=== PATIENT | male | born 1955 | race Caucasian/White ===

== ENCOUNTER 2016-08-30 20:20 | Inpatient (IN) | payer MEDICARE, MEDICAID ==
[~2016-08-30] VITALS: Ht 180.3 cm; Wt 72.6 kg
[~2016-08-30 20:20] MED LIST: CEPH-38 PO; CYCL10TA9; ENAL20TA PO; FLUT1DIS27 IH; LISI1TAB10 PO; MELO15TA39 PO; MORP60TA12 PO; OMEP20CA12 PO; OXYC-197 PO; RT-ALBUINH IH; [UNRECOGNIZED DRUG - OTHER]
[2016-08-30] MEDS ORDERED: RT-ALBUTEROL/IPRATROPIUM 3 ML (DUONEB) VIAL ONE (20:28)
[2016-08-30] MEDS ORDERED: OXYMETAZOLINE (AFRIN) 0.05% NA 15 ML BTL ONE (20:32)
[2016-08-30] MEDS: OXYMETAZOLINE (AFRIN) 0.05% NA 15 ML BTL SCH (20:36)
[2016-08-30] MEDS ORDERED: RT-ALBUTEROL SULF 2.5 MG/3 ML PRE-MIX VIAL ONE (20:38)
--- NOTE | 2016-08-30 20:44 | ED Cough/URI ---
General Chief Complaint: Respiratory Problems Stated Complaint: COUGH/THROWING UP BLOOD Source: patient Exam Limitations: no limitations History of Present Illness Time seen by provider: 20:43 Initial Comments To ER with shortness of breath and difficulty breathing for the past several weeks, worse today. He also has a nosebleed currently. This is originating from the left nostril. He wears oxygen at 3 L [id number]. He quit smoking one month ago. He is not on anticoagulation. Timing/Duration: just prior to arrival Severity/Quality: dry cough Associated Symptoms: cough Allergies and Home Medications Allergies Coded Allergies: No Known Drug Allergies (Unverified , 10/30/15) Home Medications Albuterol Sulfate 18 Gm Hfa.aer.ad, 1-2 PUFF IH Q4H PRN for SHORTNESS OF BREATH , #1 Ref 0 Prescribed by: YANETH MONTILLA on 10/29/15 233 Cyclobenzaprine Hcl 10 Mg Tablet, BID, (Reported) Enalapril Maleate 20 Mg Tablet, 20 MG PO DAILY, (Reported) Lisinopril/Hydrochlorothiazide 1 Each Tablet, 1 EACH PO DAILY, #30 Ref 0 Prescribed by: YANETH MONTILLA on 10/29/15 2322 Meloxicam 15 Mg Tablet, 15 MG PO DAILY, #30 Ref 0 Prescribed by: YANETH MONTILLA on 10/29/15 232 Morphine Sulfate 60 Mg Tablet.sa, 60 MG PO BID, (Reported) Oxycodone HCl/Acetaminophen 1 Each Tablet, 1 EACH PO Q4H PRN for PAIN, #14 Ref 0 Prescribed by: YANETH MONTILLA on 10/29/15 232 [Progene] , (Reported) Constitutional: see HPI EENTM: epistaxis, see HPI Respiratory: no symptoms reported, short of breath Cardiovascular: no symptoms reported Genitourinary: no symptoms reported Musculoskeletal: no symptoms reported Skin: no symptoms reported Psychiatric/Neurological: No Symptoms Reported Hematologic/Lymphatic: No Symptoms Reported Immunological/Allergic: no symptoms reported Past Osvylxu-Eymjqc-Fyizku Hx Patient Social History Alcohol Use: Occasionally Uses Recreational Drug Use: No Smoking Status: Former Smoker Recent Foreign Travel: No Contact w/Someone Who Travel: No Recent Hopitalizations: No Immunizations Up To Date Tetanus Booster (TDap): Less than 5yrs Seasonal Allergies Seasonal Allergies: No Surgeries HX Surgeries: Yes (Back fusion, Colon resection) Respiratory Hx Respiratory Disorders: No Cardiovascular Hx Cardiac Disorders: Yes Cardiac Disorders: Hypertension Neurological Hx Neurological Disorders: No Reproductive System Hx Reproductive Disorders: No Genitourinary Hx Genitourinary Disorders: No Gastrointestinal Hx Gastrointestinal Disorders: No Musculoskeletal Hx Musculoskeletal Disorders: Yes Musculoskeletal Disorders: Chronic Back Pain Endocrine Hx Endocrine Disorders: No HEENT HX ENT Disorders: No Cancer Hx Cancer: No Psychosocial Hx Psychiatric Problems: No Integumentary HX Skin/Integumentary Disorder: No Blood Transfusions Hx Blood Disorders: No Physical Exam Vital Signs Vital Sign - Last 12Hours 08/30/16 08/30/16 20:21 20:30 Temp 97.7 Pulse 104 Resp 24 B/P (MAP) 180/117 Pulse Ox 93 O2 Delivery Room Air O2 Flow Rate 5.00 Capillary Refill : General Appearance: WD/WN, moderate distress Eyes: Bilateral Eye EOMI, Bilateral Eye Normal Inspection, Bilateral Eye PERRL HEENT: PERRL/EOMI, normal ENT inspection, other (active bleeding from the left side of the septum anteriorly) Neck: non-tender, full range of motion Respiratory: no respiratory distress, no accessory muscle use, decreased breath sounds Gastrointestinal: normal bowel sounds, non tender, soft Neurologic/Psychiatric: alert, normal mood/affect, oriented x 3 Skin: normal color, warm/dry Progress/Results/Core Measures Results/Orders Lab Results Laboratory Tests Test 08/30/16 20:28 Range/Units White Blood Count 20.9 H 4.3-11.0 10^3/uL Red Blood Count 4.83 4.35-5.85 10^6/uL Hemoglobin 14.9 13.3-17.7 G/DL Hematocrit 45 40-54 % Mean Corpuscular Volume 94 80-99 FL Mean Corpuscular Hemoglobin 31 25-34 PG Mean Corpuscular Hemoglobin Concent 33 32-36 G/DL Red Cell Distribution Width 13.6 10.0-14.5 % Platelet Count 384 130-400 10^3/uL Mean Platelet Volume 9.5 7.4-10.4 FL Neutrophils (%) (Auto) 90 H 42-75 % Lymphocytes (%) (Auto) 6 L 12-44 % Monocytes (%) (Auto) 4 0-12 % Eosinophils (%) (Auto) 0 0-10 % Basophils (%) (Auto) 0 0-10 % Neutrophils # (Auto) 18.8 H 1.8-7.8 X 10^3 Lymphocytes # (Auto) 1.2 1.0-4.0 X 10^3 Monocytes # (Auto) 0.8 0.0-1.0 X 10^3 Eosinophils # (Auto) 0.0 0.0-0.3 10^3/uL Basophils # (Auto) 0.0 0.0-0.1 10^3/uL Neutrophils % (Manual) 70 % Lymphocytes % (Manual) 7 % Monocytes % (Manual) 2 % Eosinophils % (Manual) 0 % Basophils % (Manual) 0 % Band Neutrophils 21 % Nucleated Red Blood Cells 1 Toxic Granulation 1+ Blood Morphology Comment NORMAL Sodium Level 141 135-145 MMOL/L Potassium Level 3.1 L 3.6-5.0 MMOL/L Chloride Level 96 L 98-107 MMOL/L Carbon Dioxide Level 25 21-32 MMOL/L Anion Gap 20 H 5-14 MMOL/L Blood Urea Nitrogen 33 H 7-18 MG/DL Creatinine 1.09 0.60-1.30 MG/DL Estimat Glomerular Filtration Rate > 60 BUN/Creatinine Ratio 30 Glucose Level 152 H 70-105 MG/DL Calcium Level 10.6 H 8.5-10.1 MG/DL Total Bilirubin 0.6 0.1-1.0 MG/DL Aspartate Amino Transf (AST/SGOT) 86 H 5-34 U/L Alanine Aminotransferase (ALT/SGPT) 101 H 0-55 U/L Alkaline Phosphatase 148 H 40-136 U/L Total Protein 8.8 H 6.4-8.2 G/DL Albumin 4.2 3.2-4.5 G/DL My Orders Orders - EDGARDO HAMM APRN Oxymetazoline 0.05% Nasal Freer (Afrin 0. (08/30/16 21:00) Saline Lock/Iv-Start (08/30/16 20:41) Cbc With Automated Diff (08/30/16 20:41) Comprehensive Metabolic Panel (08/30/16 20:41) Chest 1 View, Ap/Pa Only (08/30/16 20:41) Methylprednisolone Sod Succ (Solu-Medrol (08/30/16 20:45) Albuterol Pre-Mix Nebs (Rt) (Proventil P (08/30/16 20:45) Albuterol/Ipra Inhalation Soln (Duoneb I (08/30/16 20:45) Svn Sm Volume Nebulizer Rt-Rfs (08/30/16 20:41) Albuterol Pre-Mix Nebs (Rt) (Proventil P (08/30/16 20:38) Manual Differential (08/30/16 20:28) Clonidine Tablet (Catapres Tablet) (08/30/16 21:00) Medications Given in ED Current Medications Medications Dose Ordered Sig/Vanda Route Start Time Stop Time Status Last Admin Dose Admin Albuterol/ Ipratropium 3 ml ONCE ONCE INH 08/30/16 20:45 08/30/16 20:46 DC 08/30/16 20:30 3 ML Methylprednisolone Sodium Succinate 125 mg ONCE ONCE IVP 08/30/16 20:45 08/30/16 20:46 DC 08/30/16 20:54 125 MG Vital Signs/I&O Vital Sign - Last 12Hours 08/30/16 08/30/16 08/30/16 20:21 20:30 20:40 Temp 97.7 Pulse 104 Resp 24 B/P (MAP) 180/117 Pulse Ox 93 94 O2 Delivery Room Air O2 Flow Rate 5.00 5.00 Diagnostic Imaging Diagonstic Imaging: Xray Plain Films/CT/US/NM/MRI: chest Comments NAME: COREY CLAROS [facility] REC#: [id number] PT STATUS: REG ER : 1955 PHYSICIAN: EDGARDO HAMM APRN ADMIT DATE: 08/30/16/ER Draft Date of Exam:08/30/16 CHEST 1 VIEW, AP/PA ONLY INDICATION: Shortness of breath. Comparison is made with prior examination 05/11/14 FINDINGS: The heart size is normal. There is a right basilar pneumonia. There is no pleural effusion or pneumothorax. Mediastinum is unremarkable. IMPRESSION: Right base infiltrate suspect for pneumonia. Dictated on workstation # [id number] Dict: 08/30/162110 Trans: 08/30/162114 [id number] Interpreted by: ADDIE ESPINOZA Electronically signed by: Departure Communication Time/Spoke to Admitting Phy: 21:26 Communication I discussed the case with Dr. Ramirez. We will admit the patient, IV fluids, steroids, breathing treatments and antibiotics. Impression Impression: Primary Impression: COPD exacerbation Additional Impressions: Hypertension Epistaxis RLL pneumonia Disposition: ADMITTED INPATIENT Condition: Stable Decision to Admit Reason: Admit from ER (General) Decision to Admit/Date: August 30, 2016 Time/Decision to Admit Time: 21:26 Departure-Patient Inst. Referrals: [facility] (PCP/Family) Primary Care Physician EDGARDO HAMM APRN August 30, 2016 20:44
[2016-08-30] MEDS ORDERED: methylPREDNISolone 125 MG (Solu-MEDROL) VIAL IVP ONE (20:45)
[2016-08-30] MEDS ORDERED: RT-ALBUTEROL/IPRATROPIUM 3 ML (DUONEB) VIAL INH ONE (20:45)
[2016-08-30] MEDS ORDERED: RT-ALBUTEROL SULF 2.5 MG/3 ML PRE-MIX VIAL IH SCH (20:45)
[2016-08-30 20:52] LABS: BASOPHILS % (AUTO) 0 % (0-10); EOSINOPHILS % (AUTO) 0 % (0-10); LYMPHOCYTES # (AUTO) 1.2 X 10^3 (1.0-4.0); LYMPHOCYTES % (AUTO) 6 % (12-44); MEAN CORPUSCULAR HEMOGLOBIN 31 PG (25-34); MEAN CORPUSCULAR HGB CONC 33 G/DL (32-36); MEAN CORPUSCULAR VOLUME 94 FL (80-99); MEAN PLATELET VOLUME 9.5 FL (7.4-10.4); MONOCYTES # (AUTO) 0.8 X 10^3 (0.0-1.0); MONOCYTES % (AUTO) 4 % (0-12); NEUTROPHILS # (AUTO) 18.8 X 10^3 (1.8-7.8); NEUTROPHILS % (AUTO) 90 % (42-75); PLATELET COUNT 384 10^3/uL (130-400); RED BLOOD COUNT 4.83 10^6/uL (4.35-5.85); RED CELL DISTRIBUTION WIDTH 13.6 % (10.0-14.5); WHITE BLOOD COUNT 20.9 10^3/uL (4.3-11.0)
[2016-08-30] MEDS ORDERED: cloNIDine 0.1 MG (CATAPRES) TAB PO ONE (21:00)
[2016-08-30 21:01] LABS: ALANINE AMINOTRANSFERASE 101 U/L (0-55); ALBUMIN 4.2 G/DL (3.2-4.5); ANION GAP 20 MMOL/L (5-14); ASPARTATE AMINO TRANSFERASE 86 U/L (5-34); BILIRUBIN,TOTAL 0.6 MG/DL (0.1-1.0); BLOOD UREA NITROGEN 33 MG/DL (7-18); BUN/CREATININE RATIO 30; CALCIUM 10.6 MG/DL (8.5-10.1); CARBON DIOXIDE 25 MMOL/L (21-32); CHLORIDE 96 MMOL/L (98-107); CREATININE SERUM 1.09 MG/DL (0.60-1.30); GFR ESTIMATED > 60; GLUCOSE 152 MG/DL (70-105); POTASSIUM 3.1 MMOL/L (3.6-5.0); SODIUM 141 MMOL/L (135-145); TOTAL PROTEIN 8.8 G/DL (6.4-8.2)
[2016-08-30 21:10] LABS: BAND NEUTROPHILS 21 %; BASOPHILS % (MANUAL) 0 %; EOSINOPHILS % (MANUAL) 0 %; LYMPHOCYTES % (MANUAL) 7 %; NEUTROPHILS % (MANUAL) 70 %
--- NOTE | 2016-08-30 21:15 | Diagnostic Imaging Report ---
INDICATION: Shortness of breath. Comparison is made with prior examination 05/11/14 FINDINGS: The heart size is normal. There is a right basilar pneumonia. There is no pleural effusion or pneumothorax. Mediastinum is unremarkable. IMPRESSION: Right base infiltrate suspect for pneumonia. Dictated by: Dictated on workstation # [id number]
[2016-08-30] MEDS ORDERED: PIPERACILLIN SODIUM/TAZOBACTAM 4.5 GM in NS (IVPB) 100 ML IV ONE (21:45)
[2016-08-30] MEDS ORDERED: NS IV 1000 ML 1,000 ML IV SCH (21:45)
[2016-08-30 22:25] VITALS: BP 181/86
[2016-08-30] MEDS: NS IV 1000 ML 1,000 ML IV SCH (23:43)
[2016-08-30] MEDS: LEVOFLOXACIN 750 MG/150 ML D5W (PRE-MIX) IV SCH (23:43)
[2016-08-31 00:31] VITALS: BP 147/74
[2016-08-31] MEDS ORDERED: RT-ALBUTEROL/IPRATROPIUM 3 ML (DUONEB) VIAL INH PRN (01:30)
[2016-08-31] MEDS: RT-ALBUTEROL/IPRATROPIUM 3 ML (DUONEB) VIAL INH SCH ×6 (02:00→22:04)
[2016-08-31 02:47] LABS: ABG BASE EXCESS -2.7 MMOL/L (-2.5-2.5); ABG HCO3 21 MMOL/L (23-27); ABG OXYGEN SATURATION 94 % (94-100); ABG PCO2 36 MMHG (35-45); ABG PO2 69 MMHG (79-93); ABG TCO2 22.5 MMOL/L (21.0-31.0)
[2016-08-31 02:48] LABS: ALLENS TEST YES-POS; PATIENT TEMP 98.7
[2016-08-31 04:00] VITALS: BP 162/86
[2016-08-31] MEDS: PIPERACILLIN/TAZOBACTAM 4.5 GM/NS100 ML IVPB IV SCH ×6 (04:30→20:44)
[2016-08-31] MEDS: methylPREDNISolone 40 MG/ML (Solu-MEDROL) VIAL IV SCH ×3 (04:30→20:44)
[2016-08-31 04:36] LABS: BASOPHILS % (AUTO) 0 % (0-10); EOSINOPHILS % (AUTO) 0 % (0-10); LYMPHOCYTES # (AUTO) 0.4 X 10^3 (1.0-4.0); LYMPHOCYTES % (AUTO) 2 % (12-44); MEAN CORPUSCULAR HEMOGLOBIN 31 PG (25-34); MEAN CORPUSCULAR HGB CONC 33 G/DL (32-36); MEAN CORPUSCULAR VOLUME 94 FL (80-99); MEAN PLATELET VOLUME 9.7 FL (7.4-10.4); MONOCYTES # (AUTO) 0.1 X 10^3 (0.0-1.0); MONOCYTES % (AUTO) 1 % (0-12); NEUTROPHILS # (AUTO) 18.9 X 10^3 (1.8-7.8); NEUTROPHILS % (AUTO) 97 % (42-75); PLATELET COUNT 316 10^3/uL (130-400); RED BLOOD COUNT 4.12 10^6/uL (4.35-5.85); RED CELL DISTRIBUTION WIDTH 13.4 % (10.0-14.5); WHITE BLOOD COUNT 19.4 10^3/uL (4.3-11.0)
[2016-08-31 04:57] LABS: ALANINE AMINOTRANSFERASE 137 U/L (0-55); ALBUMIN 3.5 G/DL (3.2-4.5); ANION GAP 15 MMOL/L (5-14); ASPARTATE AMINO TRANSFERASE 188 U/L (5-34); BILIRUBIN,TOTAL 0.4 MG/DL (0.1-1.0); BLOOD UREA NITROGEN 26 MG/DL (7-18); BUN/CREATININE RATIO 30; CALCIUM 9.7 MG/DL (8.5-10.1); CARBON DIOXIDE 24 MMOL/L (21-32); CHLORIDE 99 MMOL/L (98-107); CREATININE SERUM 0.88 MG/DL (0.60-1.30); GFR ESTIMATED > 60; GLUCOSE 197 MG/DL (70-105); POTASSIUM 3.1 MMOL/L (3.6-5.0); SODIUM 138 MMOL/L (135-145); TOTAL PROTEIN 7.2 G/DL (6.4-8.2)
[2016-08-31] MEDS ORDERED: FUROSEMIDE 40 MG/4 ML INJ (LASIX) IVP ONE (05:00)
[2016-08-31 07:27] VITALS: BP 174/91
[2016-08-31] MEDS: NS IV 1000 ML 1,000 ML IV SCH (07:30)
[2016-08-31] MEDS ORDERED: KCL 20 MEQ TAB (K-DUR) PO NR (09:49)
[2016-08-31] MEDS ORDERED: OXYC-471 PO (10:03)
[2016-08-31] MEDS ORDERED: ALBU18HF2 INH (10:03)
[2016-08-31] MEDS ORDERED: MORP100T37 PO (10:03)
[2016-08-31] MEDS: OXYMETAZOLINE (AFRIN) 0.05% NA 15 ML BTL SCH (11:30)
[2016-08-31 12:00] VITALS: BP 187/95
[2016-08-31] MEDS ORDERED: FUROSEMIDE 40 MG/4 ML INJ (LASIX) IVP NR (16:00)
--- NOTE | 2016-08-31 16:03 | History & Physicial (CHS) ---
HPI History of Present Illness: 61 yo M that presented with increasing shortness of breath and cough for the last 4-5 days. States that he started having chills last night and started feeling weak and fatigued. Stopped smoking last month but has been smoking at least 1ppd for the last 25 years. Uses home oxygen of 2-3 L all day. No sick contacts. Denies any chest pain, abdominal pain or blood in sputum. Source: patient, RN/MD, old records Exam Limitations: no limitations Date seen by provider: August 31, 2016 Time seen by provider: 11:15 Attending Physician Trudy Ramirez MD PCP [facility] Date of Admission August 30, 2016 at 21:31 Home Medications Home Medications Reviewed patient Home Medication Reconciliation Form Allergies Coded Allergies: No Known Drug Allergies (Unverified , 10/30/15) GGW-Rrrepf-Argvnr Hx Patient Social History Living Status: Lives in house Alcohol Use: Rarely Uses Recreational Drug Use: No Smoking Status: Former Smoker Recent Foreign Travel: No Contact w/other who traveled: No Recent Hopitalizations: No Recent Infectious Disease Expo: No Physical Abuse Screen: No Sexual Abuse: No Immunizations Up To Date Tetanus Booster (TDap): Less than 5yrs Past Medical History COPD baseline oxygen 2-3L at home Tobacco use HTN CAD Review of Systems (CHC) Constitutional: chills, malaise, weakness EENTM: epistaxis (cauterized in ER), No throat swelling Respiratory: cough, dyspnea on exertion, short of breath Cardiovascular: no symptoms reported, No chest pain, No edema, No palpitations Gastrointestinal: no symptoms reported, No abdominal pain, No nausea, No vomiting Genitourinary: no symptoms reported, No dysuria, No frequency, No hematuria Musculoskeletal: back pain (chronic), muscle pain Skin: no symptoms reported, No lesions, No rash Psychiatric/Neurological: No Symptoms Reported Reviewed Test Results Reviewed Test Results Lab Laboratory Tests Test 08/30/16 20:28 08/30/16 21:14 08/30/16 23:08 08/31/16 02:41 Range/Units White Blood Count 20.9 H 4.3-11.0 10^3/uL Red Blood Count 4.83 4.35-5.85 10^6/uL Hemoglobin 14.9 13.3-17.7 G/DL Hematocrit 45 40-54 % Mean Corpuscular Volume 94 80-99 FL Mean Corpuscular Hemoglobin 31 25-34 PG Mean Corpuscular Hemoglobin Concent 33 32-36 G/DL Red Cell Distribution Width 13.6 10.0-14.5 % Platelet Count 384 130-400 10^3/uL Mean Platelet Volume 9.5 7.4-10.4 FL Neutrophils (%) (Auto) 90 H 42-75 % Lymphocytes (%) (Auto) 6 L 12-44 % Monocytes (%) (Auto) 4 0-12 % Eosinophils (%) (Auto) 0 0-10 % Basophils (%) (Auto) 0 0-10 % Neutrophils # (Auto) 18.8 H 1.8-7.8 X 10^3 Lymphocytes # (Auto) 1.2 1.0-4.0 X 10^3 Monocytes # (Auto) 0.8 0.0-1.0 X 10^3 Eosinophils # (Auto) 0.0 0.0-0.3 10^3/uL Basophils # (Auto) 0.0 0.0-0.1 10^3/uL Neutrophils % (Manual) 70 % Lymphocytes % (Manual) 7 % Monocytes % (Manual) 2 % Eosinophils % (Manual) 0 % Basophils % (Manual) 0 % Band Neutrophils 21 % Nucleated Red Blood Cells 1 Toxic Granulation 1+ Blood Morphology Comment NORMAL Sodium Level 141 135-145 MMOL/L Potassium Level 3.1 L 3.6-5.0 MMOL/L Chloride Level 96 L 98-107 MMOL/L Carbon Dioxide Level 25 21-32 MMOL/L Anion Gap 20 H 5-14 MMOL/L Blood Urea Nitrogen 33 H 7-18 MG/DL Creatinine 1.09 0.60-1.30 MG/DL Estimat Glomerular Filtration Rate > 60 BUN/Creatinine Ratio 30 Glucose Level 152 H 70-105 MG/DL Calcium Level 10.6 H 8.5-10.1 MG/DL Total Bilirubin 0.6 0.1-1.0 MG/DL Aspartate Amino Transf (AST/SGOT) 86 H 5-34 U/L Alanine Aminotransferase (ALT/SGPT) 101 H 0-55 U/L Alkaline Phosphatase 148 H 40-136 U/L Total Protein 8.8 H 6.4-8.2 G/DL Albumin 4.2 3.2-4.5 G/DL Lactic Acid Level 2.02 *H 1.33 0.50-2.00 MMOL/L Blood Gas Puncture Site LT RAD Blood Gas Patient Temperature 98.7 Arterial Blood pH 7.40 7.37-7.43 Arterial Blood Partial Pressure CO2 36 35-45 MMHG Arterial Blood Partial Pressure O2 69 L 79-93 MMHG Arterial Blood HCO3 21 L 23-27 MMOL/L Arterial Blood Total CO2 22.5 21.0-31.0 MMOL/L Arterial Blood Oxygen Saturation 94 94-100 % Arterial Blood Base Excess -2.7 L -2.5-2.5 MMOL/L [place] Test YES-POS Blood Gas Ventilator Setting NO Blood Gas Inspired Oxygen 3L Test 08/31/16 04:05 Range/Units White Blood Count 19.4 H 4.3-11.0 10^3/uL Red Blood Count 4.12 L 4.35-5.85 10^6/uL Hemoglobin 12.9 L 13.3-17.7 G/DL Hematocrit 39 L 40-54 % Mean Corpuscular Volume 94 80-99 FL Mean Corpuscular Hemoglobin 31 25-34 PG Mean Corpuscular Hemoglobin Concent 33 32-36 G/DL Red Cell Distribution Width 13.4 10.0-14.5 % Platelet Count 316 130-400 10^3/uL Mean Platelet Volume 9.7 7.4-10.4 FL Neutrophils (%) (Auto) 97 H 42-75 % Lymphocytes (%) (Auto) 2 L 12-44 % Monocytes (%) (Auto) 1 0-12 % Eosinophils (%) (Auto) 0 0-10 % Basophils (%) (Auto) 0 0-10 % Neutrophils # (Auto) 18.9 H 1.8-7.8 X 10^3 Lymphocytes # (Auto) 0.4 L 1.0-4.0 X 10^3 Monocytes # (Auto) 0.1 0.0-1.0 X 10^3 Eosinophils # (Auto) 0.0 0.0-0.3 10^3/uL Basophils # (Auto) 0.0 0.0-0.1 10^3/uL Sodium Level 138 135-145 MMOL/L Potassium Level 3.1 L 3.6-5.0 MMOL/L Chloride Level 99 98-107 MMOL/L Carbon Dioxide Level 24 21-32 MMOL/L Anion Gap 15 H 5-14 MMOL/L Blood Urea Nitrogen 26 H 7-18 MG/DL Creatinine 0.88 0.60-1.30 MG/DL Estimat Glomerular Filtration Rate > 60 BUN/Creatinine Ratio 30 Glucose Level 197 H 70-105 MG/DL Calcium Level 9.7 8.5-10.1 MG/DL Total Bilirubin 0.4 0.1-1.0 MG/DL Aspartate Amino Transf (AST/SGOT) 188 H 5-34 U/L Alanine Aminotransferase (ALT/SGPT) 137 H 0-55 U/L Alkaline Phosphatase 191 H 40-136 U/L Total Protein 7.2 6.4-8.2 G/DL Albumin 3.5 3.2-4.5 G/DL Radiology Date of Exam: 08/30/16 CHEST 1 VIEW, AP/PA ONLY INDICATION: Shortness of breath. Comparison is made with prior examination 05/11/14 FINDINGS: The heart size is normal. There is a right basilar pneumonia. There is no pleural effusion or pneumothorax. Mediastinum is unremarkable. IMPRESSION: Right base infiltrate suspect for pneumonia. Physical Exam-(CHC) Physical Exam Vital Signs VS - Last 72 Hours, by Label 08/30/16 08/30/16 08/30/16 08/30/16 20:21 20:30 20:40 21:50 Temp 97.7 97.7 Pulse 104 104 Resp 24 24 B/P (MAP) 180/117 153/88 Pulse Ox 93 94 94 O2 Delivery Room Air Simple Mask O2 Flow Rate 5.00 5.00 5.00 08/30/16 08/30/16 08/30/16 08/30/16 22:15 22:25 22:45 23:03 Temp 97.7 99.0 Pulse 84 86 Resp 21 18 B/P (MAP) 181/86 Pulse Ox 93 93 93 93 O2 Delivery OxyMask O2 Flow Rate 5.00 3.00 3.00 08/31/16 08/31/16 08/31/16 08/31/16 00:31 02:00 04:00 07:15 Temp 97.5 96.0 Pulse 80 80 Resp 18 22 B/P (MAP) 147/74 162/86 Pulse Ox 93 92 94 O2 Delivery OxyMask OxyMask O2 Flow Rate 3.00 3.00 3.00 3.00 08/31/16 08/31/16 08/31/1608/31/17 07:27 08:00 11:19 12:00 Temp 98.0 97.6 Pulse 80 78 Resp 18 20 B/P (MAP) 174/91 187/95 Pulse Ox 4 95 91 96 O2 Delivery OxyMask O2 Flow Rate 3.00 3.00 3.00 3.00 08/31/16 08/31/16 08/31/16 14:48 16:20 18:59 Temp 98.9 Pulse 74 Resp 19 B/P (MAP) 199/100 Pulse Ox 94 95 95 O2 Flow Rate 3.00 3.00 3.00 Capillary Refill : Less Than 3 Seconds General Appearance: WD/WN, mild distress HEENT: PERRL/EOMI, pharynx normal Neck: non-tender, full range of motion, supple, normal inspection Respiratory: chest non-tender, normal breath sounds, no accessory muscle use, decreased breath sounds, wheezing Cardiovascular: normal peripheral pulses, regular rate, rhythm, no edema, no gallop, no JVD, no murmur Gastrointestinal: normal bowel sounds, non tender, soft, no organomegaly, no pulsatile mass Back: normal inspection, no CVA tenderness Extremities: normal range of motion, non-tender, normal inspection, no pedal edema, no calf tenderness, normal capillary refill 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, no motor/sensory deficits, alert, normal mood/affect, oriented x 3 Skin: normal color, warm/dry Lymphatic: no adenopathy Assessment/Plan Assessment/Plan Plan 61 yo M that is admitted for acute respiratory distress with hypoxia found to have Pneumonia Plan Right lower lobe CAP - Started on Levaquin and Zosyn D#2 - A/A nebs - Encouraged ambulation and IS COPD Exacerbation likely brought on by PNA - IV steroids - Titrate oxygen as tolerated - Discussed the importance of continue tobacco cessation HTN - Not on medications at home, patient states that he is in alot of pain, restarted pain medications will continue to monitor BPs, will likely need to start HTN medication - Previously on Lisinopril/HCTZ Elevated LFTs - Normal LFTs in clinic earlier in year - Acute Hepatitis panel pending - Liver US tomorrow Hypokalemia - Replaced, repeat CMP in AM FEN: Heart healthy diet DVT PPX: Lovenox Dispo: Admit to Med surg Diagnosis/Problems: Clinical Quality Measures DVT/VTE Risk/Contraindication: Risk Factor Score Per Nursin RFS Level Per Nursing on Admit: 4+=Very High Copy Copies To 1: Carline LIANG HOLLY R MD August 31, 2016 16:03
[2016-08-31 16:20] VITALS: BP 199/100
[2016-08-31] MEDS: oxyCODONE/APAP 5/325MG (PERCOCET 5) TABLET PO PRN (17:02)
[2016-08-31] MEDS: morphine ER 100 MG (MS CONTIN) TAB PO SCH (17:02)
[2016-08-31 19:39] VITALS: BP 159/81
[2016-08-31] MEDS: ENOXAPARIN 40 MG/0.4 ML (LOVENOX) SYR SC SCH (20:44)
[2016-09-01] VITALS: BP 156/84
[2016-09-01] MEDS: LEVOFLOXACIN 750 MG/150 ML D5W (PRE-MIX) IV SCH (00:38)
[2016-09-01] MEDS: RT-ALBUTEROL/IPRATROPIUM 3 ML (DUONEB) VIAL INH SCH ×6 (02:29→22:03)
[2016-09-01 04:00] VITALS: BP 166/86
[2016-09-01] MEDS: methylPREDNISolone 40 MG/ML (Solu-MEDROL) VIAL IV SCH ×2 (04:13→12:06)
[2016-09-01] MEDS: PIPERACILLIN/TAZOBACTAM 4.5 GM/NS100 ML IVPB IV SCH ×6 (04:14→20:45)
[2016-09-01 05:30] LABS: BASOPHILS % (AUTO) 0 % (0-10); EOSINOPHILS % (AUTO) 0 % (0-10); LYMPHOCYTES # (AUTO) 0.8 X 10^3 (1.0-4.0); LYMPHOCYTES % (AUTO) 4 % (12-44); MEAN CORPUSCULAR HEMOGLOBIN 31 PG (25-34); MEAN CORPUSCULAR HGB CONC 33 G/DL (32-36); MEAN CORPUSCULAR VOLUME 95 FL (80-99); MEAN PLATELET VOLUME 9.7 FL (7.4-10.4); MONOCYTES # (AUTO) 0.8 X 10^3 (0.0-1.0); MONOCYTES % (AUTO) 4 % (0-12); NEUTROPHILS # (AUTO) 16.6 X 10^3 (1.8-7.8); NEUTROPHILS % (AUTO) 91 % (42-75); PLATELET COUNT 358 10^3/uL (130-400); RED CELL DISTRIBUTION WIDTH 13.6 % (10.0-14.5); WHITE BLOOD COUNT 18.2 10^3/uL (4.3-11.0)
[2016-09-01 05:40] LABS: ANION GAP 14 MMOL/L (5-14); BLOOD UREA NITROGEN 26 MG/DL (7-18); BUN/CREATININE RATIO 30; CALCIUM 9.6 MG/DL (8.5-10.1); CARBON DIOXIDE 26 MMOL/L (21-32); CHLORIDE 99 MMOL/L (98-107); CREATININE SERUM 0.87 MG/DL (0.60-1.30); GFR ESTIMATED > 60; GLUCOSE 161 MG/DL (70-105); POTASSIUM 3.3 MMOL/L (3.6-5.0); SODIUM 139 MMOL/L (135-145)
[2016-09-01 08:00] VITALS: BP 179/97
[2016-09-01] MEDS: morphine ER 100 MG (MS CONTIN) TAB PO SCH ×2 (08:19→20:45)
[2016-09-01] MEDS: oxyCODONE/APAP 5/325MG (PERCOCET 5) TABLET PO PRN ×2 (08:21→18:29)
--- NOTE | 2016-09-01 08:44 | Diagnostic Imaging Report ---
EXAMINATION: Hepatic ultrasound. INDICATION: Elevated LFTs. FINDINGS: The pancreas is obscured by bowel gas. The liver is fairly homogeneous with no focal lesion. Hepatopetal flow in the portal vein is seen. The right kidney is 11.4 cm in length with no hydronephrosis or focal lesion. The CBD is obscured by bowel gas. The gallbladder is contracted with no definite stone. The gallbladder contraction appears to be related to a recent meal just before the exam. The 3 mm wall thickness of the gallbladder is likely secondary to its contraction with no evidence of cholecystitis. IMPRESSION: No definite abnormality. Dictated by: Dictated on workstation # [id number]
[2016-09-01] MEDS ORDERED: KCL 20 MEQ TAB (K-DUR) PO NR (09:32)
[2016-09-01 12:00] VITALS: BP 166/84
[2016-09-01 17:30] VITALS: BP 174/96
--- NOTE | 2016-09-01 18:01 | Progress Note (SOAP) ---
Subjective Subjective/Events-last exam Patient states that he feels much better this AM and asking to go home. Still having shortness of breath. Denies chest pain. Tolerating PO diet and ambulation. PT states patient still unsteady on feet. Date seen by provider: September 01, 2016 Objective Exam Last Set of Vital Signs Vital Signs Date Time Temp Pulse Resp B/P (MAP) Pulse Ox O2 Delivery O2 Flow Rate FiO2 09/01/16 15:21 94 3.00 09/01/16 12:00 97.2 79 20 166/84 08/31/16 07:27 OxyMask Capillary Refill : Less Than 3 Seconds I&O Intake and Output 09/01/16 00:00 Intake Total 1490 ml Output Total 1175 ml Balance 315 ml Intake Oral 1290 ml IV Total 200 ml Output Urine Total 1175 ml # Bowel Movements 3 General: Alert, Oriented X3, Cooperative, No Acute Distress Lungs: Clear to Auscultation, Normal Air Movement Heart: Regular Rate, No Murmurs Abdomen: Normal Bowel Sounds, Soft, No Tenderness Extremities: No Edema, No Tenderness/Swelling Skin: No Rashes Neuro: Normal Speech, Strength at 5/5 X4 Ext, Sensation Intact, Cranial Nerves 3-12 NL Psych/Mental Status: Mental Status NL, Mood NL Results/Procedures Lab Laboratory Tests 09/01/16 04:45: White Blood Count 18.2H, Red Blood Count 4.00L, Hemoglobin 12.3L, Hematocrit 38L , Mean Corpuscular Volume 95, Mean Corpuscular Hemoglobin 31, Mean Corpuscular Hemoglobin Concent 33, Red Cell Distribution Width 13.6, Platelet Count 358, Mean Platelet Volume 9.7, Neutrophils (%) (Auto) 91H, Lymphocytes (%) (Auto) 4L , Monocytes (%) (Auto) 4, Eosinophils (%) (Auto) 0, Basophils (%) (Auto) 0, Neutrophils # (Auto) 16.6H, Lymphocytes # (Auto) 0.8L, Monocytes # (Auto) 0.8, Eosinophils # (Auto) 0.0, Basophils # (Auto) 0.0, Sodium Level 139, Potassium Level 3.3L, Chloride Level 99, Carbon Dioxide Level 26, Anion Gap 14, Blood Urea Nitrogen 26H, Creatinine 0.87, Estimat Glomerular Filtration Rate > 60, BUN /Creatinine Ratio 30, Glucose Level 161H, Calcium Level 9.6 Microbiology 08/30/16 Blood Culture - Preliminary, Resulted No growth 08/31/16 Gram Stain - Final, Resulted 08/31/16 Sputum Culture - Preliminary, Resulted Radiology Date of Exam: 08/30/16 CHEST 1 VIEW, AP/PA ONLY INDICATION: Shortness of breath. Comparison is made with prior examination 05/11/14 FINDINGS: The heart size is normal. There is a right basilar pneumonia. There is no pleural effusion or pneumothorax. Mediastinum is unremarkable. IMPRESSION: Right base infiltrate suspect for pneumonia. Assessment/Plan Assessment/Plan Plan 61 yo M that is admitted for acute respiratory distress with hypoxia found to have Pneumonia Plan Right lower lobe CAP - Started on Levaquin and Zosyn D#3, will transition to PO in AM - A/A nebs - Encouraged ambulation and IS COPD Exacerbation likely brought on by PNA - IV steroids - Titrate oxygen as tolerated - Discussed the importance of continue tobacco cessation HTN - Not on medications at home, patient states that he is in alot of pain, restarted pain medications will continue to monitor BPs, will likely need to start HTN medication - Previously on Lisinopril/HCTZ - Start norvasc 5mg daily due to LISSY Elevated LFTs - Normal LFTs in clinic earlier in year - Acute Hepatitis panel pending - Liver US normal Hypokalemia - Replaced, repeat CMP in AM FEN: Heart healthy diet DVT PPX: Lovenox Dispo: continue admit to Med surg Diagnosis/Problems: Clinical Quality Measures DVT/VTE Risk/Contraindication: Risk Factor Score Per Nursin RFS Level Per Nursing on Admit: 4+=Very High NOEL DE GUZMAN MD September 01, 2016 18:01
[2016-09-01] MEDS: ENOXAPARIN 40 MG/0.4 ML (LOVENOX) SYR SC SCH (18:27)
[2016-09-01] MEDS: predniSONE 20 MG TAB PO SCH (18:27)
[2016-09-01 21:50] VITALS: BP 195/94
[2016-09-02] VITALS: BP 158/74
[2016-09-02] MEDS: LEVOFLOXACIN 750 MG/D5W 150 ML PRE-MIX IV SCH (00:52)
[2016-09-02] MEDS: RT-ALBUTEROL/IPRATROPIUM 3 ML (DUONEB) VIAL INH SCH ×5 (02:23→18:49)
[2016-09-02 04:00] VITALS: BP 166/96
[2016-09-02] MEDS: PIPERACILLIN/TAZOBACTAM 4.5 GM/NS100 ML IVPB IV SCH ×6 (04:02→20:05)
[2016-09-02 05:36] LABS: BASOPHILS % (AUTO) 0 % (0-10); EOSINOPHILS % (AUTO) 0 % (0-10); LYMPHOCYTES # (AUTO) 0.9 X 10^3 (1.0-4.0); LYMPHOCYTES % (AUTO) 5 % (12-44); MEAN CORPUSCULAR HEMOGLOBIN 31 PG (25-34); MEAN CORPUSCULAR HGB CONC 33 G/DL (32-36); MEAN CORPUSCULAR VOLUME 96 FL (80-99); MEAN PLATELET VOLUME 9.3 FL (7.4-10.4); MONOCYTES # (AUTO) 0.7 X 10^3 (0.0-1.0); MONOCYTES % (AUTO) 4 % (0-12); NEUTROPHILS % (AUTO) 90 % (42-75); PLATELET COUNT 381 10^3/uL (130-400); RED BLOOD COUNT 3.77 10^6/uL (4.35-5.85); RED CELL DISTRIBUTION WIDTH 13.7 % (10.0-14.5); WHITE BLOOD COUNT 16.7 10^3/uL (4.3-11.0)
[2016-09-02 05:53] LABS: ANION GAP 13 MMOL/L (5-14); BLOOD UREA NITROGEN 22 MG/DL (7-18); BUN/CREATININE RATIO 29; CALCIUM 8.9 MG/DL (8.5-10.1); CARBON DIOXIDE 24 MMOL/L (21-32); CHLORIDE 101 MMOL/L (98-107); CREATININE SERUM 0.77 MG/DL (0.60-1.30); GFR ESTIMATED > 60; GLUCOSE 126 MG/DL (70-105); POTASSIUM 3.4 MMOL/L (3.6-5.0); SODIUM 138 MMOL/L (135-145)
[2016-09-02 06:05] LABS: ANISOCYTOSIS SLIGHT; BAND NEUTROPHILS 2 %; BASOPHILS % (MANUAL) 0 %; EOSINOPHILS % (MANUAL) 0 %; LYMPHOCYTES % (MANUAL) 6 %; NEUTROPHILS % (MANUAL) 87 %; POLYCHROMASIA SLIGHT; REACTIVE LYMPHOCYTES 2 %
[2016-09-02] MEDS: predniSONE 20 MG TAB PO SCH ×2 (06:29→17:02)
[2016-09-02 08:00] VITALS: BP 173/84
[2016-09-02] MEDS: amLODIPine 5 MG (NORVASC) TAB PO SCH (08:27)
[2016-09-02] MEDS: morphine ER 100 MG (MS CONTIN) TAB PO SCH ×2 (08:27→20:05)
[2016-09-02] MEDS ORDERED: KCL 20 MEQ TAB (K-DUR) PO ONE (09:30)
--- NOTE | 2016-09-02 10:58 | Progress Note (SOAP) ---
Subjective Subjective/Events-last exam Still having shortness of breath. Feels a little uneasy on his feet but did well with PT. Tolerating PO diet. BM overnight. States that he wants to go home but not sure he is ready. Still having episodes of hypoxia when oxygen is titrated Date seen by provider: September 02, 2016 Time seen by provider: 10:00 Objective Exam Last Set of Vital Signs Vital Signs Date Time Temp Pulse Resp B/P (MAP) Pulse Ox O2 Delivery O2 Flow Rate FiO2 09/02/16 10:35 95 3.00 09/02/16 08:00 97.2 75 16 173/84 08/31/16 07:27 OxyMask Capillary Refill : Less Than 3 Seconds I&O Intake and Output 09/02/16 00:00 Intake Total 1800 ml Output Total 1490 ml Balance 310 ml Intake Oral 1450 ml IV Total 350 ml Output Urine Total 1490 ml # Voids 1 # Bowel Movements 2 General: Alert, Oriented X3, Cooperative Lungs: Clear to Auscultation, Other (mild distress with minimal activity) Heart: Regular Rate, No Murmurs Abdomen: Normal Bowel Sounds, Soft, No Tenderness, No Hepatosplenomegaly, No Masses Extremities: No Edema, No Tenderness/Swelling Neuro: Strength at 5/5 X4 Ext, Sensation Intact, Cranial Nerves 3-12 NL Results/Procedures Lab Laboratory Tests 09/02/16 05:17: White Blood Count 16.7H, Red Blood Count 3.77L, Hemoglobin 11.8L, Hematocrit 36L , Mean Corpuscular Volume 96, Mean Corpuscular Hemoglobin 31, Mean Corpuscular Hemoglobin Concent 33, Red Cell Distribution Width 13.7, Platelet Count 381, Mean Platelet Volume 9.3, Neutrophils (%) (Auto) 90H, Lymphocytes (%) (Auto) 5L , Monocytes (%) (Auto) 4, Eosinophils (%) (Auto) 0, Basophils (%) (Auto) 0, Neutrophils # (Auto) 15.0H, Lymphocytes # (Auto) 0.9L, Monocytes # (Auto) 0.7, Eosinophils # (Auto) 0.0, Basophils # (Auto) 0.0, Neutrophils % (Manual) 87, Lymphocytes % (Manual) 6, Monocytes % (Manual) 3, Eosinophils % (Manual) 0, Basophils % (Manual) 0, Band Neutrophils 2, Reactive Lymphocytes 2, Polychromasia SLIGHT, Anisocytosis SLIGHT, Sodium Level 138, Potassium Level 3.4L, Chloride Level 101, Carbon Dioxide Level 24, Anion Gap 13, Blood Urea Nitrogen 22H, Creatinine 0.77, Estimat Glomerular Filtration Rate > 60, BUN/ Creatinine Ratio 29, Glucose Level 126H, Calcium Level 8.9 Microbiology 08/30/16 Blood Culture - Preliminary, Resulted No growth 08/31/16 Gram Stain - Final, Resulted 08/31/16 Sputum Culture - Preliminary, Resulted Radiology Date of Exam: 08/30/16 CHEST 1 VIEW, AP/PA ONLY INDICATION: Shortness of breath. Comparison is made with prior examination 05/11/14 FINDINGS: The heart size is normal. There is a right basilar pneumonia. There is no pleural effusion or pneumothorax. Mediastinum is unremarkable. IMPRESSION: Right base infiltrate suspect for pneumonia. Assessment/Plan Assessment/Plan Plan 61 yo M that is admitted for acute respiratory distress with hypoxia found to have Pneumonia Plan Right lower lobe CAP - Started on Levaquin and Zosyn D#4, will transition to PO in AM - A/A nebs - Encouraged ambulation and IS COPD Exacerbation likely brought on by PNA - PO steroids - Continue scheduled and PRN breathing treatments - Titrate oxygen as tolerated, ambulatory ox patient required 3.5 liters which is above baseline - Discussed the importance of continue tobacco cessation HTN - Continue norvasc 5mg daily Elevated LFTs - Normal LFTs in clinic earlier in year - Acute Hepatitis panel normal - Liver US normal Hypokalemia - Replaced, repeat CMP in AM FEN: Heart healthy diet DVT PPX: Lovenox Dispo: continue admit to Med surg, possible home tomorrow, discussed HH and patient does not want HH PT Diagnosis/Problems: Clinical Quality Measures DVT/VTE Risk/Contraindication: Risk Factor Score Per Nursin RFS Level Per Nursing on Admit: 4+=Very High NOEL DE GUZMAN MD September 02, 2016 10:58
--- NOTE | 2016-09-02 14:22 | Physical Therapy Evaluation ---
PT Evaluation-General Medical Diagnosis Admission Date August 30, 2016 at 21:31 Medical Diagnosis: SOa Onset Date: August 30, 2016 Therapy Diagnosis Therapy Diagnosis: WEAKNESS; ABN GAIT Height/Weight Height (Feet): 5 Height (Inches): 11.00 Weight (Pounds): 160 Weight (Ounces): 0.0 Precautions Precautions/Isolations: Standard Precautions Referral Physician: Ashley Reason for Referral: Evaluation/Treatment Medical History Pertinent Medical History: CAD, COPD, HTN Current History Admitted with SOA past 4-5 days. Found to have pneumonia Reviewed History: Yes Social History Home: Single Level Current Living Status: Alone Entry Into Home: Stairs With Railing Prior/Core FIM Prior Level of Function Functional [place] Measure 0=Not Assessed/NA 4=Minimal Assistance 1=Total Assistance 5=Supervision or Setup 2=Maximal Assistance 6=Modified [place] 3=Moderate Assistance 7=Complete [place] Bed Mobility: 7 Transfers (B,C,W/C) (FIM): 7 Gait: 7 uses oxygen at home. PT Evaluation-Current Subjective Agreeable . Hopes to go home tomorrow. Objective Patient Orientation: Person, Place, Time, Situation Problem Solving: Good Attachments: Oxygen (in situ during and post treatment), IV ROM/Strength ROM Lower Extremities WFL Strenght Lower Extremities WFL Integumentary/Posture Integumentary intact Bowel Incontinence: No Bladder Incontinence: No Neuromuscular (Tone, Coordination, Reflexes) functional Sensory Vision: Functional Hearing: Functional Hand Dominance: Right Sensation Right Lower Extremit: Intact Sensation Left Lower Extremity: Intact Transfers Functional [place] Measure 0=Not Assessed/NA 4=Minimal Assistance 1=Total Assistance 5=Supervision or Setup 2=Maximal Assistance 6=Modified [place] 3=Moderate Assistance 7=Complete [place] Transfers (B, C, W/C) (FIM): 5 SBA for all functional transfers. Gait Mode of Locomotion: Walk Anticipated Mode of Locomotion: Walk Gait (FIM): 5 Distance: 200 ft Gait Assistive Device: None Comments/Gait Description safe gait with no assist necessary. Assist only for oxygen tank and IV pole. Balance Sitting Static: Normal Sitting Dynamic: Normal Standing Static: Normal Standing Dynamic: Normal Assessment/Needs Pt is SBA with mobility. Will beneift from short term PT to work on functional act tolerance and safety. 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 Entertainment Musician Goals PT Entertainment Musician Goals Time Frame: September 06, 2016 Transfers (B,C,W/C) (FIM): 7 Gait (FIM): 7 PT Plan Problem List Problem List: Activity Tolerance, Functional Strength, Safety Treatment/Plan Treatment Plan: Continue Plan of Care Treatment Plan: Functional Activity D[place], Functional Strength Treatment Duration: September 06, 2016 # of days/week 5 Visits Per Week: 5 Pt/Family Agrees w/Plan: Yes Safety Risks/Education Patient Education: Transfer Techniques, Safety Issues Teaching Recipient: Patient Teaching Methods: Demonstration, Discussion Response to Teaching: Reinforcement Needed Time/GCodes Time In: 1400 Time Out: 1420 Total Billed Treatment Time: 20 Total Billed Treatment visit EVM 20 MELONY DELEON PT September 02, 2016 14:22
[2016-09-02 16:14] VITALS: BP 173/104
[2016-09-02] MEDS: ENOXAPARIN 40 MG/0.4 ML (LOVENOX) SYR SC SCH (18:37)
[2016-09-02] MEDS: oxyCODONE/APAP 5/325MG (PERCOCET 5) TABLET PO PRN (20:05)
[2016-09-03] MEDS: LEVOFLOXACIN 750 MG/D5W 150 ML PRE-MIX IV SCH (00:14)
[2016-09-03 01:00] VITALS: BP 168/92
[2016-09-03] MEDS: PIPERACILLIN/TAZOBACTAM 4.5 GM/NS100 ML IVPB IV SCH ×2 (04:30)
[2016-09-03 04:40] LABS: BASOPHILS % (AUTO) 0 % (0-10); EOSINOPHILS % (AUTO) 0 % (0-10); LYMPHOCYTES # (AUTO) 0.9 X 10^3 (1.0-4.0); LYMPHOCYTES % (AUTO) 6 % (12-44); MEAN CORPUSCULAR HEMOGLOBIN 31 PG (25-34); MEAN CORPUSCULAR HGB CONC 33 G/DL (32-36); MEAN CORPUSCULAR VOLUME 96 FL (80-99); MEAN PLATELET VOLUME 9.3 FL (7.4-10.4); MONOCYTES # (AUTO) 0.7 X 10^3 (0.0-1.0); MONOCYTES % (AUTO) 5 % (0-12); NEUTROPHILS % (AUTO) 89 % (42-75); PLATELET COUNT 395 10^3/uL (130-400); RED BLOOD COUNT 3.82 10^6/uL (4.35-5.85); RED CELL DISTRIBUTION WIDTH 13.6 % (10.0-14.5); WHITE BLOOD COUNT 14.5 10^3/uL (4.3-11.0)
[2016-09-03 05:24] LABS: ANION GAP 11 MMOL/L (5-14); BLOOD UREA NITROGEN 23 MG/DL (7-18); BUN/CREATININE RATIO 32; CALCIUM 8.7 MG/DL (8.5-10.1); CARBON DIOXIDE 25 MMOL/L (21-32); CHLORIDE 100 MMOL/L (98-107); CREATININE SERUM 0.71 MG/DL (0.60-1.30); GFR ESTIMATED > 60; GLUCOSE 95 MG/DL (70-105); POTASSIUM 4.5 MMOL/L (3.6-5.0); SODIUM 136 MMOL/L (135-145)
[2016-09-03] MEDS: predniSONE 20 MG TAB PO SCH (06:13)
[2016-09-03] MEDS: RT-ALBUTEROL/IPRATROPIUM 3 ML (DUONEB) VIAL INH SCH ×2 (06:51→10:47)
[2016-09-03] MEDS: morphine ER 100 MG (MS CONTIN) TAB PO SCH (08:07)
[2016-09-03] MEDS: amLODIPine 5 MG (NORVASC) TAB PO SCH (08:07)
[2016-09-03 08:28] VITALS: BP 166/83
[2016-09-03] MEDS ORDERED: LEVO750T39 PO (11:39)
[2016-09-03] MEDS ORDERED: AMLO5TAB2 PO (11:39)
[2016-09-03] MEDS ORDERED: PRD20T PO (11:39)
--- NOTE | 2016-09-03 11:41 | Discharge Instructions ---
Discharge [facility] Discharge Medications New, Converted or Re-Newed RX: Call to Patients Pharmacy New Medications: Levofloxacin (Levofloxacin) 750 Mg Tablet 750 MG PO DAILY for 7 Days, TAB Amlodipine Besylate (Amlodipine Besylate) 5 Mg Tablet 5 MG PO DAILY for 30 Days, TAB Prednisone (Prednisone) 20 Mg Tab 20 MG PO DAILY, #20 TAB Take 3 tabs x 3 days Take 2 tabs x 3 days take 1 tab x 3 days take 1/2 tab x 4 day Then stop Continued Medications: Albuterol Sulfate (Ventolin Hfa) 18 Gm Hfa.aer.ad 2 PUFF INH Q4H PRN for SHORTNESS OF BREATH, INHALER Morphine Sulfate (Morphine Sulfate ER) 100 Mg Tablet.er 100 MG PO Q12H, TAB Oxycodone HCl/Acetaminophen (Oxycodone-Acetaminophen 5-325) 1 Each Tablet 2 TAB PO BID PRN for PAIN-MODERATE, TAB Patient Instructions Goal/Follow Up Appt: You have an appointment with Dr Centeno on September 05 @ 340pm, Then you will follow up with your PCP Carline Pastrana Patient Instructions: - Make sure you complete your antibioitics - Make sure you complet all your steroids - Inspiratory Spirometry at least 10 times per day Return to The [facility]: - Increasing shortness of breath - Unable to tolerate antibioitics Activity & Diet Discharge Diet: ADA Diet Activity as Tolerated: Yes Orders-Post D/C & Referrals Pneu Vac Indicated: Yes [facility] MD September 03, 2016 11:41
--- NOTE | 2016-09-03 19:36 | Discharge Summary ---
Diagnosis/Chief Complaint Date of Admission August 30, 2016 at 21:31 Date of Discharge September 03, 2016 at 12:02 Admission Diagnosis Admission Diagnosis Acute Respiratory Failure with Hypoxia RLL CAP COPD Exacerbation HTN Elevated LFTs Hypokalemia Debility Discharge Diagnosis See Above Chief Complaint/HPI Chief Complaint/HPI 61 yo M that presented with increasing shortness of breath and cough for the last 4-5 days. States that he started having chills last night and started feeling weak and fatigued. Stopped smoking last month but has been smoking at least 1ppd for the last 25 years. Uses home oxygen of 2-3 L all day. No sick contacts. Denies any chest pain, abdominal pain or blood in sputum. Discharge Summary-Simple/Stand Procedures None Consultations None Discharge Physical Examination Allergies: Coded Allergies: No Known Drug Allergies (Unverified , 10/30/15) Vitals & I&Os Vital Sign - Last 12Hours Date Time Temp Pulse Resp B/P (MAP) Pulse Ox O2 Delivery O2 Flow Rate FiO2 09/03/16 12:02 09/03/16 10:47 96 3.00 09/03/16 08:28 97.1 73 20 08/31/16 07:27 OxyMask Intake and Output 09/03/16 00:00 Intake Total 4190 ml Output Total 650 ml Balance 3540 ml General Appearance: Alert, Oriented X3, Cooperative, No Acute Distress HEENT: Atraumatic, PERRLA, EOMI, Mucous Memb Moist/[place] Respiratory: Clear to Auscultation, Normal Air Movement, Other (Normal work of breathing) Cardiovascular: Regular Rate, No Murmurs Abdominal: Normal Bowel Sounds, Soft, No Tenderness, No Hepatosplenomegaly, No Masses Extremities: No Edema, No Tenderness/Swelling Skin: No Rashes, No Breakdown Neuro: Normal Gait, Normal Speech, Strength at 5/5 X4 Ext, Sensation Intact, Cranial Nerves 3-12 NL Psych/Mental Status: Mental Status NL, Mood NL Hospital Course See final discharge diagnosis. Pending Labs Patient needs outpatient PFTs Radiology Reviewed Date of Exam: 08/30/16 CHEST 1 VIEW, AP/PA ONLY INDICATION: Shortness of breath. Comparison is made with prior examination 05/11/14 FINDINGS: The heart size is normal. There is a right basilar pneumonia. There is no pleural effusion or pneumothorax. Mediastinum is unremarkable. IMPRESSION: Right base infiltrate suspect for pneumonia. Discussion & Recommendations 61 yo M that presented with acute respiratory failure found to have PNA Acute Respiratory Failure with hypoxia: during admission patient was on increased oxygen requirement. Oxygen was able to be titrated down to home requirement and patient was ready to go home. He was on IV antibiotics and steroids and transitioned to PO prior to discharge. Patient tolerated PO medications well. COPD Exacerbation: Patient recently quit smoking 1 month ago. No recent PFTs in clinic. Recommended Outpatient PFT after completed PNA treatment. Patient sent home with antibiotics and steroids. HTN: Uncontrolled HTN, started on norvasc during admission. Elevated LFTs: Normal US and acute hepatitis panel. Trending down at discharge. Will need outpatient labs to follow trend. Hypokalemia: replaced Debility: Seen by PT during admission. Patient would likely benefit from outpatient PT. He declined for PT. Discharge Condition at discharge Stable Instructions to patient/family Please see electonic discharge instructions given to patient. Discharge Medications Reviewed and agree with Discharge Medication list on patient's Discharge Instruction sheet Clinical Quality Measures DVT/VTE Risk/Contraindication: Risk Factor Score Per Nursin RFS Level Per Nursing on Admit: 4+=Very High Copy Copies To 1: Carline LIANG HOLLY R MD September 03, 2016 19:36
--- NOTE | 2016-09-05 09:11 | Physician Query ---
PQ-Uncertain Diagnosis Admission/Discharge Admission Date: August 30, 2016 at 21:31 Discharge Date: September 03, 2016 at 12:02 The medical record reflects the following clinical scenario: History/Risk Factors: COPD Clinical Findings: PH 7.40, PCO2 36, PO2 69, R 24, Dyspnea on exertion, SOB, no accessory muscle use Treatment: Oxygen 5.00 L/min, Nebs, IS, Levaquin, Zosyn, IV steroids Question: Is Acute Respiratory Failure a clinically valid diagnosis? Acute Respiratory Failure was documented in the Discharge Summary with no further documentation in the medical record. Please document a response below. PHYSICIAN RESPONSE Diagnosis clinically valid: Other, explanation/clinical finding Explanation of clincal finding Yes he had increased oxygen demand, hypoxia and respiratory distress Please remember a lack of response to the above will prompt a phone page by CDI/ coding staff. In responding to this query, please exercise your independent professional judgment. The purpose of this communication is to more accurately reflect the complexity of your patients condition. The fact that a question is asked does not imply that any particular answer is desired or expected. Thank you for your timely response to this clarification. Requestors name: Tala THIS PHYSICIAN QUERY FORM IS A PERMANENT PART OF THE MEDICAL RECORD TALA PALMA September 05, 2016 09:11 NOEL DE GUZMAN MD September 05, 2016 22:11
== END 2016-09-03 12:02 | disposition home or self-care (01) | DRG 189 ==
LOC: EDUNIT# 20:20 → ER 20:22 → 4TH 21:31
PROVIDERS: ADMIT Family Medicine; ATTEND Family Medicine
DX: J96.01 Acute respiratory failure with hypoxia (principal); J44.1 Chronic obstructive pulmonary disease with (acute) exacerbation; J44.0 Chronic obstructive pulmonary disease with (acute) lower respiratory infection; J18.9 Pneumonia, unspecified organism; R04.0 Epistaxis; I10 Essential (primary) hypertension; E87.6 Hypokalemia; M54.9 Dorsalgia, unspecified; Z99.81 Dependence on supplemental oxygen; Z87.891 Personal history of nicotine dependence; Z98.1 Arthrodesis status; Z90.49 Acquired absence of other specified parts of digestive tract
CPT/HCPCS: 36415; 71010; 76705; 80048; 80053; 80074; 82805; 83605; 85007; 85025; 85027; 87040; 87070; 87205; 94640; 94664; 94760; 94761; 96374; 96375

== ENCOUNTER 2016-09-03 21:17 | Inpatient (IN) | payer MEDICARE, MEDICAID ==
[~2016-09-03] VITALS: Ht 180.3 cm; Wt 72.6 kg
[~2016-09-03 21:17] MED LIST changes: +ALBU18HF2 INH; +AMLO5TAB2 PO; +LEVO750T39 PO; +MORP100T37 PO; +OXYC-471 PO; +PRD20T PO
[2016-09-03] MEDS ORDERED: methylPREDNISolone 125 MG (Solu-MEDROL) VIAL IV STA (21:26)
[2016-09-03] MEDS ORDERED: DEXAMETHASONE 4 MG/ML SDV (DECADRON) IH ONE ×2 (21:30→22:15)
[2016-09-03] MEDS ORDERED: RT-ALBUTEROL/IPRATROPIUM 3 ML (DUONEB) VIAL INH ONE ×2 (21:30→22:15)
[2016-09-03 21:35] LABS: ABG BASE EXCESS 7.5 MMOL/L (-2.5-2.5); ABG HCO3 32 MMOL/L (23-27); ABG OXYGEN SATURATION 94 % (94-100); ABG PCO2 46 MMHG (35-45); ABG PH 7.45 (7.37-7.43); ABG PO2 67 MMHG (79-93); ABG TCO2 33.1 MMOL/L (21.0-31.0)
[2016-09-03 21:36] LABS: BASOPHILS # (AUTO) 0.2 10^3/uL (0.0-0.1); BASOPHILS % (AUTO) 1 % (0-10); EOSINOPHILS % (AUTO) 0 % (0-10); LYMPHOCYTES # (AUTO) 1.5 X 10^3 (1.0-4.0); LYMPHOCYTES % (AUTO) 8 % (12-44); MEAN CORPUSCULAR HEMOGLOBIN 31 PG (25-34); MEAN CORPUSCULAR HGB CONC 33 G/DL (32-36); MEAN CORPUSCULAR VOLUME 94 FL (80-99); MEAN PLATELET VOLUME 9.1 FL (7.4-10.4); MONOCYTES # (AUTO) 0.9 X 10^3 (0.0-1.0); MONOCYTES % (AUTO) 4 % (0-12); NEUTROPHILS # (AUTO) 16.7 X 10^3 (1.8-7.8); NEUTROPHILS % (AUTO) 87 % (42-75); PLATELET COUNT 451 10^3/uL (130-400); RED BLOOD COUNT 4.43 10^6/uL (4.35-5.85); RED CELL DISTRIBUTION WIDTH 13.5 % (10.0-14.5); WHITE BLOOD COUNT 19.2 10^3/uL (4.3-11.0)
[2016-09-03 21:36] LABS: ALLENS TEST YES-POS; PATIENT TEMP 98.7
[2016-09-03 21:45] LABS: PROTHROMBIN TIME PATIENT 12.4 SEC (12.2-14.7)
[2016-09-03] MEDS ORDERED: NITROGLYCERIN 2% OINT 1 GM UNIT DOSE PACKET TOP ONE (21:45)
[2016-09-03 21:52] LABS: BAND NEUTROPHILS 1 %; BASOPHILS % (MANUAL) 0 %; EOSINOPHILS % (MANUAL) 0 %; LYMPHOCYTES % (MANUAL) 11 %; NEUTROPHILS % (MANUAL) 87 %
[2016-09-03 21:56] LABS: ALANINE AMINOTRANSFERASE 108 U/L (0-55); ALBUMIN 3.6 G/DL (3.2-4.5); ANION GAP 14 MMOL/L (5-14); ASPARTATE AMINO TRANSFERASE 40 U/L (5-34); BILIRUBIN,TOTAL 0.4 MG/DL (0.1-1.0); BLOOD UREA NITROGEN 22 MG/DL (7-18); BUN/CREATININE RATIO 30; CALCIUM 9.4 MG/DL (8.5-10.1); CARBON DIOXIDE 28 MMOL/L (21-32); CHLORIDE 98 MMOL/L (98-107); CREATINE KINASE 112 U/L (30-200); CREATININE SERUM 0.74 MG/DL (0.60-1.30); GFR ESTIMATED > 60; GLUCOSE 91 MG/DL (70-105); MAGNESIUM 1.9 MG/DL (1.8-2.4); POTASSIUM 4.2 MMOL/L (3.6-5.0); SODIUM 140 MMOL/L (135-145); TOTAL PROTEIN 6.7 G/DL (6.4-8.2)
[2016-09-03 22:03] LABS: TROPONIN I < 0.30 NG/ML (<0.30)
[2016-09-03] MEDS ORDERED: VANCOMYCIN INJECTION 1,000 MG in NS (IVPB) 250 ML IV ONE (22:15)
[2016-09-03] MEDS ORDERED: cloNIDine 0.2 MG (CATAPRES) TAB PO ONE (22:15)
[2016-09-03 22:23] LABS: ABG BASE EXCESS 5.4 MMOL/L (-2.5-2.5); ABG HCO3 29 MMOL/L (23-27); ABG OXYGEN SATURATION 91 % (94-100); ABG PCO2 43 MMHG (35-45); ABG PH 7.45 (7.37-7.43); ABG PO2 59 MMHG (79-93); ABG TCO2 30.7 MMOL/L (21.0-31.0)
[2016-09-03 22:24] LABS: ALLENS TEST YES-POS; PATIENT TEMP 98.4
--- NOTE | 2016-09-03 22:25 | ED Respiratory ---
General Chief Complaint: Respiratory Problems Stated Complaint: PNEUMONIA WITH HYPOXIA,UNCONTROLLED HTN Nursing Triage Note: patient shree was discharge today from hospital with pneumonia, patient reports SOA became worse again at 1700 Source: patient, old records (2119) History of Present Illness Time seen by provider: 21:20 Initial Comments PT ARRIVES VIA POV FROM HOME C/O SHORTNESS OF BREATH PT WAS ADMITTED HERE WEDNESDAY 08/30 FOR PNEUMONIA/COPD EXACERBATION AND JUST DISMISSED TODAY AT 1300 SHORTNESS OF BREATH HAS INCREASED SINCE 1700 TODAY PT HAS NOT TAKEN ANY MEDICATION TODAY PT STATES HE USED ALBUTEROL INHALER X 1 TODAY AT 1500--DOES NOT HAVE SPACER OR HOME NEBULIZER PT WEARS CONTINUOUS HOME O2 AT 2-3 LITERS/NC NO FEVER STATES CHEST HURTS TO BREATHE HAS HAD PERSISTENT COUGH WITH COLORED SPUTUM NO SWELLING IN LEGS/ FEET OR PAIN IN CALVES PCP: [facility] Allergies and Home Medications Allergies Coded Allergies: No Known Drug Allergies (Unverified , 10/30/15) Home Medications Albuterol Sulfate 18 Gm Hfa.aer.ad, 2 PUFF INH Q4H PRN for SHORTNESS OF BREATH, (Reported) Amlodipine Besylate 5 Mg Tablet, 5 MG PO DAILY for 30 Days Prescribed by: NOEL DE GUZMAN on 09/03/16 113 Levofloxacin 750 Mg Tablet, 750 MG PO DAILY for 7 Days Prescribed by: NOEL DE GUZMAN on 09/03/16 1139 Morphine Sulfate 100 Mg Tablet.er, 100 MG PO Q12H, (Reported) Oxycodone HCl/Acetaminophen 1 Each Tablet, 2 TAB PO BID PRN for PAIN-MODERATE, ( Reported) Prednisone 20 Mg Tab, 20 MG PO DAILY, #20 Take 3 tabs x 3 days Take 2 tabs x 3 days take 1 tab x 3 days take 1/2 tab x 4 day Then stop Prescribed by: NOEL DE GUZMAN on 09/03/16 1139 Constitutional: no symptoms reported, No chills, No diaphoresis, No fever EENTM: no symptoms reported Respiratory: see HPI, cough, dyspnea on exertion, phlegm, short of breath, wheezing Cardiovascular: see HPI, chest pain, No edema, No palpitations, No syncope, No vascular heart diseas Gastrointestinal: no symptoms reported Genitourinary: no symptoms reported Musculoskeletal: no symptoms reported Skin: no symptoms reported Psychiatric/Neurological: No Symptoms Reported Hematologic/Lymphatic: No Symptoms Reported Immunological/Allergic: no symptoms reported Past Bwswrrz-Rzthod-Znsedt Hx Patient Social History Alcohol Use: Rarely Uses Recreational Drug Use: Yes (+ FOR METH/ AMPHETAMINES IN 2009) Smoking Status: Former Smoker (2 PPD--CLAIMS NONE SINCE 07/2016) Type Used: Cigarettes Recent Foreign Travel: No Contact w/Someone Who Travel: No Recent Infectious Disease Expo: No Recent Hopitalizations: No Immunizations Up To Date Tetanus Booster (TDap): Less than 5yrs Seasonal Allergies Seasonal Allergies: No Surgeries HX Surgeries: Yes (BACK SURGERY/FUSION; COLON RESECTION; EGD/COLONOSCOPIES) Surgeries: Abdominal, Bowel Surgery, Orthopedic Respiratory Hx Respiratory Disorders: Yes (INTUBATED 2009--UNRESPONSIVE ON ARRIVAL TO ER) Respiratory Disorders: Asthma, Pneumonia, Chronic Bronchitis, COPD Cardiovascular Hx Cardiac Disorders: Yes Cardiac Disorders: Hypertension Neurological Hx Neurological Disorders: Yes (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) Reproductive System Hx Reproductive Disorders: No Genitourinary Hx Genitourinary Disorders: Yes (2009 --RENAL FAILURE) Genitourinary Disorders: Renal Failure Gastrointestinal Hx Gastrointestinal Disorders: Yes (COLON RESECTION FOR POLYPS; ELEVATED LIVER ENZYMES) Gastrointestinal Disorders: Liver Disease/Jaundice, Polyps Musculoskeletal Hx Musculoskeletal Disorders: Yes (CHRONIC MORPHINE USE FOR CHRONIC BACK PAIN ) Musculoskeletal Disorders: Arthritis, Chronic Back Pain Endocrine Hx Endocrine Disorders: No HEENT HX ENT Disorders: No Cancer Hx Cancer: No Psychosocial Hx Psychiatric Problems: No Integumentary HX Skin/Integumentary Disorder: No Blood Transfusions Hx Blood Disorders: No Adverse Reaction to a Blood Tr: No Family Medical History Other 2009--PT CAME TO ER AFTER BEING FOUND UNRESPONSIVE--PT INTUBATED, WAS IN RENAL FAILURE, ELEVATED TROPONIN, ELEVATED LIVER ENZYMES-POSSIBLE HEPATIC ENCEPHALOPATHY, WITH OPIATES AND AMPHETAMINES/ METHAMPHETAMINES ON BOARD. Physical Exam Vital Signs Vital Sign - Last 12Hours 09/03/16 21:25 Temp 98.7 Pulse 87 Resp 18 B/P (MAP) 196/128 Pulse Ox 94 O2 Delivery Nasal Cannula O2 Flow Rate 3.00 Capillary Refill : Less Than 3 Seconds General Appearance: WD/WN, mild distress (MILD TO MODERATE DYSPNEA) HEENT: PERRL/EOMI Neck: normal inspection Respiratory: decreased breath sounds (DIFFUSE DECREASED AERATION), accessory muscle use (MILD TO MODERATE RETRACTIONS), wheezing (DIFFUSE EXPIRATORY WHEEZING ) Cardiovascular: normal peripheral pulses, regular rate, rhythm, no edema, no JVD, no murmur Gastrointestinal: normal bowel sounds, non tender, soft Extremities: normal range of motion, non-tender, normal inspection, no pedal edema, no calf tenderness 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, no motor/sensory deficits, alert, normal mood/affect, oriented x 3 Skin: normal color, warm/dry Focused Exam Lactic Acid Level Laboratory Tests Test 09/03/16 21:25 Lactic Acid Level 2.03 MMOL/L (0.50-2.00) *H Progress/Results/Core Measures Results/Orders Lab Results Laboratory Tests Test 09/03/16 21:25 09/03/16 21:28 Range/Units White Blood Count 19.2 H 4.3-11.0 10^3/uL Red Blood Count 4.43 4.35-5.85 10^6/uL Hemoglobin 13.8 13.3-17.7 G/DL Hematocrit 42 40-54 % Mean Corpuscular Volume 94 80-99 FL Mean Corpuscular Hemoglobin 31 25-34 PG Mean Corpuscular Hemoglobin Concent 33 32-36 G/DL Red Cell Distribution Width 13.5 10.0-14.5 % Platelet Count 451 H 130-400 10^3/uL Mean Platelet Volume 9.1 7.4-10.4 FL Neutrophils (%) (Auto) 87 H 42-75 % Lymphocytes (%) (Auto) 8 L 12-44 % Monocytes (%) (Auto) 4 0-12 % Eosinophils (%) (Auto) 0 0-10 % Basophils (%) (Auto) 1 0-10 % Neutrophils # (Auto) 16.7 H 1.8-7.8 X 10^3 Lymphocytes # (Auto) 1.5 1.0-4.0 X 10^3 Monocytes # (Auto) 0.9 0.0-1.0 X 10^3 Eosinophils # (Auto) 0.0 0.0-0.3 10^3/uL Basophils # (Auto) 0.2 H 0.0-0.1 10^3/uL Neutrophils % (Manual) 87 % Lymphocytes % (Manual) 11 % Monocytes % (Manual) 1 % Eosinophils % (Manual) 0 % Basophils % (Manual) 0 % Band Neutrophils 1 % Blood Morphology Comment NORMAL Prothrombin Time 12.4 12.2-14.7 SEC INR Comment 1.0 0.8-1.4 Activated Partial Thromboplast Time 28 24-35 SEC Sodium Level 140 135-145 MMOL/L Potassium Level 4.2 3.6-5.0 MMOL/L Chloride Level 98 98-107 MMOL/L Carbon Dioxide Level 28 21-32 MMOL/L Anion Gap 14 5-14 MMOL/L Blood Urea Nitrogen 22 H 7-18 MG/DL Creatinine 0.74 0.60-1.30 MG/DL Estimat Glomerular Filtration Rate > 60 BUN/Creatinine Ratio 30 Glucose Level 91 70-105 MG/DL Lactic Acid Level 2.03 *H 0.50-2.00 MMOL/L Calcium Level 9.4 8.5-10.1 MG/DL Magnesium Level 1.9 1.8-2.4 MG/DL Total Bilirubin 0.4 0.1-1.0 MG/DL Aspartate Amino Transf (AST/SGOT) 40 H 5-34 U/L Alanine Aminotransferase (ALT/SGPT) 108 H 0-55 U/L Alkaline Phosphatase 144 H 40-136 U/L Total Creatine Kinase 112 30-200 U/L Creatine Kinase MB 3.4 <6.6 NG/ML Troponin I < 0.30 <0.30 NG/ML B-Type Natriuretic Peptide 132.4 H <100.0 PG/ML Total Protein 6.7 6.4-8.2 G/DL Albumin 3.6 3.2-4.5 G/DL Blood Gas Puncture Site LT RADIAL Blood Gas Patient Temperature 98.7 Arterial Blood pH 7.45 H 7.37-7.43 Arterial Blood Partial Pressure CO2 46 H 35-45 MMHG Arterial Blood Partial Pressure O2 67 L 79-93 MMHG Arterial Blood HCO3 32 H 23-27 MMOL/L Arterial Blood Total CO2 33.1 H 21.0-31.0 MMOL/L Arterial Blood Oxygen Saturation 94 94-100 % Arterial Blood Base Excess 7.5 H -2.5-2.5 MMOL/L [place] Test YES-POS Blood Gas Ventilator Setting NO Blood Gas Inspired Oxygen 3 My Orders Orders - JOCE LAL DO O2 (09/03/16 21:22) Cbc And Manual Diff (09/03/16 21:22) Comprehensive Metabolic Panel (09/03/16 21:22) Blood Culture (09/03/16 21:22) Sputum Culture (09/03/16 21:22) Chest Pa/Lat (2 View) (09/03/16 21:22) Monitor-Rhythm Ecg Trace Only (09/03/16 21:22) BNP (09/03/16 21:22) Creatine Kinase (09/03/16 21:22) Creatine Kinase Mb (09/03/16 21:22) Lactic Acid Analyzer (09/03/16 21:22) Magnesium (09/03/16 21:22) Protime With Inr (09/03/16 21:22) Partial Thromboplastin Time (09/03/16 21:22) Troponin I (09/03/16 21:22) Saline Lock/Iv-Start (09/03/16 21:22) Ekg Tracing (09/03/16 21:22) Albuterol/Ipra Inhalation Soln (Duoneb I (09/03/16 21:30) Dexamethasone Injection (Decadron Inject (09/03/16 21:30) Methylprednisolone Sod Succ (Solu-Medrol (09/03/16 21:26) Svn Sm Volume Nebulizer Rt-Rfs (09/03/16 21:26) Arterial Blood Gas (09/03/16 21:26) Nitroglycerin Ointment (Nitrobid Ointme (09/03/16 21:45) Medications Given in ED Current Medications Medications Dose Ordered Sig/Vanda Route Start Time Stop Time Status Last Admin Dose Admin Albuterol/ Ipratropium 3 ml ONCE ONCE INH 09/03/16 21:30 09/03/16 21:31 DC 09/03/16 21:38 3 ML Dexamethasone Sodium Phosphate 20 mg ONCE ONCE IH 09/03/16 21:30 09/03/16 21:31 DC 09/03/16 21:38 20 MG Nitroglycerin 1 inch ONCE ONCE TOP 09/03/16 21:45 09/03/16 21:46 DC 09/03/16 21:48 1 INCH Vital Signs/I&O Vital Sign - Last 12Hours 09/03/16 09/03/16 09/03/16 09/03/16 21:25 21:25 21:38 21:53 Temp 98.7 Pulse 87 Resp 18 B/P (MAP) 196/128 Pulse Ox 94 94 93 O2 Delivery Nasal Cannula Nasal Cannula O2 Flow Rate 3.00 3.00 3.00 3.00 Blood Pressure Mean: 150 Progress Note : Progress Note INCREASED AERATION BUT STILL WITH WHEEZING AFTER NEB TX X 2, PT REFUSES ANY OTHER NEB TREATMENTS O2 SATS REMAIN IN MID 90'S ON O2 AT 2L/NC NO DETERIORATION IN PT'S CONDITION DURING ER STAY ECG Initial ECG Impression Time: 21:22 Initial ECG Rate: 80 Initial ECG Rhythm: Normal Sinus Diagnostic Imaging Comments CXR--RLL INFILTRATE, NO SIGNIFICANT CHANGE FROM PREVIOUS--PENDING RADIOLOGIST REVIEW Reviewed: Reviewed by Me Departure Communication Progress Notes 2199--SPOKE WITH DR. DE GUZMAN, ACCEPTS PT FOR ADMIT Impression Impression: Primary Impression: RLL pneumonia Additional Impressions: Hypoxia COPD exacerbation Uncontrolled hypertension Elevated liver enzymes Disposition: ADMITTED INPATIENT Condition: Stable Decision to Admit Reason: Admit from ER (General) Decision to Admit/Date: September 03, 2016 Time/Decision to Admit Time: 22:00 Departure-Patient Inst. Referrals: NATASHA OLIVER MD (PCP) Primary Care Physician YORDAN CURIEL (Family) Primary Care Physician JOCE LAL DO September 03, 2016 22:25
--- NOTE | 2016-09-03 22:31 | Diagnostic Imaging Report ---
CLINICAL INDICATION: Patient with right lower lobe infiltrate. Patient with shortness of air and cough. Exam: Chest x-ray PA and lateral views. Comparisons: Chest x-ray dated 08/30/2016. Findings: Lungs/pleura: There is slight improved aeration of the right lung base with minimal right lung base infiltrate remaining. Remainder of the lungs are clear and stable. There is no pneumothorax. There is no pleural effusion. Mediastinum: Unremarkable. Pulmonary vasculature: Unremarkable. Heart: Unremarkable. Bones/extrathoracic soft tissue: There are mildly hypertrophic degenerative osteophytes scattered throughout the thoracic spine. Impression: Interval improved aeration of the right lung base with minimal right lung base infiltrate remaining. Follow up chest x-ray in 4 weeks is suggested to evaluate for interval resolution of this finding. Dictated by: Dictated on workstation # [id number]
[2016-09-03 22:48] LABS: BILIRUBIN,URINE NEGATIVE (NEGATIVE); KETONES,URINE NEGATIVE (NEGATIVE); LEUKOCYTE ESTERASE ,URINE NEGATIVE (NEGATIVE); NITRITE,URINE NEGATIVE (NEGATIVE); PH,URINE 7 (5-9); PROTEIN,URINE NEGATIVE (NEGATIVE); UROBILINOGEN,URINE NORMAL (NORMAL)
[2016-09-03 22:58] LABS: WBC,URINE RARE /HPF
[2016-09-03 23:05] VITALS: BP 197/110
[2016-09-03] MEDS ORDERED: hydrALAZINE (APRESOLINE) 25 MG TAB PO PRN (23:15)
[2016-09-03] MEDS ORDERED: IBUPROFEN 800 MG (MOTRIN) TAB PO PRN (23:30)
[2016-09-03] MEDS ORDERED: CEFEPIME 2 GM/NS 50 ML IVPB IV SCH ×2 (23:30)
[2016-09-03] MEDS ORDERED: BENZONATATE 100 MG (TESSALON) CAPSULE PO PRN (23:30)
[2016-09-03] MEDS ORDERED: CATHETER FLUSH 10 ML SYR IV PRN (23:30)
[2016-09-03] MEDS: morphine ER 100 MG (MS CONTIN) TAB PO SCH (23:48)
[2016-09-03] MEDS: oxyCODONE/APAP 5/325MG (PERCOCET 5) TABLET PO PRN (23:49)
[2016-09-04] VITALS: BP 166/101
[2016-09-04] MEDS ORDERED: RT-ALBUTEROL/IPRATROPIUM 3 ML (DUONEB) VIAL INH PRN
[2016-09-04] MEDS ORDERED: LEVOFLOXACIN 750 MG/D5W 150 ML PRE-MIX IV SCH
[2016-09-04] MEDS: NS IV 1000 ML 1,000 ML IV SCH ×2 (00:37→08:31)
[2016-09-04] MEDS: RT-ALBUTEROL/IPRATROPIUM 3 ML (DUONEB) VIAL INH SCH ×2 (02:28→07:12)
[2016-09-04] MEDS: methylPREDNISolone 125 MG (Solu-MEDROL) VIAL IV SCH ×2 (03:18→08:31)
[2016-09-04 04:00] VITALS: BP 146/88
[2016-09-04 05:22] LABS: BASOPHILS % (AUTO) 0 % (0-10); EOSINOPHILS % (AUTO) 0 % (0-10); LYMPHOCYTES # (AUTO) 0.4 X 10^3 (1.0-4.0); LYMPHOCYTES % (AUTO) 3 % (12-44); MEAN CORPUSCULAR HEMOGLOBIN 31 PG (25-34); MEAN CORPUSCULAR HGB CONC 33 G/DL (32-36); MEAN CORPUSCULAR VOLUME 96 FL (80-99); MONOCYTES # (AUTO) 0.1 X 10^3 (0.0-1.0); MONOCYTES % (AUTO) 1 % (0-12); NEUTROPHILS # (AUTO) 15.9 X 10^3 (1.8-7.8); NEUTROPHILS % (AUTO) 96 % (42-75); PLATELET COUNT 400 10^3/uL (130-400); RED BLOOD COUNT 4.02 10^6/uL (4.35-5.85); RED CELL DISTRIBUTION WIDTH 13.5 % (10.0-14.5); WHITE BLOOD COUNT 16.5 10^3/uL (4.3-11.0)
[2016-09-04 05:44] LABS: ALANINE AMINOTRANSFERASE 86 U/L (0-55); ALBUMIN 3.2 G/DL (3.2-4.5); ANION GAP 12 MMOL/L (5-14); ASPARTATE AMINO TRANSFERASE 24 U/L (5-34); BILIRUBIN,TOTAL 0.4 MG/DL (0.1-1.0); BLOOD UREA NITROGEN 21 MG/DL (7-18); BUN/CREATININE RATIO 31; CALCIUM 8.4 MG/DL (8.5-10.1); CARBON DIOXIDE 25 MMOL/L (21-32); CHLORIDE 100 MMOL/L (98-107); CREATININE SERUM 0.68 MG/DL (0.60-1.30); GFR ESTIMATED > 60; GLUCOSE 122 MG/DL (70-105); POTASSIUM 5.1 MMOL/L (3.6-5.0); SODIUM 137 MMOL/L (135-145); TOTAL PROTEIN 5.8 G/DL (6.4-8.2)
[2016-09-04] MEDS ORDERED: NITROGLYCERIN 2% OINT 1 GM UNIT DOSE PACKET TOP SCH (06:00)
[2016-09-04] MEDS ORDERED: CATHETER FLUSH 10 ML SYR IV SCH (06:00)
[2016-09-04 08:00] VITALS: BP 147/88
[2016-09-04] MEDS: morphine ER 100 MG (MS CONTIN) TAB PO SCH (08:35)
[2016-09-04] MEDS: oxyCODONE/APAP 5/325MG (PERCOCET 5) TABLET PO PRN (08:35)
[2016-09-04] MEDS ORDERED: VANCOMYCIN 1 GM/NS 250 ML IVPB IV SCH ×2 (09:00)
[2016-09-04] MEDS ORDERED: morphine ER 100 MG (MS CONTIN) TAB PO SCH ×2 (09:00→21:00)
[2016-09-04] MEDS ORDERED: LEVOFLOXACIN 750 MG/150 ML IV 150 ML IV SCH (09:45)
[2016-09-04] MEDS ORDERED: PIPERACILLIN SODIUM/TAZOBACTAM 4.5 GM in NS (IVPB) 100 ML IV SCH (09:45)
[2016-09-04] MEDS ORDERED: oxyCODONE/APAP 5/325MG (PERCOCET 5) TABLET PO PRN (09:45)
[2016-09-04] MEDS ORDERED: ENOXAPARIN 40 MG/0.4 ML (LOVENOX) SYR SC SCH (09:45)
[2016-09-04] MEDS ORDERED: amLODIPine 5 MG (NORVASC) TAB PO SCH (10:00)
[2016-09-04] MEDS ORDERED: RT-ALBUTEROL/IPRATROPIUM 3 ML (DUONEB) VIAL INH SCH (11:00)
[2016-09-04] MEDS ORDERED: predniSONE 20 MG TAB PO SCH (17:00)
[2016-09-05] MEDS ORDERED: TROUGH ORDER-PHARMACY XX NR (08:00)
== END 2016-09-04 10:05 | disposition swing bed (61) | DRG 190 ==
LOC: EDUNIT# 21:17 → ER 21:19 → 4TH 22:00
PROVIDERS: ADMIT Family Medicine; ATTEND Family Medicine
DX: J44.0 Chronic obstructive pulmonary disease with (acute) lower respiratory infection (principal); J18.9 Pneumonia, unspecified organism; J44.1 Chronic obstructive pulmonary disease with (acute) exacerbation; R09.02 Hypoxemia; R74.8 Abnormal levels of other serum enzymes; I10 Essential (primary) hypertension; Z87.891 Personal history of nicotine dependence
CPT/HCPCS: 36415; 71020; 80053; 80074; 80306; 81000; 82550; 82553; 82805; 83605; 83735; 83880; 84484; 85007; 85025; 85027; 85610; 85730; 87040; 87070; 87205; 93005; 93041; 94640; 94660; 94760; 96367; 96375

== ENCOUNTER 2016-09-04 10:01 | Inpatient (IN) | payer MEDICARE, MEDICAID ==
[~2016-09-04] VITALS: Ht 180.3 cm; Wt 72.6 kg
--- NOTE | 2016-09-04 10:14 | History & Physical-Hospitalist ---
HPI History of Present Illness: HPI/Chief Complaint CC: SOB and fever HPI: This is a 61yoWM clinic patient of [facility] that was DC'ed and then readmitted the same day on 09/03/16 The presented to the emergency room with shortness of breath and overall decline status found to have elevated lactic acid and expanding infiltrate cities placed on expanded antibiotics and admitted to swing bed since he had just left in this is a continuation of the original admission. At this current time he denies any history of heart issues but he does have telemetry on and he appears to have high risk for heart rhythm issues so I've consulted Dr. Bunn. I will also consult Dr. Heller for severe COPD and he will likely require swing bed status for the next several days and initiate therapy to strengthen prior to going home to make him more successful at time of discharge. Source: patient Exam Limitations: no limitations Date Seen 09/04/16 Attending Physician Bee Barr DO PCP Jonnathan Centeno MD Referring Physician Date of Admission Home Medications & Allergies Home Medications Reviewed patient Home Medication Reconciliation Form Allergies Allergies Coded Allergies No Known Drug Allergies (Unverified10/30/15) Past Qdoyrtk-Ymdlwg-Mntdfv Hx Patient Social History Marrital Status: single Employed/Student: unemployed Type Used: Cigarettes Recent Hopitalizations: No Immunizations Up To Date Tetanus Booster (TDap): Less than 5yrs Seasonal Allergies Seasonal Allergies: No Surgeries HX Surgeries: Yes (BACK SURGERY/FUSION; COLON RESECTION; EGD/COLONOSCOPIES) Surgeries: Abdominal, Bowel Surgery, Orthopedic Respiratory Hx Respiratory Disorders: Yes (INTUBATED 2009--UNRESPONSIVE ON ARRIVAL TO ER) Respiratory Disorders: COPD Cardiovascular Hx Cardiovascular Disorders: Yes Cardiac Disorders: Hypertension Neurological Hx Neurological Disorders: Yes (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) Reproductive System Hx Reproductive Disorders: No Genitourinary Hx Genitourinary Disorders: Yes (2009 --RENAL FAILURE) Genitourinary Disorders: Renal Failure Gastrointestinal Hx Gastrointestinal Disorders: Yes (COLON RESECTION FOR POLYPS; ELEVATED LIVER ENZYMES) Gastrointestinal Disorders: Liver Disease/Jaundice, Polyps Musculoskeletal Hx Musculoskeletal Disorders: Yes (CHRONIC MORPHINE USE FOR CHRONIC BACK PAIN ) Musculoskeletal Disorders: Arthritis, Chronic Back Pain Endocrine Hx Endocrine Disorders: No HEENT HX ENT Disorders: No Cancer Hx Cancer: No Cancer: Colon Psychosocial Hx Psychiatric Problems: No Integumentary HX Skin/Integumentary Disorder: No Blood Transfusions Hx Blood Disorders: No Adverse Reaction to a Blood Tr: No Family Medical History Family Hx: Alzheimer's disease 19 FATHER Arthritis 19 FATHER Dementia 19 FATHER Respiratory disorder 19 MOTHER Review of Systems Constitutional: see HPI, chills, fever, malaise, weakness EENTM: no symptoms reported Respiratory: cough, short of breath, wheezing Cardiovascular: no symptoms reported Gastrointestinal: loss of appetite, nausea Genitourinary: no symptoms reported Musculoskeletal: no symptoms reported Skin: no symptoms reported Psychiatric/Neurological: No Symptoms Reported All Other Systems Reviewed Negative Unless Noted: Yes Physical Exam Physical Exam Vital Signs Capillary Refill : General Appearance: No Apparent Distress, WD/WN, Chronically ill Eyes: Bilateral Eye Normal Inspection, Bilateral Eye PERRL HEENT: PERRL/EOMI, Normal ENT Inspection, Pharynx Normal Neck: Full Range of Motion, Normal Inspection, Non Tender, Supple, Carotid Bruit Respiratory: Chest Non Tender, No Accessory Muscle Use, No Respiratory Distress , Crackles, Decreased Breath Sounds, Wheezing Cardiovascular: Regular Rate, Rhythm, No Edema, No Gallop, No JVD, No Murmur, Normal Peripheral Pulses Gastrointestinal: Normal Bowel Sounds, No Organomegaly, No Pulsatile Mass, Non Tender, Soft Back: Normal Inspection, No CVA Tenderness, No Vertebral Tenderness Extremity: Normal Capillary Refill, Normal Inspection, Normal Range of Motion, Non Tender, No Calf Tenderness, No Pedal Edema Neurologic/Psychiatric: Alert, Oriented x3, No Motor/Sensory Deficits, Normal Mood/Affect Skin: Normal Color, Warm/Dry Lymphatic: No Adenopathy Assessment/Plan Admission Diagnosis 61 yo M that presented with acute respiratory failure found to have PNA that failed at DC readmitted to swing bed Acute Respiratory Failure with hypoxia: during admission patient was on increased oxygen requirement. Oxygen was able to be titrated down to home requirement and patient was ready to go home but will need SB. He was on IV antibiotics and steroids and transitioned to PO prior to discharge. Patient tolerated PO medications well. COPD Exacerbation: Patient recently quit smoking 1 month ago. No recent PFTs in clinic. Recommended Outpatient PFT after completed PNA treatment. Patient sent home with antibiotics and steroids. HTN: Uncontrolled HTN, started on norvasc during admission. Elevated LFTs: Normal US and acute hepatitis panel. Trending down at discharge. Will need outpatient labs to follow trend. Hypokalemia: replaced Debility: Seen by PT during admission. Patient would likely benefit from outpatient PT. He declined HH for PT. Assessment and Plan Plan: IV abx Neb treatment O2 SB BEE BARR DO September 04, 2016 10:14
[2016-09-04] MEDS ORDERED: PIPERACILLIN SODIUM/TAZOBACTAM 4.5 GM in NS (IVPB) 100 ML IV SCH (10:15)
[2016-09-04] MEDS ORDERED: LEVOFLOXACIN 750 MG/150 ML IV 150 ML IV SCH ×2 (10:15)
[2016-09-04] MEDS ORDERED: BENZONATATE 100 MG (TESSALON) CAPSULE PO PRN (10:15)
[2016-09-04] MEDS ORDERED: methylPREDNISolone 125 MG (Solu-MEDROL) VIAL IV SCH (10:15)
[2016-09-04] MEDS ORDERED: oxyCODONE/APAP 5/325MG (PERCOCET 5) TABLET PO PRN (10:15)
[2016-09-04] MEDS ORDERED: CEFEPIME INJECTION 2,000 MG in NS (IVPB) 50 ML IV SCH (10:15)
[2016-09-04] MEDS ORDERED: RT-ALBUTEROL/IPRATROPIUM 3 ML (DUONEB) VIAL INH PRN (10:15)
[2016-09-04] MEDS ORDERED: CATHETER FLUSH 10 ML SYR IV PRN (10:15)
--- NOTE | 2016-09-04 10:29 | Physical Therapy Evaluation ---
PT Evaluation-General Medical Diagnosis Admission Date September 04, 2016 at 10:13 Medical Diagnosis: pneumonia Onset Date: September 03, 2016 Therapy Diagnosis Therapy Diagnosis: weakness; abn gait Height/Weight Height (Feet): 5 Height (Inches): 11.00 Weight (Pounds): 160 Weight (Ounces): 0.0 Precautions Precautions/Isolations: Standard Precautions Referral Physician: Alan Reason for Referral: Evaluation/Treatment Medical History Pertinent Medical History: CAD, COPD, HTN Current History Recent hospital stay with COPD exac; discharged 09-03-16 and returned that same day. Pt now admitted to swing bed status for continued medical management. Admitted with COPD exacerbation and pneumonia. Reviewed History: Yes Social History Current Living Status: Alone Entry Into Home: Stairs With Railing Prior/Core FIM Prior Level of Function Functional Mobile Measure 0=Not Assessed/NA 4=Minimal Assistance 1=Total Assistance 5=Supervision or Setup 2=Maximal Assistance 6=Modified Mobile 3=Moderate Assistance 7=Complete Mobile Bed Mobility: 7 Transfers (B,C,W/C) (FIM): 7 Gait: 7 PT Evaluation-Current Subjective Pt agreeable to PT. "I guess I just wasnt ready to be home." Pain Numeric Pain Scale: 0-No Pain Location: No Pain Reported Objective Patient Orientation: Person, Place, Time, Situation Problem Solving: Good Attachments: Oxygen (3 l/min; insitu during and post treatment), IV ROM/Strength ROM Lower Extremities wFL Strenght Lower Extremities WFL Integumentary/Posture Integumentary Intact Bowel Incontinence: No Bladder Incontinence: No Posture normal and symmetrical Neuromuscular (Tone, Coordination, Reflexes) no noted functional deficits Sensory Vision: Functional Hearing: Functional Hand Dominance: Right Sensation Right Lower Extremit: Intact Sensation Left Lower Extremity: Intact Transfers Functional Mobile Measure 0=Not Assessed/NA 4=Minimal Assistance 1=Total Assistance 5=Supervision or Setup 2=Maximal Assistance 6=Modified Mobile 3=Moderate Assistance 7=Complete Mobile Transfers (B, C, W/C) (FIM): 5 Sit to Lying (QC): 5 Lying to Sitting/Side of Bed(Q: 5 Sit to Stand (QC): 5 Chair/Cqz-uu-Pnicf Xfer(QC): 5 SBA for all functional mobility for safety reasons. Gait Does the Patient Walk?: Yes Mode of Locomotion: Walk Anticipated Mode of Locomotion: Walk Gait (FIM): 5 Distance (FIM): 3=150 ft Distance: 200 ft Walk 50 ft with 2 Turns(QC): 5 Walk 150 ft (QC): 5 Gait Level of Assist: 5 (SBa for safety but did not require touch assist.) Gait Assistive Device: None Comments/Gait Description Safe and steady gait with no noted LOB episode. Wheelchair Training Does the Pt Use a Wheelchair?: No Balance Sitting Static: Good Sitting Dynamic: Good Standing Static: Good Standing Dynamic: Good Treatment Functional safety education and gait training. Assessment/Needs Pt presents with return to hospital due to difficulty breathing and decreased ability to care for himself. he will benefit from short term PT to address functional transfers and gait to progress his indep level to allow him to care for himself and return home. Rehab Potential: Good PT Nursing Home Goals Nursing Home Goals PT Nursing Home Goals Time Frame: September 13, 2016 Transfers (B,C,W/C) (FIM): 7 Sit to Lying (QC): 7 Lying-Sitting on Side/Bed(QC): 7 Sit to Stand (QC): 7 Chair/Stn-ml-Vwoce Xfer(QC): 7 Does the Patient Walk: Yes Gait (FIM): 7 Gait distance (FIM): 3=150 ft Walk 50ft with 2 Turns (QC): 7 Walk 150 ft (QC): 7 Gait Assistive Device: None PT Plan Problem List Problem List: Activity Tolerance, Functional Strength, Safety, Balance, Gait, Transfer, Bed Mobility Treatment/Plan Treatment Plan: Continue Plan of Care Treatment Plan: Bed Mobility, Education, Functional Activity Dacia, Functional Strength, Gait, Safety, Therapeutic Exercise, Transfers Treatment Duration: September 15, 2016 # of days/week 5-6 Visits Per Week: 5-6 Pt/Family Agrees w/Plan: Yes Safety Risks/Education Patient Education: Transfer Techniques, Safety Issues Teaching Recipient: Patient Teaching Methods: Demonstration, Discussion Response to Teaching: Reinforcement Needed Discharge Recommendations Therapy D/C Recommendations: Physical Therapy Home Care Time/GCodes Time In: 1015 Time Out: 1045 Total Billed Treatment Time: 30 Total Billed Treatment visit EVM 15 GT 15 MELONY DELEON PT September 04, 2016 10:29
[2016-09-04] MEDS: RT-ALBUTEROL/IPRATROPIUM 3 ML (DUONEB) VIAL INH SCH ×4 (10:47→22:41)
--- NOTE | 2016-09-04 10:56 | Consultation-Cardiology ---
HPI-Cardiology Cardiology Consultation Date of Consultation 09/04/16 Date of Admission Indication: HTN, dyspnea HPI Patient is a 61 y/o male hx of HTN, COPD. Was hospitalized last week for AE COPD and pneumonia. Discharged home yesterday, however, returned to ER last night with complaints of increased shortness of breath. Denies any CP, dizziness , lightheadedness, syncope or peripheral edema. Denies any orthopnea, PND or peripheral edema. Patient was seen and evaluated, he is 61 years old gentleman who was hospitalized recently for COPD exacerbation and pneumonia, return to the hospital after discharge for worsening shortness of breath and fatigue with loss of energy. He was feeling lightheaded. Riddle his heart racing, felt his chest tight and was unable to breathe. Denied any syncope or near syncopal episode denied any actual chest pain or pedal edema, denied any claudications. Home Medications & Allergies Allergies: Coded Allergies: No Known Drug Allergies (Unverified , 10/30/15) Home Medication List Reviewed: Yes ZKQ-Ijxqyh-Nfphjp Hx Patient Social History Marital Status: single Employed/Student: unemployed Type Used: Cigarettes Recent Foreign Travel: No Recent Hopitalizations: No Immunizations Up To Date Tetanus Booster (TDap): Less than 5yrs Past Medical History HTN, COPD, Tobaccoism Family Medical History Significant Family History: No Pertinent Family Hx Family History: Alzheimer's disease 19 FATHER Arthritis 19 FATHER Dementia 19 FATHER Respiratory disorder 19 MOTHER Constitutional: No chills, No diaphoresis, No dizziness, malaise, No weakness, No weight gain, No weight loss EENTM: No blurred vision, No double vision, No nose pain, No throat pain, No vision loss Respiratory: No cough, dyspnea on exertion, No orthopnea, short of breath, wheezing Cardiovascular: No chest pain, No edema, No Hx of Intervention, No palpitations , No vascular heart diseas Gastrointestinal: No abdominal pain, No constipation, No dysphagia Genitourinary: No decreased output, No discharge, No frequency, No hematuria Musculoskeletal: No back pain, No joint pain Skin: No lesions, No rash Psychiatric/Neurological: Denies Anxiety, Denies Depressed Physical Exam Vital Signs Vital Sign - Last 12Hours 09/04/16 10:48 Pulse Ox 91 O2 Flow Rate 3.00 Capillary Refill : General Appearance: No Apparent Distress, WD/WN HEENT: PERRL/EOMI, TMs Normal, Normal ENT Inspection Neck: Non Tender, Supple, No Carotid Bruit Respiratory: Chest Non Tender, No Accessory Muscle Use, No Respiratory Distress , Wheezing Cardiovascular: Regular Rate, Rhythm, No Edema, No Gallop, No JVD, No Murmur, Normal Peripheral Pulses Gastrointestinal: Normal Bowel Sounds, No Pulsatile Mass, Non Tender, Soft Rectal: Deferred Back: No CVA Tenderness Extremity: Non Tender, No Calf Tenderness Neurologic/Psychiatric: Alert, Oriented x3, rn occupational II-XII Norm as Tested Skin: Normal Color, Warm/Dry Lymphatic: No Adenopathy A/P-Cardiology Admission Diagnosis Dyspnea AE COPD Pneumonia HTN Assessment/Plan Dyspnea- patient was hospitalized earlier this week for pneumonia. Currently on antibiotics. Elevated BNP. I will further evaluate with 2D Echo, EKG AE COPD- continue MAT protocol, continue to monitor. Pneumonita- continue antibiotics. Management by medical services. HTN- restart home BP medications and continue to monitor BP/HR Tobaccoism- patient reports he is trying to quit smoking. Encourage smoking cessation Elevated LFT's- continue to monitor. Management by PCP Thank you for allowing us to participate in the management of Mr. Ledezma. This is Elda Welsh PA-C as a scribe for Dr. Bunn. Patient was seen and evaluated with Elda, I interviewed the patient and perform physical examination, his lungs had good air entry bilaterally, no wheezing. Heart is regular rate and rhythm, still having shortness of breath and using oxygen, I discussed the management plan and the consult with Elda and agree with the current scribe, in summary patient is receiving treatment for shortness of breath, pneumonia and exacerbation of COPD, continue to monitor blood pressure after restarting his home medication, educated in length about smoking cessation and I will continue monitoring liver enzymes, probably he has underlying pulmonary hypertension, we will evaluate 2-D echocardiogram, EKG did not show any acute abnormality. I made few modification described note and used Italic Font ELDA GRACE September 04, 2016 10:56 ELSA BUNN MD September 04, 2016 11:19
[2016-09-04] MEDS ORDERED: RT-ALBUTEROL/IPRATROPIUM 3 ML (DUONEB) VIAL INH SCH (11:00)
[2016-09-04] MEDS: ENOXAPARIN 40 MG/0.4 ML (LOVENOX) SYR SC SCH ×2 (11:04→14:05)
[2016-09-04] MEDS ORDERED: NICOTINE 21 MG (NICODERM) PATCH TD ONE (11:15)
[2016-09-04] MEDS: NS IV 1000 ML 1,000 ML IV SCH ×2 (11:17→17:35)
[2016-09-04] MEDS: CEFEPIME INJECTION 2,000 MG in NS (IVPB) 50 ML IV SCH ×2 (11:18→23:14)
[2016-09-04] MEDS: NITROGLYCERIN 2% OINT 1 GM UNIT DOSE PACKET TOP SCH ×3 (12:09→23:57)
--- NOTE | 2016-09-04 12:33 | Pulmonary Consultation ---
History of Present Illness History of Present Illness Date of Consultation 09/04/16 12:28 Date of Admission Reason for Visit: HTN, dyspnea History of Present Illness 61yo that was recently admitted to hospital, discharged then readmitted on 09/03 presenting to Ed secondary to worsening SOB. I am consulted for pulmonary management. Symptoms have been progressive since prior to 1st admission. He has had similar episodes in past. No sick contacts at home. Allergies and Home Medications Allergies Coded Allergies: No Known Drug Allergies (Unverified , 10/30/15) Home Medications Albuterol Sulfate 18 Gm Hfa.aer.ad, 2 PUFF INH Q4H PRN for SHORTNESS OF BREATH, (Reported) Amlodipine Besylate 5 Mg Tablet, 5 MG PO DAILY for 30 Days Prescribed by: NOEL DE GUZMAN on 09/03/16 1139 Levofloxacin 750 Mg Tablet, 750 MG PO DAILY for 7 Days Prescribed by: NOEL DE GUZMAN on 09/03/16 1139 Morphine Sulfate 100 Mg Tablet.er, 100 MG PO Q12H, (Reported) Oxycodone HCl/Acetaminophen 1 Each Tablet, 2 TAB PO BID PRN for PAIN-MODERATE, ( Reported) Prednisone 20 Mg Tab, 20 MG PO DAILY, #20 Take 3 tabs x 3 days Take 2 tabs x 3 days take 1 tab x 3 days take 1/2 tab x 4 day Then stop Prescribed by: NOEL DE GUZMAN on 09/03/16 1139 Past Loqijgz-Laqvxe-Rcpbrx Hx Patient Social History Type Used: Cigarettes Recent Foreign Travel: No Contact w/Someone Who Travel: No Recent Hopitalizations: No Immunizations Up To Date Tetanus Booster (TDap): Less than 5yrs Seasonal Allergies Seasonal Allergies: No Surgeries HX Surgeries: Yes (BACK SURGERY/FUSION; COLON RESECTION; EGD/COLONOSCOPIES) Surgeries: Abdominal, Bowel Surgery, Orthopedic Respiratory Hx Respiratory Disorders: Yes (INTUBATED 2009--UNRESPONSIVE ON ARRIVAL TO ER) Respiratory Disorders: Asthma, Pneumonia, Chronic Bronchitis, COPD Cardiovascular Hx Cardiac Disorders: Yes Cardiac Disorders: Hypertension Neurological Hx Neurological Disorders: Yes (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) Reproductive System Hx Reproductive Disorders: No Genitourinary Hx Genitourinary Disorders: Yes (2009 --RENAL FAILURE) Genitourinary Disorders: Renal Failure Gastrointestinal Hx Gastrointestinal Disorders: Yes (COLON RESECTION FOR POLYPS; ELEVATED LIVER ENZYMES) Gastrointestinal Disorders: Liver Disease/Jaundice, Polyps Musculoskeletal Hx Musculoskeletal Disorders: Yes (CHRONIC MORPHINE USE FOR CHRONIC BACK PAIN ) Musculoskeletal Disorders: Arthritis, Chronic Back Pain Endocrine Hx Endocrine Disorders: No HEENT HX ENT Disorders: No Cancer Hx Cancer: No Cancer: Colon Psychosocial Hx Psychiatric Problems: No Integumentary HX Skin/Integumentary Disorder: No Blood Transfusions Hx Blood Disorders: No Adverse Reaction to a Blood Tr: No Family Medical History Significant Family History: No Pertinent Family Hx Family Medial History: Alzheimer's disease 19 FATHER Arthritis 19 FATHER Dementia 19 FATHER Respiratory disorder 19 MOTHER Review of Systems Constitutional: Chills, Fever, Malaise, Sweats, Weakness, No: Other Eyes: No: Conjunctivae inflammation, Eyelid inflammation, Other, Pain, Redness , Vision change ENT: Nose congestion, No: Ear discharge, Ear pain, Mouth pain, Mouth swelling, Nose discharge, Nose pain, Other, Throat pain, Throat swelling Respiratory: Cough, SOB with excertion, Shortness of breath, Sputum, Wheezing, No: Hemoptysis, Pleuritic Pain Cardiovascular: Edema, Lt Headedness, Orthopnea, Palpitations, Paroxysmal Noc. Dyspnea Gastrointestinal: No: Abdominal Pain, Constipation, Diarrhea, Hematochezia, Melena, Nausea, Other, Vomiting Genitourinary: No Dysuria, No Frequency, No Incontinence, No Hematuria, No Retention, No Other Musculoskeletal: back pain, No: arm pain, foot pain, hand pain, leg pain, neck pain, other, shoulder pain Skin: No: Bruising, Jaundice, Lesions, Other, Rash Neurological: Weakness, No: Change in speech, Confusion, Incoordination, Numbness, Other, Seizures Exam Exam Vital Signs Date Time Temp Pulse Resp B/P (MAP) Pulse Ox O2 Delivery O2 Flow Rate FiO2 09/04/16 10:48 91 3.00 General Appearance: No Apparent Distress, WD/WN HEENT: PERRL/EOMI, TMs Normal, Normal ENT Inspection Neck: Non Tender, Supple, No Carotid Bruit Respiratory: Chest Non Tender, No Accessory Muscle Use, No Respiratory Distress , Wheezing Cardiovascular: Regular Rate, Rhythm, No Edema, No Gallop, No JVD, No Murmur, Normal Peripheral Pulses Gastrointestinal: non tender, soft, no organomegaly Extremity: Non Tender, No Calf Tenderness Neurologic/Psychiatric: Alert, Oriented x3, reproduction technician II-XII Norm as Tested Skin: Normal Color, Warm/Dry Lymphatic: No Adenopathy Assessment/Plan Assessment/Plan PNa -Patel culture -Continue broad spectrum ABX -labs/radiology reviewed COPDAE acute on chronic respiratory failure/ acute hypoxia -steroids , SVNs metabolic acidosis -monitor LA -IVF tobacco use - quit 1 month ago chronic debility -pt/ot ALYSIA KHALIL DO September 04, 2016 12:33
[2016-09-04] MEDS: methylPREDNISolone 125 MG (Solu-MEDROL) VIAL IV SCH ×2 (14:05→20:43)
[2016-09-04] MEDS ORDERED: predniSONE 20 MG TAB PO SCH (17:00)
[2016-09-04 17:30] VITALS: BP 152/82
[2016-09-04] MEDS: morphine ER 100 MG (MS CONTIN) TAB PO SCH (20:44)
[2016-09-04] MEDS ORDERED: VANCOMYCIN INJECTION 1,000 MG in NS (IVPB) 250 ML IV SCH (21:00)
[2016-09-04] MEDS ORDERED: morphine ER 100 MG (MS CONTIN) TAB PO SCH ×2 (21:00)
[2016-09-04] MEDS: oxyCODONE/APAP 5/325MG (PERCOCET 5) TABLET PO PRN (21:58)
[2016-09-04] MEDS: LEVOFLOXACIN 750 MG/150 ML IV 150 ML IV SCH (23:57)
[2016-09-05 00:03] VITALS: BP 189/99
[2016-09-05] MEDS: hydrALAZINE (APRESOLINE) 25 MG TAB PO PRN ×2 (00:04→09:04)
[2016-09-05] MEDS: RT-ALBUTEROL/IPRATROPIUM 3 ML (DUONEB) VIAL INH SCH ×6 (02:42→22:28)
[2016-09-05] MEDS: methylPREDNISolone 125 MG (Solu-MEDROL) VIAL IV SCH (03:03)
[2016-09-05] MEDS: NS IV 1000 ML 1,000 ML IV SCH ×3 (03:05→14:21)
[2016-09-05 05:38] VITALS: BP 157/85
[2016-09-05] MEDS: NITROGLYCERIN 2% OINT 1 GM UNIT DOSE PACKET TOP SCH ×4 (05:47→23:20)
--- NOTE | 2016-09-05 07:37 | Pulmonary Progress Note ---
Subjective Subjective/Events-last exam still c/o SOB and wheezing. Exam Exam Vital Signs Date Time Temp Pulse Resp B/P (MAP) Pulse Ox O2 Delivery O2 Flow Rate FiO2 09/05/16 06:50 94 4.00 09/05/16 05:38 98.7 78 18 157/85 95 3.00 09/05/16 02:42 87 18 95 45.00 09/05/16 00:42 82 24 98 45.00 09/05/16 00:03 120 189/99 09/04/16 22:49 76 22 97 45.00 09/04/16 20:05 4.00 09/04/16 19:16 94 4.00 09/04/16 17:30 98.6 78 20 152/82 96 09/04/16 15:30 91 3.00 09/04/16 10:48 91 3.00 I & O 09/05/16 07:00 Intake Total 4264 ml Output Total 1750 ml Balance 2514 ml General Appearance: No Apparent Distress, WD/WN HEENT: PERRL/EOMI, TMs Normal, Normal ENT Inspection Neck: Non Tender, Supple, No Carotid Bruit Respiratory: Chest Non Tender, No Accessory Muscle Use, No Respiratory Distress , Wheezing Cardiovascular: Regular Rate, Rhythm, No Edema, No Gallop, No JVD, No Murmur, Normal Peripheral Pulses Extremity: Non Tender, No Calf Tenderness Neurologic/Psychiatric: Alert, Oriented x3, land checker II-XII Norm as Tested Skin: Normal Color, Warm/Dry Lymphatic: No Adenopathy Assessment/Plan Assessment/Plan PNa -Patel culture -Continue broad spectrum ABX -labs/radiology reviewed COPDAE acute on chronic respiratory failure/ acute hypoxia -steroids , SVNs tobacco use - quit 1 month ago chronic debility -pt/ot ALYSIA KHALIL DO September 05, 2016 07:36
[2016-09-05 07:58] VITALS: BP 176/89
[2016-09-05] MEDS ORDERED: TROUGH ORDER-PHARMACY XX NR (08:00)
[2016-09-05 08:04] LABS: MEAN PLATELET VOLUME 8.9 FL (7.4-10.4); RED CELL DISTRIBUTION WIDTH 13.8 % (10.0-14.5); WHITE BLOOD COUNT 23.6 10^3/uL (4.3-11.0)
--- NOTE | 2016-09-05 08:23 | Diagnostic Imaging Report ---
INDICATION: Productive cough PA and lateral chest obtained at 8:16 hours a.m. and compared with 09/03/16. Heart and mediastinal silhouette are unremarkable. There is some infiltrate in the right medial base which appears similar to the previous study. Left lung is grossly clear. There is no pneumothorax or pleural fluid. IMPRESSION: Unchanged infiltrate right medial base which may represent pneumonia. No other abnormal findings. Dictated by: Dictated on workstation # [id number]
[2016-09-05 08:25] LABS: ANION GAP 12 MMOL/L (5-14); BLOOD UREA NITROGEN 25 MG/DL (7-18); BUN/CREATININE RATIO 33; CALCIUM 8.6 MG/DL (8.5-10.1); CARBON DIOXIDE 22 MMOL/L (21-32); CHLORIDE 104 MMOL/L (98-107); CREATININE SERUM 0.76 MG/DL (0.60-1.30); GFR ESTIMATED > 60; GLUCOSE 114 MG/DL (70-105); MAGNESIUM 1.8 MG/DL (1.8-2.4); PHOSPHORUS 2.8 MG/DL (2.3-4.7); POTASSIUM 4.2 MMOL/L (3.6-5.0); SODIUM 138 MMOL/L (135-145)
--- NOTE | 2016-09-05 08:42 | Cardiology Progress Note ---
Subjective Subjective/Events-last exam Patient sitting up in chair, continues to complain of dyspnea and cough. Denies any CP. Review of Systems General: No Night Sweats, No Fatigue, No Malaise HEENT: No Visual Changes, No Dysphasia, No Sore Throat Pulmonary: Dyspnea, Cough, No Pleuritic Chest Pain Cardiovascular: No: Chest Pain, Edema, Palpitations, Paroxysmal Noc. Dyspnea Gastrointestinal: No: Abdominal Pain, Nausea, Vomiting Genitourinary: No Dysuria, No Frequency Musculoskeletal: No: back pain, neck pain Neurological: No: Change in speech, Confusion, Numbness, Weakness Objective-Cardiology Exam Last Set of Vital Signs Vital Signs 09/05/16 07:58 Temp 98.5 Pulse 89 Resp 18 B/P (MAP) 176/89 Pulse Ox 94 O2 Flow Rate 4.00 Capillary Refill : I&O Bad tableGeneral: Alert, Oriented X3, Cooperative HEENT: Atraumatic, PERRLA Neck: Supple, No JVD, No Thyromegaly Lungs: Other (diminished breath sounds bilaterally) Heart: Regular Rate, Normal S1, Normal S2, No Murmurs, Gallops Abdomen: Normal Bowel Sounds, Soft, No Hepatosplenomegaly Extremities: No Edema, Normal Pulses Skin: No Rashes, No Significant Lesion Neuro: Normal Speech, Cranial Nerves 3-12 NL Psych/Mental Status: Mental Status NL, Mood NL Results Lab Laboratory Tests 09/05/16 07:55 A/P-Cardiology Admission Diagnosis Dyspnea AE COPD Pneumonia HTN Assessment/Plan Dyspnea- patient was hospitalized earlier this week for pneumonia. Currently on antibiotics. Elevated BNP. Results of 2D Echo pending. AE COPD- continue MAT protocol, continue to monitor. Pneumonia- continue antibiotics. Management by medical services. HTN- continue to monitor BP/HR. Tobaccoism- patient reports he is trying to quit smoking. Encourage smoking cessation Elevated LFT's- continue to monitor. Management by PCP GUDELIA GRACE September 05, 2016 08:42
[2016-09-05] MEDS ORDERED: amLODIPine 5 MG (NORVASC) TAB PO SCH ×2 (09:00)
[2016-09-05] MEDS: NICOTINE PATCH REMOVAL TP SCH (09:00)
[2016-09-05] MEDS ORDERED: methylPREDNISolone 125 MG (Solu-MEDROL) VIAL IV SCH (09:00)
[2016-09-05] MEDS: methylPREDNISolone 40 MG/ML (Solu-MEDROL) VIAL IV SCH ×3 (09:03→20:30)
[2016-09-05] MEDS: VANCOMYCIN INJECTION 1,000 MG in NS (IVPB) 250 ML IV SCH ×2 (09:03→16:35)
[2016-09-05] MEDS: NICOTINE 21 MG (NICODERM) PATCH TD SCH (09:03)
[2016-09-05] MEDS: morphine ER 100 MG (MS CONTIN) TAB PO SCH ×2 (09:04→20:29)
[2016-09-05] MEDS: oxyCODONE/APAP 5/325MG (PERCOCET 5) TABLET PO PRN ×2 (09:04→20:29)
--- NOTE | 2016-09-05 09:10 | Physical Therapy Daily Note ---
PT Daily Note-Current Subjective Agrees to PT with encouragement. Apprehensively agrees to go to therapy gym to ride Nu Step. Post treatment, pt reports the nu step was easier than walking! Mental Status Patient Orientation: Person, Place, Time, Situation Transfers Functional [place] Measure 0=Not Assessed/NA 4=Minimal Assistance 1=Total Assistance 5=Supervision or Setup 2=Maximal Assistance 6=Modified [place] 3=Moderate Assistance 7=Complete IndependenceIRFPAI Quality Coding Scale 6 Independent with activity with or without an assistive device 5 Patient requires set up or clean up by helper. Patient completes activity by themselves 4 Supervision or touching assist (CGA). [place] provide cues , steadying assist 3 The helper provides less than half the effort to complete the activity 2 The helper provides more than half the effort to complete the activity 1 Dependent. The helper does all the effort to complete an activity 7 Patient refused to complete or attempt activity 9 The patient did not perform the activity before the current illness or injury 88 Not attempted due to Medical conditions or safety concerns Transfers (B, C, W/C) (FIM): 5 SBA with functional transfers and bed mobility Gait Training Does the Patient Walk?: Yes Gait (FIM): 5 (250 ft x 2 and 50 ft x 1) Distance (FIM): 3=150 ft Gait Assistive Device: None Safe and steady gait, able to push the IV pole on his own. Able to slightly lift the IV pole to cross the threshhold to enter/exit the elevator. Multiple turns and backing during ambulation without AD or LOB. Exercises NuStep Minutes: 10 (to increase functional act tolerance ) Assessment Current Status: Good Progress Progressing. Safe gait. Decreased functional act tolerance. PT Shelter Goals Embedded Developer Goals PT Shelter Goals Time Frame: September 13, 2016 Transfers (B,C,W/C) (FIM): 7 Sit to Lying (QC): 7 Lying-Sitting on Side/Bed(QC): 7 Sit to Stand (QC): 7 Chair/Not-qg-Nbxca Xfer(QC): 7 Does the Patient Walk: Yes Gait (FIM): 7 Gait distance (FIM): 3=150 ft Walk 50ft with 2 Turns (QC): 7 Walk 150 ft (QC): 7 Gait Assistive Device: None PT Plan Problem List Problem List: Activity Tolerance, Functional Strength Treatment/Plan Treatment Plan: Continue Plan of Care Treatment Plan: Bed Mobility, Education, Functional Activity [place], Functional Strength, Gait, Safety, Therapeutic Exercise, Transfers Treatment Duration: September 15, 2016 Visits Per Week: 5-6 Safety Risks/Education Patient Education: Gait Training Teaching Recipient: Patient Teaching Methods: Discussion Response to Teaching: Verbalize Understanding Discharge Recommendations Plan Cont PT at this time. Time/GCodes Time In: 820 Time Out: 845 Total Billed Treatment Time: 25 Total Billed Treatment visit GT 15 EX 10 MELONY DELEON PT September 05, 2016 09:10
--- NOTE | 2016-09-05 09:58 | Progress Note-Hospitalist ---
Progress Note HPI/CC on Admission CC: SOB and fever HPI: This is a 61yoWM clinic patient of [facility] that was DC'ed and then readmitted the same day on 09/03/16 The presented to the emergency room with shortness of breath and overall decline status found to have elevated lactic acid and expanding infiltrate cities placed on expanded antibiotics and admitted to swing bed since he had just left in this is a continuation of the original admission. At this current time he denies any history of heart issues but he does have telemetry on and he appears to have high risk for heart rhythm issues so I've consulted Dr. Bunn. I will also consult Dr. Heller for severe COPD and he will likely require swing bed status for the next several days and initiate therapy to strengthen prior to going home to make him more successful at time of discharge. Progress Notes/Assess & Plan Date Seen 09/05/16 Admission Dx/Process 61 yo M that presented with acute respiratory failure found to have PNA that failed at DC readmitted to swing bed Acute Respiratory Failure with hypoxia: during admission patient was on increased oxygen requirement. Oxygen was able to be titrated down to home requirement and patient was ready to go home but will need SB. He was on IV antibiotics and steroids and transitioned to PO prior to discharge. Patient tolerated PO medications well. COPD Exacerbation: Patient recently quit smoking 1 month ago. No recent PFTs in clinic. Recommended Outpatient PFT after completed PNA treatment. Patient sent home with antibiotics and steroids. HTN: Uncontrolled HTN, started on norvasc during admission. Elevated LFTs: Normal US and acute hepatitis panel. Trending down at discharge. Will need outpatient labs to follow trend. Hypokalemia: replaced Debility: Seen by PT during admission. Patient would likely benefit from outpatient PT. He declined HH for PT. Diagonsis/Assessment & Plan Patient doing much better and less short of breath Gaining strength every day with physical therapy In process of changing mask for sleep apnea treatment Appreciate Dr. Heller's input and cardiology input No fever, vital signs stable, improved, still frail Regular rate and rhythm, clear to auscultation bilaterally much improved air expansion No edema Laboratory Tests 09/05/16 07:55 61 yo M that presented with acute respiratory failure found to have PNA that failed at DC readmitted to swing bed Acute Respiratory Failure with hypoxia: during admission patient was on increased oxygen requirement. Oxygen was able to be titrated down to home requirement and patient was ready to go home but will need SB. He was on IV antibiotics and steroids and transitioned to PO prior to discharge. Patient tolerated PO medications well. COPD Exacerbation: Patient recently quit smoking 1 month ago. No recent PFTs in clinic. Recommended Outpatient PFT after completed PNA treatment. Patient sent home with antibiotics and steroids. HTN: Uncontrolled HTN, started on norvasc during admission. Elevated LFTs: Normal US and acute hepatitis panel. Trending down at discharge. Will need outpatient labs to follow trend. Hypokalemia: replaced Debility: Seen by PT during admission. Patient would likely benefit from outpatient PT. He declined for PT. Plan: IV abx Neb treatment O2 SB Poor prognosis fdc ADRIANA BARR DO September 05, 2016 09:58
[2016-09-05] MEDS: CEFEPIME INJECTION 2,000 MG in NS (IVPB) 50 ML IV SCH ×2 (11:11→22:40)
--- NOTE | 2016-09-05 12:45 | Cardiology Progress Note ---
Subjective Subjective/Events-last exam patient is laying down in bed, still having shortness of breath, has been having occasional chest pain, has a Nitropatch Review of Systems General: No Chills, No Night Sweats, No Fatigue, No Malaise, No Appetite, No Other HEENT: No Head Aches, No Visual Changes, No Eye Pain, No Ear Pain, No Dysphasia , No Sinus Congestion, No Post Nasal Drip, No Sore Throat, No Other Pulmonary: Dyspnea, No Cough, No Pleuritic Chest Pain, No Other Cardiovascular: Chest Pain, No: Edema, Lt Headedness, Orthopnea, Other, Palpitations, Paroxysmal Noc. Dyspnea Objective-Cardiology Exam Last Set of Vital Signs Vital Signs 09/05/16 09/05/16 07:58 10:15 Temp 98.5 Pulse 89 Resp 18 B/P (MAP) 176/89 Pulse Ox 96 O2 Flow Rate 4.00 Capillary Refill : I&O Bad tableGeneral: Alert, Oriented X3, Cooperative HEENT: Atraumatic, PERRLA Neck: Supple, No JVD, No Thyromegaly Lungs: Other (diminished breath sounds bilaterally) Heart: Regular Rate, Normal S1, Normal S2, No Murmurs, Gallops Abdomen: Normal Bowel Sounds, Soft, No Hepatosplenomegaly Extremities: No Edema, Normal Pulses Skin: No Rashes, No Significant Lesion Neuro: Normal Speech, Cranial Nerves 3-12 NL Psych/Mental Status: Mental Status NL, Mood NL Results Lab Laboratory Tests 09/05/16 07:55 A/P-Cardiology Admission Diagnosis Dyspnea AE COPD Pneumonia HTN Assessment/Plan Acute respiratory insufficiency, receiving antibiotic, pneumonia, continue on current treatment. AE COPD- continue MAT protocol, continue to monitor. HTN- continue to monitor BP/HR. Tobaccoism- patient reports he is trying to quit smoking. Encourage smoking cessation Elevated LFT's, reevaluate liver enzymes, followed and managed by primary care physician ELSA IGNACIO MD September 05, 2016 12:45 pm
[2016-09-05] MEDS: ENOXAPARIN 40 MG/0.4 ML (LOVENOX) SYR SC SCH (14:21)
[2016-09-05 18:52] VITALS: BP 170/84
[2016-09-05] MEDS: LEVOFLOXACIN 750 MG/150 ML IV 150 ML IV SCH (23:20)
[2016-09-06] MEDS: NS IV 1000 ML 1,000 ML IV SCH ×3 (01:27→20:16)
[2016-09-06] MEDS: VANCOMYCIN INJECTION 1,000 MG in NS (IVPB) 250 ML IV SCH ×3 (01:27→18:02)
[2016-09-06] MEDS: RT-ALBUTEROL/IPRATROPIUM 3 ML (DUONEB) VIAL INH SCH ×6 (02:32→22:16)
[2016-09-06] MEDS: methylPREDNISolone 40 MG/ML (Solu-MEDROL) VIAL IV SCH ×4 (04:41→20:16)
[2016-09-06 05:03] LABS: MEAN PLATELET VOLUME 8.6 FL (7.4-10.4); RED BLOOD COUNT 3.47 10^6/uL (4.35-5.85); RED CELL DISTRIBUTION WIDTH 13.8 % (10.0-14.5); WHITE BLOOD COUNT 16.4 10^3/uL (4.3-11.0)
[2016-09-06 05:23] LABS: ALANINE AMINOTRANSFERASE 45 U/L (0-55); ALBUMIN 2.9 G/DL (3.2-4.5); ANION GAP 10 MMOL/L (5-14); ASPARTATE AMINO TRANSFERASE 14 U/L (5-34); BILIRUBIN,TOTAL 0.3 MG/DL (0.1-1.0); BLOOD UREA NITROGEN 22 MG/DL (7-18); BUN/CREATININE RATIO 34; CALCIUM 7.9 MG/DL (8.5-10.1); CARBON DIOXIDE 22 MMOL/L (21-32); CHLORIDE 105 MMOL/L (98-107); CREATININE SERUM 0.65 MG/DL (0.60-1.30); GFR ESTIMATED > 60; GLUCOSE 106 MG/DL (70-105); MAGNESIUM 1.8 MG/DL (1.8-2.4); SODIUM 137 MMOL/L (135-145)
[2016-09-06 05:29] LABS: TROPONIN I < 0.30 NG/ML (<0.30)
[2016-09-06 06:00] VITALS: BP 181/89
[2016-09-06] MEDS: NITROGLYCERIN 2% OINT 1 GM UNIT DOSE PACKET TOP SCH (06:36)
--- NOTE | 2016-09-06 06:55 | ECHOCARDIOGRAPHY REPORT ---
DATE OF SERVICE: 09/04/2016 2D ECHOCARDIOGRAM. REFERRING PHYSICIAN: Dr. Bee Phillips DO MEASUREMENT: LVID end diastolic 4.6 IVS thickness 1.2 LVPW thickness 1.1 left atrial diameter 3.0 ejection fraction 60%. FINDINGS: 1. Technical quality is good. 2. The left ventricle is normal in size with normal contractility, systolic function appeared to be normal, estimated ejection fraction 60%. 3. The left atrium is normal in size. No clot or thrombus were seen within the left atrium. 4. The right atrium and right ventricle are normal in size. No clot or thrombus were seen within the right side. 5. Mitral valve is normal in morphology with mild mitral regurgitation noted by color Doppler flow. No mitral valve prolapse. No mitral valve stenosis. 6. Aortic valve is trileaflet with normal opening and closing pattern. No significant aortic stenosis or regurgitation was seen. 7. Tricuspid valve is normal in morphology with mild tricuspid regurgitation noted by color Doppler flow. Doppler across the tricuspid valve estimated pulmonary artery pressure of 24+ right atrial pressure. 8. Pulmonic valve is functioning normally. 9. No pericardial effusion. CONCLUSION: 1. Normal left ventricular size and systolic function. Estimated ejection fraction 60%. 2. Mild mitral and tricuspid regurgitation. 3. Estimated pulmonary artery pressure of 30 mmHg. Job ID: [id number] DocumentID: [id number] Dictated Date: 09/05/2016 08:33:30 Special Education Assistant Date: 09/05/2016 11:31:08 Dictated By: ELSA IGNACIO MD
[2016-09-06 08:00] VITALS: BP 216/129
[2016-09-06] MEDS ORDERED: TROUGH ORDER-PHARMACY XX NR (08:07)
--- NOTE | 2016-09-06 08:16 | Cardiology Progress Note ---
Subjective Subjective/Events-last exam Patient is sitting in bed, eating breakfast, still having cough and shortness of breath, no chest pain Review of Systems General: No Chills, No Night Sweats, No Fatigue, No Malaise, No Appetite, No Other HEENT: No Head Aches, No Visual Changes, No Eye Pain, No Ear Pain, No Dysphasia , No Sinus Congestion, No Post Nasal Drip, No Sore Throat, No Other Pulmonary: Dyspnea, Cough, No Pleuritic Chest Pain, No Other Cardiovascular: No: Chest Pain, Edema, Lt Headedness, Orthopnea, Other, Palpitations, Paroxysmal Noc. Dyspnea Objective-Cardiology Exam Last Set of Vital Signs Vital Signs 09/06/16 09/06/16 09/06/16 06:00 06:39 06:46 Temp 98.5 Pulse 70 Resp 20 B/P (MAP) 181/89 Pulse Ox 96 O2 Flow Rate 4.00 Capillary Refill : I&O Intake and Output 09/06/16 00:00 Intake Total 2964 ml Output Total 1600 ml Balance 1364 ml Intake Oral 1864 ml IV Total 1100 ml Output Urine Total 1600 ml # Bowel Movements 3 General: Alert, Oriented X3, Cooperative HEENT: Atraumatic, PERRLA Neck: Supple, No JVD, No Thyromegaly Lungs: Other (diminished breath sounds bilaterally) Heart: Regular Rate, Normal S1, Normal S2, No Murmurs, Gallops Abdomen: Normal Bowel Sounds, Soft, No Hepatosplenomegaly Extremities: No Edema, Normal Pulses Skin: No Rashes, No Significant Lesion Neuro: Normal Speech, Cranial Nerves 3-12 NL Psych/Mental Status: Mental Status NL, Mood NL Results Lab Laboratory Tests 09/06/16 04:50 A/P-Cardiology Admission Diagnosis Dyspnea AE COPD Pneumonia HTN Assessment/Plan Acute respiratory insufficiency, receiving antibiotic, pneumonia, still having cough and sputum, still having shortness of breath AE COPD- continue MAT protocol, continue to monitor. Hypertension, poor control, I will increase norvasc, add lisinopril and use clonidine for now, monitor BP closely Tobaccoism- patient reports he is trying to quit smoking. Encourage smoking cessation Elevated LFT's, better now, followed and managed by primary care physician ELSA IGNACIO MD September 06, 2016 08:16
[2016-09-06] MEDS: NICOTINE 21 MG (NICODERM) PATCH TD SCH (08:25)
[2016-09-06] MEDS: NICOTINE PATCH REMOVAL TP SCH (08:25)
[2016-09-06] MEDS: cloNIDine 0.1 MG (CATAPRES) TAB PO SCH ×2 (08:25→20:17)
[2016-09-06] MEDS: morphine ER 100 MG (MS CONTIN) TAB PO SCH ×2 (08:26→20:17)
[2016-09-06] MEDS: oxyCODONE/APAP 5/325MG (PERCOCET 5) TABLET PO PRN ×2 (08:26→20:17)
--- NOTE | 2016-09-06 08:27 | Cardiology Progress Note ---
Subjective Subjective/Events-last exam Patient in bed, no new complaints. Denies any CP, palpitations or dizziness. Review of Systems General: No Night Sweats, No Fatigue, No Malaise HEENT: No Visual Changes, No Dysphasia, No Sore Throat Pulmonary: No Dyspnea, No Cough Cardiovascular: No: Chest Pain Gastrointestinal: No: Abdominal Pain, Nausea, Vomiting Genitourinary: No Dysuria, No Frequency Musculoskeletal: No: back pain, neck pain Neurological: No: Numbness, Weakness Objective-Cardiology Exam Last Set of Vital Signs Vital Signs 09/06/16 09/06/16 09/06/16 06:00 06:39 06:46 Temp 98.5 Pulse 70 Resp 20 B/P (MAP) 181/89 Pulse Ox 96 O2 Flow Rate 4.00 Capillary Refill : I&O Intake and Output 09/06/16 00:00 Intake Total 2964 ml Output Total 1600 ml Balance 1364 ml Intake Oral 1864 ml IV Total 1100 ml Output Urine Total 1600 ml # Bowel Movements 3 General: Alert, Oriented X3, Cooperative HEENT: Atraumatic, PERRLA Neck: Supple, No JVD, No Thyromegaly Lungs: Other (diminished breath sounds bilaterally) Heart: Regular Rate, Normal S1, Normal S2, No Murmurs, Gallops Abdomen: Normal Bowel Sounds, Soft, No Hepatosplenomegaly Extremities: No Edema, Normal Pulses Skin: No Rashes, No Significant Lesion Neuro: Normal Speech, Cranial Nerves 3-12 NL Psych/Mental Status: Mental Status NL, Mood NL Results Lab Laboratory Tests 09/06/16 04:50 A/P-Cardiology Admission Diagnosis Dyspnea AE COPD Pneumonia HTN Assessment/Plan Acute respiratory insufficiency, receiving antibiotic, pneumonia, still having cough and sputum, continue to monitor. AE COPD- continue MAT protocol, continue to monitor. Hypertension, poor control,norvasc increased to 10mg, lisinopril 10mg added, continue to monitor BP closely Tobaccoism- patient reports he is trying to quit smoking. Encourage smoking cessation Elevated LFT's, better now, followed and managed by primary care physician GUDELIA GRACE September 06, 2016 08:27
--- NOTE | 2016-09-06 08:32 | Pulmonary Progress Note ---
Subjective Subjective/Events-last exam Pt does not feel he is getting any better. SOB no different. Exam Exam Vital Signs Date Time Temp Pulse Resp B/P (MAP) Pulse Ox O2 Delivery O2 Flow Rate FiO2 09/06/16 06:46 96 09/06/16 06:39 96 4.00 09/06/16 06:00 98.5 70 20 181/89 97 4.00 09/06/16 02:32 96 4.00 09/05/16 22:28 81 20 98 45.00 09/05/16 20:05 97 4.00 09/05/16 18:52 97.8 82 18 170/84 97 4.00 09/05/16 18:05 96 4.00 09/05/16 14:56 94 4.00 09/05/16 10:15 96 4.00 I & O 09/06/16 07:00 Intake Total 2050 ml Output Total 2625 ml Balance -575 ml General Appearance: No Apparent Distress, WD/WN HEENT: PERRL/EOMI, TMs Normal, Normal ENT Inspection Neck: Non Tender, Supple, No Carotid Bruit Respiratory: Chest Non Tender, No Accessory Muscle Use, No Respiratory Distress , Decreased Breath Sounds, Wheezing Cardiovascular: Regular Rate, Rhythm, No Edema, No Gallop, No JVD, No Murmur, Normal Peripheral Pulses Gastrointestinal: normal bowel sounds, non tender, soft, no organomegaly Extremity: Non Tender, No Calf Tenderness Neurologic/Psychiatric: Alert, Oriented x3, historic interpreter II-XII Norm as Tested Skin: Normal Color, Warm/Dry Lymphatic: No Adenopathy Results Lab Laboratory Tests 09/05/16 07:55 09/06/16 04:50 Assessment/Plan Assessment/Plan PNa -Patel culture -Continue broad spectrum ABX -labs/radiology reviewed -check CT of chest with contrast -repeat LA COPDAE acute on chronic respiratory failure/ acute hypoxia -steroids , SVNs tobacco use - quit 1 month ago chronic debility -pt/ot ALYSIA KHALIL DO September 06, 2016 08:32
[2016-09-06] MEDS: lisINopril 10 MG (PRINIVIL) TAB PO SCH (08:38)
[2016-09-06] MEDS: amLODIPine 10 MG (NORVASC) TAB PO SCH (08:38)
--- NOTE | 2016-09-06 10:01 | Progress Note-Hospitalist ---
Progress Note HPI/CC on Admission CC: SOB and fever HPI: This is a 61yoWM clinic patient of [facility] that was DC'ed and then readmitted the same day on 09/03/16 The presented to the emergency room with shortness of breath and overall decline status found to have elevated lactic acid and expanding infiltrate cities placed on expanded antibiotics and admitted to swing bed since he had just left in this is a continuation of the original admission. At this current time he denies any history of heart issues but he does have telemetry on and he appears to have high risk for heart rhythm issues so I've consulted Dr. Bunn. I will also consult Dr. Heller for severe COPD and he will likely require swing bed status for the next several days and initiate therapy to strengthen prior to going home to make him more successful at time of discharge. Progress Notes/Assess & Plan Date Seen 09/06/16 Admission Dx/Process 61 yo M that presented with acute respiratory failure found to have PNA that failed at DC readmitted to swing bed Acute Respiratory Failure with hypoxia: during admission patient was on increased oxygen requirement. Oxygen was able to be titrated down to home requirement and patient was ready to go home but will need SB. He was on IV antibiotics and steroids and transitioned to PO prior to discharge. Patient tolerated PO medications well. COPD Exacerbation: Patient recently quit smoking 1 month ago. No recent PFTs in clinic. Recommended Outpatient PFT after completed PNA treatment. Patient sent home with antibiotics and steroids. HTN: Uncontrolled HTN, started on norvasc during admission. Elevated LFTs: Normal US and acute hepatitis panel. Trending down at discharge. Will need outpatient labs to follow trend. Hypokalemia: replaced Debility: Seen by PT during admission. Patient would likely benefit from outpatient PT. He declined for PT. Diagonsis/Assessment & Plan Dr. Heller Review: Dr. 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 Pt sounds much better Lactic acid is 3.6 of unknown source No fever, vital signs stable, improved, still frail Regular rate and rhythm, clear to auscultation bilaterally much improved air expansion No edema Laboratory Tests 09/06/16 04:50 61 yo M that presented with acute respiratory failure found to have PNA that failed at DC readmitted to swing bed directly Acute Respiratory Failure with hypoxia w/elevated lactic acid that continues so placing on IVF COPD Exacerbation: Patient recently quit smoking 1 month ago. HTN: Uncontrolled HTN, started on Norvasc during admission. Elevated LFTs: Normal US and acute hepatitis panel. Trending down at discharge. Will need outpatient labs to follow trend. Hypokalemia: replaced Debility: Seen by PT during admission. Patient would likely benefit from outpatient PT. He declined for PT. 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 Barr. ADRIANA BARR DO September 06, 2016 10:01
[2016-09-06] MEDS ORDERED: IOHEXOL 350 MG/ML 100 ML (OMNIPAQUE 350) VIAL IV ONE (12:00)
[2016-09-06] MEDS ORDERED: CATHETER FLUSH 10 ML SYR IV PRN (12:00)
[2016-09-06] MEDS ORDERED: NS 100 ML (IVPB) BAG IV ONE (12:00)
[2016-09-06] MEDS: CEFEPIME INJECTION 2,000 MG in NS (IVPB) 50 ML IV SCH ×2 (13:03→23:21)
[2016-09-06] MEDS: ENOXAPARIN 40 MG/0.4 ML (LOVENOX) SYR SC SCH (13:03)
--- NOTE | 2016-09-06 13:04 | Diagnostic Imaging Report ---
PROCEDURE: CT chest with contrast only. TECHNIQUE: Multiple contiguous axial images were obtained through the chest after administration of intravenous contrast. INDICATION: Recurrent pneumonia. FINDINGS: There are emphysematous changes in the lungs. There is some dense consolidation at the right medial lung base. There is some faint alveolar nodular infiltrate in the posterior segment of the right upper lobe. The right basilar consolidation measures 3.5 cm in diameter with the thickness of 13 mm. There is a small associated pleural effusion. IMPRESSION: Patchy alveolar nodular infiltrate in posterior segment of the right upper lobe. Dense area of consolidation in the right medial lung base that likely represents resolving pneumonia. Followup CT in 3 months recommended to exclude underlying mass. Dictated by: Dictated on workstation # [id number]
[2016-09-06 15:08] VITALS: BP 166/86
--- NOTE | 2016-09-06 15:12 | Physical Therapy Progress Note ---
Therapy Progress Note Pt sitting at EOB upon arrival. Pt reports feeling very fatigued and declined PT this afternoon. Pt states if tx could be done in morning, he works better. PT informed importance of Therapy although respected pt's decline. 1 visit, no tx (Time:1510) ANYA ALEXANDER [employer] September 06, 2016 15:12
[2016-09-06 16:00] VITALS: BP 163/83
[2016-09-06] MEDS ORDERED: NS IV 1000 ML 1,000 ML IV ONE (17:15)
[2016-09-06 20:00] VITALS: BP 157/70
[2016-09-07] VITALS: BP 162/86
[2016-09-07] MEDS: LEVOFLOXACIN 750 MG/150 ML IV 150 ML IV SCH (00:19)
[2016-09-07] MEDS: VANCOMYCIN INJECTION 1,000 MG in NS (IVPB) 250 ML IV SCH ×3 (01:35→16:55)
[2016-09-07] MEDS: RT-ALBUTEROL/IPRATROPIUM 3 ML (DUONEB) VIAL INH SCH ×6 (02:29→21:48)
[2016-09-07] MEDS: NS IV 1000 ML 1,000 ML IV SCH (03:26)
[2016-09-07] MEDS: methylPREDNISolone 40 MG/ML (Solu-MEDROL) VIAL IV SCH ×4 (03:30→21:50)
[2016-09-07 04:00] VITALS: BP 149/70
[2016-09-07 05:13] LABS: MEAN PLATELET VOLUME 8.9 FL (7.4-10.4); RED BLOOD COUNT 3.59 10^6/uL (4.35-5.85); RED CELL DISTRIBUTION WIDTH 14.1 % (10.0-14.5); WHITE BLOOD COUNT 15.1 10^3/uL (4.3-11.0)
[2016-09-07 05:31] LABS: ANION GAP 9 MMOL/L (5-14); BLOOD UREA NITROGEN 26 MG/DL (7-18); BUN/CREATININE RATIO 41; CALCIUM 8.2 MG/DL (8.5-10.1); CARBON DIOXIDE 24 MMOL/L (21-32); CHLORIDE 102 MMOL/L (98-107); CREATININE SERUM 0.64 MG/DL (0.60-1.30); GFR ESTIMATED > 60; GLUCOSE 104 MG/DL (70-105); MAGNESIUM 1.6 MG/DL (1.8-2.4); SODIUM 135 MMOL/L (135-145)
--- NOTE | 2016-09-07 07:15 | Pulmonary Progress Note ---
Subjective Subjective/Events-last exam pt c/o SOB and not feeling well Exam Exam Vital Signs Date Time Temp Pulse Resp B/P (MAP) Pulse Ox O2 Delivery O2 Flow Rate FiO2 09/07/16 04:00 98.4 71 20 149/70 97 4.00 09/07/16 02:29 96 4.00 09/07/16 00:00 97.2 74 20 162/86 97 4.00 09/06/16 22:18 97 4.00 09/06/16 20:10 97 4.00 09/06/16 20:00 97.5 76 20 157/70 96 4.00 09/06/16 18:46 95 4.00 09/06/16 16:00 97.0 75 20 163/83 96 4.00 09/06/16 15:08 99.2 82 20 166/86 95 4.00 09/06/16 14:24 96 4.00 09/06/16 10:29 94 4.00 09/06/16 08:56 98.5 09/06/16 08:56 98.5 09/06/16 08:00 97 4.00 09/06/16 08:00 88 20 216/129 95 4.00 I & O 09/07/16 07:00 Intake Total 4692 ml Output Total 4300 ml Balance 392 ml General Appearance: No Apparent Distress, WD/WN HEENT: PERRL/EOMI, TMs Normal, Normal ENT Inspection Neck: Non Tender, Supple, No Carotid Bruit Respiratory: Chest Non Tender, No Accessory Muscle Use, No Respiratory Distress , Wheezing Cardiovascular: Regular Rate, Rhythm, No Edema, No Gallop, No JVD, No Murmur, Normal Peripheral Pulses Gastrointestinal: non tender, soft, no organomegaly Extremity: Non Tender, No Calf Tenderness Neurologic/Psychiatric: Alert, Oriented x3, wood heel flap trimmer II-XII Norm as Tested Skin: Normal Color, Warm/Dry Lymphatic: No Adenopathy Results Lab Laboratory Tests 09/05/16 07:55 09/06/16 04:50 09/07/16 04:23 Assessment/Plan Assessment/Plan PNa -Patel culture -Continue broad spectrum ABX -labs/radiology reviewed CT of chest with contrast - reviewed -Will need to repeat as out patient in 2-3 mo. -PT may need bronchoscopy -repeat LA -Change IVF to LR COPDAE acute on chronic respiratory failure/ acute hypoxia -steroids , SVNs tobacco use - quit 1 month ago chronic debility -pt/ot ALYSIA KHALIL DO September 07, 2016 07:15
[2016-09-07 08:00] VITALS: BP 179/76
[2016-09-07] MEDS: amLODIPine 10 MG (NORVASC) TAB PO SCH (08:06)
[2016-09-07] MEDS: morphine ER 100 MG (MS CONTIN) TAB PO SCH ×2 (08:06→19:48)
[2016-09-07] MEDS: cloNIDine 0.1 MG (CATAPRES) TAB PO SCH ×2 (08:06→18:14)
[2016-09-07] MEDS: lisINopril 10 MG (PRINIVIL) TAB PO SCH (08:06)
[2016-09-07] MEDS: oxyCODONE/APAP 5/325MG (PERCOCET 5) TABLET PO PRN ×2 (08:07→19:48)
[2016-09-07] MEDS: NICOTINE 21 MG (NICODERM) PATCH TD SCH (08:07)
[2016-09-07] MEDS: NICOTINE PATCH REMOVAL TP SCH (08:07)
--- NOTE | 2016-09-07 08:17 | Cardiology Progress Note ---
Subjective Subjective/Events-last exam Patient is in bed, feeling better, still having shortness of breath Review of Systems General: No Chills, No Night Sweats, No Fatigue, No Malaise, No Appetite, No Other HEENT: No Head Aches, No Visual Changes, No Eye Pain, No Ear Pain, No Dysphasia , No Sinus Congestion, No Post Nasal Drip, No Sore Throat, No Other Pulmonary: Dyspnea, No Cough, No Pleuritic Chest Pain, No Other Cardiovascular: No: Chest Pain, Edema, Lt Headedness, Orthopnea, Other, Palpitations, Paroxysmal Noc. Dyspnea Objective-Cardiology Exam Last Set of Vital Signs Vital Signs 09/07/16 08:00 Temp 96.5 Pulse 71 Resp 18 B/P (MAP) 179/76 Pulse Ox 95 O2 Flow Rate 4.00 Capillary Refill : I&O Intake and Output 09/07/16 00:00 Intake Total 4502 ml Output Total 4175 ml Balance 327 ml Intake Oral 2752 ml IV Total 1750 ml Output Urine Total 4175 ml # Voids 2 # Bowel Movements 7 General: Alert, Oriented X3, Cooperative HEENT: Atraumatic, PERRLA Neck: Supple, No JVD, No Thyromegaly Lungs: Other (diminished breath sounds bilaterally) Heart: Regular Rate, Normal S1, Normal S2, No Murmurs, Gallops Abdomen: Normal Bowel Sounds, Soft, No Hepatosplenomegaly Extremities: No Edema, Normal Pulses Skin: No Rashes, No Significant Lesion Neuro: Normal Speech, Cranial Nerves 3-12 NL Psych/Mental Status: Mental Status NL, Mood NL Results Lab Laboratory Tests 09/07/16 04:23 A/P-Cardiology Admission Diagnosis Dyspnea AE COPD Pneumonia HTN Assessment/Plan Acute respiratory insufficiency, receiving antibiotic, pneumonia, CT scan results reviewed, still having some dyspnea, continue to monitor AE COPD- continue MAT protocol, continue to monitor. Hypertension, better control, he is on solumedrol which make blood pressure more difficult to control, continue on current meds and monitor BP Tobaccoism- patient reports he is trying to quit smoking. Encourage smoking cessation Elevated LFT's, better now, followed and managed by primary care physician ELSA IGNACIO MD September 07, 2016 08:17
[2016-09-07] MEDS: MAGNESIUM 1 GM/100 ML IVPB 100 ML IV SCH ×2 (09:40→10:48)
[2016-09-07] MEDS: LACTATED RINGERS 1,000 ML IV SCH ×3 (09:40→21:50)
[2016-09-07] MEDS ORDERED: MAGNESIUM 1 GM/100 ML IVPB 100 ML IV ONE (10:44)
--- NOTE | 2016-09-07 10:52 | Progress Note-Hospitalist ---
Progress Note HPI/CC on Admission CC: SOB and fever HPI: This is a 61yoWM clinic patient of [facility] that was DC'ed and then readmitted the same day on 09/03/16 The presented to the emergency room with shortness of breath and overall decline status found to have elevated lactic acid and expanding infiltrate cities placed on expanded antibiotics and admitted to swing bed since he had just left in this is a continuation of the original admission. At this current time he denies any history of heart issues but he does have telemetry on and he appears to have high risk for heart rhythm issues so I've consulted Dr. Bunn. I will also consult Dr. Heller for severe COPD and he will likely require swing bed status for the next several days and initiate therapy to strengthen prior to going home to make him more successful at time of discharge. Progress Notes/Assess & Plan Date Seen 09/07/16 Admission Dx/Process 61 yo M that presented with acute respiratory failure found to have PNA that failed at DC readmitted to swing bed Acute Respiratory Failure with hypoxia: during admission patient was on increased oxygen requirement. Oxygen was able to be titrated down to home requirement and patient was ready to go home but will need SB. He was on IV antibiotics and steroids and transitioned to PO prior to discharge. Patient tolerated PO medications well. COPD Exacerbation: Patient recently quit smoking 1 month ago. No recent PFTs in clinic. Recommended Outpatient PFT after completed PNA treatment. Patient sent home with antibiotics and steroids. HTN: Uncontrolled HTN, started on norvasc during admission. Elevated LFTs: Normal US and acute hepatitis panel. Trending down at discharge. Will need outpatient labs to follow trend. Hypokalemia: replaced Debility: Seen by PT during admission. Patient would likely benefit from outpatient PT. He declined for PT. Diagonsis/Assessment & Plan Pt feels still really weak and likely will not be able to DC tomorrow as planned. Pt has very severe COPD and the CT scan shows extensive infiltrates No pain is reported No additional chest pain or palpitations Checked meds and labs No fever, vital signs stable, improved, still frail Regular rate and rhythm, much improved air expansion but wheezing noted No edema Laboratory Tests 09/07/16 04:23 61 yo M that presented with acute respiratory failure found to have PNA that failed at DC readmitted to swing bed directly Acute Respiratory Failure with hypoxia w/elevated lactic acid that continues so placing on IVF now improved 2.6 COPD Exacerbation: Patient recently quit smoking 1 month ago. HTN: Uncontrolled HTN, started on Norvasc during admission. Elevated LFTs: Normal US and acute hepatitis panel. Trending down at discharge. Will need outpatient labs to follow trend. Hypokalemia: replaced Debility: Seen by PT during admission. Patient would likely benefit from outpatient PT. He declined for PT. 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
[2016-09-07] MEDS ORDERED: LACTATED RINGERS 1,000 ML IV ONE (11:45)
[2016-09-07] MEDS: CEFEPIME INJECTION 2,000 MG in NS (IVPB) 50 ML IV SCH (11:53)
--- NOTE | 2016-09-07 11:55 | Physical Therapy Daily Note ---
PT Daily Note-Current Subjective Pt sitting at EOB upon arrival. Pt agrees to PT for ambulation. Pt reports pain of 7/10 in back. Pain Numeric Pain Scale: 7 Location: Lower Location Body Site: Back Pain Description: Sharp Mental Status Patient Orientation: Person, Place, Time, Situation Attachments: Oxygen (2L), IV Transfers Functional [place] Measure 0=Not Assessed/NA 4=Minimal Assistance 1=Total Assistance 5=Supervision or Setup 2=Maximal Assistance 6=Modified [place] 3=Moderate Assistance 7=Complete IndependenceIRFPAI Quality Coding Scale 6 Independent with activity with or without an assistive device 5 Patient requires set up or clean up by helper. Patient completes activity by themselves 4 Supervision or touching assist (CGA). [place] provide cues , steadying assist 3 The helper provides less than half the effort to complete the activity 2 The helper provides more than half the effort to complete the activity 1 Dependent. The helper does all the effort to complete an activity 7 Patient refused to complete or attempt activity 9 The patient did not perform the activity before the current illness or injury 88 Not attempted due to Medical conditions or safety concerns Weight Bearing Weight Bearing Restriction: Full Weight Bearing Location Restriction: LE Bilateral Gait Training Does the Patient Walk?: Yes Distance (FIM): 3=150 ft Distance: 350' Walk 50 ft with 2 Turns(QC): 5 Walk 150 ft (QC): 5 Gait Level of Assist: 5 Gait Persons Needed: 1 Gait Assistive Device: None Pt fatigues and needs rest after ambulation. Pt walks with slow henry and uses IV pole for some support. Wheelchair Training Does the Pt Use a Wheelchair?: No Treatments Pt transfers from EOB at SBA. Pt ambulates in hallway using IV pole for some support and PT assisted with managing O2. Pt returns to room at end of walk to rest at EOB. Pt is at EOB at end of tx as Nursing arrives to take vitals with all needs met. Assessment Current Status: Fair Progress Pt fatigues easy but is making improvement with independence with activities as well as activity tolerance. PT Jail Goals Jail Goals PT Jail Goals Time Frame: September 13, 2016 Transfers (B,C,W/C) (FIM): 7 Sit to Lying (QC): 7 Lying-Sitting on Side/Bed(QC): 7 Sit to Stand (QC): 7 Chair/Cga-xl-Jynjm Xfer(QC): 7 Does the Patient Walk: Yes Gait (FIM): 7 Gait distance (FIM): 3=150 ft Walk 50ft with 2 Turns (QC): 7 Walk 150 ft (QC): 7 Gait Assistive Device: None PT Plan Problem List Problem List: Activity Tolerance, Safety, Balance, Gait Treatment/Plan Treatment Plan: Continue Plan of Care Treatment Plan: Bed Mobility, Education, Functional Activity Dacia, Functional Strength, Gait, Safety, Therapeutic Exercise, Transfers Treatment Duration: September 15, 2016 Visits Per Week: 5-6 Safety Risks/Education Patient Education: Gait Training, Correct Positioning, Safety Issues Teaching Recipient: Patient Teaching Methods: Discussion Response to Teaching: Verbalize Understanding Time/GCodes Time In: 1125 Time Out: 1140 Total Billed Treatment Time: 15 Total Billed Treatment visit, GT (15m) ANYA ALEXANDER PTA September 07, 2016 11:55
[2016-09-07 12:00] VITALS: BP 172/87
--- NOTE | 2016-09-07 13:21 | Pulmonary Progress Note ---
Standard Progress Note Progress Notes Called to room secondary to persistent increasing lactic acid and SOB. Abdomen: TTP RUQ with + Santillan's sign/ No peritoneal signs. BS diminished all quadrants Lungs; diminished bases bilaterally. mild increased WOB. no productive cough. Assessment & Plan PNa -Patel culture -Continue broad spectrum ABX -labs/radiology reviewed CT of chest with contrast - reviewed -Will need to repeat as out patient in 2-3 mo. -PT may need bronchoscopy -repeat LA -Change IVF to LR RUQ pain TTP -check US RUQ and CT scan of abdomen and pelvis with PO/IV contrast -check amylase and lipase. Metabolic lactic acidosis -bolus 1 liter LR and continue LR at 125 COPDAE acute on chronic respiratory failure/ acute hypoxia -steroids , SVNs tobacco use - quit 1 month ago chronic debility -pt/ot ALYSIA KHALIL DO September 07, 2016 13:21
[2016-09-07] MEDS ORDERED: NS 100 ML (IVPB) BAG IV ONE ×2 (14:45→16:15)
[2016-09-07] MEDS ORDERED: CATHETER FLUSH 10 ML SYR IV PRN ×2 (14:45→16:15)
[2016-09-07] MEDS ORDERED: IOHEXOL 350 MG/ML 100 ML (OMNIPAQUE 350) VIAL IV ONE ×2 (14:45→16:15)
[2016-09-07] MEDS: ENOXAPARIN 40 MG/0.4 ML (LOVENOX) SYR SC SCH (14:56)
[2016-09-07 15:38] LABS: ALANINE AMINOTRANSFERASE 49 U/L (0-55); ALBUMIN 3.7 G/DL (3.2-4.5); ANION GAP 8 MMOL/L (5-14); ASPARTATE AMINO TRANSFERASE 20 U/L (5-34); BILIRUBIN,TOTAL 0.4 MG/DL (0.1-1.0); BLOOD UREA NITROGEN 23 MG/DL (7-18); BUN/CREATININE RATIO 35; CALCIUM 8.7 MG/DL (8.5-10.1); CARBON DIOXIDE 27 MMOL/L (21-32); CHLORIDE 97 MMOL/L (98-107); CREATININE SERUM 0.65 MG/DL (0.60-1.30); GFR ESTIMATED > 60; GLUCOSE 95 MG/DL (70-105); POTASSIUM 4.2 MMOL/L (3.6-5.0); SODIUM 132 MMOL/L (135-145); TOTAL PROTEIN 6.2 G/DL (6.4-8.2)
[2016-09-07 16:00] VITALS: BP 186/102
--- NOTE | 2016-09-07 16:11 | Diagnostic Imaging Report ---
PROCEDURE: US abdomen, limited. TECHNIQUE: Multiple realtime grayscale images were obtained over the abdomen in various projections. INDICATION: Right upper quadrant pain. FINDINGS: The visualized portions of the pancreas appear unremarkable. The liver is fairly homogeneous with no focal lesion. There is hepatopedal flow in the portal vein. The CBD is obscured. The gallbladder demonstrates no stones. It is slightly contracted; however, without significant wall thickening. No pericholecystic fluid. The right kidney is 12 cm in length with no hydronephrosis or focal lesion. No free fluid or fluid collection in the upright abdomen is seen. Sonographic Santillan sign is negative. IMPRESSION: No gallstones or evidence of cholecystitis. The gallbladder; however, is partially contracted. HIDA scan evaluation with ejection fraction assessment could be performed to evaluate for biliary dyskinesia. Dictated by: Dictated on workstation # [id number]
--- NOTE | 2016-09-07 17:07 | Diagnostic Imaging Report ---
INDICATION: Right lower quadrant tenderness, history of partial colon resection and umbilical hernia. EXAMINATION: CT of the abdomen and pelvis was obtained with IV contrast bolus. COMPARISON: There is no prior study for comparison. FINDINGS: Visualized portions of the lung bases demonstrate some patchy parenchymal densities in the right lower lobe which are more likely infiltrate than mass. These appear unchanged compared to prior chest CT of 09/06/16. There is a small amount of free fluid. There is some linear scarring in the lingular region. There is no free intraperitoneal air. There are postop changes in the lumbar spine. The liver shows mild diffuse low-density change compatible with fatty infiltration. There is no focal liver lesion. Gallbladder is contracted. Spleen is not enlarged and shows no focal lesion. The adrenals and pancreas appear normal. Kidneys, bilaterally, are unremarkable. There is no retrocardial mass or adenopathy. There is no ascites or abnormal fluid collection. There are some areas of gas in the subcutaneous fat in the right lower quadrant which may be due to subcutaneous injections, correlate clinically. Visualized bowel loops show no overt obstruction or focal bowel wall thickening. There is no pelvic mass or free fluid. In the epigastric region to the right of the midlung, there is a small ventral hernia with a small fluid density in the area, measuring about 1.4 cm. There is atherosclerotic change of the aorta without evidence of aneurysm. 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 IMPRESSION: 1. Parenchymal changes in right lung base are unchanged from the chest CT of 09/06/16. See recommendations from chest CT. 2. There is mild fatty change in the liver. There is a small ventral hernia in the right upper quadrant with a small fluid density in the area of the subcutaneous fat, measuring about 1.4 cm. Correlate clinically for site of pain. There is some gas in the subcutaneous fat in the right lower quadrant which may be due to subcutaneous injections, correlate clinically. 3. 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 Correlate with clinical findings. Dictated by: Dictated on workstation # [id number]
[2016-09-07 20:26] VITALS: BP 164/93
[2016-09-08] MEDS: CEFEPIME INJECTION 2,000 MG in NS (IVPB) 50 ML IV SCH ×3 (00:12→23:54)
[2016-09-08 00:30] VITALS: BP 175/87
[2016-09-08] MEDS: LEVOFLOXACIN 750 MG/150 ML IV 150 ML IV SCH (00:48)
[2016-09-08] MEDS: RT-ALBUTEROL/IPRATROPIUM 3 ML (DUONEB) VIAL INH SCH ×6 (02:00→21:23)
[2016-09-08] MEDS: VANCOMYCIN INJECTION 1,000 MG in NS (IVPB) 250 ML IV SCH ×3 (02:03→18:12)
[2016-09-08] MEDS: methylPREDNISolone 40 MG/ML (Solu-MEDROL) VIAL IV SCH ×4 (03:49→22:50)
[2016-09-08 04:25] VITALS: BP 162/81
[2016-09-08 05:41] LABS: MEAN PLATELET VOLUME 9.1 FL (7.4-10.4); RED BLOOD COUNT 3.75 10^6/uL (4.35-5.85); RED CELL DISTRIBUTION WIDTH 14.4 % (10.0-14.5); WHITE BLOOD COUNT 15.8 10^3/uL (4.3-11.0)
[2016-09-08 06:25] LABS: ANION GAP 11 MMOL/L (5-14); BLOOD UREA NITROGEN 25 MG/DL (7-18); BUN/CREATININE RATIO 38; CALCIUM 8.3 MG/DL (8.5-10.1); CARBON DIOXIDE 24 MMOL/L (21-32); CHLORIDE 100 MMOL/L (98-107); CREATININE SERUM 0.66 MG/DL (0.60-1.30); GFR ESTIMATED > 60; GLUCOSE 101 MG/DL (70-105); MAGNESIUM 1.9 MG/DL (1.8-2.4); POTASSIUM 4.2 MMOL/L (3.6-5.0); SODIUM 135 MMOL/L (135-145)
--- NOTE | 2016-09-08 06:46 | Pulmonary Progress Note ---
Subjective Subjective/Events-last exam pt still feels SOB and not feeling well. Exam Exam Vital Signs Date Time Temp Pulse Resp B/P (MAP) Pulse Ox O2 Delivery O2 Flow Rate FiO2 09/08/16 00:30 98.8 88 18 175/87 94 4.00 09/07/16 21:48 93 2.00 09/07/16 20:26 97.7 82 24 164/93 95 4.00 09/07/16 20:00 2.00 09/07/16 18:58 93 2.00 09/07/16 16:00 96.2 75 20 186/102 97 4.00 09/07/16 12:00 97.0 78 20 172/87 94 4.00 09/07/16 10:45 92 4.00 09/07/16 08:30 95 2.00 09/07/16 08:00 4.00 09/07/16 08:00 96.5 71 18 179/76 95 4.00 I & O 09/08/16 07:00 Intake Total 4780 ml Output Total 3775 ml Balance 1005 ml General Appearance: No Apparent Distress, WD/WN HEENT: PERRL/EOMI, TMs Normal, Normal ENT Inspection Neck: Non Tender, Supple, No Carotid Bruit Respiratory: Chest Non Tender, No Accessory Muscle Use, No Respiratory Distress , Wheezing Cardiovascular: Regular Rate, Rhythm, No Edema, No Gallop, No JVD, No Murmur, Normal Peripheral Pulses Gastrointestinal: non tender, soft, no organomegaly, No distended, No guarding , No rebound, tenderness (RUQ TTP ) Extremity: Non Tender, No Calf Tenderness Neurologic/Psychiatric: Alert, Oriented x3, 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 -PT may need bronchoscopy -repeat LA -continue LR COPDAE acute on chronic respiratory failure/ acute hypoxia -steroids , SVNs Metabolic acidosis -CHange IVF to LR and increase to 150 give 1 liter bolus tobacco use - quit 1 month ago chronic debility -pt/ot 233 ALYSIA KHALIL DO September 08, 2016 06:46
--- NOTE | 2016-09-08 07:38 | Diagnostic Imaging Report ---
PA and lateral views of the chest. INDICATION: Productive cough. COMPARISON: 09/05/16 FINDINGS: The lungs are hyperinflated. There is bibasilar patchy infiltrate seen similar to 09/05/16. No effusion or pneumothorax. Mediastinum and nestor appear unremarkable. Heart size is normal. IMPRESSION: Bibasilar infiltrates mostly on the right side unchanged from the prior exam. Dictated by: Dictated on workstation # [id number]
[2016-09-08] MEDS ORDERED: LACTATED RINGERS 1,000 ML IV SCH ×2 (07:53→16:15)
[2016-09-08 08:00] VITALS: BP 194/94
[2016-09-08] MEDS ORDERED: LACTATED RINGERS 1,000 ML IV NR (08:00)
[2016-09-08] MEDS: lisINopril 10 MG (PRINIVIL) TAB PO SCH (08:36)
[2016-09-08] MEDS: NICOTINE 21 MG (NICODERM) PATCH TD SCH (08:37)
[2016-09-08] MEDS: NICOTINE PATCH REMOVAL TP SCH (08:37)
[2016-09-08] MEDS: morphine ER 100 MG (MS CONTIN) TAB PO SCH ×2 (08:37→21:21)
[2016-09-08] MEDS: oxyCODONE/APAP 5/325MG (PERCOCET 5) TABLET PO PRN (08:37)
[2016-09-08] MEDS: amLODIPine 10 MG (NORVASC) TAB PO SCH (08:37)
[2016-09-08] MEDS: cloNIDine 0.1 MG (CATAPRES) TAB PO SCH ×4 (08:37→21:23)
--- NOTE | 2016-09-08 08:45 | Cardiology Progress Note ---
Subjective Subjective/Events-last exam Patient is in bed, still having shortness of breath and productive cough, no chest pain Review of Systems General: No Chills, No Night Sweats, No Fatigue, No Malaise, No Appetite, No Other HEENT: No Head Aches, No Visual Changes, No Eye Pain, No Ear Pain, No Dysphasia , No Sinus Congestion, No Post Nasal Drip, No Sore Throat, No Other Pulmonary: Dyspnea, Cough, No Pleuritic Chest Pain, No Other Cardiovascular: No: Chest Pain, Edema, Lt Headedness, Orthopnea, Other, Palpitations, Paroxysmal Noc. Dyspnea Objective-Cardiology Exam Last Set of Vital Signs Vital Signs 09/08/16 04:25 Temp 98.3 Pulse 77 Resp 18 B/P (MAP) 162/81 Pulse Ox 93 O2 Flow Rate 4.00 Capillary Refill : I&O Intake and Output 09/08/16 00:00 Intake Total 4750 ml Output Total 4775 ml Balance -25 ml Intake Oral 1600 ml IV Total 3150 ml Output Urine Total 4775 ml # Voids 2 General: Alert, Oriented X3, Cooperative HEENT: Atraumatic, PERRLA Neck: Supple, No JVD, No Thyromegaly Lungs: Other (diminished breath sounds bilaterally) Heart: Regular Rate, Normal S1, Normal S2, No Murmurs, Gallops Abdomen: Normal Bowel Sounds, Soft, No Hepatosplenomegaly Extremities: No Edema, Normal Pulses Skin: No Rashes, No Significant Lesion Neuro: Normal Speech, Cranial Nerves 3-12 NL Psych/Mental Status: Mental Status NL, Mood NL Results Lab Laboratory Tests 09/07/16 15:14 09/08/16 05:35 09/08/16 05:50 A/P-Cardiology Admission Diagnosis Dyspnea AE COPD Pneumonia HTN Assessment/Plan Acute on chronic respiratory insufficiency, receiving antibiotic, CXR showed no improvement, shaw cultures, lactic acid is elevated, receiving antibiotics, managed by Dr Heller AE COPD- continue MAT protocol, deferred management to Dr Heller Hypertension, difficult to control due to current comorbid condition and steroids, I will increase clonidine to TID and increase lisinopril to 20 mg, continue to monitor BP Tobaccoism- patient reports he is trying to quit smoking. Encourage smoking cessation Elevated LFT's, better now, followed and managed by primary care physician ELSA IGNACIO MD September 08, 2016 08:45
[2016-09-08] MEDS: LACTATED RINGERS 1,000 ML IV SCH ×2 (08:48→20:23)
[2016-09-08] MEDS: lisINopril 20 MG (ZESTRIL) TAB PO SCH (08:59)
--- NOTE | 2016-09-08 10:05 | Progress Note-Hospitalist ---
Progress Note HPI/CC on Admission CC: SOB and fever HPI: This is a 61yoWM clinic patient of [facility] that was DC'ed and then readmitted the same day on 09/03/16 The presented to the emergency room with shortness of breath and overall decline status found to have elevated lactic acid and expanding infiltrate cities placed on expanded antibiotics and admitted to swing bed since he had just left in this is a continuation of the original admission. At this current time he denies any history of heart issues but he does have telemetry on and he appears to have high risk for heart rhythm issues so I've consulted Dr. Bunn. I will also consult Dr. Heller for severe COPD and he will likely require swing bed status for the next several days and initiate therapy to strengthen prior to going home to make him more successful at time of discharge. Progress Notes/Assess & Plan Date Seen 09/08/16 Admission Dx/Process 61 yo M that presented with acute respiratory failure found to have PNA that failed at DC readmitted to swing bed Acute Respiratory Failure with hypoxia: during admission patient was on increased oxygen requirement. Oxygen was able to be titrated down to home requirement and patient was ready to go home but will need SB. He was on IV antibiotics and steroids and transitioned to PO prior to discharge. Patient tolerated PO medications well. COPD Exacerbation: Patient recently quit smoking 1 month ago. No recent PFTs in clinic. Recommended Outpatient PFT after completed PNA treatment. Patient sent home with antibiotics and steroids. HTN: Uncontrolled HTN, started on norvasc during admission. Elevated LFTs: Normal US and acute hepatitis panel. Trending down at discharge. Will need outpatient labs to follow trend. Hypokalemia: replaced Debility: Seen by PT during admission. Patient would likely benefit from outpatient PT. He declined for PT. Diagonsis/Assessment & Plan Pt feels about the same not worse CT scan and USG revealed no source for lactic acid that continues to be elevated even after IVF No pain is reported Is walking in halls with PT Checked meds and labs No fever, vital signs stable, improved, still frail Regular rate and rhythm, much improved air expansion but wheezing noted No edema Laboratory Tests 09/07/16 15:14 09/08/16 05:35 09/08/16 05:50 61 yo M that presented with acute respiratory failure found to have PNA that failed at DC readmitted to swing bed directly Acute Respiratory Failure with hypoxia w/elevated lactic acid that continues so placing on IVF but still lactic acid is 2.6 today COPD Exacerbation: Patient recently quit smoking 1 month ago. HTN: Uncontrolled HTN, started on Norvasc during admission. Elevated LFTs: Normal US and acute hepatitis panel. Trending down at discharge. Will need outpatient labs to follow trend. Hypokalemia: replaced Debility: Seen by PT during admission. Patient would likely benefit from outpatient PT. He declined for PT. 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
--- NOTE | 2016-09-08 11:08 | Physical Therapy Daily Note ---
PT Daily Note-Current Subjective Patient is up in room independently. Agrees to PT. Pain Numeric Pain Scale: 0-No Pain Location: No Pain Reported Mental Status Patient Orientation: Normal For Age Attachments: Oxygen, IV Transfers Functional [place] Measure 0=Not Assessed/NA 4=Minimal Assistance 1=Total Assistance 5=Supervision or Setup 2=Maximal Assistance 6=Modified [place] 3=Moderate Assistance 7=Complete IndependenceIRFPAI Quality Coding Scale 6 Independent with activity with or without an assistive device 5 Patient requires set up or clean up by helper. Patient completes activity by themselves 4 Supervision or touching assist (CGA). [place] provide cues , steadying assist 3 The helper provides less than half the effort to complete the activity 2 The helper provides more than half the effort to complete the activity 1 Dependent. The helper does all the effort to complete an activity 7 Patient refused to complete or attempt activity 9 The patient did not perform the activity before the current illness or injury 88 Not attempted due to Medical conditions or safety concerns Transfers (B, C, W/C) (FIM): 7 Scootin Roll Left to Right (QC): 6 Supine to/from Sit: 7 Sit to/from Stand: 7 Sit to Lying (QC): 6 Sit to Stand (QC): 6 Chair/Wvc-ae-Qmijf Xfer(QC): 6 Bed to/from Chair: 7 Gait Training Does the Patient Walk?: Yes Gait (FIM): 7 Distance (FIM): 3=150 ft Distance: >800' Walk 50 ft with 2 Turns(QC): 6 Walk 150 ft (QC): 6 Gait Level of Assist: 7 Gait Assistive Device: None assist for O2 tank Assessment Patient tolerated treatment with increase in SOA with demonstration of steady, functional gait sequence. PT Group Home Goals Group Home Goals PT [place] Goals Time Frame: September 13, 2016 Transfers (B,C,W/C) (FIM): 7 Sit to Lying (QC): 7 Lying-Sitting on Side/Bed(QC): 7 Sit to Stand (QC): 7 Chair/Jfx-rk-Jmlfh Xfer(QC): 7 Does the Patient Walk: Yes Gait (FIM): 7 Gait distance (FIM): 3=150 ft Walk 50ft with 2 Turns (QC): 7 Walk 150 ft (QC): 7 Gait Assistive Device: None PT Plan Treatment/Plan Treatment Plan: Continue Plan of Care Treatment Plan: Bed Mobility, Education, Functional Activity [place]acia, Functional Strength, Gait, Safety, Therapeutic Exercise, Transfers Treatment Duration: September 15, 2016 Visits Per Week: 5-6 Time/GCodes Time In: 1050 Time Out: 1105 Total Billed Treatment Time: 15 Total Billed Treatment 1 visit FA 15 min KETURAH MARROQUIN PT September 08, 2016 11:08
[2016-09-08 12:00] VITALS: BP 179/95
[2016-09-08] MEDS: ENOXAPARIN 40 MG/0.4 ML (LOVENOX) SYR SC SCH (16:11)
[2016-09-08] MEDS ORDERED: LACTATED RINGERS 1,000 ML IV ONE ×2 (16:30)
[2016-09-08 16:46] VITALS: BP 158/89
[2016-09-08 19:30] VITALS: BP 180/90
[2016-09-08] MEDS: morphine INJ 4 MG/ML 1 ML (VIAL/SYRINGE) IVP PRN (21:45)
[2016-09-08 22:48] LABS: BASOPHILS # (AUTO) 0.1 10^3/uL (0.0-0.1); BASOPHILS % (AUTO) 0 % (0-10); EOSINOPHILS % (AUTO) 0 % (0-10); LYMPHOCYTES # (AUTO) 0.7 X 10^3 (1.0-4.0); LYMPHOCYTES % (AUTO) 4 % (12-44); MEAN CORPUSCULAR HEMOGLOBIN 31 PG (25-34); MEAN CORPUSCULAR HGB CONC 32 G/DL (32-36); MEAN CORPUSCULAR VOLUME 95 FL (80-99); MEAN PLATELET VOLUME 8.6 FL (7.4-10.4); MONOCYTES # (AUTO) 0.7 X 10^3 (0.0-1.0); MONOCYTES % (AUTO) 4 % (0-12); NEUTROPHILS # (AUTO) 16.9 X 10^3 (1.8-7.8); NEUTROPHILS % (AUTO) 92 % (42-75); PLATELET COUNT 371 10^3/uL (130-400); RED BLOOD COUNT 3.78 10^6/uL (4.35-5.85); RED CELL DISTRIBUTION WIDTH 14.3 % (10.0-14.5); WHITE BLOOD COUNT 18.3 10^3/uL (4.3-11.0)
[2016-09-08 22:59] LABS: BAND NEUTROPHILS 2 %; BASOPHILS % (MANUAL) 0 %; EOSINOPHILS % (MANUAL) 0 %; LYMPHOCYTES % (MANUAL) 5 %; METAMYELOCYTES % 1 %; NEUTROPHILS % (MANUAL) 92 %
[2016-09-08 23:12] LABS: ALANINE AMINOTRANSFERASE 52 U/L (0-55); ALBUMIN 3.1 G/DL (3.2-4.5); ANION GAP 14 MMOL/L (5-14); ASPARTATE AMINO TRANSFERASE 29 U/L (5-34); BILIRUBIN,TOTAL 0.3 MG/DL (0.1-1.0); BLOOD UREA NITROGEN 22 MG/DL (7-18); BUN/CREATININE RATIO 34; CALCIUM 8.2 MG/DL (8.5-10.1); CARBON DIOXIDE 22 MMOL/L (21-32); CHLORIDE 100 MMOL/L (98-107); CREATININE SERUM 0.65 MG/DL (0.60-1.30); GFR ESTIMATED > 60; GLUCOSE 112 MG/DL (70-105); MAGNESIUM 2.3 MG/DL (1.8-2.4); SODIUM 136 MMOL/L (135-145); TOTAL PROTEIN 5.5 G/DL (6.4-8.2)
[2016-09-08 23:14] LABS: POTASSIUM 4.9 MMOL/L (3.6-5.0)
[2016-09-09] VITALS: BP 169/70
[2016-09-09] MEDS: LEVOFLOXACIN 750 MG/150 ML IV 150 ML IV SCH (01:16)
[2016-09-09] MEDS: RT-ALBUTEROL/IPRATROPIUM 3 ML (DUONEB) VIAL INH SCH ×5 (02:34→19:13)
[2016-09-09] MEDS: VANCOMYCIN INJECTION 1,000 MG in NS (IVPB) 250 ML IV SCH ×3 (02:58→17:04)
[2016-09-09 04:00] VITALS: BP 183/80
[2016-09-09] MEDS: methylPREDNISolone 40 MG/ML (Solu-MEDROL) VIAL IV SCH ×2 (04:29→08:45)
[2016-09-09] MEDS: LACTATED RINGERS 1,000 ML IV SCH ×4 (05:15→22:59)
--- NOTE | 2016-09-09 06:07 | Pulmonary Progress Note ---
Subjective Subjective/Events-last exam Pt has no specific complaints just generalized "not feeling well" Exam Exam Vital Signs Date Time Temp Pulse Resp B/P (MAP) Pulse Ox O2 Delivery O2 Flow Rate FiO2 09/09/16 02:34 95 1.50 09/09/16 00:00 98.0 69 18 169/70 95 4.00 09/08/16 21:24 93 1.50 09/08/16 20:00 2.00 09/08/16 19:30 98.5 70 16 180/90 94 09/08/16 16:46 98.6 90 20 158/89 92 4.00 09/08/16 14:23 93 2.00 09/08/16 12:00 96.8 90 16 179/95 95 4.00 09/08/16 11:04 94 2.00 09/08/16 08:00 98.1 80 20 194/94 96 4.00 09/08/16 07:50 2.00 I & O 09/09/16 07:00 Intake Total 1450 ml Output Total 1800 ml Balance -350 ml General Appearance: No Apparent Distress, WD/WN HEENT: PERRL/EOMI, TMs Normal, Normal ENT Inspection Neck: Non Tender, Supple, No Carotid Bruit Respiratory: Chest Non Tender, No Accessory Muscle Use, No Respiratory Distress , Wheezing Cardiovascular: Regular Rate, Rhythm, No Edema, No Gallop, No JVD, No Murmur, Normal Peripheral Pulses Gastrointestinal: non tender, soft, no organomegaly Extremity: Non Tender, No Calf Tenderness Neurologic/Psychiatric: Alert, Oriented x3, photograph tinter II-XII Norm as Tested Skin: Normal Color, Warm/Dry Lymphatic: No Adenopathy Results Lab Laboratory Tests 09/07/16 15:14 09/08/16 05:35 09/08/16 05:50 09/08/16 22:40 Assessment/Plan Assessment/Plan PNa -Patel culture -Continue broad spectrum ABX -labs/radiology reviewed CT of chest with contrast - reviewed -Will need to repeat as out patient in 2-3 mo. -PT may need bronchoscopy -repeat LA -continue LR -decrease solumedrol to daily Metabolic acidosis -continue aggressive IVF with LR repeat lilter bolus this AM -continue to monitor COPDAE acute on chronic respiratory failure/ acute hypoxia -steroids , SVNs tobacco use - quit 1 month ago chronic debility -pt/ot 233 ALYSIA KHALIL DO September 09, 2016 06:07
[2016-09-09 06:42] LABS: ANION GAP 12 MMOL/L (5-14); BLOOD UREA NITROGEN 20 MG/DL (7-18); BUN/CREATININE RATIO 33; CALCIUM 8.3 MG/DL (8.5-10.1); CARBON DIOXIDE 23 MMOL/L (21-32); CHLORIDE 100 MMOL/L (98-107); GFR ESTIMATED > 60; GLUCOSE 102 MG/DL (70-105); SODIUM 135 MMOL/L (135-145)
[2016-09-09 07:06] LABS: MEAN PLATELET VOLUME 8.4 FL (7.4-10.4); RED BLOOD COUNT 3.71 10^6/uL (4.35-5.85); WHITE BLOOD COUNT 19.4 10^3/uL (4.3-11.0)
[2016-09-09 08:08] VITALS: BP 189/92
[2016-09-09] MEDS: NICOTINE PATCH REMOVAL TP SCH (08:44)
[2016-09-09] MEDS: NICOTINE 21 MG (NICODERM) PATCH TD SCH (08:44)
[2016-09-09] MEDS: morphine ER 100 MG (MS CONTIN) TAB PO SCH ×2 (08:45→20:53)
[2016-09-09] MEDS: lisINopril 20 MG (ZESTRIL) TAB PO SCH (08:45)
[2016-09-09] MEDS: cloNIDine 0.1 MG (CATAPRES) TAB PO SCH ×3 (08:45→20:53)
[2016-09-09] MEDS: morphine INJ 4 MG/ML 1 ML (VIAL/SYRINGE) IVP PRN ×3 (08:45→17:10)
[2016-09-09] MEDS: amLODIPine 10 MG (NORVASC) TAB PO SCH (08:46)
--- NOTE | 2016-09-09 09:03 | Progress Note (SOAP) ---
Subjective Subjective/Events-last exam Afebrile, no tachycardia. Has been hypertensive and having a lot of low back pain which is chronic for him. He states he is feeling somewhat better this morning finally. He had high lactic acid levels overnight. Date seen by provider: September 09, 2016 Time seen by provider: 07:40 Objective Exam Last Set of Vital Signs Vital Signs Date Time Temp Pulse Resp B/P (MAP) Pulse Ox O2 Delivery O2 Flow Rate FiO2 09/09/16 08:08 98.4 72 18 189/92 96 4.00 Capillary Refill : I&O Intake and Output 09/09/16 00:00 Intake Total 2300 ml Output Total 2150 ml Balance 150 ml Intake Oral 1850 ml IV Total 450 ml Output Urine Total 2150 ml # Voids 3 # Urine Diapers 5 # Bowel Movements 4 General: Alert, No Acute Distress Lungs: Other (ronchi) Heart: Regular Rate, No Murmurs Abdomen: Normal Bowel Sounds, Soft Neuro: Normal Speech Psych/Mental Status: Mental Status NL Results/Procedures Lab Laboratory Tests 09/08/16 13:49: Lactic Acid Level 4.22*H 09/08/16 20:47: Lactic Acid Level 6.23*H 09/08/16 22:40: Lactic Acid Level 6.60*H, White Blood Count 18.3H, Red Blood Count 3.78L, Hemoglobin 11.6L, Hematocrit 36L, Mean Corpuscular Volume 95, Mean Corpuscular Hemoglobin 31, Mean Corpuscular Hemoglobin Concent 32, Red Cell Distribution Width 14.3, Platelet Count 371, Mean Platelet Volume 8.6, Neutrophils (%) (Auto ) 92H, Lymphocytes (%) (Auto) 4L, Monocytes (%) (Auto) 4, Eosinophils (%) (Auto ) 0, Basophils (%) (Auto) 0, Neutrophils # (Auto) 16.9H, Lymphocytes # (Auto) 0.7L, Monocytes # (Auto) 0.7, Eosinophils # (Auto) 0.0, Basophils # (Auto) 0.1, Neutrophils % (Manual) 92, Lymphocytes % (Manual) 5, Monocytes % (Manual) 0, Eosinophils % (Manual) 0, Basophils % (Manual) 0, Metamyelocytes % 1, Band Neutrophils 2, Blood Morphology Comment NORMAL, Sodium Level 136, Potassium Level 4.9, Chloride Level 100, Carbon Dioxide Level 22, Anion Gap 14, Blood Urea Nitrogen 22H, Creatinine 0.65, Estimat Glomerular Filtration Rate > 60, BUN /Creatinine Ratio 34, Glucose Level 112H, Calcium Level 8.2L, Magnesium Level 2.3, Total Bilirubin 0.3, Aspartate Amino Transf (AST/SGOT) 29, Alanine Aminotransferase (ALT/SGPT) 52, Alkaline Phosphatase 91, Total Protein 5.5L, Albumin 3.1L 09/09/16 01:10: Lactic Acid Level 4.53*H 09/09/16 03:25: Lactic Acid Level 5.71*H 09/09/16 06:00: Lactic Acid Level 3.57*H, Sodium Level 135, Potassium Level 5.0, Chloride Level 100, Carbon Dioxide Level 23, Anion Gap 12, Blood Urea Nitrogen 20H, Creatinine 0.60, Estimat Glomerular Filtration Rate > 60, BUN/Creatinine Ratio 33, Glucose Level 102, Calcium Level 8.3L, Phosphorus Level 3.4, Magnesium Level 2.0 09/09/16 06:55: White Blood Count 19.4H, Red Blood Count 3.71L, Hemoglobin 11.6L, Hematocrit 35L , Mean Corpuscular Volume 94, Mean Corpuscular Hemoglobin 31, Mean Corpuscular Hemoglobin Concent 33, Red Cell Distribution Width 14.0, Platelet Count 379, Mean Platelet Volume 8.4 09/09/16 08:35: Assessment/Plan Assessment/Plan Admission Dx 61 yo M that presented with acute respiratory failure found to have PNA that failed at DC readmitted to swing bed Acute on chronic respiratory failure with hypoxia COPD Exacerbation HTN Lactic acidosis Plan Acute on chronic respiratory failure with hypoxia- likely secondary to pneumonia , on 2 lpm supplemental oxygen at baseline -supplemental oxygen as needed, RT -On vanc/cefepime/levofloxacin for pneumonia- previous admission sputum culture with scan beta strep; CT chest this admit with dense infiltrate, needs 3 month f /u after d/c COPD Exacerbation- Dr. Heller consulted -Solumedrol- decreased to [address] Heller on 09/09 -RT HTN- on multiple medications, appreciate Dr. Bunn's recommendation Lactic acidosis- unclear etiology, no clear evidence of sepsis at this point- he does have leukocytosis but is on steroids and has no fever, tachycardia or tachypnea and no hypotension -Attempted to obtain ABG to determine severity of acidosis, but unable to obtain on 2 attempts and he declined further attempts -Has received multiple fluid boluses with some improvement in lactic acid, but has been up and down without clear downward trend yet. 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
[2016-09-09] MEDS: CEFEPIME INJECTION 2,000 MG in NS (IVPB) 50 ML IV SCH ×2 (10:55→23:16)
[2016-09-09] MEDS: IBUPROFEN 800 MG (MOTRIN) TAB PO PRN ×2 (10:56→17:11)
[2016-09-09 12:16] VITALS: BP 189/91
[2016-09-09] MEDS ORDERED: LACTATED RINGERS 1,000 ML IV ONE (12:30)
--- NOTE | 2016-09-09 12:30 | Progress Note-Cardiology ---
Cardiology SOAP Progress Note Subjective: Notes modest improvement of shortness of breath since adm Still easily short of breath with mild exertion Denies cp or palp or syncope Worried about his elevated bp Objective: I&O/Vital Signs Vital Sign - Last 12Hours 09/09/16 09/09/16 09/09/16 09/09/16 02:34 04:00 07:04 08:00 Temp 97.6 Pulse 85 Resp 18 B/P (MAP) 183/80 Pulse Ox 95 96 96 O2 Flow Rate 1.50 4.00 1.50 2.00 09/09/16 09/09/16 09/09/16 08:08 10:41 12:16 Temp 98.4 98.6 Pulse 72 83 Resp 18 18 B/P (MAP) 189/92 189/91 Pulse Ox 96 94 96 O2 Flow Rate 4.00 1.50 4.00 Intake and Output 09/09/16 00:00 Intake Total 1450 ml Output Total 1800 ml Balance -350 ml Weight (Pounds): 160 Weight (Ounces): 0.0 Weight (Calculated Kilograms): 72.386905 Constitutional: AAO x 3, well-developed, well-nourished Respiratory: No accessory muscle use, other (hyperresonance to percussion, generally diminished air enty, prolonged exp phase) Cardiovascular: regular rate-rhythm, S1 and S2, systolic murmur (faint BRIAN at card base) Gastrointestional: No tender, soft, No guarding, No rebound, audible bowel sounds Extremities: No clubbing, No cyanosis, No significant edema Neurologic/Psychiatric: grossly intact, power is 5/5 both on sides Skin: No rash on exposed areas, No ulcerations on exposed areas Results/Procedures: Labs Laboratory Tests 09/08/16 13:49: Lactic Acid Level 4.22*H 09/08/16 20:47: Lactic Acid Level 6.23*H 09/08/16 22:40: Lactic Acid Level 6.60*H, White Blood Count 18.3H, Red Blood Count 3.78L, Hemoglobin 11.6L, Hematocrit 36L, Mean Corpuscular Volume 95, Mean Corpuscular Hemoglobin 31, Mean Corpuscular Hemoglobin Concent 32, Red Cell Distribution Width 14.3, Platelet Count 371, Mean Platelet Volume 8.6, Neutrophils (%) (Auto ) 92H, Lymphocytes (%) (Auto) 4L, Monocytes (%) (Auto) 4, Eosinophils (%) (Auto ) 0, Basophils (%) (Auto) 0, Neutrophils # (Auto) 16.9H, Lymphocytes # (Auto) 0.7L, Monocytes # (Auto) 0.7, Eosinophils # (Auto) 0.0, Basophils # (Auto) 0.1, Neutrophils % (Manual) 92, Lymphocytes % (Manual) 5, Monocytes % (Manual) 0, Eosinophils % (Manual) 0, Basophils % (Manual) 0, Metamyelocytes % 1, Band Neutrophils 2, Blood Morphology Comment NORMAL, Sodium Level 136, Potassium Level 4.9, Chloride Level 100, Carbon Dioxide Level 22, Anion Gap 14, Blood Urea Nitrogen 22H, Creatinine 0.65, Estimat Glomerular Filtration Rate > 60, BUN /Creatinine Ratio 34, Glucose Level 112H, Calcium Level 8.2L, Magnesium Level 2.3, Total Bilirubin 0.3, Aspartate Amino Transf (AST/SGOT) 29, Alanine Aminotransferase (ALT/SGPT) 52, Alkaline Phosphatase 91, Total Protein 5.5L, Albumin 3.1L 09/09/16 01:10: Lactic Acid Level 4.53*H 09/09/16 03:25: Lactic Acid Level 5.71*H 09/09/16 06:00: Lactic Acid Level 3.57*H, Sodium Level 135, Potassium Level 5.0, Chloride Level 100, Carbon Dioxide Level 23, Anion Gap 12, Blood Urea Nitrogen 20H, Creatinine 0.60, Estimat Glomerular Filtration Rate > 60, BUN/Creatinine Ratio 33, Glucose Level 102, Calcium Level 8.3L, Phosphorus Level 3.4, Magnesium Level 2.0 09/09/16 06:55: White Blood Count 19.4H, Red Blood Count 3.71L, Hemoglobin 11.6L, Hematocrit 35L , Mean Corpuscular Volume 94, Mean Corpuscular Hemoglobin 31, Mean Corpuscular Hemoglobin Concent 33, Red Cell Distribution Width 14.0, Platelet Count 379, Mean Platelet Volume 8.4 09/09/16 08:35: Lactic Acid Level 4.61*H 09/09/16 11:25: Lactic Acid Level 5.35*H Laboratory Tests 09/07/16 15:14 09/08/16 05:35 09/08/16 05:50 09/08/16 22:40 09/09/16 06:00 09/09/16 06:55 A/P: Assessment: Acute on chronic respiratory insufficiency due to acute exacerbation of COPD due to pneumonia Echo of 09/04/16: LVEF 60%, mild MR, mild TR, PASP 30 mmHg Lactic acidosis, suggestive of septicemia (albeit w/o hypotension) Hypertension, very difficult to control: remains hypertensive despite multiple meds Tobaccoism- advised to quit smoking Elevated LFT's, better now, followed and managed by primary care physician Plan: * I interviewed and examined the patient and examined his records * Complex management due to multiple comorbidities * Increase clonidine for better bp contro * I advised complete cessation of tobacco use * Monitor labs SOURAV HUTCHINS MD FACP FAC CCDS September 09, 2016 12:30
[2016-09-09] MEDS: ENOXAPARIN 40 MG/0.4 ML (LOVENOX) SYR SC SCH (14:45)
[2016-09-09 16:00] VITALS: BP 163/88
[2016-09-09 19:40] VITALS: BP 177/87
[2016-09-10] VITALS (8 sets, daily range): BP systolic 155–182; BP diastolic 80–96
[2016-09-10] MEDS: LEVOFLOXACIN 750 MG/150 ML IV 150 ML IV SCH (00:17)
[2016-09-10] MEDS: VANCOMYCIN INJECTION 1,000 MG in NS (IVPB) 250 ML IV SCH (02:19)
[2016-09-10 06:16] LABS: MEAN PLATELET VOLUME 8.4 FL (7.4-10.4); RED BLOOD COUNT 3.77 10^6/uL (4.35-5.85); RED CELL DISTRIBUTION WIDTH 14.4 % (10.0-14.5); WHITE BLOOD COUNT 18.2 10^3/uL (4.3-11.0)
[2016-09-10 06:32] LABS: ANION GAP 11 MMOL/L (5-14); BLOOD UREA NITROGEN 22 MG/DL (7-18); BUN/CREATININE RATIO 35; CALCIUM 8.4 MG/DL (8.5-10.1); CARBON DIOXIDE 25 MMOL/L (21-32); CHLORIDE 100 MMOL/L (98-107); CREATININE SERUM 0.62 MG/DL (0.60-1.30); GFR ESTIMATED > 60; GLUCOSE 83 MG/DL (70-105); MAGNESIUM 1.8 MG/DL (1.8-2.4); POTASSIUM 4.6 MMOL/L (3.6-5.0); SODIUM 136 MMOL/L (135-145)
[2016-09-10] MEDS: RT-ALBUTEROL/IPRATROPIUM 3 ML (DUONEB) VIAL INH SCH ×4 (07:15→18:51)
[2016-09-10] MEDS: NICOTINE 21 MG (NICODERM) PATCH TD SCH (08:56)
[2016-09-10] MEDS: NICOTINE PATCH REMOVAL TP SCH (08:56)
[2016-09-10] MEDS: amLODIPine 10 MG (NORVASC) TAB PO SCH (08:56)
[2016-09-10] MEDS: methylPREDNISolone 40 MG/ML (Solu-MEDROL) VIAL IV SCH (08:56)
[2016-09-10] MEDS: morphine ER 100 MG (MS CONTIN) TAB PO SCH ×2 (08:56→20:44)
[2016-09-10] MEDS: lisINopril 20 MG (ZESTRIL) TAB PO SCH (08:56)
[2016-09-10] MEDS: cloNIDine 0.1 MG (CATAPRES) TAB PO SCH ×3 (08:56→20:45)
[2016-09-10] MEDS: LACTATED RINGERS 1,000 ML IV SCH ×2 (09:17→20:43)
--- NOTE | 2016-09-10 09:40 | Progress Note (SOAP) ---
Subjective Subjective/Events-last exam Afebrile, no tachycardia or tachypnea. Remains hypertensive. Stable on home supplemental oxygen requirement. Lactic acid trending down. He is anxious to go home, wants to get outside. Date seen by provider: September 10, 2016 Time seen by provider: 09:15 Objective Exam Last Set of Vital Signs Vital Signs Date Time Temp Pulse Resp B/P (MAP) Pulse Ox O2 Delivery O2 Flow Rate FiO2 09/10/16 08:29 97.6 72 18 180/89 96 2.00 Capillary Refill : I&O Intake and Output 09/10/16 00:00 Intake Total 5350 ml Output Total 8000 ml Balance -2650 ml Intake Oral 1750 ml IV Total 3600 ml Output Urine Total 8000 ml # Bowel Movements 7 General: Alert, No Acute Distress Lungs: Other (ronchi throughout) Heart: Regular Rate, No Murmurs Neuro: Normal Speech Results/Procedures Lab Laboratory Tests 09/09/16 11:25: Lactic Acid Level 5.35*H 09/09/16 14:50: Lactic Acid Level 6.95*H 09/09/16 19:20: Lactic Acid Level 3.66*H 09/10/16 00:15: Lactic Acid Level 3.04*H 09/10/16 06:10: White Blood Count 18.2H, Red Blood Count 3.77L, Hemoglobin 11.7L, Hematocrit 36L , Mean Corpuscular Volume 95, Mean Corpuscular Hemoglobin 31, Mean Corpuscular Hemoglobin Concent 33, Red Cell Distribution Width 14.4, Platelet Count 332, Mean Platelet Volume 8.4, Sodium Level 136, Potassium Level 4.6, Chloride Level 100, Carbon Dioxide Level 25, Anion Gap 11, Blood Urea Nitrogen 22H, Creatinine 0.62, Estimat Glomerular Filtration Rate > 60, BUN/Creatinine Ratio 35, Glucose Level 83, Lactic Acid Level 2.28*H, Calcium Level 8.4L, Phosphorus Level 3.2, Magnesium Level 1.8 Assessment/Plan Assessment/Plan Admission Dx 61 yo M that presented with acute respiratory failure found to have PNA that failed at DC readmitted to swing bed Acute on chronic respiratory failure with hypoxia COPD Exacerbation HTN Lactic acidosis Plan Acute on chronic respiratory failure with hypoxia- likely secondary to pneumonia , on 2 lpm supplemental oxygen at baseline -supplemental oxygen as needed, RT -On vanc/cefepime/levofloxacin for pneumonia- previous admission sputum culture with scan beta strep; CT chest this admit with dense infiltrate, needs 3 month f /u after d/c 09/10- narrowed antibiotics to cefepime COPD Exacerbation- Dr. Heller consulted -Solumedrol- decreased to [address] Heller on 09/09 -RT HTN- on multiple medications, appreciate Dr. Bunn's recommendation 09/10 will increase lisinopril to 40 mg with continued hypertension Lactic acidosis- unclear etiology, no clear evidence of sepsis at this point- he does have leukocytosis but is on steroids and has no fever, tachycardia or tachypnea and no hypotension -Attempted to obtain ABG to determine severity of acidosis, but unable to obtain on 2 attempts and he declined further attempts -Has received multiple fluid boluses with some improvement in lactic acid, but has been up and down without clear downward trend yet. 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
[2016-09-10] MEDS: CEFEPIME INJECTION 2,000 MG in NS (IVPB) 50 ML IV SCH (11:01)
--- NOTE | 2016-09-10 13:08 | Progress Note-Cardiology ---
Cardiology SOAP Progress Note Subjective: Feels that shortness of breath is somewhat better Denies cp or palp or syncope or ankle swelling Objective: I&O/Vital Signs Vital Sign - Last 12Hours 09/10/16 09/10/16 09/10/16 09/10/16 03:59 07:15 08:00 08:29 Temp 97.2 97.6 Pulse 68 72 Resp 20 18 B/P (MAP) 177/96 180/89 Pulse Ox 98 95 96 O2 Flow Rate 2.00 1.50 2.00 2.00 09/10/16 09/10/16 11:37 12:22 Temp 98.0 Pulse 72 Resp 20 B/P (MAP) 176/86 Pulse Ox 95 O2 Flow Rate 1.50 2.00 Intake and Output 09/10/16 00:00 Intake Total 3710 ml Output Total 6450 ml Balance -2740 ml Weight (Pounds): 160 Weight (Ounces): 0.0 Weight (Calculated Kilograms): 72.554087 Constitutional: AAO x 3, well-developed, well-nourished Respiratory: No accessory muscle use, other (hyperresonance to percussion, generally diminished air enty, prolonged exp phase) Cardiovascular: regular rate-rhythm, S1 and S2, systolic murmur (faint BRIAN at card base) Gastrointestional: No tender, soft, No guarding, No rebound, audible bowel sounds Extremities: No clubbing, No cyanosis, No significant edema Neurologic/Psychiatric: grossly intact, power is 5/5 both on sides Skin: No rash on exposed areas, No ulcerations on exposed areas Results/Procedures: Labs Laboratory Tests 09/09/16 14:50: Lactic Acid Level 6.95*H 09/09/16 19:20: Lactic Acid Level 3.66*H 09/10/16 00:15: Lactic Acid Level 3.04*H 09/10/16 06:10: Lactic Acid Level 2.28*H, White Blood Count 18.2H, Red Blood Count 3.77L, Hemoglobin 11.7L, Hematocrit 36L, Mean Corpuscular Volume 95, Mean Corpuscular Hemoglobin 31, Mean Corpuscular Hemoglobin Concent 33, Red Cell Distribution Width 14.4, Platelet Count 332, Mean Platelet Volume 8.4, Sodium Level 136, Potassium Level 4.6, Chloride Level 100, Carbon Dioxide Level 25, Anion Gap 11, Blood Urea Nitrogen 22H, Creatinine 0.62, Estimat Glomerular Filtration Rate > 60, BUN/Creatinine Ratio 35, Glucose Level 83, Calcium Level 8.4L, Phosphorus Level 3.2, Magnesium Level 1.8 09/10/16 12:00: Lactic Acid Level 4.29*H Laboratory Tests 09/08/16 22:40 09/09/16 06:00 09/09/16 06:55 09/10/16 06:10 A/P: Assessment: Acute on chronic respiratory insufficiency due to acute exacerbation of COPD due to pneumonia Echo of 09/04/16: LVEF 60%, mild MR, mild TR, PASP 30 mmHg Lactic acidemia, managed by the Med Svce Hypertension, very difficult to control: remains hypertensive despite multiple meds Tobaccoism- advised to quit smoking Elevated LFT's, better now, followed and managed by primary care physician Plan: * Complex management due to multiple comorbidities * Increase clonidine for better bp control * I again advised complete cessation of tobacco use * Monitor labs * I spoke with him and answered CV-related questions SOURAV HUTCHINS MD FACP FACC CCDS September 10, 2016 13:08
[2016-09-10] MEDS: ENOXAPARIN 40 MG/0.4 ML (LOVENOX) SYR SC SCH (13:19)
[2016-09-10] MEDS: morphine INJ 4 MG/ML 1 ML (VIAL/SYRINGE) IVP PRN (20:48)
[2016-09-10] MEDS: IBUPROFEN 800 MG (MOTRIN) TAB PO PRN (23:38)
[2016-09-11] MEDS: LACTATED RINGERS 1,000 ML IV SCH (03:49)
[2016-09-11 04:15] VITALS: BP 150/86
[2016-09-11 06:12] LABS: MEAN PLATELET VOLUME 8.3 FL (7.4-10.4); RED BLOOD COUNT 3.77 10^6/uL (4.35-5.85); RED CELL DISTRIBUTION WIDTH 14.7 % (10.0-14.5); WHITE BLOOD COUNT 19.2 10^3/uL (4.3-11.0)
[2016-09-11 06:30] LABS: ANION GAP 8 MMOL/L (5-14); BLOOD UREA NITROGEN 28 MG/DL (7-18); BUN/CREATININE RATIO 42; CALCIUM 8.7 MG/DL (8.5-10.1); CARBON DIOXIDE 30 MMOL/L (21-32); CHLORIDE 99 MMOL/L (98-107); CREATININE SERUM 0.67 MG/DL (0.60-1.30); GFR ESTIMATED > 60; GLUCOSE 88 MG/DL (70-105); MAGNESIUM 2.1 MG/DL (1.8-2.4); PHOSPHORUS 3.9 MG/DL (2.3-4.7); POTASSIUM 4.6 MMOL/L (3.6-5.0); SODIUM 137 MMOL/L (135-145)
[2016-09-11] MEDS: RT-ALBUTEROL/IPRATROPIUM 3 ML (DUONEB) VIAL INH SCH ×2 (07:11→11:00)
--- NOTE | 2016-09-11 07:44 | Pulmonary Progress Note ---
Subjective Subjective/Events-last exam Pt feels much improved and wants to go home. Exam Exam Vital Signs Date Time Temp Pulse Resp B/P (MAP) Pulse Ox O2 Delivery O2 Flow Rate FiO2 09/11/16 07:11 95 2.50 09/11/16 04:15 97.2 75 22 150/86 97 2.00 09/10/16 23:20 97.5 75 20 157/91 98 2.00 09/10/16 20:45 2.00 09/10/16 20:45 98.6 83 20 166/89 97 2.00 09/10/16 18:51 94 2.50 09/10/16 16:02 97.4 86 20 155/90 95 2.00 09/10/16 14:33 161/80 09/10/16 12:22 98.0 72 20 176/86 95 2.00 09/10/16 11:37 1.50 09/10/16 08:29 97.6 72 18 180/89 96 2.00 09/10/16 08:00 95 2.00 I & O 09/11/16 07:00 Intake Total 4070 ml Output Total 5400 ml Balance -1330 ml General Appearance: No Apparent Distress, WD/WN HEENT: PERRL/EOMI, TMs Normal, Normal ENT Inspection Neck: Non Tender, Supple, No Carotid Bruit Respiratory: Chest Non Tender, No Accessory Muscle Use, No Respiratory Distress , Decreased Breath Sounds Cardiovascular: Regular Rate, Rhythm, No Edema, No Gallop, No JVD, No Murmur, Normal Peripheral Pulses Gastrointestinal: non tender, soft, no organomegaly, No distended, No guarding , No rebound, tenderness (RUQ TTP ) Extremity: Non Tender, No Calf Tenderness Neurologic/Psychiatric: Alert, Oriented x3, director hematology II-XII Norm as Tested Skin: Normal Color, Warm/Dry Lymphatic: No Adenopathy Results Lab Laboratory Tests 09/10/16 06:10 09/11/16 06:07 Assessment/Plan Assessment/Plan PNa -Patel culture -Continue broad spectrum ABX -labs/radiology reviewed CT of chest with contrast - reviewed -Will need to repeat CT as out patient in 2-3 mo. -PT may need bronchoscopy -repeat LA -continue LR -D/C solumedrol Metabolic acidosis -resolved decrease IVF to 30cc/hr COPDAE acute on chronic respiratory failure/ acute hypoxia -steroids , SVNs tobacco use - quit 1 month ago chronic debility -pt/ot Pt wants to go home. He still has leukocytosis i am going to d/c steroids. Abx stopped yesterday. I am going to repeat CXR this AM. Will add omnicef secondary to persistent leukocytosis 232 ALYSIA KHALIL DO September 11, 2016 07:44
[2016-09-11] MEDS: amLODIPine 10 MG (NORVASC) TAB PO SCH (07:48)
[2016-09-11] MEDS: cloNIDine 0.1 MG (CATAPRES) TAB PO SCH (07:48)
[2016-09-11] MEDS: lisINopril 20 MG (ZESTRIL) TAB PO SCH (07:48)
[2016-09-11] MEDS: morphine ER 100 MG (MS CONTIN) TAB PO SCH (07:48)
[2016-09-11] MEDS: NICOTINE PATCH REMOVAL TP SCH (07:49)
[2016-09-11] MEDS: NICOTINE 21 MG (NICODERM) PATCH TD SCH (07:49)
[2016-09-11] MEDS: morphine INJ 4 MG/ML 1 ML (VIAL/SYRINGE) IVP PRN (07:58)
[2016-09-11 08:00] VITALS: BP 178/92
--- NOTE | 2016-09-11 08:29 | Cardiology Progress Note ---
Subjective Subjective/Events-last exam Patient sitting up in bed, eating breakfast. No new complaints. Denies any CP or dyspnea at this time. Review of Systems General: No Night Sweats, No Fatigue, No Malaise HEENT: No Visual Changes, No Dysphasia, No Sore Throat Pulmonary: No Dyspnea, No Cough Cardiovascular: No: Chest Pain, Edema, Palpitations, Paroxysmal Noc. Dyspnea Gastrointestinal: No: Abdominal Pain, Nausea, Vomiting Genitourinary: No Dysuria, No Frequency Musculoskeletal: No: back pain, neck pain Neurological: No: Change in speech, Confusion, Numbness, Weakness Objective-Cardiology Exam Last Set of Vital Signs Vital Signs 09/11/16 08:00 Temp 96.6 Pulse 83 Resp 20 B/P (MAP) 178/92 Pulse Ox 95 O2 Flow Rate 2.50 Capillary Refill : I&O Intake and Output 09/11/16 00:00 Intake Total 3970 ml Output Total 6150 ml Balance -2180 ml Intake Oral 1470 ml IV Total 2500 ml Output Urine Total 3150 ml Urine/Stool Mix 3000 ml General: Alert, No Acute Distress HEENT: Atraumatic, PERRLA Neck: Supple, No JVD, No Thyromegaly Lungs: Clear to Auscultation, Normal Air Movement Heart: Regular Rate, No Murmurs Abdomen: Normal Bowel Sounds, Soft Extremities: No Edema, Normal Pulses Skin: No Rashes, No Significant Lesion Neuro: Normal Speech Psych/Mental Status: Mental Status NL Results Lab Laboratory Tests 09/11/16 06:07 A/P-Cardiology Admission Diagnosis Dyspnea AE COPD Pneumonia HTN Assessment/Plan Acute on chronic respiratory insufficiency, continues to improve slowly, receiving antibiotic. Managed by Dr Pina DIMAS COPD- continue MAT protocol, deferred management to Dr Heller Hypertension, difficult to control due to current comorbid condition and steroids,continue to monitor BP Tobaccoism- patient reports he is trying to quit smoking. Encourage smoking cessation Elevated LFT's, better now, followed and managed by primary care physician GUDELIA GRACE September 11, 2016 08:29
--- NOTE | 2016-09-11 08:56 | Physical Therapy Daily Note ---
PT Daily Note-Current Subjective Patient agrees to therapy. Patient states he is up independently in hallway and outside with O2 tank at 2L. Pain Numeric Pain Scale: 0-No Pain Location: No Pain Reported Mental Status Patient Orientation: Normal For Age Attachments: Oxygen Transfers Functional [place] Measure 0=Not Assessed/NA 4=Minimal Assistance 1=Total Assistance 5=Supervision or Setup 2=Maximal Assistance 6=Modified [place] 3=Moderate Assistance 7=Complete IndependenceIRFPAI Quality Coding Scale 6 Independent with activity with or without an assistive device 5 Patient requires set up or clean up by helper. Patient completes activity by themselves 4 Supervision or touching assist (CGA). [place] provide cues , steadying assist 3 The helper provides less than half the effort to complete the activity 2 The helper provides more than half the effort to complete the activity 1 Dependent. The helper does all the effort to complete an activity 7 Patient refused to complete or attempt activity 9 The patient did not perform the activity before the current illness or injury 88 Not attempted due to Medical conditions or safety concerns Transfers (B, C, W/C) (FIM): 7 Scootin Roll Left to Right (QC): 6 Supine to/from Sit: 7 Sit to/from Stand: 7 Sit to Lying (QC): 6 Sit to Stand (QC): 6 Chair/[id number] Xfer(QC): 6 Gait Training Does the Patient Walk?: Yes Gait (FIM): 7 Distance (FIM): 3=150 ft Distance: 400' x 2 Walk 50 ft with 2 Turns(QC): 6 Walk 150 ft (QC): 6 Gait Level of Assist: 7 Gait Assistive Device: None safe and functional Assessment Patient is currently at independent LOF safely and does not requires skilled PT. PT to dismiss at this time. PT Assembler Equipment Goals Assembler Equipment Goals PT Assembler Equipment Goals Time Frame: September 13, 2016 Transfers (B,C,W/C) (FIM): 7 (met 09/11/16) Sit to Lying (QC): 7 (met 09/11/16 at 6) Lying-Sitting on Side/Bed(QC): 7 (met 09/11/16 (6)) Sit to Stand (QC): 7 (met 09/11/16 (6)) Chair/Inc-oo-Kwgyi Xfer(QC): 7 (met 09/11/16 (6)) Does the Patient Walk: Yes Gait (FIM): 7 (met 09/11/16) Gait distance (FIM): 3=150 ft Walk 50ft with 2 Turns (QC): 7 (met 09/11/16(6)) Walk 150 ft (QC): 7 (met 09/11/16 (6)) Gait Assistive Device: None PT Plan Treatment/Plan Treatment Plan: Discontinue PT, goals met Treatment Plan: Bed Mobility, Education, Functional Activity [place], Functional Strength, Gait, Safety, Therapeutic Exercise, Transfers Treatment Duration: September 15, 2016 Visits Per Week: 5-6 Time/GCodes Time In: 835 Time Out: 850 Total Billed Treatment Time: 15 Total Billed Treatment 1 visit FA 15 min KETURAH MARROQUIN PT September 11, 2016 08:56
--- NOTE | 2016-09-11 08:57 | Therapy Team Discharge Summary ---
Therapy Discharge Summary Discharge Recommendations Date of Discharge Therapy D/C Recommendations: Physical Therapy Home Care Physical Therapy Patient is currently at independent LOF with all gross motor skills and is ambulating outside with O2 tank. Patient desires to return to home soon. Goals met. PT to dismiss from services at this time with SWB coordinator notified. PT Wine Consultant Goals Senior Living Goals PT Wine Consultant Goals Time Frame: September 13, 2016 Transfers (B,C,W/C) (FIM): 7 (met 09/11/16) Sit to Lying (QC): 7 (met 09/11/16 at 6) Lying-Sitting on Side/Bed(QC): 7 (met 09/11/16 (6)) Sit to Stand (QC): 7 (met 09/11/16 (6)) Chair/Lhk-hd-Xccok Xfer(QC): 7 (met 09/11/16 (6)) Does the Patient Walk: Yes Gait (FIM): 7 (met 09/11/16) Gait distance (FIM): 3=150 ft Walk 50ft with 2 Turns (QC): 7 (met 09/11/16(6)) Walk 150 ft (QC): 7 (met 09/11/16 (6)) Gait Assistive Device: None OT Wine Consultant Goals Wine Consultant Goals 1=Demonstrate adherence to instructed precautions during ADL tasks. 2=Patient will verbalize/demonstrate understanding of assistive devices/ modifications for ADL. 3=Patient will improve strength/tolerance for activity to enable patient to perform ADL's. KETURAH MARROQUIN PT September 11, 2016 08:57
--- NOTE | 2016-09-11 08:59 | Diagnostic Imaging Report ---
INDICATION: Abnormal chest x-ray. TECHNIQUE: PA and lateral views of the chest were performed. COMPARISON: 09/08/2016. FINDINGS: The heart size and pulmonary vascularity remain within normal limits. An area of consolidation in the right lung base is similar to the previous exam or slightly worsened. No new infiltrate is identified. IMPRESSION: A persistent and slightly more conspicuous infiltrate in the right lung base remains compatible with localized pneumonitis or pneumonia. Dictated by: Dictated on workstation # [id number]
[2016-09-11] MEDS ORDERED: CEFDINIR 300 MG (OMNICEF) CAP PO SCH (09:00)
[2016-09-11] MEDS ORDERED: AMLO10TA2 PO (09:06)
[2016-09-11] MEDS ORDERED: CEFD300C3 PO (09:06)
[2016-09-11] MEDS ORDERED: CLON0.2T PO (09:06)
[2016-09-11] MEDS ORDERED: LISI-552 PO (09:06)
--- NOTE | 2016-09-11 09:08 | Discharge Instructions ---
Discharge [facility] Discharge Medications New, Converted or Re-Newed RX: Transmitted to Pharmacy New Medications: Amlodipine Besylate (Amlodipine Besylate) 10 Mg Tablet 10 MG PO DAILY, #30 TAB 0 Refills Cefdinir (Cefdinir) 300 Mg Capsule 300 MG PO BID for 7 Days, #14 CAP 0 Refills Clonidine HCl (Clonidine HCl) 0.2 Mg Tablet 0.2 MG PO TID, #90 TAB 0 Refills Lisinopril (Lisinopril) 20 Mg Tablet 20 MG PO DAILY, #30 TAB 0 Refills Continued Medications: Albuterol Sulfate (Ventolin Hfa) 18 Gm Hfa.aer.ad 2 PUFF INH Q4H PRN for SHORTNESS OF BREATH, INHALER Morphine Sulfate (Morphine Sulfate ER) 100 Mg Tablet.er 100 MG PO Q12H, TAB Oxycodone HCl/Acetaminophen (Oxycodone-Acetaminophen 5-325) 1 Each Tablet 2 TAB PO BID PRN for PAIN-MODERATE, TAB Discontinued Medications: Amlodipine Besylate (Amlodipine Besylate) 5 Mg Tablet 5 MG PO DAILY for 30 Days, TAB Levofloxacin (Levofloxacin) 750 Mg Tablet 750 MG PO DAILY for 7 Days, TAB Prednisone (Prednisone) 20 Mg Tab 20 MG PO DAILY, #20 TAB Take 3 tabs x 3 days Take 2 tabs x 3 days take 1 tab x 3 days take 1/2 tab x 4 day Then stop Patient Instructions Goal/Follow Up Appt: Follow up with Dr. Centeno on September 19 at 11 am. Follow up with [place] at Dr. Heller's office in one week. Return to [facility] For: Fever, difficulty breathing, inability to keep down medications Activity & Diet Discharge Diet: Low Sodium Diet Activity as Tolerated: Yes Copy Copies To 1: NORBERTO Ennis BETHANY N MD September 11, 2016 9:08 am
--- NOTE | 2016-09-11 09:09 | Discharge Summary ---
Diagnosis/Chief Complaint Date of Admission September 04, 2016 at 10:13 am Date of Discharge September 11, 2016 Admission Diagnosis Admission Diagnosis 61 yo M that presented with acute respiratory failure found to have PNA that failed at [place] readmitted to [facility] bed Acute on chronic respiratory failure with hypoxia COPD Exacerbation HTN Lactic acidosis Discharge Diagnosis Acute on chronic respiratory failure with hypoxia- likely secondary to pneumonia , on 2 lpm supplemental oxygen at baseline -supplemental oxygen as needed, RT -On vanc/cefepime/levofloxacin for pneumonia- previous admission sputum culture with scan beta strep; CT chest this admit with dense infiltrate, needs 3 month f /u after d/c 09/11- stable on home oxygen and requesting d/c, continued findings of pneumonia on CXR and WBC remains high (although possibly due to steroids), so discharged with 7 days of cefepime and will follow-up with Dr. Heller in a week for recheck and to order repeat CT in 4-6 weeks for follow-up COPD Exacerbation- Dr. Heller consulted -Solumedrol- decreased to [address] Heller on 09/09 -RT 09/11 no steroids on d/c per Dr. Heller as he was on low dose when discontinued and no wheezing HTN- on multiple medications, appreciate Dr. Bunn's recommendation 09/11- discharged with meds as being given inpatient- increased amlodipine to 10 mg daily, added lisinopril 20 mg daily and clonidine 0.2 mg TID, still hypertensive on d/c, will need continued management Lactic acidosis- unclear etiology, no clear evidence of sepsis at this point- he does have leukocytosis but is on steroids and has no fever, tachycardia or tachypnea and no hypotension -Attempted to obtain ABG to determine severity of acidosis, but unable to obtain on 2 attempts and he declined further attempts -Has received multiple fluid boluses with some improvement in lactic acid, but has been up and down without clear downward trend yet. 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 Phillips's H&P "This is a 61yoWM clinic patient of [facility] that was [place] and then readmitted the same day on 09/03/16 The presented to the emergency room with shortness of breath and overall decline status found to have elevated lactic acid and expanding infiltrate cities placed on expanded antibiotics and admitted to swing bed since he had just left in this is a continuation of the original admission. At this current time he denies any history of heart issues but he does have telemetry on and he appears to have high risk for heart rhythm issues so I've consulted Dr. Bunn. I will also consult Dr. Heller for severe COPD and he will likely require swing bed status for the next several days and initiate therapy to strengthen prior to going home to make him more successful at time of discharge." Discharge Summary-Simple/Stand Consultations Dr. Pina Bunn Discharge Physical Examination Allergies: Coded Allergies: No Known Drug Allergies (Unverified , 10/30/15) Vitals & I&Os Vital Sign - Last 12Hours Date Time Temp Pulse Resp B/P (MAP) Pulse Ox O2 Delivery O2 Flow Rate FiO2 09/11/16 08:00 96.6 83 20 178/92 95 2.50 Intake and Output 09/11/16 00:00 Intake Total 1370 ml Output Total 4600 ml Balance -3230 ml General Appearance: Alert, No Acute Distress Respiratory: Other Cardiovascular: Regular Rate, No Murmurs Neuro: Normal Speech Psych/Mental Status: Mental Status NL Hospital Course See final discharge diagnosis. Labs Laboratory Tests Test 09/09/16 14:50 09/09/16 19:20 09/10/16 00:15 09/10/16 06:10 Range/Units Lactic Acid Level 6.95 *H 3.66 *H 3.04 *H 2.28 *H 0.50-2.00 MMOL/L White Blood Count 18.2 H 4.3-11.0 10^3/uL Red Blood Count 3.77 L 4.35-5.85 10^6/uL Hemoglobin 11.7 L 13.3-17.7 G/DL Hematocrit 36 L 40-54 % Mean Corpuscular Volume 95 80-99 FL Mean Corpuscular Hemoglobin 31 25-34 PG Mean Corpuscular Hemoglobin Concent 33 32-36 G/DL Red Cell Distribution Width 14.4 10.0-14.5 % Platelet Count 332 130-400 10^3/uL Mean Platelet Volume 8.4 7.4-10.4 FL Sodium Level 136 135-145 MMOL/L Potassium Level 4.6 3.6-5.0 MMOL/L Chloride Level 100 98-107 MMOL/L Carbon Dioxide Level 25 21-32 MMOL/L Anion Gap 11 5-14 MMOL/L Blood Urea Nitrogen 22 H 7-18 MG/DL Creatinine 0.62 0.60-1.30 MG/DL Estimat Glomerular Filtration Rate > 60 BUN/Creatinine Ratio 35 Glucose Level 83 70-105 MG/DL Calcium Level 8.4 L 8.5-10.1 MG/DL Phosphorus Level 3.2 2.3-4.7 MG/DL Magnesium Level 1.8 1.8-2.4 MG/DL Test 09/10/16 12:00 09/10/16 18:40 09/11/16 00:47 09/11/16 06:07 Range/Units Lactic Acid Level 4.29 *H 2.29 *H 2.04 *H 1.49 0.50-2.00 MMOL/L White Blood Count 19.2 H 4.3-11.0 10^3/uL Red Blood Count 3.77 L 4.35-5.85 10^6/uL Hemoglobin 11.9 L 13.3-17.7 G/DL Hematocrit 36 L 40-54 % Mean Corpuscular Volume 96 80-99 FL Mean Corpuscular Hemoglobin 32 25-34 PG Mean Corpuscular Hemoglobin Concent 33 32-36 G/DL Red Cell Distribution Width 14.7 H 10.0-14.5 % Platelet Count 287 130-400 10^3/uL Mean Platelet Volume 8.3 7.4-10.4 FL Sodium Level 137 135-145 MMOL/L Potassium Level 4.6 3.6-5.0 MMOL/L Chloride Level 99 98-107 MMOL/L Carbon Dioxide Level 30 21-32 MMOL/L Anion Gap 8 5-14 MMOL/L Blood Urea Nitrogen 28 H 7-18 MG/DL Creatinine 0.67 0.60-1.30 MG/DL Estimat Glomerular Filtration Rate > 60 BUN/Creatinine Ratio 42 Glucose Level 88 70-105 MG/DL Calcium Level 8.7 8.5-10.1 MG/DL Phosphorus Level 3.9 2.3-4.7 MG/DL Magnesium Level 2.1 1.8-2.4 MG/DL Discharge Instructions to patient/family Please see electonic discharge instructions given to patient. Discharge Medications Reviewed and agree with Discharge Medication list on patient's Discharge Instruction sheet Copy Copies To 1: NORBERTO Ennis BETHANY N MD September 11, 2016 9:09 am
[2016-09-11] MEDS ORDERED: ALBU18HF2 INH (09:20)
--- NOTE | 2016-09-11 11:52 | Cardiology Progress Note ---
Subjective Subjective/Events-last exam Patient is laying down in bed, feeling better, breathing better, denied any chest pain, getting ready for discharge, blood pressure still elevated, I instructed him to monitor his blood pressure at home on a daily basis and record it and bring his records with him to the office in 2 weeks Review of Systems General: No Chills, No Night Sweats, No Fatigue, No Malaise, No Appetite, No Other HEENT: No Head Aches, No Visual Changes, No Eye Pain, No Ear Pain, No Dysphasia , No Sinus Congestion, No Post Nasal Drip, No Sore Throat, No Other Pulmonary: Dyspnea, No Cough, No Pleuritic Chest Pain, No Other Cardiovascular: No: Chest Pain, Edema, Lt Headedness, Orthopnea, Other, Palpitations, Paroxysmal Noc. Dyspnea Objective-Cardiology Exam Last Set of Vital Signs Vital Signs 09/11/16 08:00 Temp 96.6 Pulse 83 Resp 20 B/P (MAP) 178/92 Pulse Ox 95 O2 Flow Rate 2.50 Capillary Refill : I&O Intake and Output 09/11/16 00:00 Intake Total 3970 ml Output Total 6150 ml Balance -2180 ml Intake Oral 1470 ml IV Total 2500 ml Output Urine Total 3150 ml Urine/Stool Mix 3000 ml General: Alert, Oriented X3, Cooperative, No Acute Distress HEENT: Atraumatic, PERRLA Neck: Supple, No JVD, No Thyromegaly Lungs: Clear to Auscultation, Normal Air Movement Heart: Regular Rate, Normal S1, Normal S2, No Murmurs Abdomen: Normal Bowel Sounds, Soft Extremities: No Clubbing, No Cyanosis, No Edema, Normal Pulses Skin: No Rashes, No Significant Lesion Neuro: Normal Speech Psych/Mental Status: Mental Status NL Results Lab Laboratory Tests 09/11/16 06:07 A/P-Cardiology Admission Diagnosis Dyspnea AE COPD Pneumonia HTN Assessment/Plan Acute on chronic respiratory insufficiency, continues to improve slowly, receiving antibiotic, for discharge today, will follow-up as an outpatient. AE COPD- continue MAT protocol, deferred management to Dr Heller Hypertension, difficult to control due to current comorbid condition and steroids, continue to monitor BP at home and record it on a daily basis and bring the record with him on the next appointment in 2 weeks Tobaccoism- patient reports he is trying to quit smoking. Encourage smoking cessation Elevated LFT's, better now, followed and managed by primary care physician ELSA IGNACIO MD September 11, 2016 11:51
[2016-09-11 12:00] VITALS: BP 168/88
== END 2016-09-11 12:00 | disposition home or self-care (01) | DRG 190 ==
LOC: 4TH 10:13
PROVIDERS: ADMIT Internal Medicine; ATTEND Internal Medicine
DX: J44.0 Chronic obstructive pulmonary disease with (acute) lower respiratory infection (principal); J18.9 Pneumonia, unspecified organism; J96.21 Acute and chronic respiratory failure with hypoxia; J44.1 Chronic obstructive pulmonary disease with (acute) exacerbation; E87.2 Acidosis; I74.5 Embolism and thrombosis of iliac artery; R09.02 Hypoxemia; R74.8 Abnormal levels of other serum enzymes; I10 Essential (primary) hypertension; E87.6 Hypokalemia; Z87.891 Personal history of nicotine dependence; R53.81 Other malaise; R10.13 Epigastric pain
CPT/HCPCS: 36415; 71020; 71260; 74177; 76705; 76937; 80048; 80053; 80202; 83605; 83735; 84100; 84484; 85007; 85027; 93306; 94640; 94660; 94760

== ENCOUNTER → 2017-07-11 | Outpatient (CLI) | payer MEDICARE, MEDICAID ==
[~2017-07-11] MED LIST changes: +AMLO10TA2 PO; +CEFD300C3 PO; +CLON0.2T PO; +LISI-552 PO; +RT-ALBUTEROL SULF 2.5 MG/3 ML PRE-MIX VIAL INH ONE
--- NOTE | 2017-07-11 17:07 | Diagnostic Imaging Report ---
INDICATION: COPD and tobacco dependence and shortness of breath. TECHNIQUE: CT chest obtained without IV contrast. Comparison made to a chest CT of 09/06/2016. FINDINGS: There are no enlarged mediastinal or hilar nodes. There are no enlarged axillary nodes or chest wall masses. There is no pleural or pericardial fluid. There are diffuse emphysematous changes with hyperinflation and flattening of the hemidiaphragms compatible with COPD. There is some parenchymal scarring in the right lower lobe. There is a calcified granuloma in the right lower lobe. The patchy infiltrates in the posterior portion of the right upper lobe and the inferior portion of the right lower lobe have resolved compared to the prior study. The minimal pleural fluid visualized previously is also resolved. IMPRESSION: Marked COPD change. Resolution of patchy alveolar infiltrate in the right upper lobe and right lower lobe compared to the previous study. There is some residual scarring in the right lower lobe but no masslike lesion is detected. There is a calcified granuloma in the right lower lobe. Minimal pleural fluid seen previously has resolved. There is no other significant finding. Dictated by: Dictated on workstation # [id number]
== END ==
LOC: RT 15:45
PROVIDERS: ATTEND Nurse Practitioner Family
DX: J44.9 Chronic obstructive pulmonary disease, unspecified (principal); R09.02 Hypoxemia; R06.02 Shortness of breath; R93.8 Abnormal findings on diagnostic imaging of other specified body structures; F17.200 Nicotine dependence, unspecified, uncomplicated
CPT/HCPCS: 71250; 94060; 94726; 94729

== ENCOUNTER 2018-01-06 08:17 | Emergency (ER) | payer MEDICARE, MEDICAID ==
[~2018-01-06] VITALS: Ht 180.3 cm; Wt 65.8 kg
[~2018-01-06 08:17] MED LIST changes: -AMLO10TA2 PO; +AMLO10TA6 PO; -AMLO5TAB2 PO; +AMLO5TAB7 PO; -OXYC-197 PO; +OXYC1TAB87 PO; -RT-ALBUTEROL SULF 2.5 MG/3 ML PRE-MIX VIAL INH ONE
--- OUTSIDE RECORDS SUMMARY | 2018-01-06 08:22 | XMS REPORT ---
Author Author YORDAN CURIEL Organization [facility] Address [address] [place] [address] Care Team Providers Care Hardware Supplies Sales Representative Name Role Phone YORDAN CURIEL Unavailable PROBLEMS Type Condition ICD9-CM Code DIT27-NZ Code Onset Dates Condition Status SNOMED Code Problem Tobacco abuse Z72.0 Active 107075102 Problem Dysthymia F34.1 Active 22476625 Problem Essential hypertension I10 Active 23656134 Problem Other chronic pain G89.29 Active 53653502 Problem Low back pain M54.5 Active 228114443 Problem Chronic obstructive pulmonary disease, unspecified COPD type J44.9 Active 61924444 Problem Encounter to establish care Z76.89 Active 471479928 ALLERGIES No Information ENCOUNTERS Encounter Location Date Diagnosis [facility] [id number] [place] [address] 29844- 8364 Nov, Other chronic pain G89.29 [facility] [id number] [place] [address] 48072- 1339 Oct, [facility] [id number] [place] [address] 58110- 4534 Oct, Other chronic pain G89.29 [facility] [id number] [place] [address] 59829- 8519 Sep, [facility] [id number] [place] [address] 56795- 3235 Sep, Other chronic pain G89.29 [facility] [id number] [place] [address] 88639- 0850 Sep, Other chronic pain G89.29 [facility] [id number] [place] [address] 77022- 3094 Sep, Medicare annual wellness visit, initial Z00.00 ; Chronic obstructive pulmonary disease, unspecified COPD type J44.9 ; Essential hypertension I10 ; Dysthymia F34.1 ; Low back pain M54.5 ; Other chronic pain G89.29 and Tobacco abuse Z72.0 [facility] [address], [place] [address] August, Other chronic pain G89.29 [place] [id number] [place] [address] 16557- 5902 Jul, Other chronic pain G89.29 [place] [id number] [place] [address] 86209- 7815 Jul, Other chronic pain G89.29 ; Chronic obstructive pulmonary disease, unspecified COPD type J44.9 and Tobacco abuse Z72.0 [place] [id number] [place] [address] 59536- 0682 Jul, [place] [id number] [place] [address] 48105- 6545 Jun, Other chronic pain G89.29 [place] [id number] [place] [address] 43482- 1126 Jun, Low back pain M54.5 ; Other chronic pain G89.29 ; Chronic obstructive pulmonary disease, unspecified COPD type J44.9 ; Tobacco abuse Z72.0 ; Essential hypertension I10 and Right wrist pain M25.531 [place] [id number] [place] [address] 99808- 5069 Jun, Other chronic pain G89.29 [place] [address], [place] [address] May, Other chronic pain G89.29 [place] [id number] [place] [address] 03872- 0644 Apr, Other chronic pain G89.29 [place] [id number] [place] [address] 77068- 5342 Mar, Other chronic pain G89.29 [facility] [address], [place] [address] Feb, Other chronic pain G89.29 [facility] [id number] [place] [address] 78757 2546 Feb, Other chronic pain G89.29 [facility] [id number] [place] [address] 01873- 0681 Jan, Chronic obstructive pulmonary disease, unspecified COPD type J44.9 ; Essential hypertension I10 ; Other chronic pain G89.29 and Low back pain M54.5 [facility] [id number] [place] [address] 28261- 4223 Jan, Other chronic pain G89.29 [facility] [id number] [place] [address] 81607- 5598 Dec, Other chronic pain G89.29 [facility] [id number] [place] [address] 15810- 3682 Nov, Other chronic pain G89.29 [facility] [id number] [place] [address] 13639- 8392 Oct, [facility] [id number] [place] [address] 68579- 3655 Oct, Other chronic pain G89.29 [facility] [id number] [place] [address] 00983- 8719 Sep, Other chronic pain G89.29 [facility] [address] [place] [address] 21165- 9406 Sep, [facility] [id number] [place] [address] 21952- 0423 August, Chronic obstructive pulmonary disease, unspecified COPD type J44.9 and Edema, unspecified type R60.9 [facility] [address] [place] [address] 86288- 5968 August, [facility] [address] [facility] [id number] [address] August, Other chronic pain G89.29 [facility] [address] [facility] [id number] [place] [address] 57013- 4100 Jul, Other chronic pain G89.29 [facility] [id number] [place] [address] 37243- 4152 Jul, [facility] [id number] [place] [address] 36692- 4880 Jul, Chronic obstructive pulmonary disease, unspecified COPD type J44.9 ; Other chronic pain G89.29 and Tobacco abuse Z72.0 [facility] [id number] [place] [address] 75053- 9572 Jun, Other chronic pain G89.29 [facility] [id number] [place] [address] 16819- 5702 May, Other chronic pain G89.29 [facility] [id number] [place] [address] 00654- 2261 Apr, Low back pain M54.5 [facility] [id number] [place] [address] 78910- 2167 Mar, Low back pain M54.5 [facility] [id number] [address] Mar, Low back pain M54.5 and Chronic obstructive pulmonary disease, unspecified COPD type J44.9 [facility] [address] [facility] [id number] [place] [address] 47577- 2239 Mar, Low back pain M54.5 [facility] [address] [facility] [id number] [place] [address] 85452- 7200 Feb, [facility] [id number] [place] [address] 41172- 4134 Jan, Low back pain M54.5 [facility] [id number] [address] 08 Dec, 2015 Low back pain M54.5 [place] [id number] [place] [address] 24589- 1153 Dec, Other chronic pain G89.29 [place] [address] [place] [address] 71466- 1824 Nov, [place] [id number] [place] [address] 64464- 2855 Nov, [place] [id number] [place] [address] 14760- 7556 Nov, Chronic obstructive pulmonary disease, unspecified COPD type J44.9 [place] [id number] [place] [address] 85796- 9486 Nov, Essential hypertension I10 [place] [id number] [place] [address] 65394- 8171 Nov, Low back pain M54.5 ; Chronic obstructive pulmonary disease , unspecified COPD type J44.9 and Essential hypertension I10 [place] [address] [place] [address] 72744- 0657 Oct, Encounter to establish care Z76.89 ; Low back pain M54.5 ; Other chronic pain G89.29 ; Chronic obstructive pulmonary disease, unspecified COPD type J44.9 ; Tobacco abuse Z72.0 and Essential hypertension I10 IMMUNIZATIONS No Known Immunizations SOCIAL HISTORY Never Assessed REASON FOR VISIT Morophine/Oxycodone taper PLAN OF CARE VITAL SIGNS MEDICATIONS Unknown Medications RESULTS No Results PROCEDURES No Known procedures INSTRUCTIONS MEDICATIONS ADMINISTERED No Known Medications MEDICAL (GENERAL) HISTORY Type Description Date Medical History HTN Medical History COPD Medical History Chronic back pain due to accident Surgical History 2 spinal fusions around age 39 Surgical History colon repair - 13 inches of large colon removed Ruptured colon from an accident Surgical History lt ankle surgery chain saw injury. Arterial bleed and had to have an artery tied off Hospitalization History surgeries Hospitalization History pneumonia-[facility] 08/30/16 Hospitalization History Acute Resp failure, COPD exacerbation-[facility] 09/03/16
--- OUTSIDE RECORDS SUMMARY | 2018-01-06 08:22 | XMS REPORT ---
Author Author YORDAN CURIEL Organization [facility] Address [address] [place] [address] Care Team Providers Care Mail Truck Driver Name Role Phone YORDAN CURIEL Unavailable PROBLEMS Type Condition ICD9-CM Code FLC92-WR Code Onset Dates Condition Status SNOMED Code Problem Tobacco abuse Z72.0 Active 277832029 Problem Dysthymia F34.1 Active 40332550 Problem Essential hypertension I10 Active 13949405 Problem Other chronic pain G89.29 Active 37877547 Problem Low back pain M54.5 Active 900926445 Problem Chronic obstructive pulmonary disease, unspecified COPD type J44.9 Active 77664013 Problem Encounter to establish care Z76.89 Active 600447869 ALLERGIES No Information ENCOUNTERS Encounter Location Date Diagnosis [facility] [id number] [place] [address] 44842- 0301 Nov, Other chronic pain G89.29 [facility] [id number] [place] [address] 99102- 7431 Oct, [facility] [id number] [place] [address] 71456- 6480 Oct, Other chronic pain G89.29 [facility] [id number] [place] [address] 26807- 6800 Sep, [facility] [id number] [place] [address] 82372- 0795 Sep, Other chronic pain G89.29 [facility] [id number] [place] [address] 21989- 8849 Sep, Other chronic pain G89.29 [facility] [id number] [place] [address] 59859- 8390 Sep, Medicare annual wellness visit, initial Z00.00 ; Chronic obstructive pulmonary disease, unspecified COPD type J44.9 ; Essential hypertension I10 ; Dysthymia F34.1 ; Low back pain M54.5 ; Other chronic pain G89.29 and Tobacco abuse Z72.0 [facility] [address] [address] 4[address] August, Other chronic pain G89.29 [facility] [id number] [place] [address] 36197- 9622 Jul, Other chronic pain G89.29 [facility] [id number] [place] [address] 80997- 2706 Jul, Other chronic pain G89.29 ; Chronic obstructive pulmonary disease, unspecified COPD type J44.9 and Tobacco abuse Z72.0 [facility] [id number] [place] [address] 80116- 2236 Jul, [facility] [facility] [id number] [place] [address] 88808- 9171 Jun, Other chronic pain G89.29 [place] [id number] [place] [address] 85539- 5228 Jun, Low back pain M54.5 ; Other chronic pain G89.29 ; Chronic obstructive pulmonary disease, unspecified COPD type J44.9 ; Tobacco abuse Z72.0 ; Essential hypertension I10 and Right wrist pain M25.531 [facility] [facility] [id number] [place] [address] 34013- 2490 Jun, Other chronic pain G89.29 [facility] [address] [place] [address] 0834 May, Other chronic pain G89.29 [facility] [id number] [place] [address] 33188- 4351 Apr, Other chronic pain G89.29 [facility] [id number] [place] [address] 21055- 9010 Mar, Other chronic pain G89.29 [facility] [address] [address] 6462 Feb, Other chronic pain G89.29 [facility] [id number] [place] [address] 95179 2546 Feb, Other chronic pain G89.29 [facility] [id number] [place] [address] 24663- 7313 Jan, Chronic obstructive pulmonary disease, unspecified COPD type J44.9 ; Essential hypertension I10 ; Other chronic pain G89.29 and Low back pain M54.5 [facility] [id number] [place] [address] 32913- 7537 Jan, Other chronic pain G89.29 [facility] [id number] [place] [address] 54334- 0772 Dec, Other chronic pain G89.29 [facility] [id number] [place] [address] 89144- 3252 Nov, Other chronic pain G89.29 [facility] [id number] [place] [address] 11940- 4552 Oct, [facility] [id number] [place] [address] 02725- 4419 Oct, Other chronic pain G89.29 [facility] [id number] [place] [address] 49595- 1051 Sep, Other chronic pain G89.29 [facility] [id number] [place] [address] 74839- 0136 Sep, [facility] [id number] [place] [address] 78325- 1044 August, Chronic obstructive pulmonary disease, unspecified COPD type J44.9 and Edema, unspecified type R60.9 [facility] [id number] [place] [address] 45586- 9195 August, [facility] [address] [facility] [id number] [address] 3117 August, Other chronic pain G89.29 [facility] [address] [facility] [id number] [place] [address] 52207- 0493 Jul, Other chronic pain G89.29 [facility] [id number] [place] [address] 16967- 3168 Jul, [facility] [id number] [place] [address] 80251- 4434 Jul, Chronic obstructive pulmonary disease, unspecified COPD type J44.9 ; Other chronic pain G89.29 and Tobacco abuse Z72.0 [facility] [id number] [place] [address] 39383- 2730 Jun, Other chronic pain G89.29 [facility] [id number] [place] [address] 55138- 5136 May, Other chronic pain G89.29 [facility] [id number] [place] [address] 95899- 7402 Apr, Low back pain M54.5 [facility] [id number] [place] [address] 48715- 8033 Mar, Low back pain M54.5 [facility] [id number] [address] 0270 Mar, Low back pain M54.5 and Chronic obstructive pulmonary disease, unspecified COPD type J44.9 [facility] [address] [facility] [id number] [place] [address] 03988- 3536 Mar, Low back pain M54.5 [facility] [address] [facility] [id number] [place] [address] 41560- 5713 Feb, [facility] [id number] [place] [address] 11405- 7556 Jan, Low back pain M54.5 [facility] [id number] [address] 1698 08 Dec, 2015 Low back pain M54.5 [place] [id number] [place] [address] 33978- 2074 07 Dec, 2015 Other chronic pain G89.29 [place] [id number] [place] [address] 19396- 0738 Nov, [place] [id number] [place] [address] 69083- 1700 Nov, [place] [id number] [place] [address] 14477- 6277 Nov, Chronic obstructive pulmonary disease, unspecified COPD type J44.9 [facility] [facility] [id number] [place] [address] 75412- 3771 Nov, Essential hypertension I10 [facility] [facility] [id number] [place] [address] 48969- 2930 Nov, Low back pain M54.5 ; Chronic obstructive pulmonary disease , unspecified COPD type J44.9 and Essential hypertension I10 [place] [id number] [place] [address] 72649- 0566 Oct, Encounter to establish care Z76.89 ; Low back pain M54.5 ; Other chronic pain G89.29 ; Chronic obstructive pulmonary disease, unspecified COPD type J44.9 ; Tobacco abuse Z72.0 and Essential hypertension I10 IMMUNIZATIONS No Known Immunizations SOCIAL HISTORY Never Assessed REASON FOR VISIT MS Contin Decrease PLAN OF CARE VITAL SIGNS MEDICATIONS Medication Instructions Dosage Frequency Start Date End Date Duration Status MS Contin 60 MG Orally every 12 hrs. Take with 30 MG tablet 1 tablet Sep, Active MS Contin 30 MG Orally every 12 hrs. Take with 60 MG tablet 1 tablet Sep, Active RESULTS No Results PROCEDURES No Known procedures [...] tied off Hospitalization History surgeries Hospitalization History pneumonia-[facility] 08/30/16 Hospitalization History Acute Resp failure, COPD exacerbation-[facility] 09/03/16
--- OUTSIDE RECORDS SUMMARY | 2018-01-06 08:22 | XMS REPORT ---
Author Author YORDAN CURIEL Organization [facility] Address [address] [place] [address] Care Team Providers Care Biomechanical Engineer Name Role Phone YORDAN CURIEL Unavailable PROBLEMS Type Condition ICD9-CM Code XNL27-PG Code Onset Dates Condition Status SNOMED Code Problem Tobacco abuse Z72.0 Active 273929927 Problem Dysthymia F34.1 Active 91330095 Problem Essential hypertension I10 Active 03317324 Problem Other chronic pain G89.29 Active 71947684 Problem Low back pain M54.5 Active 329131227 Problem Chronic obstructive pulmonary disease, unspecified COPD type J44.9 Active 50098658 Problem Encounter to establish care Z76.89 Active 139602300 ALLERGIES No Information ENCOUNTERS Encounter Location Date Diagnosis [facility] [id number] [place] [address] 90108- 2554 Jan, [facility] [address] 88974- 0621 Nov, Other chronic pain G89.29 [facility] [id number] [place] [address] 04786- 8979 Oct, [facility] [id number] [place] [address] 11527- 3567 Oct, Other chronic pain G89.29 [facility] [id number] [place] [address] 03743- 2401 Sep, [facility] [id number] [place] [address] 14638- 5090 Sep, Other chronic pain G89.29 [facility] [id number] [place] [address] 86814- 4672 Sep, Other chronic pain G89.29 [facility] [address], [place] [address]- 3894 Sep, Medicare annual wellness visit, initial Z00.00 ; Chronic obstructive pulmonary disease, unspecified COPD type J44.9 ; Essential hypertension I10 ; Dysthymia F34.1 ; Low back pain M54.5 ; Other chronic pain G89.29 and Tobacco abuse Z72.0 [facility] [id number] [place] [address] 54478- 0581 August, Other chronic pain G89.29 [facility] [id number] [place] [address] 82745- 2242 Jul, Other chronic pain G89.29 [place] [id number] [place] [address] 84441- 2233 Jul, Other chronic pain G89.29 ; Chronic obstructive pulmonary disease, unspecified COPD type J44.9 and Tobacco abuse Z72.0 [place] [id number] [place] [address] 04295- 6918 Jul, [facility] [id number] [place] [address] 28628- 9681 Jun, Other chronic pain G89.29 [facility] [address] [place] [address] 54608- 4540 Jun, Low back pain M54.5 ; Other chronic pain G89.29 ; Chronic obstructive pulmonary disease, unspecified COPD type J44.9 ; Tobacco abuse Z72.0 ; Essential hypertension I10 and Right wrist pain M25.531 [facility] [address], [place] [address]- 5360 Jun, Other chronic pain G89.29 [facility] [id number] [place] [address] 53666- 6970 May, Other chronic pain G89.29 [facility] [address] [place] [address] 94969- 7387 Apr, Other chronic pain G89.29 [facility] [address] [facility] [id number] [address]- 9769 Mar, Other chronic pain G89.29 [facility] [address], [place] [address]- 4866 Feb, Other chronic pain G89.29 [facility] [id number], [place] [address]- 6156 Feb, Other chronic pain G89.29 [facility] [address] [place] [address] 47697- 2637 Jan, Chronic obstructive pulmonary disease, unspecified COPD type J44.9 ; Essential hypertension I10 ; Other chronic pain G89.29 and Low back pain M54.5 [facility] [address], [place] [address]- 6416 Jan, Other chronic pain G89.29 [facility] [id number] [address]- 4435 Dec, Other chronic pain G89.29 [facility] [address], [place] [address]- 6196 Nov, Other chronic pain G89.29 [facility] [address], [place] [address]- 9746 Oct, [facility] [address] [place] [address]- 7261 Oct, Other chronic pain G89.29 [facility] [address], [place] [address]- 2276 Sep, Other chronic pain G89.29 [facility] [id number], [place] [address]- 9966 Sep, [facility] [address] [facility] [id number], [place] [address]- 7936 August, Chronic obstructive pulmonary disease, unspecified COPD type J44.9 and Edema, unspecified type R60.9 [facility] [address], [place] [address]- 5993 August, [facility] [id number] [place] [address] 40331- 9715 August, Other chronic pain G89.29 [facility] [address] [place] [address] 41825- 2456 Jul, Other chronic pain G89.29 [facility] [id number] [place] [address] 74338- 9508 Jul, [facility] [id number] [place] [address] 76124- 4160 Jul, Chronic obstructive pulmonary disease, unspecified COPD type J44.9 ; Other chronic pain G89.29 and Tobacco abuse Z72.0 [facility] [address] [place] [address] 64336- 5781 Jun, Other chronic pain G89.29 [facility] [id number] [place] [address] 88852- 8113 May, Other chronic pain G89.29 [facility] [id number] [place] [address] 26324- 0309 Apr, Low back pain M54.5 [facility] [address] [place] [address] 63417- 6222 Mar, Low back pain M54.5 [facility] [id number] [place] [address] 48024- 9903 Mar, Low back pain M54.5 and Chronic obstructive pulmonary disease, unspecified COPD type J44.9 [facility] [address] [place] [address] 82497- 0592 Mar, Low back pain M54.5 [facility] [address] [place] [address] 73326- 5323 Feb, [facility] [id number] [place] [address] 30728- 3923 Jan, Low back pain M54.5 [facility] [address], [place] [address]- 0122 08 Dec, 2015 Low back pain M54.5 [facility] [address], [place] [address]- 3698 Dec, Other chronic pain G89.29 [facility] [id number] [address]- 3579 Nov, [facility] [id number] [place] [address] 98698- 8308 Nov, [facility] [id number] [place] [address] 72067- 6863 Nov, Chronic obstructive pulmonary disease, unspecified COPD type J44.9 [facility] [address], [place] [address]- 7582 Nov, Essential hypertension I10 [facility] [address], [place] [address]- 6553 Nov, Low back pain M54.5 ; Chronic obstructive pulmonary disease , unspecified COPD type J44.9 and Essential hypertension I10 [facility] [address], [place] [address]- 8446 Oct, Encounter to establish care Z76.89 ; Low back pain M54.5 ; Other chronic pain G89.29 ; Chronic obstructive pulmonary disease, unspecified COPD type J44.9 ; Tobacco abuse Z72.0 and Essential hypertension I10 IMMUNIZATIONS No Known Immunizations SOCIAL HISTORY Never Assessed REASON FOR VISIT Controlled Refill 11/12/17/Taper PLAN OF CARE VITAL SIGNS MEDICATIONS Medication Instructions Dosage Frequency Start Date End Date Duration Status MS Contin 15 mg Orally every 12 hrs 1 tablet 12h Oct, Nov, 28 days Active Oxycodone-Acetaminophen 5-325 MG Orally 2 times a day 2 tablets as needed 12h Oct, 28 days Active MS Contin 60 mg Orally every 12 hrs. Take with 15 MG tablet 1 tablet Oct, Nov, 28 days Active RESULTS No Results PROCEDURES No Known [...] tied off Hospitalization History surgeries Hospitalization History pneumonia-[facility] 08/30/16 Hospitalization History Acute Resp failure, COPD exacerbation-[facility] 09/03/16
--- OUTSIDE RECORDS SUMMARY | 2018-01-06 08:22 | XMS REPORT ---
Author Author YORDAN CURIEL Organization [facility] [place] Address [address] [place] [address] Care Team Providers Care Molder Foam Rubber Name Role Phone YORDAN CURIEL Unavailable PROBLEMS Type Condition ICD9-CM Code IPI05-NA Code Onset Dates Condition Status SNOMED Code Problem Tobacco abuse Z72.0 Active 882871069 Problem Dysthymia F34.1 Active 60886476 Problem Essential hypertension I10 Active 90309569 Problem Other chronic pain G89.29 Active 03893762 Problem Low back pain M54.5 Active 029910898 Problem Chronic obstructive pulmonary disease, unspecified COPD type J44.9 Active 64914865 Problem Encounter to establish care Z76.89 Active 313247031 ALLERGIES No Known Allergies ENCOUNTERS Encounter Location Date Diagnosis [facility] [id number] [place] [address] 18657- 5022 Nov, Other chronic pain G89.29 [facility] [id number] [place] [address] 89207- 8344 Oct, [facility] [place] [id number] [place] [address] 13682- 4517 Oct, Other chronic pain G89.29 [facility] [place] [id number] [place] [address] 33599- 5406 Sep, [facility] [place] [id number] [place] [address] 83563- 2669 Sep, Other chronic pain G89.29 [facility] [place] [id number] [place] [address] 96484- 0772 Sep, Other chronic pain G89.29 [facility] [place] [id number] [place] [address] 48254- 0784 Sep, Medicare annual wellness visit, initial Z00.00 ; Chronic obstructive pulmonary disease, unspecified COPD type J44.9 ; Essential hypertension I10 ; Dysthymia F34.1 ; Low back pain M54.5 ; Other chronic pain G89.29 and Tobacco abuse Z72.0 [facility] [place] [id number] [place] [address] 77311- 5363 August, Other chronic pain G89.29 [place] [id number] [place] [address] 12908- 0314 Jul, Other chronic pain G89.29 [place] [id number] [place] [address] 03936- 8098 Jul, Other chronic pain G89.29 ; Chronic obstructive pulmonary disease, unspecified COPD type J44.9 and Tobacco abuse Z72.0 [place] [id number] [place] [address] 37721- 3985 Jul, [place] [id number] [place] [address] 64613- 1491 Jun, Other chronic pain G89.29 [place] [id number] [place] [address] 51999- 1005 Jun, Low back pain M54.5 ; Other chronic pain G89.29 ; Chronic obstructive pulmonary disease, unspecified COPD type J44.9 ; Tobacco abuse Z72.0 ; Essential hypertension I10 and Right wrist pain M25.531 [place] [id number] [place] [address] 68485- 7015 Jun, Other chronic pain G89.29 [place] [id number] [place] [address] 70273- 6613 May, Other chronic pain G89.29 [place] [id number] [place] [address] 76707- 7931 Apr, Other chronic pain G89.29 [place] [id number] [place] [address] 89409- 6233 Mar, Other chronic pain G89.29 [facility] [place] [address] [place] [address] 94442- 4777 Feb, Other chronic pain G89.29 [facility] [place] [id number] [place] [address] 31677- 1996 Feb, Other chronic pain G89.29 [facility] [place] [id number] [place] [address] 25026- 0411 Jan, Chronic obstructive pulmonary disease, unspecified COPD type J44.9 ; Essential hypertension I10 ; Other chronic pain G89.29 and Low back pain M54.5 [facility] [place] [id number] [place] [address] 72894- 1379 Jan, Other chronic pain G89.29 [facility] [place] [id number] [place] [address] 08548- 8351 Dec, Other chronic pain G89.29 [facility] [place] [id number] [place] [address] 22056- 5507 Nov, Other chronic pain G89.29 [facility] [place] [id number] [place] [address] 14430- 1448 Oct, [facility] [place] [id number] [place] [address] 25366- 5674 Oct, Other chronic pain G89.29 [facility] [place] [id number] [place] [address] 50370- 9673 Sep, Other chronic pain G89.29 [facility] [place] [address] [place] [address] 90532- 8501 Sep, [facility] [place] [id number] [place] [address] 24953- 6888 August, Chronic obstructive pulmonary disease, unspecified COPD type J44.9 and Edema, unspecified type R60.9 [facility] [place] [id number] [place] [address] 07343- 7528 August, [facility] [place] [address] [facility] [id number] [address]- 1084 August, Other chronic pain G89.29 [facility] [place] [address] [facility] [id number] [place] [address] 99126- 8211 Jul, Other chronic pain G89.29 [facility] [place] [address] [facility] [id number] [place] [address]- 3706 Jul, [facility] [place] [id number] [place] [address] 83725- 1824 Jul, Chronic obstructive pulmonary disease, unspecified COPD type J44.9 ; Other chronic pain G89.29 and Tobacco abuse Z72.0 [facility] [place] [id number] [place] [address] 59968- 0236 Jun, Other chronic pain G89.29 [facility] [place] [address] [place] [address] 53845- 0868 May, Other chronic pain G89.29 [facility] [place] [id number] [place] [address] 99882- 3743 Apr, Low back pain M54.5 [facility] [place] [id number] [place] [address] 12333- 7147 Mar, Low back pain M54.5 [facility] [place] [id number] [address]- 7441 Mar, Low back pain M54.5 and Chronic obstructive pulmonary disease, unspecified COPD type J44.9 [facility] [place] [address] [facility] [id number] [place] [address]- 8552 Mar, Low back pain M54.5 [facility] [place] [address] [facility] [id number] [place] [address] 85066- 5456 Feb, [facility] [place] [id number] [place] [address]- 9088 Jan, Low back pain M54.5 [facility] [place] [address] [place] [address]- 7502 08 Dec, 2015 Low back pain M54.5 [facility] [place] [id number] [place] [address] 42271- 0115 07 Dec, 2015 Other chronic pain G89.29 [facility] [place] [address] [place] [address] 04786- 5358 Nov, [facility] [place] [id number] [place] [address] 19901- 8272 Nov, [facility] [id number] [place] [address] 73781- 0385 Nov, Chronic obstructive pulmonary disease, unspecified COPD type J44.9 [place] [id number] [place] [address] 71450- 9400 Nov, Essential hypertension I10 [place] [id number] [place] [address] 96455- 2034 Nov, Low back pain M54.5 ; Chronic obstructive pulmonary disease , unspecified COPD type J44.9 and Essential hypertension I10 [place] [id number] [place] [address] 92720- 3258 Oct, Encounter to establish care Z76.89 ; Low back pain M54.5 ; Other chronic pain G89.29 ; Chronic obstructive pulmonary disease, unspecified COPD type J44.9 ; Tobacco abuse Z72.0 and Essential hypertension I10 IMMUNIZATIONS No Known Immunizations SOCIAL HISTORY Never Assessed REASON FOR VISIT Medicare AWV - Initial Visit -MA PLAN OF CARE Activity Details Follow Up 1 Year Reason: Pending Test CT Scan : Chest, low dose VITAL SIGNS Height 70 in 2017-10-10 Weight 143.6 lbs 2017-10-10 Temperature 98.2 degrees Fahrenheit 2017-10-10 Heart Rate 88 bpm 2017-10-10 Respiratory Rate 2017-10-10 Oximetry w/ oxygen:97 % 2017-10-10 BMI 20.60 kg/m2 2017-10-10 Blood pressure systolic 140 mmHg 2017-10-10 Blood pressure diastolic 94 mmHg 2017-10-10 MEDICATIONS Medication Instructions Dosage Frequency Start Date End Date Duration Status Oxygen ... by inhalation route at night while sleeping 2 LPM Nov, Active MS Contin 100 MG Orally every 12 hrs 1 tablet 12h August, 28 days Active Advair Diskus 500-50 MCG/DOSE Inhalation Once a day 2 puffs 24h 90 days Active Lisinopril-Hydrochlorothiazide 20-25 MG Orally Once a day 1 tablet 24h 90 days Active Escitalopram Oxalate 10 mg Orally Once a day 1 tablet 24h 20 Sep, 2017 30 day(s) Active Neurontin 100 MG Orally and 2 capsules in the evening 1 capsule in the morning 90 days Not-Taking Lisinopril 20 MG Orally Once a day 1 tablet 24h Not-Taking Amlodipine Besylate 10 MG Orally Once a day 1 tablet 24h Not- Taking Ventolin HFA 108 (90 Base) MCG/ACT Inhalation every 4 hrs 2 puffs as needed 4h 90 days Active Oxycodone-Acetaminophen 5-325 MG Orally 2 times a day 2 tablets as needed 12h August, 28 days Active Anoro Ellipta 62.5-25 MCG/INH Inhalation Once a day 1 puff 24h Nov, Not-Taking Meloxicam 15 MG Orally Once a day 1 tablet 24h 90 days Active Omeprazole 20 MG Orally Once a day 2 capsules 24h Not-Taking Clonidine HCl 0.2 MG Orally 3 times a day 1 tablet 8h Not-Taking RESULTS No Results PROCEDURES Procedure Date Ordered Result Body Site [facility] VISIT IPPE/AWV October 10, 2017 ANNUAL SHIRA VST; SHAHAB PPS INIT October 10, 2017 PT TOBACCO SCREEN RCVD TLK October 10, 2017 FALL RISK ASSESSMENT DOCD October 10, 2017 INSTRUCTIONS MEDICATIONS ADMINISTERED No Known Medications MEDICAL [...] tied off Hospitalization History surgeries Hospitalization History pneumonia-[facility] 08/30/16 Hospitalization History Acute Resp failure, COPD exacerbation-[facility] 09/03/16
--- OUTSIDE RECORDS SUMMARY | 2018-01-06 08:23 | XMS REPORT ---
Author Author NATASHA OLIVER Organization [facility] Address [address] [place] [address] Care Team Providers Care Captain Fishing Vessel Name Role Phone NATASHA OLIVER Unavailable PROBLEMS Type Condition ICD9-CM Code LKK96-OJ Code Onset Dates Condition Status SNOMED Code Problem Tobacco abuse Z72.0 Active 769219609 Problem Dysthymia F34.1 Active 09837823 Problem Essential hypertension I10 Active 28743356 Problem Other chronic pain G89.29 Active 21846800 Problem Low back pain M54.5 Active 986736005 Problem Chronic obstructive pulmonary disease, unspecified COPD type J44.9 Active 60514529 Problem Encounter to establish care Z76.89 Active 476163233 ALLERGIES No Information ENCOUNTERS Encounter Location Date Diagnosis [facility] [id number] [place] [address] 91546- 8973 Nov, Other chronic pain G89.29 [facility] [id number] [place] [address] 81041- 7896 Oct, [facility] [id number] [place] [address] 29563- 1188 Oct, Other chronic pain G89.29 [facility] [id number] [place] [address] 63680- 3023 Sep, [facility] [id number] [place] [address] 54310- 3096 Sep, Other chronic pain G89.29 [facility] [id number] [place] [address] 31579- 5123 Sep, Other chronic pain G89.29 [facility] [id number] [place] [address] 13420- 7616 Sep, Medicare annual wellness visit, initial Z00.00 ; Chronic obstructive pulmonary disease, unspecified COPD type J44.9 ; Essential hypertension I10 ; Dysthymia F34.1 ; Low back pain M54.5 ; Other chronic pain G89.29 and Tobacco abuse Z72.0 [facility] [id number] [place] [address] 79066- 2859 August, Other chronic pain G89.29 [facility] [id number] [place] [address] 86827- 8741 Jul, Other chronic pain G89.29 [facility] [id number] [place] [address] 77207- 4330 Jul, Other chronic pain G89.29 ; Chronic obstructive pulmonary disease, unspecified COPD type J44.9 and Tobacco abuse Z72.0 [place] [id number] [place] [address] 71967- 2937 Jul, [facility] [id number] [place] [address] 32372- 3549 Jun, Other chronic pain G89.29 [facility] [id number] [place] [address] 07158- 9158 Jun, Low back pain M54.5 ; Other chronic pain G89.29 ; Chronic obstructive pulmonary disease, unspecified COPD type J44.9 ; Tobacco abuse Z72.0 ; Essential hypertension I10 and Right wrist pain M25.531 [facility] [id number] [place] [address] 30987- 5017 Jun, Other chronic pain G89.29 [facility] [id number] [place] [address] 35166- 0801 May, Other chronic pain G89.29 [facility] [id number] [place] [address] 78105- 3186 Apr, Other chronic pain G89.29 [facility] [id number] [place] [address] 72725- 7109 Mar, Other chronic pain G89.29 [facility] [id number] [address]- 1658 Feb, Other chronic pain G89.29 [facility] [id number] [place] [address] 58260 2546 Feb, Other chronic pain G89.29 [facility] [id number] [place] [address] 38819- 7076 Jan, Chronic obstructive pulmonary disease, unspecified COPD type J44.9 ; Essential hypertension I10 ; Other chronic pain G89.29 and Low back pain M54.5 [facility] [id number] [place] [address] 08879- 1862 Jan, Other chronic pain G89.29 [facility] [id number] [place] [address] 66271- 8380 Dec, Other chronic pain G89.29 [facility] [id number] [place] [address] 11827- 3917 Nov, Other chronic pain G89.29 [facility] [id number] [place] [address] 69815- 0436 Oct, [facility] [id number] [place] [address] 19451- 4479 Oct, Other chronic pain G89.29 [facility] [address] [place] [address] 61801- 8277 Sep, Other chronic pain G89.29 [facility] [address] [address]- 7011 Sep, [facility] [id number] [place] [address] 56607- 0386 August, Chronic obstructive pulmonary disease, unspecified COPD type J44.9 and Edema, unspecified type R60.9 [facility] [id number] [address]- 6110 August, [facility] [id number] [address]- 9842 August, Other chronic pain G89.29 [facility] [address] [facility] [id number] [place] [address] 08805- 2448 Jul, Other chronic pain G89.29 [facility] [address] [facility] [id number] [place] [address] 64748- 0669 Jul, [facility] [address] [facility] [id number] [place] [address] 37556- 4101 Jul, Chronic obstructive pulmonary disease, unspecified COPD type J44.9 ; Other chronic pain G89.29 and Tobacco abuse Z72.0 [facility] [address] [facility] [id number] [place] [address] 44437- 6885 Jun, Other chronic pain G89.29 [facility] [address] [facility] [id number] [place] [address] 83055- 3717 May, Other chronic pain G89.29 [facility] [address] [facility] [id number] [place] [address] 83307- 7211 Apr, Low back pain M54.5 [facility] [id number] [place] [address] 72825- 0282 Mar, Low back pain M54.5 [facility] [address] [facility] [id number] [place] [address] 36543- 9108 Mar, Low back pain M54.5 and Chronic obstructive pulmonary disease, unspecified COPD type J44.9 [facility] [address] [facility] [id number] [place] [address] 56788- 8834 Mar, Low back pain M54.5 [facility] [address] [facility] [id number] [place] [address] 78586- 7203 Feb, [facility] [address] [facility] [id number] [place] [address] 62313- 2454 Jan, Low back pain M54.5 [facility] [address] [facility] [id number] [place] [address] 95776- 4633 Dec, Low back pain M54.5 [place] [address] [address]- 5708 Dec, Other chronic pain G89.29 [facility] [address] [address]- 9677 Nov, [facility] [address] [place] [address] 16341- 8854 Nov, [place] [address] [place] [address] 26252- 9982 Nov, Chronic obstructive pulmonary disease, unspecified COPD type J44.9 [place] [address] [place] [address] 13281- 4647 Nov, Essential hypertension I10 [place] [address] [place] [address] 01159- 1322 Nov, Low back pain M54.5 ; Chronic obstructive pulmonary disease , unspecified COPD type J44.9 and Essential hypertension I10 [place] [address] [address]- 6978 Oct, Encounter to establish care Z76.89 ; Low back pain M54.5 ; Other chronic pain G89.29 ; Chronic obstructive pulmonary disease, unspecified COPD type J44.9 ; Tobacco abuse Z72.0 and Essential hypertension I10 IMMUNIZATIONS No Known Immunizations SOCIAL HISTORY Never Assessed REASON FOR VISIT Controlled Med Refill 09/17/17 PLAN OF CARE VITAL SIGNS MEDICATIONS Medication Instructions Dosage Frequency Start Date End Date Duration Status Oxycodone-Acetaminophen 5-325 MG Orally 2 times a day 2 tablets as needed 12h August, 28 days Active MS Contin 100 MG Orally every 12 hrs 1 tablet 12h August, 28 days Active RESULTS No Results PROCEDURES [...] tied off Hospitalization History surgeries Hospitalization History pneumonia-[facility] 08/30/16 Hospitalization History Acute Resp failure, COPD exacerbation-[facility] 09/03/16
--- OUTSIDE RECORDS SUMMARY | 2018-01-06 08:23 | XMS REPORT ---
Author Author FREDIS ORNELAS Organization [facility] Address [address] [place] [address] Care Team Providers Care Security Intern Name Role Phone FREDIS ORNELAS Unavailable PROBLEMS Type Condition ICD9-CM Code [id number] Code Onset Dates Condition Status SNOMED Code Problem Tobacco abuse Z72.0 Active 180579965 Problem Dysthymia F34.1 Active 88343512 Problem Essential hypertension I10 Active 81195418 Problem Other chronic pain G89.29 Active 79427976 Problem Low back pain M54.5 Active 856337833 Problem Chronic obstructive pulmonary disease, unspecified COPD type J44.9 Active 80539925 Problem Encounter to establish care Z76.89 Active [id number] ALLERGIES No Information ENCOUNTERS Encounter Location Date Diagnosis [facility] [id number] [place] [address] 88058- 7820 Oct, Other chronic pain G89.29 [facility] [id number] [place] [address] 41886- 6665 Sep, [facility] [id number] [place] [address] 26135- 9456 Sep, Other chronic pain G89.29 [facility] [id number] [place] [address] 38000- 8320 Sep, Other chronic pain G89.29 [facility] [id number] [place] [address] 36454- 2668 Sep, Medicare annual wellness visit, initial Z00.00 ; Chronic obstructive pulmonary disease, unspecified COPD type J44.9 ; Essential hypertension I10 ; Dysthymia F34.1 ; Low back pain M54.5 ; Other chronic pain G89.29 and Tobacco abuse Z72.0 [facility] [id number] [place] [address] 29234- 0949 August, Other chronic pain G89.29 [facility] [id number] [place] [address] 36077- 5552 Jul, Other chronic pain G89.29 [facility] [id number] [place] [address] 15515- 4845 Jul, Other chronic pain G89.29 ; Chronic obstructive pulmonary disease, unspecified COPD type J44.9 and Tobacco abuse Z72.0 [facility] [id number] [place] [address] 42623- 1739 Jul, [facility] [id number] [place] [address] 77293- 7979 Jun, Other chronic pain G89.29 [facility] [id number] [place] [address] 43262- 4856 Jun, Low back pain M54.5 ; Other chronic pain G89.29 ; Chronic obstructive pulmonary disease, unspecified COPD type J44.9 ; Tobacco abuse Z72.0 ; Essential hypertension I10 and Right wrist pain M25.531 [facility] [id number] [place] [address] 19157- 5533 Jun, Other chronic pain G89.29 [facility] [id number] [place] [address] 26865- 7278 May, Other chronic pain G89.29 [facility] [id number] [place] [address] 91479- 9697 Apr, Other chronic pain G89.29 [facility] [id number] [place] [address] 21575- 9723 Mar, Other chronic pain G89.29 [facility] [id number] [place] [address] 55948- 7023 Feb, Other chronic pain G89.29 [facility] [id number] [place] [address] 11403- 7365 Feb, Other chronic pain G89.29 [facility] [address] [facility] [id number] [address] 5451 Jan, Chronic obstructive pulmonary disease, unspecified COPD type J44.9 ; Essential hypertension I10 ; Other chronic pain G89.29 and Low back pain M54.5 [facility] [address] [address]- 0283 Jan, Other chronic pain G89.29 [facility] [id number] [address]- 5371 Dec, Other chronic pain G89.29 [facility] [id number] [address]- 1315 Nov, Other chronic pain G89.29 [facility] [address] [address]- 7039 Oct, [facility] [id number] [place] [address] 72888- 6181 Oct, Other chronic pain G89.29 [facility] [id number] [address]- 4529 Sep, Other chronic pain G89.29 [facility] [id number] [address]- 8308 Sep, [facility] [address] [address]- 4521 August, Chronic obstructive pulmonary disease, unspecified COPD type J44.9 and Edema, unspecified type R60.9 [facility] [id number] [address]- 9809 August, [facility] [id number] [place] [address] 40457- 2436 August, Other chronic pain G89.29 [facility] [id number] [address]- 3581 Jul, Other chronic pain G89.29 [facility] [address] [facility] [id number] [place] [address]- 6003 Jul, [facility] [address] [facility] [id number] [place] [address] 67496 2546 Jul, Chronic obstructive pulmonary disease, unspecified COPD type J44.9 ; Other chronic pain G89.29 and Tobacco abuse Z72.0 [facility] [address] [facility] [id number] [place] [address]- 7036 Jun, Other chronic pain G89.29 [facility] [address] [facility] [id number] [place] [address] 59849- 6132 May, Other chronic pain G89.29 [facility] [id number] [place] [address] 28691- 9477 Apr, Low back pain M54.5 [facility] [address] [facility] [id number] [place] [address] 84494- 6318 Mar, Low back pain M54.5 [facility] [address] [facility] [id number] [place] [address] 63190 2542 Mar, Low back pain M54.5 and Chronic obstructive pulmonary disease, unspecified COPD type J44.9 [facility] [address] [facility] [id number] [place] [address] 2540 Mar, Low back pain M54.5 [facility] [address] [address] 2546 Feb, [facility] [address] [facility] [id number] [place] [address] 84977 2541 Jan, Low back pain M54.5 [facility] [address] [facility] [id number] [place] [address] 2546 08 Dec, 2015 Low back pain M54.5 [facility] [id number] [address] 2546 07 Dec, 2015 Other chronic pain G89.29 [facility] [address] [facility] [id number] [place] [address]- 2385 Nov, [facility] [address] [facility] [id number] [place] [address]- 6169 Nov, [facility] [address] [address]- 1874 Nov, Chronic obstructive pulmonary disease, unspecified COPD type J44.9 [facility] [id number] [address]- 3365 Nov, Essential hypertension I10 [facility] [id number] [address]- 0609 Nov, Low back pain M54.5 ; Chronic obstructive pulmonary disease , unspecified COPD type J44.9 and Essential hypertension I10 [facility] [id number] [address]- 4055 Oct, Encounter to establish care Z76.89 ; Low back pain M54.5 ; Other chronic pain G89.29 ; Chronic obstructive pulmonary disease, unspecified COPD type J44.9 ; Tobacco abuse Z72.0 and Essential hypertension I10 IMMUNIZATIONS No Known Immunizations SOCIAL HISTORY Never Assessed REASON FOR VISIT Pain Management Consult PLAN OF CARE VITAL SIGNS MEDICATIONS Unknown [...] tied off Hospitalization History surgeries Hospitalization History pneumonia-[facility] 08/30/16 Hospitalization History Acute Resp failure, COPD exacerbation-[facility] 09/03/16
--- OUTSIDE RECORDS SUMMARY | 2018-01-06 08:23 | XMS REPORT ---
Author Author FREDIS ORNELAS Organization [facility] Address [address] [place] [address] Care Team Providers Care Director Oracle Database Name Role Phone FREDIS ORNELAS Unavailable PROBLEMS Type Condition ICD9-CM Code XXO57-OB Code Onset Dates Condition Status SNOMED Code Problem Tobacco abuse Z72.0 Active 528345504 Problem Dysthymia F34.1 Active 39968299 Problem Essential hypertension I10 Active 78534440 Problem Other chronic pain G89.29 Active 33031164 Problem Low back pain M54.5 Active 040012532 Problem Chronic obstructive pulmonary disease, unspecified COPD type J44.9 Active 98055533 Problem Encounter to establish care Z76.89 Active 235070035 ALLERGIES No Known Allergies ENCOUNTERS Encounter Location Date Diagnosis [facility] [id number] [place] [address] 74279- 2315 Nov, Other chronic pain G89.29 [facility] [id number] [place] [address] 97132- 0664 Oct, [facility] [id number] [place] [address] 46737- 5485 Oct, Other chronic pain G89.29 [facility] [id number] [place] [address] 66086- 1432 Sep, [facility] [id number] [place] [address] 95755- 1421 Sep, Other chronic pain G89.29 [facility] [id number] [place] [address] 99578- 7922 Sep, Other chronic pain G89.29 [facility] [id number] [place] [address] 11862- 6988 Sep, Medicare annual wellness visit, initial Z00.00 ; Chronic obstructive pulmonary disease, unspecified COPD type J44.9 ; Essential hypertension I10 ; Dysthymia F34.1 ; Low back pain M54.5 ; Other chronic pain G89.29 and Tobacco abuse Z72.0 [facility] [id number] [place] [address] 87698- 9908 August, Other chronic pain G89.29 [facility] [id number] [place] [address] 44270- 7258 Jul, Other chronic pain G89.29 [facility] [id number] [place] [address] 80894- 1830 Jul, Other chronic pain G89.29 ; Chronic obstructive pulmonary disease, unspecified COPD type J44.9 and Tobacco abuse Z72.0 [place] [id number] [place] [address] 73609- 5914 Jul, [facility] [id number] [place] [address] 99322- 2284 Jun, Other chronic pain G89.29 [facility] [id number] [place] [address] 36114- 8865 Jun, Low back pain M54.5 ; Other chronic pain G89.29 ; Chronic obstructive pulmonary disease, unspecified COPD type J44.9 ; Tobacco abuse Z72.0 ; Essential hypertension I10 and Right wrist pain M25.531 [facility] [id number] [place] [address] 87950- 5474 Jun, Other chronic pain G89.29 [facility] [id number] [place] [address] 63884- 9479 May, Other chronic pain G89.29 [facility] [id number] [place] [address] 29063- 0225 Apr, Other chronic pain G89.29 [facility] [id number] [place] [address] 74502- 2196 Mar, Other chronic pain G89.29 [facility] [id number] [address]- 3985 Feb, Other chronic pain G89.29 [facility] [id number] [place] [address] 99079 2546 Feb, Other chronic pain G89.29 [facility] [id number] [place] [address] 66744- 1826 Jan, Chronic obstructive pulmonary disease, unspecified COPD type J44.9 ; Essential hypertension I10 ; Other chronic pain G89.29 and Low back pain M54.5 [facility] [id number] [place] [address] 45134- 7388 Jan, Other chronic pain G89.29 [facility] [id number] [place] [address] 78185- 0321 Dec, Other chronic pain G89.29 [facility] [id number] [place] [address] 94532- 9762 Nov, Other chronic pain G89.29 [facility] [id number] [place] [address] 18297- 6686 Oct, [facility] [id number] [place] [address] 32553- 7511 Oct, Other chronic pain G89.29 [facility] [id number] [place] [address] 76391- 8672 Sep, Other chronic pain G89.29 [facility] [address] [address]- 5321 Sep, [facility] [id number] [place] [address] 51263- 4895 August, Chronic obstructive pulmonary disease, unspecified COPD type J44.9 and Edema, unspecified type R60.9 [facility] [id number] [address]- 2750 August, [facility] [id number] [address]- 7334 August, Other chronic pain G89.29 [facility] [address] [facility] [id number] [place] [address] 05520- 1499 Jul, Other chronic pain G89.29 [facility] [address] [facility] [id number] [place] [address] 85313- 3315 Jul, [facility] [address] [facility] [id number] [place] [address] 81031- 3459 Jul, Chronic obstructive pulmonary disease, unspecified COPD type J44.9 ; Other chronic pain G89.29 and Tobacco abuse Z72.0 [facility] [address] [facility] [id number] [place] [address] 73333- 7815 Jun, Other chronic pain G89.29 [facility] [address] [facility] [id number] [place] [address] 46670- 9168 May, Other chronic pain G89.29 [facility] [address] [facility] [id number] [place] [address] 54387- 6065 Apr, Low back pain M54.5 [facility] [id number] [place] [address] 41434- 0733 Mar, Low back pain M54.5 [facility] [address] [facility] [id number] [place] [address] 79651- 9960 Mar, Low back pain M54.5 and Chronic obstructive pulmonary disease, unspecified COPD type J44.9 [facility] [address] [facility] [id number] [place] [address] 75998- 1905 Mar, Low back pain M54.5 [facility] [address] [facility] [id number] [place] [address] 83576- 0620 Feb, [facility] [address] [facility] [id number] [place] [address] 62865- 0254 Jan, Low back pain M54.5 [facility] [address] [facility] [id number] [place] [address] 16428- 1579 08 Dec, 2015 Low back pain M54.5 [place] [id number] [address]- 2734 07 Dec, 2015 Other chronic pain G89.29 [facility] [address] [address]- 9510 Nov, [facility] [id number] [place] [address] 88164- 4556 Nov, [place] [id number] [place] [address] 69463- 2345 Nov, Chronic obstructive pulmonary disease, unspecified COPD type J44.9 [place] [id number] [place] [address] 85424- 7147 Nov, Essential hypertension I10 [place] [id number] [place] [address] 44144- 6967 Nov, Low back pain M54.5 ; Chronic obstructive pulmonary disease , unspecified COPD type J44.9 and Essential hypertension I10 [place] [id number] [place] [address] 98655- 3863 Oct, Encounter to establish care Z76.89 ; Low back pain M54.5 ; Other chronic pain G89.29 ; Chronic obstructive pulmonary disease, unspecified COPD type J44.9 ; Tobacco abuse Z72.0 and Essential hypertension I10 IMMUNIZATIONS No Known Immunizations SOCIAL HISTORY Never Assessed REASON FOR VISIT Pain Management Consult - MUNA Shukla PLAN OF CARE Activity Details Follow Up with PCP Reason: VITAL SIGNS Height 70 in 2017-08-13 Weight 153.2 lbs 2017-08-13 Temperature 98.2 degrees Fahrenheit 2017-08-13 Heart Rate 86 bpm 2017-08-13 Respiratory Rate 24 2017-08-13 Oximetry w/ oxygen @3L:97 % 2017-08-13 BMI 21.98 kg/m2 2017-08-13 Blood pressure systolic 180 mmHg 2017-08-13 Blood pressure diastolic 96 mmHg 2017-08-13 MEDICATIONS Medication Instructions Dosage Frequency Start Date End Date Duration Status Clonidine HCl 0.2 MG Orally 3 times a day 1 tablet 8h Not-Taking Lisinopril-Hydrochlorothiazide 20-25 MG Orally Once a day 1 tablet 24h 90 days Active Anoro Ellipta 62.5-25 MCG/INH Inhalation Once a day 1 puff 24h Nov, Not-Taking Neurontin 100 MG Orally and 2 capsules in the evening 1 capsule in the morning 90 days Not-Taking Meloxicam 15 MG Orally Once a day 1 tablet 24h 90 days Active Ventolin HFA 108 (90 Base) MCG/ACT Inhalation every 4 hrs 2 puffs as needed 4h 90 days Active Oxygen ... by inhalation route at night while sleeping 2 LPM Nov, Active Lisinopril 20 MG Orally Once a day 1 tablet 24h Not-Taking Amlodipine Besylate 10 MG Orally Once a day 1 tablet 24h Active Oxycodone-Acetaminophen 5-325 MG Orally 2 times a day 2 tablets as needed 12h Jul, 28 days Active Advair Diskus 500-50 MCG/DOSE Inhalation Once a day 2 puffs 24h 90 days Active Omeprazole 20 MG Orally Once a day 2 capsules 24h Not-Taking MS Contin 100 MG Orally every 12 hrs 1 tablet 12h Jul, 28 days Active RESULTS No Results PROCEDURES Procedure Date Ordered Result Body Site [facility] VISIT ESTABLISHED PATIENT August 13, 2017 INSTRUCTIONS MEDICATIONS ADMINISTERED No Known Medications [...] tied off Hospitalization History surgeries Hospitalization History pneumonia-[facility] 08/30/16 Hospitalization History Acute Resp failure, COPD exacerbation-[facility] 09/03/16
--- OUTSIDE RECORDS SUMMARY | 2018-01-06 08:23 | XMS REPORT ---
Author Author YORDAN CURIEL Organization [facility] Address [address] [place] [address] Care Team Providers Care Lasting Machine Operator Bed Name Role Phone YORDAN CURIEL Unavailable PROBLEMS Type Condition ICD9-CM Code PCG99-SW Code Onset Dates Condition Status SNOMED Code Problem Tobacco abuse Z72.0 Active 025120922 Problem Dysthymia F34.1 Active 14770865 Problem Essential hypertension I10 Active 54281094 Problem Other chronic pain G89.29 Active 54928581 Problem Low back pain M54.5 Active 259908476 Problem Chronic obstructive pulmonary disease, unspecified COPD type J44.9 Active 51092168 Problem Encounter to establish care Z76.89 Active 069477441 ALLERGIES No Information ENCOUNTERS Encounter Location Date Diagnosis [facility] [id number] [place] [address] 40450- 2096 Oct, [facility] [id number] [place] [address] 13846- 9393 Oct, Other chronic pain G89.29 [facility] [id number] [place] [address] 81169- 2491 Sep, [facility] [id number] [place] [address] 93271- 8041 Sep, Other chronic pain G89.29 [facility] [facility] [id number] [place] [address] 11221- 8276 Sep, Other chronic pain G89.29 [facility] [id number] [place] [address] 84637- 0951 Sep, Medicare annual wellness visit, initial Z00.00 ; Chronic obstructive pulmonary disease, unspecified COPD type J44.9 ; Essential hypertension I10 ; Dysthymia F34.1 ; Low back pain M54.5 ; Other chronic pain G89.29 and Tobacco abuse Z72.0 [facility] [id number] [place] [address] 61009- 7662 August, Other chronic pain G89.29 [facility] [id number] [place] [address] 21761- 5815 Jul, Other chronic pain G89.29 [facility] [id number] [place] [address] 60567- 2472 Jul, Other chronic pain G89.29 ; Chronic obstructive pulmonary disease, unspecified COPD type J44.9 and Tobacco abuse Z72.0 [facility] [id number] [place] [address] 73438- 7924 Jul, [facility] [id number] [place] [address] 48779- 6758 Jun, Other chronic pain G89.29 [facility] [id number] [place] [address] 73812- 9110 Jun, Low back pain M54.5 ; Other chronic pain G89.29 ; Chronic obstructive pulmonary disease, unspecified COPD type J44.9 ; Tobacco abuse Z72.0 ; Essential hypertension I10 and Right wrist pain M25.531 [facility] [id number] [place] [address] 82623- 1291 Jun, Other chronic pain G89.29 [facility] [id number] [place] [address] 41263- 8296 May, Other chronic pain G89.29 [facility] [id number] [place] [address] 00259- 4870 Apr, Other chronic pain G89.29 [facility] [id number] [place] [address] 19393- 0553 Mar, Other chronic pain G89.29 [facility] [id number] [place] [address] 95311- 5202 Feb, Other chronic pain G89.29 [facility] [address] [address] 5844 Feb, Other chronic pain G89.29 [facility] [id number] [place] [address] 29355- 2271 Jan, Chronic obstructive pulmonary disease, unspecified COPD type J44.9 ; Essential hypertension I10 ; Other chronic pain G89.29 and Low back pain M54.5 [facility] [id number] [place] [address] 05470- 1934 Jan, Other chronic pain G89.29 [facility] [id number] [place] [address] 16029- 9558 Dec, Other chronic pain G89.29 [facility] [id number] [place] [address] 02498- 9406 Nov, Other chronic pain G89.29 [facility] [id number] [place] [address] 12940- 9074 Oct, [facility] [id number] [place] [address] 46819- 1563 Oct, Other chronic pain G89.29 [facility] [id number] [place] [address] 89857- 1401 Sep, Other chronic pain G89.29 [facility] [address] [address] 3167 Sep, [facility] [id number] [place] [address] 17277- 6890 August, Chronic obstructive pulmonary disease, unspecified COPD type J44.9 and Edema, unspecified type R60.9 [facility] [id number] [place] [address] 71541- 1494 August, [facility] [address] [place] [address]- 6925 August, Other chronic pain G89.29 [facility] [address] [facility] [id number] [address] 9938 Jul, Other chronic pain G89.29 [facility] [address] [facility] [id number] [place] [address] 38647- 7104 Jul, [facility] [id number] [place] [address] 54811- 3926 Jul, Chronic obstructive pulmonary disease, unspecified COPD type J44.9 ; Other chronic pain G89.29 and Tobacco abuse Z72.0 [facility] [address] [facility] [id number] [place] [address] 70897- 7293 Jun, Other chronic pain G89.29 [facility] [id number] [place] [address] 39747- 8261 May, Other chronic pain G89.29 [facility] [id number] [place] [address] 97268- 9923 Apr, Low back pain M54.5 [facility] [id number] [place] [address] 53907- 4830 Mar, Low back pain M54.5 [facility] [id number] [place] [address] 08742- 2403 Mar, Low back pain M54.5 and Chronic obstructive pulmonary disease, unspecified COPD type J44.9 [facility] [id number] [place] [address] 87184- 2674 Mar, Low back pain M54.5 [facility] [address] [facility] [id number] [place] [address] 93794- 1558 Feb, [facility] [id number] [place] [address] 74085- 1165 Jan, Low back pain M54.5 [facility] [id number] [place] [address] 91786- 1320 Dec, Low back pain M54.5 [facility] [id number] [address]- 4686 Dec, Other chronic pain G89.29 [facility] [address] [place] [address]- 4863 Nov, [facility] [id number] [place] [address] 16619- 2535 Nov, [facility] [id number] [place] [address] 86612- 5259 Nov, Chronic obstructive pulmonary disease, unspecified COPD type J44.9 [facility] [id number] [place] [address] 50135- 2838 Nov, Essential hypertension I10 [facility] [id number] [place] [address] 73694- 2258 Nov, Low back pain M54.5 ; Chronic obstructive pulmonary disease , unspecified COPD type J44.9 and Essential hypertension I10 [facility] [id number] [place] [address] 28071- 7861 Oct, Encounter to establish care Z76.89 ; Low back pain M54.5 ; Other chronic pain G89.29 ; Chronic obstructive pulmonary disease, unspecified COPD type J44.9 ; Tobacco abuse Z72.0 and Essential hypertension I10 IMMUNIZATIONS No Known Immunizations SOCIAL HISTORY Never Assessed REASON FOR VISIT Controlled Med Refill 08/20/17 PLAN OF CARE VITAL SIGNS MEDICATIONS Medication Instructions Dosage Frequency Start Date End Date Duration Status MS Contin 100 MG Orally every 12 hrs 1 tablet Jul, 28 days Active Oxycodone-Acetaminophen 5-325 MG Orally 2 times a day 2 tablets as needed Jul, 28 days Active RESULTS No Results [...] tied off Hospitalization History surgeries Hospitalization History pneumonia-[facility] 08/30/16 Hospitalization History Acute Resp failure, COPD exacerbation-[facility] 09/03/16
--- OUTSIDE RECORDS SUMMARY | 2018-01-06 08:23 | XMS REPORT ---
Author Author YORDAN CURIEL Organization [facility] Address [address] [place] [address] Care Team Providers Care Pizza Delivery Name Role Phone YORDAN UCRIEL Unavailable PROBLEMS Type Condition ICD9-CM Code LJZ57-TY Code Onset Dates Condition Status SNOMED Code Problem Tobacco abuse Z72.0 Active 585076948 Problem Dysthymia F34.1 Active 12578619 Problem Essential hypertension I10 Active 70036958 Problem Other chronic pain G89.29 Active 63532943 Problem Low back pain M54.5 Active 084598605 Problem Chronic obstructive pulmonary disease, unspecified COPD type J44.9 Active 32463034 Problem Encounter to establish care Z76.89 Active 038088354 ALLERGIES No Information ENCOUNTERS Encounter Location Date Diagnosis [facility] [id number] [place] [address] 13574- 5926 Nov, Other chronic pain G89.29 [facility] [id number] [place] [address] 18669- 5397 Oct, [facility] [id number] [place] [address] 33037- 1684 Oct, Other chronic pain G89.29 [facility] [id number] [place] [address] 68214- 6172 Sep, [facility] [id number] [place] [address] 26548- 6987 Sep, Other chronic pain G89.29 [facility] [id number] [place] [address] 19815- 0478 Sep, Other chronic pain G89.29 [facility] [id number] [place] [address] 41155- 9105 Sep, Medicare annual wellness visit, initial Z00.00 ; Chronic obstructive pulmonary disease, unspecified COPD type J44.9 ; Essential hypertension I10 ; Dysthymia F34.1 ; Low back pain M54.5 ; Other chronic pain G89.29 and Tobacco abuse Z72.0 [facility] [address], [place] [address]- 4793 August, Other chronic pain G89.29 [facility] [id number] [place] [address] 00006- 8627 Jul, Other chronic pain G89.29 [facility] [id number] [place] [address] 15058- 0010 Jul, Other chronic pain G89.29 ; Chronic obstructive pulmonary disease, unspecified COPD type J44.9 and Tobacco abuse Z72.0 [facility] [id number] [place] [address] 20669- 8590 Jul, [facility] [id number] [place] [address] 63690- 0617 Jun, Other chronic pain G89.29 [place] [id number] [place] [address] 99299- 0195 Jun, Low back pain M54.5 ; Other chronic pain G89.29 ; Chronic obstructive pulmonary disease, unspecified COPD type J44.9 ; Tobacco abuse Z72.0 ; Essential hypertension I10 and Right wrist pain M25.531 [facility] [facility] [id number] [place] [address] 13145- 8889 Jun, Other chronic pain G89.29 [facility] [address], [place] [address]- 1688 May, Other chronic pain G89.29 [facility] [id number] [place] [address] 57975- 3528 Apr, Other chronic pain G89.29 [facility] [facility] [id number] [place] [address] 58459- 4977 Mar, Other chronic pain G89.29 [facility] [address], [place] [address]- 3185 Feb, Other chronic pain G89.29 [facility] [id number] [place] [address] 52288 2546 Feb, Other chronic pain G89.29 [facility] [id number] [place] [address] 08781- 6902 Jan, Chronic obstructive pulmonary disease, unspecified COPD type J44.9 ; Essential hypertension I10 ; Other chronic pain G89.29 and Low back pain M54.5 [facility] [id number] [place] [address] 67955- 3607 Jan, Other chronic pain G89.29 [facility] [id number] [place] [address] 95719- 1047 Dec, Other chronic pain G89.29 [facility] [id number] [place] [address] 93076- 7413 Nov, Other chronic pain G89.29 [facility] [id number] [place] [address] 69906- 9442 Oct, [facility] [id number] [place] [address] 27070- 2285 Oct, Other chronic pain G89.29 [facility] [id number] [place] [address] 91792- 2610 Sep, Other chronic pain G89.29 [facility] [id number] [place] [address] 87696- 0661 Sep, [facility] [id number] [place] [address] 92442- 5574 August, Chronic obstructive pulmonary disease, unspecified COPD type J44.9 and Edema, unspecified type R60.9 [facility] [id number] [place] [address] 80780- 0560 August, [facility] [address] [facility] [id number] [address]- 6482 August, Other chronic pain G89.29 [facility] [address] [facility] [id number] [place] [address] 72202- 1374 Jul, Other chronic pain G89.29 [facility] [id number] [place] [address] 30955- 4661 Jul, [facility] [id number] [place] [address] 75972- 8938 Jul, Chronic obstructive pulmonary disease, unspecified COPD type J44.9 ; Other chronic pain G89.29 and Tobacco abuse Z72.0 [facility] [id number] [place] [address] 72988- 8747 Jun, Other chronic pain G89.29 [facility] [id number] [place] [address] 84610- 4296 May, Other chronic pain G89.29 [facility] [id number] [place] [address] 35739- 3797 Apr, Low back pain M54.5 [facility] [id number] [place] [address] 25472- 3711 Mar, Low back pain M54.5 [facility] [id number] [address]- 3998 Mar, Low back pain M54.5 and Chronic obstructive pulmonary disease, unspecified COPD type J44.9 [facility] [address] [facility] [id number] [place] [address] 72118- 1357 Mar, Low back pain M54.5 [facility] [address] [facility] [id number] [place] [address] 02031- 7381 Feb, [facility] [id number] [place] [address] 96029- 8182 Jan, Low back pain M54.5 [facility] [id number] [address]- 4204 08 Dec, 2015 Low back pain M54.5 [facility] [facility] [id number] [place] [address] 09984- 9711 07 Dec, 2015 Other chronic pain G89.29 [facility] [id number] [place] [address] 65389- 6310 Nov, [facility] [id number] [place] [address] 68239- 5631 Nov, [place] [id number] [place] [address] 89603- 0673 Nov, Chronic obstructive pulmonary disease, unspecified COPD type J44.9 [facility] [facility] [id number] [place] [address] 34348- 5094 Nov, Essential hypertension I10 [facility] [id number] [place] [address] 86443- 9019 Nov, Low back pain M54.5 ; Chronic obstructive pulmonary disease , unspecified COPD type J44.9 and Essential hypertension I10 [place] [id number] [place] [address] 02732- 5955 Oct, Encounter to establish care Z76.89 ; Low back pain M54.5 ; Other chronic pain G89.29 ; Chronic obstructive pulmonary disease, unspecified COPD type J44.9 ; Tobacco abuse Z72.0 and Essential hypertension I10 IMMUNIZATIONS No Known Immunizations SOCIAL HISTORY Never Assessed REASON FOR VISIT Controlled Med Refill 10/15/17 PLAN OF CARE VITAL SIGNS MEDICATIONS Medication Instructions Dosage Frequency Start Date End Date Duration Status Oxycodone-Acetaminophen 5-325 MG Orally 2 times a day 2 tablets as needed 12h Sep, 28 days Active MS Contin 100 mg Orally every 12 hrs 1 tablet 12h Sep, Oct, 28 days Active RESULTS No Results PROCEDURES [...] tied off Hospitalization History surgeries Hospitalization History pneumonia-[facility] 08/30/16 Hospitalization History Acute Resp failure, COPD exacerbation-[facility] 09/03/16
--- OUTSIDE RECORDS SUMMARY | 2018-01-06 08:24 | XMS REPORT ---
Author Author YORDAN CURIEL Organization [facility] Address [address] [place] [address] Care Team Providers Care Allergist Name Role Phone YORDAN CURIEL Unavailable PROBLEMS Type Condition ICD9-CM Code VQK88-JR Code Onset Dates Condition Status SNOMED Code Problem Tobacco abuse Z72.0 Active 578742873 Problem Dysthymia F34.1 Active 79401273 Problem Essential hypertension I10 Active 42972745 Problem Other chronic pain G89.29 Active 21984580 Problem Low back pain M54.5 Active 579378737 Problem Chronic obstructive pulmonary disease, unspecified COPD type J44.9 Active 57058983 Problem Encounter to establish care Z76.89 Active 314405099 ALLERGIES No Information ENCOUNTERS Encounter Location Date Diagnosis [place] [id number] [place] [address] 03512- 6596 Sep, [place] [id number] [place] [address] 93545- 2033 Sep, Other chronic pain G89.29 [place] [id number] [place] [address] 68042- 6604 Sep, Other chronic pain G89.29 [place] [id number] [place] [address] 22311- 8378 Sep, Medicare annual wellness visit, initial Z00.00 ; Chronic obstructive pulmonary disease, unspecified COPD type J44.9 ; Essential hypertension I10 ; Dysthymia F34.1 ; Low back pain M54.5 ; Other chronic pain G89.29 and Tobacco abuse Z72.0 [place] [id number] [place] [address] 66198- 9933 August, Other chronic pain G89.29 [place] [id number] [place] [address] 62075- 3457 Jul, Other chronic pain G89.29 [facility] [id number] [place] [address] 80698- 8704 Jul, Other chronic pain G89.29 ; Chronic obstructive pulmonary disease, unspecified COPD type J44.9 and Tobacco abuse Z72.0 [facility] [address] 23921- 7178 Jul, [facility] [id number] [place] [address] 30093- 4050 Jun, Other chronic pain G89.29 [facility] [address] 51272- 9753 Jun, Low back pain M54.5 ; Other chronic pain G89.29 ; Chronic obstructive pulmonary disease, unspecified COPD type J44.9 ; Tobacco abuse Z72.0 ; Essential hypertension I10 and Right wrist pain M25.531 [facility] [id number] [place] [address] 70315- 2199 Jun, Other chronic pain G89.29 [facility] [id number] [place] [address] 65432- 5894 May, Other chronic pain G89.29 [facility] [id number] [place] [address] 36376- 8730 Apr, Other chronic pain G89.29 [facility] [id number] [place] [address] 11734- 8162 Mar, Other chronic pain G89.29 [facility] [id number] [place] [address] 47034- 3309 Feb, Other chronic pain G89.29 [facility] [id number] [place] [address] 283975- 4445 Feb, Other chronic pain G89.29 [facility] [id number] [place] [address] 30782- 5286 Jan, Chronic obstructive pulmonary disease, unspecified COPD type J44.9 ; Essential hypertension I10 ; Other chronic pain G89.29 and Low back pain M54.5 [facility] [id number] [place] [address] 03848- 4009 Jan, Other chronic pain G89.29 [facility] [id number] [place] [address] 47010- 3039 Dec, Other chronic pain G89.29 [facility] [id number] [place] [address] 51136- 3031 Nov, Other chronic pain G89.29 [facility] [id number] [place] [address] 47334- 3850 Oct, [facility] [id number] [place] [address] 81069- 2899 Oct, Other chronic pain G89.29 [facility] [id number] [place] [address] 35900- 7397 Sep, Other chronic pain G89.29 [facility] [id number] [place] [address] 14544- 9743 Sep, [facility] [id number] [place] [address] 31638- 3816 August, Chronic obstructive pulmonary disease, unspecified COPD type J44.9 and Edema, unspecified type R60.9 [facility] [id number] [place] [address] 47780- 7708 August, [facility] [id number] [place] [address] 41372- 4503 August, Other chronic pain G89.29 [facility] [id number] [place] [address] 53889- 2777 Jul, Other chronic pain G89.29 [facility] [id number] [place] [address] 84352- 5151 Jul, [facility] [address] [facility] [id number] [address]37 Jul, Chronic obstructive pulmonary disease, unspecified COPD type J44.9 ; Other chronic pain G89.29 and Tobacco abuse Z72.0 [facility] [address] [place] [id number] [address] 8450 Jun, Other chronic pain G89.29 [facility] [id number] [place] [address] 26340- 6425 May, Other chronic pain G89.29 [facility] [id number] [place] [address] 70754- 5452 Apr, Low back pain M54.5 [facility] [id number] [place] [address] 28099- 0731 Mar, Low back pain M54.5 [facility] [id number] [place] [address] 00721- 5552 Mar, Low back pain M54.5 and Chronic obstructive pulmonary disease, unspecified COPD type J44.9 [facility] [id number] [place] [address] 00359- 1869 Mar, Low back pain M54.5 [facility] [id number] [place] [address] 16423- 5840 Feb, [facility] [id number] [place] [address] 75186- 6443 Jan, Low back pain M54.5 [facility] [address] [facility] [id number] [place] [address] 49422- 3697 Dec, Low back pain M54.5 [facility] [id number] [place] [address] 71992- 2167 Dec, Other chronic pain G89.29 [facility] [id number] [place] [address] 21394- 1894 Nov, [facility] [id number] [address]- 2067 Nov, [facility] [id number] [address]- 3156 Nov, Chronic obstructive pulmonary disease, unspecified COPD type J44.9 [facility] [address] [address]- 6848 Nov, Essential hypertension I10 [place] [id number] [place] [address] 38933- 6688 Nov, Low back pain M54.5 ; Chronic obstructive pulmonary disease , unspecified COPD type J44.9 and Essential hypertension I10 [place] [id number] [place] [address] 85795- 3844 Oct, Encounter to establish care Z76.89 ; Low back pain M54.5 ; Other chronic pain G89.29 ; Chronic obstructive pulmonary disease, unspecified COPD type J44.9 ; Tobacco abuse Z72.0 and Essential hypertension I10 IMMUNIZATIONS No Known Immunizations SOCIAL HISTORY Never Assessed REASON FOR VISIT Controlled Med Refill 06/25/17 PLAN OF CARE VITAL SIGNS MEDICATIONS Medication Instructions Dosage Frequency Start Date End Date Duration Status MS Contin 100 MG Orally every 12 hrs 1 tablet Jun, 28 days Active Oxycodone-Acetaminophen 5-325 MG Orally 2 times a day 2 tablets as needed Jun, 28 days Active RESULTS No Results PROCEDURES [...] tied off Hospitalization History surgeries Hospitalization History pneumonia-[facility] 08/30/16 Hospitalization History Acute Resp failure, COPD exacerbation-[facility] 09/03/16
--- OUTSIDE RECORDS SUMMARY | 2018-01-06 08:24 | XMS REPORT ---
Author Author YORDAN CURIEL Organization [facility] Address [address] [place] [address] Care Team Providers Care Burner Tender Name Role Phone YORDAN CURIEL Unavailable PROBLEMS Type Condition ICD9-CM Code OWH12-OO Code Onset Dates Condition Status SNOMED Code Problem Other chronic pain G89.29 Active 88418633 Problem Low back pain M54.5 Active 042354218 Problem Chronic obstructive pulmonary disease, unspecified COPD type J44.9 Active 82100470 Problem Encounter to establish care Z76.89 Active 567808457 Problem Tobacco abuse Z72.0 Active 988657074 Problem Essential hypertension I10 Active 29751613 ALLERGIES No Information SOCIAL HISTORY Never Assessed PLAN OF CARE VITAL SIGNS MEDICATIONS Unknown Medications RESULTS No Results PROCEDURES No Known procedures IMMUNIZATIONS No Known Immunizations MEDICAL (GENERAL) HISTORY Type Description Date Medical [...] tied off Hospitalization History surgeries Hospitalization History pneumonia-[facility] 08/30/16 Hospitalization History Acute Resp failure, COPD exacerbation-[facility] 09/03/16
--- OUTSIDE RECORDS SUMMARY | 2018-01-06 08:24 | XMS REPORT ---
Author Author YORDAN CURIEL Organization [facility] Address [address] [place] [address] Care Team Providers Care Barber Tool Sharpener Name Role Phone YORDAN CURIEL Unavailable PROBLEMS Type Condition ICD9-CM Code ZBX57-SW Code Onset Dates Condition Status SNOMED Code Problem Tobacco abuse Z72.0 Active 822557648 Problem Dysthymia F34.1 Active 93177645 Problem Essential hypertension I10 Active 69681269 Problem Other chronic pain G89.29 Active 87978546 Problem Low back pain M54.5 Active 192310249 Problem Chronic obstructive pulmonary disease, unspecified COPD type J44.9 Active 83325636 Problem Encounter to establish care Z76.89 Active 736641255 ALLERGIES No Information ENCOUNTERS Encounter Location Date Diagnosis [place] [id number] [place] [address] 52536- 0825 Oct, Other chronic pain G89.29 [place] [id number] [place] [address] 58790- 9697 Sep, [place] [id number] [place] [address] 35621- 8766 Sep, Other chronic pain G89.29 [place] [id number] [place] [address] 78431- 1500 Sep, Other chronic pain G89.29 [place] [id number] [place] [address] 51127- 5603 Sep, Medicare annual wellness visit, initial Z00.00 ; Chronic obstructive pulmonary disease, unspecified COPD type J44.9 ; Essential hypertension I10 ; Dysthymia F34.1 ; Low back pain M54.5 ; Other chronic pain G89.29 and Tobacco abuse Z72.0 [place] [id number] [place] [address] 86062- 3449 August, Other chronic pain G89.29 [facility] [id number] [place] [address] 49135- 2112 Jul, Other chronic pain G89.29 [facility] [id number] [place] [address] 12465- 7375 Jul, Other chronic pain G89.29 ; Chronic obstructive pulmonary disease, unspecified COPD type J44.9 and Tobacco abuse Z72.0 [facility] [id number] [place] [address] 92149- 6754 Jul, [facility] [id number] [place] [address] 95736- 7249 Jun, Other chronic pain G89.29 [facility] [id number] [place] [address] 12987- 6492 Jun, Low back pain M54.5 ; Other chronic pain G89.29 ; Chronic obstructive pulmonary disease, unspecified COPD type J44.9 ; Tobacco abuse Z72.0 ; Essential hypertension I10 and Right wrist pain M25.531 [facility] [id number] [place] [address] 36059- 2348 Jun, Other chronic pain G89.29 [facility] [id number] [place] [address] 64120- 6694 May, Other chronic pain G89.29 [facility] [id number] [place] [address] 69560- 3501 Apr, Other chronic pain G89.29 [facility] [id number] [place] [address] 24053- 3780 Mar, Other chronic pain G89.29 [facility] [id number] [place] [address] 16384- 2426 Feb, Other chronic pain G89.29 [facility] [id number] [place] [address] 52241- 9384 Feb, Other chronic pain G89.29 [facility] [id number] [address]- 8237 Jan, Chronic obstructive pulmonary disease, unspecified COPD type J44.9 ; Essential hypertension I10 ; Other chronic pain G89.29 and Low back pain M54.5 [facility] [id number] [address]- 7212 Jan, Other chronic pain G89.29 [facility] [id number] [place] [address] 70225- 4459 Dec, Other chronic pain G89.29 [facility] [id number] [place] [address] 61404- 6187 Nov, Other chronic pain G89.29 [facility] [id number] [address]- 4568 Oct, [facility] [id number] [place] [address] 68831- 6269 Oct, Other chronic pain G89.29 [facility] [id number] [place] [address] 31801- 7881 Sep, Other chronic pain G89.29 [facility] [address] [address]- 0557 Sep, [facility] [id number] [place] [address] 01517- 5304 August, Chronic obstructive pulmonary disease, unspecified COPD type J44.9 and Edema, unspecified type R60.9 [facility] [address] [address]- 7561 August, [facility] [id number] [place] [address] 14798- 1544 August, Other chronic pain G89.29 [facility] [address] [address]- 6149 Jul, Other chronic pain G89.29 [facility] [address] [facility] [id number] [address]- 0546 Jul, [facility] [id number] [place] [address] 58300- 8883 Jul, Chronic obstructive pulmonary disease, unspecified COPD type J44.9 ; Other chronic pain G89.29 and Tobacco abuse Z72.0 [facility] [id number] [place] [address] 91425- 6030 Jun, Other chronic pain G89.29 [facility] [address] [facility] [id number] [place] [address] 60183- 8430 May, Other chronic pain G89.29 [facility] [id number] [place] [address] 39332- 9003 Apr, Low back pain M54.5 [facility] [id number] [place] [address] 96029- 1693 Mar, Low back pain M54.5 [facility] [id number] [place] [address] 68883- 9306 Mar, Low back pain M54.5 and Chronic obstructive pulmonary disease, unspecified COPD type J44.9 [facility] [address] [address]- 7234 Mar, Low back pain M54.5 [facility] [id number] [place] [address] 46063 2546 Feb, [facility] [address] [facility] [id number] [place] [address] 92151- 2547 Jan, Low back pain M54.5 [facility] [id number] [place] [address] 98757- 0336 Dec, Low back pain M54.5 [facility] [address] [place] [address] 87463- 7756 Dec, Other chronic pain G89.29 [facility] [id number] [address]- 2474 Nov, [facility] [id number] [address]- 7802 Nov, [facility] [address] [address]- 9563 Nov, Chronic obstructive pulmonary disease, unspecified COPD type J44.9 [facility] [address], [place] [address]- 0762 Nov, Essential hypertension I10 [place] [address] [address]- 3513 Nov, Low back pain M54.5 ; Chronic obstructive pulmonary disease , unspecified COPD type J44.9 and Essential hypertension I10 [place] [address] [address]- 4714 Oct, Encounter to establish care Z76.89 ; Low back pain M54.5 ; Other chronic pain G89.29 ; Chronic obstructive pulmonary disease, unspecified COPD type J44.9 ; Tobacco abuse Z72.0 and Essential hypertension I10 IMMUNIZATIONS No Known Immunizations SOCIAL HISTORY Never Assessed REASON FOR VISIT Controlled Med Refill 07/23/17 PLAN OF CARE VITAL SIGNS MEDICATIONS Medication Instructions Dosage Frequency Start Date End Date Duration Status Oxycodone-Acetaminophen 5-325 MG Orally 2 times a day 2 tablets as needed 12h Jul, 28 days Active MS Contin 100 MG Orally every 12 hrs 1 tablet 12Jul, 28 days Active RESULTS No Results PROCEDURES [...] tied off Hospitalization History surgeries Hospitalization History pneumonia-[facility] 08/30/16 Hospitalization History Acute Resp failure, COPD exacerbation-[facility] 09/03/16
--- OUTSIDE RECORDS SUMMARY | 2018-01-06 08:24 | XMS REPORT ---
Author Author YORDAN CURIEL Organization [facility] Address [address] [place] [address] Care Team Providers Care Personal Shopper Name Role Phone YORDAN CURIEL Unavailable PROBLEMS Type Condition ICD9-CM Code UZS78-KQ Code Onset Dates Condition Status SNOMED Code Problem Other chronic pain G89.29 Active 73223361 Problem Low back pain M54.5 Active 524067901 Problem Chronic obstructive pulmonary disease, unspecified COPD type J44.9 Active 18652391 Problem Encounter to establish care Z76.89 Active 304549255 Problem Tobacco abuse Z72.0 Active 261865249 Problem Essential hypertension I10 Active 72634655 ALLERGIES No Information SOCIAL HISTORY Never Assessed PLAN OF CARE VITAL SIGNS MEDICATIONS Medication Instructions Dosage Frequency Start Date End Date Duration Status Oxycodone-Acetaminophen 5-325 MG Orally 2 times a day 2 tablets as needed 12h May, 28 days Active MS Contin 100 MG Orally every 12 hrs 1 tablet 12h May, 28 days Active RESULTS No Results PROCEDURES [...]
--- OUTSIDE RECORDS SUMMARY | 2018-01-06 08:24 | XMS REPORT ---
Author Author YORDAN CURIEL Organization [facility] Address [address] [place] [address] Care Team Providers Care Supervisor Of Research Name Role Phone YORDAN CURIEL Unavailable PROBLEMS Type Condition ICD9-CM Code [id number] Code Onset Dates Condition Status SNOMED Code Problem Tobacco abuse Z72.0 Active 405148675 Problem Dysthymia F34.1 Active 79394733 Problem Essential hypertension I10 Active 01794189 Problem Other chronic pain G89.29 Active 66192917 Problem Low back pain M54.5 Active 793807726 Problem Chronic obstructive pulmonary disease, unspecified COPD type J44.9 Active 34320959 Problem Encounter to establish care Z76.89 Active 982902078 ALLERGIES No Known Allergies ENCOUNTERS Encounter Location Date Diagnosis [place] [id number] [place] [address] 80817- 1564 Oct, Other chronic pain G89.29 [place] [id number] [place] [address] 34806- 6934 Sep, [place] [id number] [place] [address] 12774- 4887 Sep, Other chronic pain G89.29 [place] [id number] [place] [address] 28458- 8128 Sep, Other chronic pain G89.29 [place] [id number] [place] [address] 34656- 1628 Sep, Medicare annual wellness visit, initial Z00.00 ; Chronic obstructive pulmonary disease, unspecified COPD type J44.9 ; Essential hypertension I10 ; Dysthymia F34.1 ; Low back pain M54.5 ; Other chronic pain G89.29 and Tobacco abuse Z72.0 [place] [id number] [address] 8004 August, Other chronic pain G89.29 [facility] [id number] [place] [address] 12950- 4647 Jul, Other chronic pain G89.29 [facility] [id number] [place] [address] 56395- 5918 Jul, Other chronic pain G89.29 ; Chronic obstructive pulmonary disease, unspecified COPD type J44.9 and Tobacco abuse Z72.0 [facility] [id number] [place] [address] 37485- 5124 Jul, [facility] [id number] [place] [address] 92760- 1995 Jun, Other chronic pain G89.29 [facility] [id number] [place] [address] 60535- 8082 Jun, Low back pain M54.5 ; Other chronic pain G89.29 ; Chronic obstructive pulmonary disease, unspecified COPD type J44.9 ; Tobacco abuse Z72.0 ; Essential hypertension I10 and Right wrist pain M25.531 [facility] [id number] [place] [address] 75546- 1616 Jun, Other chronic pain G89.29 [facility] [id number] [place] [address] 52478- 0788 May, Other chronic pain G89.29 [facility] [id number] [place] [address] 79477- 2495 Apr, Other chronic pain G89.29 [facility] [id number] [place] [address] 74328- 8756 Mar, Other chronic pain G89.29 [facility] [id number] [place] [address] 43462- 9035 Feb, Other chronic pain G89.29 [facility] [id number] [place] [address] 83923- 4367 Feb, Other chronic pain G89.29 [facility] [address], [place] [address] 4768 Jan, Chronic obstructive pulmonary disease, unspecified COPD type J44.9 ; Essential hypertension I10 ; Other chronic pain G89.29 and Low back pain M54.5 [facility] [id number] [address]- 5706 Jan, Other chronic pain G89.29 [facility] [id number] [place] [address] 77057- 4939 Dec, Other chronic pain G89.29 [facility] [id number] [place] [address] 34735- 2853 Nov, Other chronic pain G89.29 [facility] [id number] [address] 0336 Oct, [facility] [id number] [place] [address] 79450- 3671 Oct, Other chronic pain G89.29 [facility] [id number] [place] [address] 71793- 3465 Sep, Other chronic pain G89.29 [facility] [address] [place] [address] 79190- 9311 Sep, [facility] [id number] [place] [address] 56138- 3100 August, Chronic obstructive pulmonary disease, unspecified COPD type J44.9 and Edema, unspecified type R60.9 [facility] [address] [address]- 4876 August, [facility] [id number] [place] [address] 15405- 4302 August, Other chronic pain G89.29 [facility] [address], [place] [address]- 6937 Jul, Other chronic pain G89.29 [facility] [address] [facility] [id number] [address] 34[address] Jul, [facility] [address] [facility] [id number] [place] [address] 30824- 6775 Jul, Chronic obstructive pulmonary disease, unspecified COPD type J44.9 ; Other chronic pain G89.29 and Tobacco abuse Z72.0 [facility] [id number] [place] [address] 44287- 9778 Jun, Other chronic pain G89.29 [facility] [id number] [place] [address] 06934- 4181 May, Other chronic pain G89.29 [facility] [id number] [place] [address] 13817- 4890 Apr, Low back pain M54.5 [facility] [id number] [place] [address] 92587- 8710 Mar, Low back pain M54.5 [facility] [id number] [place] [address] 81772- 6791 Mar, Low back pain M54.5 and Chronic obstructive pulmonary disease, unspecified COPD type J44.9 [facility] [address], [place] [address]- 4038 Mar, Low back pain M54.5 [facility] [id number] [place] [address] 08592- 9909 Feb, [facility] [address] [facility] [id number] [place] [address] 40623- 3718 Jan, Low back pain M54.5 [facility] [id number] [place] [address] 21934- 6346 Dec, Low back pain M54.5 [facility] [id number] [address]- 4886 Dec, Other chronic pain G89.29 [facility] [id number] [address]- 6528 Nov, [facility] [id number] [address]- 2948 Nov, [facility] [address], [place] [address]- 9356 Nov, Chronic obstructive pulmonary disease, unspecified COPD type J44.9 [place] [address], [place] [address]- 9258 Nov, Essential hypertension I10 [place] [address], [place] [address]- 3095 Nov, Low back pain M54.5 ; Chronic obstructive pulmonary disease , unspecified COPD type J44.9 and Essential hypertension I10 [place] [address], [place] [address]- 1059 Oct, Encounter to establish care Z76.89 ; Low back pain M54.5 ; Other chronic pain G89.29 ; Chronic obstructive pulmonary disease, unspecified COPD type J44.9 ; Tobacco abuse Z72.0 and Essential hypertension I10 IMMUNIZATIONS No Known Immunizations SOCIAL HISTORY Never Assessed REASON FOR VISIT COPD/PAIN MGMT., PT also notes 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 Needs scheduled for Medicare AWV - [place] MA PLAN OF CARE VITAL SIGNS Height 70 in 2017-06-27 Weight 158.9 lbs 2017-06-27 Heart Rate 72 bpm 2017-06-27 Respiratory Rate 20 2017-06-27 Oximetry w/ oxygen @ 3L:98 % 2017-06-27 BMI 22.80 kg/m2 2017-06-27 Blood pressure systolic 160 mmHg 2017-06-27 Blood pressure diastolic 100 mmHg 2017-06-27 MEDICATIONS Medication Instructions Dosage Frequency Start Date End Date Duration Status Oxygen ... by inhalation route at night while sleeping 2 LPM Nov, Active Omeprazole 20 MG Orally Once a day 2 capsules 24h Not-Taking Meloxicam 15 MG Orally Once a day 1 tablet 24h 90 days Active Lisinopril-Hydrochlorothiazide 20-25 MG Orally Once a day 1 tablet 24h 90 days Active Ventolin HFA 108 (90 Base) MCG/ACT Inhalation every 4 hrs 2 puffs as needed 4h 90 days Active MS Contin 100 MG Orally every 12 hrs 1 tablet 12h Jun, 28 days Active Advair Diskus 500-50 MCG/DOSE Inhalation Once a day 2 puffs 24h 90 days Active Neurontin 100 MG Orally and 2 capsules in the evening 1 capsule in the morning 90 days Active Anoro Ellipta 62.5-25 MCG/INH Inhalation Once a day 1 puff 24h Nov, Active Lisinopril 20 MG Orally Once a day 1 tablet 24h Active Oxycodone-Acetaminophen 5-325 MG Orally 2 times a day 2 tablets as needed 12h Jun, 28 days Active Amlodipine Besylate 10 MG Orally Once a day 1 tablet 24h Active Clonidine HCl 0.2 MG Orally 3 times a day 1 tablet 8h Active RESULTS No Results PROCEDURES Procedure Date Ordered Result Body Site LAB NOT BILLED BY [address] [facility] June 27, 2017 X-RAY EXAM OF WRIST June 27, 2017 No Charge June 27, 2017 INSTRUCTIONS MEDICATIONS ADMINISTERED No Known Medications [...] tied off Hospitalization History surgeries Hospitalization History pneumonia-[facility] 08/30/16 Hospitalization History Acute Resp failure, COPD exacerbation-[facility] 09/03/16
--- OUTSIDE RECORDS SUMMARY | 2018-01-06 08:24 | XMS REPORT ---
Author Author YORDAN CURIEL Organization [facility] Address [address] [place] [address] Care Team Providers Care Test Lab Technician Name Role Phone YORDAN CURIEL Unavailable PROBLEMS Type Condition ICD9-CM Code [id number] Code Onset Dates Condition Status SNOMED Code Problem Other chronic pain G89.29 Active 00193472 Problem Low back pain M54.5 Active 274211467 Problem Chronic obstructive pulmonary disease, unspecified COPD type J44.9 Active 38453903 Problem Encounter to establish care Z76.89 Active 699815474 Problem Tobacco abuse Z72.0 Active 553729794 Problem Essential hypertension I10 Active 71510441 ALLERGIES No Information SOCIAL HISTORY Never Assessed PLAN OF CARE VITAL SIGNS MEDICATIONS Medication Instructions Dosage Frequency Start Date End Date Duration Status Oxycodone-Acetaminophen 5-325 MG Orally 2 times a day 2 tablets as needed 12h Jun, 28 days Active MS Contin 100 MG Orally every 12 hrs 1 tablet 12h Jun, 28 days Active RESULTS No Results [...] tied off Hospitalization History surgeries Hospitalization History pneumonia-[facility] 08/30/16 Hospitalization History Acute Resp failure, COPD exacerbation-[facility] 09/03/16
--- OUTSIDE RECORDS SUMMARY | 2018-01-06 08:24 | XMS REPORT ---
Author Author NOEL DE GUZMAN Organization [facility] Address [address] [place] [address] Care Team Providers Care Sizing Sponger Name Role Phone NOEL DE GUZMAN Unavailable PROBLEMS Type Condition ICD9-CM Code [id number] Code Onset Dates Condition Status SNOMED Code Problem Other chronic pain G89.29 Active 32974423 Problem Low back pain M54.5 Active 785592573 Problem Chronic obstructive pulmonary disease, unspecified COPD type J44.9 Active 92461248 Problem Encounter to establish care Z76.89 Active 929631203 Problem Tobacco abuse Z72.0 Active 312168346 Problem Essential hypertension I10 Active 20828857 ALLERGIES No Information ENCOUNTERS Encounter Location Date Diagnosis [facility] [id number] [place] [address] 41254- 6381 August, Medicare annual wellness visit, initial Z00.00 [place] [id number] [place] [address] 22032- 4904 Jun, Other chronic pain G89.29 [place] [id number] [place] [address] 45518- 1282 Jun, Low back pain M54.5 ; Other chronic pain G89.29 ; Chronic obstructive pulmonary disease, unspecified COPD type J44.9 ; Tobacco abuse Z72.0 ; Essential hypertension I10 and Right wrist pain M25.531 [facility] [address] [address]- 1811 Jun, Other chronic pain G89.29 [facility] [id number] [place] [address] 86140- 1471 May, Other chronic pain G89.29 [place] [id number] [place] [address] 18045- 0707 Apr, Other chronic pain G89.29 [facility] [address] [address]- 1060 Mar, Other chronic pain G89.29 [facility] [address] [address]- 9606 Feb, Other chronic pain G89.29 [facility] [address] [place] [address] 69232- 0043 Feb, Other chronic pain G89.29 [facility] [id number] [place] [address] 82252- 8612 Jan, Chronic obstructive pulmonary disease, unspecified COPD type J44.9 ; Essential hypertension I10 ; Other chronic pain G89.29 and Low back pain M54.5 [facility] [id number] [place] [address] 42189- 0770 Jan, Other chronic pain G89.29 [facility] [address] [place] [address] 61306- 0606 Dec, Other chronic pain G89.29 [facility] [id number] [place] [address] 72139- 7449 Nov, Other chronic pain G89.29 [facility] [address] [place] [address] 77081- 7751 Oct, [facility] [address] [place] [address] 90057- 8711 Oct, Other chronic pain G89.29 [facility] [address] [address]- 6346 Sep, Other chronic pain G89.29 [facility] [address] [place] [address] 897655- 1815 Sep, [facility] [address] [place] [address] 51521- 8305 August, Chronic obstructive pulmonary disease, unspecified COPD type J44.9 and Edema, unspecified type R60.9 [facility] [id number] [address]- 1134 August, [facility] [id number] [place] [address] 95436- 1126 August, Other chronic pain G89.29 [facility] [id number] [place] [address] 81134- 0686 Jul, Other chronic pain G89.29 [facility] [id number] [place] [address] 45181- 8476 Jul, [facility] [id number] [place] [address] 09557- 7757 Jul, Chronic obstructive pulmonary disease, unspecified COPD type J44.9 ; Other chronic pain G89.29 and Tobacco abuse Z72.0 [facility] [id number] [place] [address] 77941- 0888 Jun, Other chronic pain G89.29 [facility] [id number] [place] [address] 39348- 0196 May, Other chronic pain G89.29 [facility] [id number] [place] [address] 39720- 3770 Apr, Low back pain M54.5 [facility] [id number] [place] [address] 86747- 0398 Mar, Low back pain M54.5 [facility] [id number] [place] [address] 23710- 2506 Mar, Low back pain M54.5 and Chronic obstructive pulmonary disease, unspecified COPD type J44.9 [facility] [id number] [place] [address] 12251- 3626 Mar, Low back pain M54.5 [facility] [address] [address]- 5056 Feb, [facility] [address] [address]- 8681 Jan, Low back pain M54.5 [facility] [id number] [place] [address] 08886- 8832 Dec, Low back pain M54.5 [facility] [id number] [place] [address] 86659- 0818 Dec, Other chronic pain G89.29 [facility] [id number] [place] [address] 15312- 5909 Nov, [facility] [id number] [place] [address] 97434- 6734 Nov, [place] [id number] [place] [address] 04242- 4243 Nov, Chronic obstructive pulmonary disease, unspecified COPD type J44.9 [place] [id number] [place] [address] 12364- 9140 Nov, Essential hypertension I10 [place] [id number] [place] [address] 22655- 5271 Nov, Low back pain M54.5 ; Chronic obstructive pulmonary disease , unspecified COPD type J44.9 and Essential hypertension I10 [place] [id number] [place] [address] 11866- 5095 Oct, Encounter to establish care Z76.89 ; Low back pain M54.5 ; Other chronic pain G89.29 ; Chronic obstructive pulmonary disease, unspecified COPD type J44.9 ; Tobacco abuse Z72.0 and Essential hypertension I10 IMMUNIZATIONS No Known Immunizations SOCIAL HISTORY Never Assessed REASON FOR VISIT refill PLAN OF CARE VITAL SIGNS MEDICATIONS Medication Instructions Dosage Frequency Start Date End Date Duration Status Ventolin HFA 108 (90 Base) MCG/ACT Inhalation every 4 hrs 2 puffs as needed 4h 90 days Active RESULTS No Results PROCEDURES No [...] Hospitalization History surgeries Hospitalization History pneumonia-[facility] 08/30/16 Hospitalization History Acute Resp failure, COPD exacerbation-[facility] 09/03/16
--- OUTSIDE RECORDS SUMMARY | 2018-01-06 08:25 | XMS REPORT ---
Author Author YORDAN CURIEL Organization [facility] Address [address] [place] [address] Care Team Providers Care Cooker Tender Name Role Phone YORDAN CURIEL Unavailable PROBLEMS Type Condition ICD9-CM Code [id number] Code Onset Dates Condition Status SNOMED Code Problem Other chronic pain G89.29 Active 10818235 Problem Low back pain M54.5 Active 486407982 Problem Chronic obstructive pulmonary disease, unspecified COPD type J44.9 Active 50411468 Problem Encounter to establish care Z76.89 Active 600385562 Problem Tobacco abuse Z72.0 Active 174748847 Problem Essential hypertension I10 Active 99318235 ALLERGIES Unknown Allergies SOCIAL HISTORY No smoking Hx information available PLAN OF CARE VITAL SIGNS MEDICATIONS Medication Instructions Dosage Frequency Start Date End Date Duration Status Oxycodone-Acetaminophen 5-325 MG Orally 2 times a day 2 tablets as needed 12h Apr, 28 days Active MS Contin 100 MG Orally every 12 hrs 1 tablet 12h Apr, 28 days Active RESULTS No Results PROCEDURES No Known procedures IMMUNIZATIONS No Known Immunizations
--- OUTSIDE RECORDS SUMMARY | 2018-01-06 08:25 | XMS REPORT ---
Author Author SAEED TERRY Organization [facility] Address [address] [place] [address] Care Team Providers Care Body And Frame Man Name Role Phone SAEED TERRY Unavailable PROBLEMS Type Condition ICD9-CM Code STR76-TX Code Onset Dates Condition Status SNOMED Code Problem Other chronic pain G89.29 Active 51061499 Problem Low back pain M54.5 Active 080490490 Problem Chronic obstructive pulmonary disease, unspecified COPD type J44.9 Active 58109255 Problem Encounter to establish care Z76.89 Active 912166171 Problem Tobacco abuse Z72.0 Active 693659303 Problem Essential hypertension I10 Active 12532223 ALLERGIES No Information SOCIAL HISTORY Never Assessed PLAN OF CARE VITAL SIGNS MEDICATIONS Medication Instructions Dosage Frequency Start Date End Date Duration Status MS Contin 100 MG Orally every 12 hrs 1 tablet 12h August, 28 days Active Oxygen ... by inhalation route at night while sleeping 2 LPM Nov, Active Oxycodone-Acetaminophen 5-325 MG Orally 2 times a day 2 tablets as needed 12h August, 28 days Active Ventolin HFA 108 (90 Base) MCG/ACT Inhalation every 4 hrs 2 puffs as needed 4h 90 days Active Cefdinir 300 MG Orally every 12 hrs 1 capsule 12h August, August, Active Clonidine HCl 0.2 MG Orally 3 times a day 1 tablet 8h Active Amlodipine Besylate 10 MG Orally Once a day 1 tablet 24h Active Lisinopril 20 MG Orally Once a day 1 tablet 24h Active RESULTS No Results PROCEDURES No Known [...] tied off Hospitalization History surgeries Hospitalization History pneumonia-[facility] 08/30/16 Hospitalization History Acute Resp failure, COPD exacerbation-[facility] 09/03/16
--- OUTSIDE RECORDS SUMMARY | 2018-01-06 08:25 | XMS REPORT ---
Author Author NATASHA OLIVER [facility] Address [address] [place] [address] Care Team Providers Care Computer Laboratory Technician Name Role Phone NATASHA OLIVER Unavailable PROBLEMS Type Condition ICD9-CM Code ATX40-TS Code Onset Dates Condition Status SNOMED Code Problem Other chronic pain G89.29 Active 50167218 Problem Low back pain M54.5 Active 309889888 Problem Chronic obstructive pulmonary disease, unspecified COPD type J44.9 Active 72698242 Problem Encounter to establish care Z76.89 Active 567016949 Problem Tobacco abuse Z72.0 Active 464276392 Problem Essential hypertension I10 Active 64192532 ALLERGIES No Known Allergies SOCIAL HISTORY Never Assessed PLAN OF CARE Activity Details Follow Up [place] in 3 wk Reason: VITAL SIGNS Height 70 in 2016-09-19 Weight 169.3 lbs 2016-09-19 Temperature 98.4 degrees Fahrenheit 2016-09-19 Heart Rate 84 bpm 2016-09-19 Respiratory Rate 24 2016-09-19 Oximetry w/ oxygen @ 2L:92 % 2016-09-19 BMI 24.29 kg/m2 2016-09-19 Blood pressure systolic 152 mmHg 2016-09-19 Blood pressure diastolic 90 mmHg 2016-09-19 MEDICATIONS Medication Instructions Dosage Frequency Start Date End Date Duration Status Neurontin 100 MG Orally and 2 capsules in the evening 1 capsule in the morning 90 days Active Clonidine HCl 0.2 MG Orally 3 times a day 1 tablet 8h Active Meloxicam 15 MG Orally Once a day 1 tablet 24h 90 days Active Anoro Ellipta 62.5-25 MCG/INH Inhalation Once a day 1 puff 24h Nov, Active Oxycodone-Acetaminophen 5-325 MG Orally 2 times a day 2 tablets as needed 12h August, 28 days Active Ventolin HFA 108 (90 Base) MCG/ACT Inhalation every 4 hrs 2 puffs as needed 4h 90 days Active Omeprazole 20 MG Orally Once a day 2 capsules 24h Active Lisinopril-Hydrochlorothiazide 20-25 MG Orally Once a day 1 tablet 24h 90 days Active Advair Diskus 500-50 MCG/DOSE Inhalation Once a day 2 puffs 24h 90 days Active Amlodipine Besylate 10 MG Orally Once a day 1 tablet 24h Active Lisinopril 20 MG Orally Once a day 1 tablet 24h Active MS Contin 100 MG Orally every 12 hrs 1 tablet 12h August, 28 days Active Oxygen ... by inhalation route at night while sleeping 2 LPM Nov, Active RESULTS Name Result Date Reference Range [facility] 2016-09-19 Glucose, Serum 101 65-99 BUN 14 8-27 Creatinine, Serum 0.51 0.76-1.27 eGFR If NonAfricn Am 115 >59 eGFR If Africn Am 133 >59 BUN/Creatinine Ratio 27 10-24 Sodium, Serum 142 134-144 Potassium, Serum 4.8 3.5-5.2 Chloride, Serum 98 96-106 Carbon Dioxide, Total 29 18-29 Calcium, Serum 8.9 8.6-10.2 Protein, Total, Serum 7.1 6.0-8.5 Albumin, Serum 3.8 3.6-4.8 Globulin, Total 3.3 1.5-4.5 A/G Ratio 1.2 1.2-2.2 Bilirubin, Total <0.2 0.0-1.2 Alkaline Phosphatase, S 104 39-117 AST (SGOT) 24 0-40 ALT (SGPT) 49 0-44 PROCEDURES Procedure Date Ordered Result Body Site MEASURE BLOOD OXYGEN LEVEL September 19, [address] [facility] September 19, 2016 [facility] VISIT ESTABLISHED PATIENT September 19, 2016 VENIPANTONIO, ROUTINE* September 19, 2016 IMMUNIZATIONS No Known Immunizations MEDICAL (GENERAL) HISTORY [...] tied off Hospitalization History surgeries Hospitalization History pneumonia-[facility] 08/30/16 Hospitalization History Acute Resp failure, COPD exacerbation-[facility] 09/03/16
--- OUTSIDE RECORDS SUMMARY | 2018-01-06 08:25 | XMS REPORT ---
Author Author YORDAN CURIEL Organization [facility] Address [address] [place] [address] Care Team Providers Care Comber Fixer Name Role Phone YORDAN CURIEL Unavailable PROBLEMS Type Condition ICD9-CM Code SVJ17-SU Code Onset Dates Condition Status SNOMED Code Problem Other chronic pain G89.29 Active 66851280 Problem Low back pain M54.5 Active 046105182 Problem Chronic obstructive pulmonary disease, unspecified COPD type J44.9 Active 40404450 Problem Encounter to establish care Z76.89 Active 308328302 Problem Tobacco abuse Z72.0 Active 520579108 Problem Essential hypertension I10 Active 40038464 ALLERGIES No Information ENCOUNTERS Encounter Location Date Diagnosis [facility] [id number] [place] [address] 68664- 2505 Sep, [place] [id number] [place] [address] 73116- 3867 August, Other chronic pain G89.29 [facility] [id number] [place] [address] 50611- 3129 Jul, Other chronic pain G89.29 [facility] [id number] [place] [address] 17196- 8300 Jul, Other chronic pain G89.29 ; Chronic obstructive pulmonary disease, unspecified COPD type J44.9 and Tobacco abuse Z72.0 [facility] [id number] [place] [address] 61933- 3080 Jul, [facility] [id number] [place] [address] 44585- 4635 Jun, Other chronic pain G89.29 [facility] [id number] [place] [address] 26706- 6623 Jun, Low back pain M54.5 ; Other chronic pain G89.29 ; Chronic obstructive pulmonary disease, unspecified COPD type J44.9 ; Tobacco abuse Z72.0 ; Essential hypertension I10 and Right wrist pain M25.531 [facility] [address] [place] [address] Jun, Other chronic pain G89.29 [facility] [id number] [place] [address] 97024- 4110 May, Other chronic pain G89.29 [facility] [id number] [place] [address] 75204- 9751 Apr, Other chronic pain G89.29 [facility] [id number] [place] [address] 15988- 3271 Mar, Other chronic pain G89.29 [facility] [id number] [place] [address] 00701- 4192 Feb, Other chronic pain G89.29 [facility] [id number] [place] [address] 79092- 9282 Feb, Other chronic pain G89.29 [facility] [id number] [place] [address] 37731- 2137 Jan, Chronic obstructive pulmonary disease, unspecified COPD type J44.9 ; Essential hypertension I10 ; Other chronic pain G89.29 and Low back pain M54.5 [facility] [id number] [place] [address] 38111- 5201 Jan, Other chronic pain G89.29 [facility] [id number] [place] [address] 95866- 7745 Dec, Other chronic pain G89.29 [facility] [id number] [place] [address] 65691- 9025 Nov, Other chronic pain G89.29 [facility] [id number] [place] [address] 27351- 3195 Oct, [facility] [address], [place] [address] 5957 Oct, Other chronic pain G89.29 [facility] [id number] [place] [address] 01583- 9081 Sep, Other chronic pain G89.29 [facility] [id number] [place] [address] 39786- 1221 Sep, [facility] [id number] [place] [address] 95291- 7292 August, Chronic obstructive pulmonary disease, unspecified COPD type J44.9 and Edema, unspecified type R60.9 [facility] [id number] [place] [address] 79932- 3758 August, [facility] [id number] [place] [address] 06907- 8142 August, Other chronic pain G89.29 [facility] [id number] [place] [address] 44061- 0621 Jul, Other chronic pain G89.29 [facility] [id number] [place] [address] 65988- 1549 Jul, [facility] [address] [place] [address] 6858 Jul, Chronic obstructive pulmonary disease, unspecified COPD type J44.9 ; Other chronic pain G89.29 and Tobacco abuse Z72.0 [facility] [address], [place] [address] 8686 Jun, Other chronic pain G89.29 [facility] [id number] [place] [address] 13597- 0945 May, Other chronic pain G89.29 [facility] [address], [place] [address]- 2145 Apr, Low back pain M54.5 [facility] [address] [place] [address]- 5397 Mar, Low back pain M54.5 [facility] [id number] [place] [address] 19093- 0244 Mar, Low back pain M54.5 and Chronic obstructive pulmonary disease, unspecified COPD type J44.9 [facility] [id number] [place] [address] 84729- 3267 Mar, Low back pain M54.5 [facility] [id number] [place] [address] 86242- 7222 Feb, [facility] [id number] [place] [address] 03584- 1144 Jan, Low back pain M54.5 [facility] [id number] [place] [address] 89051- 9727 Dec, Low back pain M54.5 [facility] [id number] [place] [address] 10485- 8867 Dec, Other chronic pain G89.29 [facility] [id number] [place] [address] 57939- 8100 Nov, [facility] [id number] [place] [address] 59110- 7087 Nov, [facility] [id number] [place] [address] 28246- 0086 Nov, Chronic obstructive pulmonary disease, unspecified COPD type J44.9 [facility] [address], [place] [address] 5930 Nov, Essential hypertension I10 [facility] [id number] [place] [address] 53307- 2325 Nov, Low back pain M54.5 ; Chronic obstructive pulmonary disease , unspecified COPD type J44.9 and Essential hypertension I10 [facility] [id number] [place] [address] 30084- 3174 12 Oct, 2015 Encounter to establish care Z76.89 ; Low back pain M54.5 ; Other chronic pain G89.29 ; Chronic obstructive pulmonary disease, unspecified COPD type J44.9 ; Tobacco abuse Z72.0 and Essential hypertension I10 IMMUNIZATIONS No Known Immunizations SOCIAL HISTORY Never Assessed REASON FOR VISIT Controlled Med Refill 04/19/2017 PLAN OF CARE VITAL SIGNS MEDICATIONS Medication Instructions Dosage Frequency Start Date End Date Duration Status Oxycodone-Acetaminophen 5-325 MG Orally 2 times a day 2 tablets as needed 12h Mar, 28 days Active MS Contin 100 MG Orally every 12 hrs 1 tablet 12h Mar, 28 days Active RESULTS No Results PROCEDURES [...] tied off Hospitalization History surgeries Hospitalization History pneumonia-[facility] 08/30/16 Hospitalization History Acute Resp failure, COPD exacerbation-[facility] 09/03/16
--- OUTSIDE RECORDS SUMMARY | 2018-01-06 08:25 | XMS REPORT ---
Author Author YORDAN CURIEL [facility] Address [address] [place] [address] Care Team Providers Care Nurse Extern Name Role Phone YORDAN CURIEL Unavailable PROBLEMS Type Condition ICD9-CM Code TEX18-GQ Code Onset Dates Condition Status SNOMED Code Problem Other chronic pain G89.29 Active 27699070 Problem Low back pain M54.5 Active 599759109 Problem Chronic obstructive pulmonary disease, unspecified COPD type J44.9 Active 36378581 Problem Encounter to establish care Z76.89 Active 995229296 Problem Tobacco abuse Z72.0 Active 007099087 Problem Essential hypertension I10 Active 32863997 ALLERGIES No Known Allergies SOCIAL HISTORY Never Assessed PLAN OF CARE Activity Details Follow Up 3 Months Reason:pain mgmt VITAL SIGNS Height 70 in 2016-07-31 Weight 164.9 lbs 2016-07-31 Temperature 98.2 degrees Fahrenheit 2016-07-31 Heart Rate 69 bpm 2016-07-31 Respiratory Rate 22 2016-07-31 Oximetry ambulating w/ oxygen:90 % 2016-07-31 BMI 23.66 kg/m2 2016-07-31 Blood pressure systolic 170 mmHg 2016-07-31 Blood pressure diastolic 98 mmHg 2016-07-31 MEDICATIONS Medication Instructions Dosage Frequency Start Date End Date Duration Status Lisinopril-Hydrochlorothiazide 20-25 MG Orally Once a day 1 tablet 24h 90 days Active Oxygen ... by inhalation route at night while sleeping 2 LPM Nov, Active Anoro Ellipta 62.5-25 MCG/INH Inhalation Once a day 1 puff 24h Nov, Active Ventolin HFA 108 (90 Base) MCG/ACT Inhalation every 4 hrs 2 puffs as needed 4h 90 days Active Advair Diskus 500-50 MCG/DOSE Inhalation Once a day 2 puffs 24h 90 days Active MS Contin 100 MG Orally every 12 hrs 1 tablet 12h Jun, 28 days Active Meloxicam 15 MG Orally Once a day 1 tablet 24h 90 days Active Oxycodone-Acetaminophen 5-325 MG Orally 2 times a day 2 tablets as needed 12h Jun, 28 days Active Omeprazole 20 MG Orally Once a day 2 capsules 24h Active RESULTS No Results PROCEDURES Procedure Date Ordered Result Body Site MEASURE BLOOD OXYGEN LEVEL July 31, 2016 [facility] ESTABLISHED PATIENT July 31, 2016 IMMUNIZATIONS No Known Immunizations MEDICAL (GENERAL) [...] tied off Hospitalization History surgeries Hospitalization History pneumonia-[facility] 08/30/16 Hospitalization History Acute Resp failure, COPD exacerbation-[facility] 09/03/16
--- OUTSIDE RECORDS SUMMARY | 2018-01-06 08:25 | XMS REPORT ---
Author Author YORDAN CURIEL Organization [facility] Address [address] [place] [address] Care Team Providers Care Depot Manager Name Role Phone YORDAN CURIEL Unavailable PROBLEMS Type Condition ICD9-CM Code PHH82-EN Code Onset Dates Condition Status SNOMED Code Problem Other chronic pain G89.29 Active 91751202 Problem Low back pain M54.5 Active 664224629 Problem Chronic obstructive pulmonary disease, unspecified COPD type J44.9 Active 99145298 Problem Encounter to establish care Z76.89 Active 773977692 Problem Tobacco abuse Z72.0 Active 566027894 Problem Essential hypertension I10 Active 26555411 ALLERGIES No Information ENCOUNTERS Encounter Location Date Diagnosis [place] [id number] [place] [address] 56738- 2089 Sep, [place] [id number] [place] [address] 57057- 5947 Jul, Other chronic pain G89.29 [facility] [id number] [place] [address] 07813- 7927 Jul, [facility] [id number] [place] [address] 33147- 7359 Jul, [facility] [id number] [place] [address] 27921- 3526 Jun, Other chronic pain G89.29 [facility] [id number] [place] [address] 43155- 1698 07 Jun, 2017 Low back pain M54.5 ; Other chronic pain G89.29 ; Chronic obstructive pulmonary disease, unspecified COPD type J44.9 ; Tobacco abuse Z72.0 ; Essential hypertension I10 and Right wrist pain M25.531 [place] [id number] [address]- 3613 Jun, Other chronic pain G89.29 [facility] [id number] [place] [address] 81395- 2185 May, Other chronic pain G89.29 [facility] [id number] [place] [address] 44634- 4207 Apr, Other chronic pain G89.29 [facility] [id number] [place] [address] 80066- 1795 Mar, Other chronic pain G89.29 [facility] [id number] [place] [address] 84513- 9174 Feb, Other chronic pain G89.29 [facility] [id number] [place] [address] 71771- 1534 Feb, Other chronic pain G89.29 [facility] [id number] [place] [address] 85592- 4841 Jan, Chronic obstructive pulmonary disease, unspecified COPD type J44.9 ; Essential hypertension I10 ; Other chronic pain G89.29 and Low back pain M54.5 [facility] [id number] [place] [address] 68738- 7433 Jan, Other chronic pain G89.29 [facility] [address] [place] [address] 09185- 3931 Dec, Other chronic pain G89.29 [facility] [address] [place] [address] 65397- 0479 Nov, Other chronic pain G89.29 [facility] [id number] [place] [address] 36042- 9280 Oct, [facility] [id number] [place] [address] 94268- 9387 Oct, Other chronic pain G89.29 [facility] [id number] [place] [address] 06651- 2530 Sep, Other chronic pain G89.29 [facility] [id number] [place] [address] 37215- 8892 Sep, [facility] [id number] [place] [address] 39724- 6482 August, Chronic obstructive pulmonary disease, unspecified COPD type J44.9 and Edema, unspecified type R60.9 [facility] [id number] [place] [address] 38794- 5266 August, [facility] [id number] [place] [address] 95255- 7210 August, Other chronic pain G89.29 [facility] [id number] [place] [address] 74762- 3069 Jul, Other chronic pain G89.29 [facility] [id number] [place] [address] 29771- 3211 Jul, [facility] [id number] [place] [address] 85422- 5859 Jul, Chronic obstructive pulmonary disease, unspecified COPD type J44.9 ; Other chronic pain G89.29 and Tobacco abuse Z72.0 [facility] [address] [place] [address] 64483- 6446 Jun, Other chronic pain G89.29 [facility] [id number] [place] [address] 30363- 3690 May, Other chronic pain G89.29 [facility] [address] [place] [address] 31243- 1842 Apr, Low back pain M54.5 [facility] [id number] [place] [address] 81020- 1355 Mar, Low back pain M54.5 [facility] [id number] [place] [address] 92434- 8973 Mar, Low back pain M54.5 and Chronic obstructive pulmonary disease, unspecified COPD type J44.9 [facility] [address] [place] [address]- 4653 Mar, Low back pain M54.5 [facility] [id number] [place] [address] 31700- 4258 Feb, [facility] [id number] [place] [address] 98669- 7767 Jan, Low back pain M54.5 [facility] [id number] [place] [address] 11199- 1691 Dec, Low back pain M54.5 [facility] [id number] [place] [address] 87154- 6438 Dec, Other chronic pain G89.29 [facility] [id number] [place] [address] 77596- 2729 Nov, [facility] [id number] [place] [address] 07664- 1811 Nov, [facility] [id number] [place] [address] 75860- 3836 Nov, Chronic obstructive pulmonary disease, unspecified COPD type J44.9 [facility] [address] [place] [address] 82882- 6679 Nov, Essential hypertension I10 [facility] [address] [place] [address] 78112- 9457 Nov, Low back pain M54.5 ; Chronic obstructive pulmonary disease , unspecified COPD type J44.9 and Essential hypertension I10 [facility] [id number] [place] [address] 92578- 9241 Oct, Encounter to establish care Z76.89 ; Low back pain M54.5 ; Other chronic pain G89.29 ; Chronic obstructive pulmonary disease, unspecified COPD type J44.9 ; Tobacco abuse Z72.0 and Essential hypertension I10 IMMUNIZATIONS No Known Immunizations SOCIAL HISTORY Never Assessed REASON FOR VISIT [facility] Refill 01/25/2017 PLAN OF CARE VITAL SIGNS MEDICATIONS Medication Instructions Dosage Frequency Start Date End Date Duration Status MS Contin 100 MG Orally every 12 hrs 1 tablet 12h Jan, 28 days Active Oxycodone-Acetaminophen 5-325 MG Orally 2 times a day 2 tablets as needed 12h Jan, 28 days Active RESULTS No Results PROCEDURES [...] tied off Hospitalization History surgeries Hospitalization History pneumonia-[facility] 08/30/16 Hospitalization History Acute Resp failure, COPD exacerbation-[facility] 09/03/16
--- OUTSIDE RECORDS SUMMARY | 2018-01-06 08:25 | XMS REPORT ---
Author Author YORDAN CURIEL Organization [facility] Address [address] [place] [address] Care Team Providers Care Glass Sander Belt Name Role Phone YORDAN CURIEL Unavailable PROBLEMS Type Condition ICD9-CM Code MBB05-HY Code Onset Dates Condition Status SNOMED Code Problem Other chronic pain G89.29 Active 20587929 Problem Low back pain M54.5 Active 168838995 Problem Chronic obstructive pulmonary disease, unspecified COPD type J44.9 Active 58729676 Problem Encounter to establish care Z76.89 Active 711048758 Problem Tobacco abuse Z72.0 Active 319244296 Problem Essential hypertension I10 Active 60279201 ALLERGIES No Information ENCOUNTERS Encounter Location Date Diagnosis [place] [id number] [place] [address] 02304- 1864 Sep, [place] [id number] [place] [address] 50439- 4914 Jul, Other chronic pain G89.29 [facility] [id number] [place] [address] 32025- 9243 Jul, [facility] [id number] [place] [address] 37973- 2199 Jul, [facility] [id number] [place] [address] 80129- 7976 Jun, Other chronic pain G89.29 [facility] [id number] [place] [address] 00544- 0691 07 Jun, 2017 Low back pain M54.5 ; Other chronic pain G89.29 ; Chronic obstructive pulmonary disease, unspecified COPD type J44.9 ; Tobacco abuse Z72.0 ; Essential hypertension I10 and Right wrist pain M25.531 [place] [id number] [address] 5182 Jun, Other chronic pain G89.29 [facility] [address] [place] [address] 18751- 7805 May, Other chronic pain G89.29 [facility] [address] [place] [address] 37585- 9248 Apr, Other chronic pain G89.29 [facility] [id number] [place] [address] 53347- 0947 Mar, Other chronic pain G89.29 [facility] [id number] [place] [address] 17335- 2711 Feb, Other chronic pain G89.29 [facility] [id number] [place] [address] 05522- 8823 Feb, Other chronic pain G89.29 [facility] [id number] [place] [address] 38191- 9155 Jan, Chronic obstructive pulmonary disease, unspecified COPD type J44.9 ; Essential hypertension I10 ; Other chronic pain G89.29 and Low back pain M54.5 [facility] [address] [place] [address] 23344- 8064 Jan, Other chronic pain G89.29 [facility] [address] [place] [address] 40146- 7722 Dec, Other chronic pain G89.29 [facility] [address] [place] [address] 93969- 6120 Nov, Other chronic pain G89.29 [facility] [id number] [place] [address] 11029- 1038 Oct, [facility] [id number] [place] [address] 96367- 8079 Oct, Other chronic pain G89.29 [facility] [id number] [place] [address] 40493- 4906 Sep, Other chronic pain G89.29 [facility] [address] [place] [address] 47840- 9818 Sep, [facility] [id number] [place] [address] 94402- 6023 August, Chronic obstructive pulmonary disease, unspecified COPD type J44.9 and Edema, unspecified type R60.9 [facility] [id number] [place] [address] 26441- 4493 August, [facility] [id number] [place] [address] 41457- 2461 August, Other chronic pain G89.29 [facility] [id number] [place] [address] 52470- 2442 Jul, Other chronic pain G89.29 [facility] [id number] [place] [address] 21405- 3704 Jul, [facility] [id number] [place] [address] 76275- 7900 Jul, Chronic obstructive pulmonary disease, unspecified COPD type J44.9 ; Other chronic pain G89.29 and Tobacco abuse Z72.0 [facility] [address] [place] [address] 81204- 1415 Jun, Other chronic pain G89.29 [facility] [id number] [place] [address] 74975- 3385 May, Other chronic pain G89.29 [facility] [address] [place] [address] 44619- 1800 Apr, Low back pain M54.5 [facility] [id number] [place] [address] 55841- 6616 Mar, Low back pain M54.5 [facility] [id number] [place] [address] 41995- 0910 Mar, Low back pain M54.5 and Chronic obstructive pulmonary disease, unspecified COPD type J44.9 [facility] [address] [address] 1166 Mar, Low back pain M54.5 [facility] [id number] [place] [address] 16598- 9908 Feb, [facility] [id number] [place] [address] 80529- 4313 Jan, Low back pain M54.5 [facility] [id number] [place] [address] 73854- 0878 Dec, Low back pain M54.5 [facility] [id number] [place] [address] 94058- 5699 Dec, Other chronic pain G89.29 [facility] [id number] [place] [address] 66784- 7668 Nov, [facility] [id number] [place] [address] 58305- 7153 Nov, [facility] [id number] [place] [address] 49579- 6015 Nov, Chronic obstructive pulmonary disease, unspecified COPD type J44.9 [facility] [address] [place] [address] 66082- 0213 Nov, Essential hypertension I10 [facility] [address] [place] [address] 64541- 2056 Nov, Low back pain M54.5 ; Chronic obstructive pulmonary disease , unspecified COPD type J44.9 and Essential hypertension I10 [facility] [id number] [place] [address] 15646- 0407 Oct, Encounter to establish care Z76.89 ; Low back pain M54.5 ; Other chronic pain G89.29 ; Chronic obstructive pulmonary disease, unspecified COPD type J44.9 ; Tobacco abuse Z72.0 and Essential hypertension I10 IMMUNIZATIONS No Known Immunizations SOCIAL HISTORY Never Assessed REASON FOR VISIT [facility] Refill 02/22/2017 PLAN OF CARE VITAL SIGNS MEDICATIONS Medication Instructions Dosage Frequency Start Date End Date Duration Status Oxycodone-Acetaminophen 5-325 MG Orally 2 times a day 2 tablets as needed 12h Feb, 28 days Active MS Contin 100 MG Orally every 12 hrs 1 tablet 12h Feb, 28 days Active RESULTS No Results PROCEDURES [...]
--- OUTSIDE RECORDS SUMMARY | 2018-01-06 08:26 | XMS REPORT ---
Author Author YORDAN CURIEL Organization [facility] Address [address] [place] [address] Care Team Providers Care Assistant Football Coach Name Role Phone YORDAN CURIEL Unavailable PROBLEMS Type Condition ICD9-CM Code LSX39-UV Code Onset Dates Condition Status SNOMED Code Problem Encounter to establish care Z76.89 Active 435350240 Problem Low back pain M54.5 Active 190923470 Problem Tobacco abuse Z72.0 Active 047607402 Problem Essential hypertension I10 Active 22104082 Problem Other chronic pain G89.29 Active 79640938 Problem Chronic obstructive pulmonary disease, unspecified COPD type J44.9 Active 99906661 ALLERGIES Unknown Allergies SOCIAL HISTORY No smoking Hx information available PLAN OF CARE VITAL SIGNS MEDICATIONS Medication Instructions Dosage Frequency Start Date End Date Duration Status MS Contin 100 MG Orally every 12 hrs 1 tablet 12h Mar, 28 days Active Oxycodone-Acetaminophen 5-325 MG Orally 2 times a day 2 tablets as needed 12h Mar, 28 days Active RESULTS No Results PROCEDURES No Known procedures IMMUNIZATIONS No Known Immunizations
--- OUTSIDE RECORDS SUMMARY | 2018-01-06 08:26 | XMS REPORT ---
Author Author YORDAN CURIEL Organization [facility] Address [address] [place] [address] Care Team Providers Care Children'S Tutor Nursery Name Role Phone YORDAN CURIEL Unavailable PROBLEMS Type Condition ICD9-CM Code EGI25-XU Code Onset Dates Condition Status SNOMED Code Problem Other chronic pain G89.29 Active 32235187 Problem Low back pain M54.5 Active 866596000 Problem Chronic obstructive pulmonary disease, unspecified COPD type J44.9 Active 03717049 Problem Encounter to establish care Z76.89 Active 326954031 Problem Tobacco abuse Z72.0 Active 124761472 Problem Essential hypertension I10 Active 97508996 ALLERGIES No Information ENCOUNTERS Encounter Location Date Diagnosis [place] [id number] [place] [address] 78126- 9985 August, Medicare annual wellness visit, initial Z00.00 [place] [id number] [place] [address] 42991- 1920 Jul, [place] [id number] [place] [address] 72333- 9866 Jul, [place] [id number] [place] [address] 96652- 9478 Jun, Other chronic pain G89.29 [facility] [id number] [place] [address] 68164- 4000 Jun, Low back pain M54.5 ; Other chronic pain G89.29 ; Chronic obstructive pulmonary disease, unspecified COPD type J44.9 ; Tobacco abuse Z72.0 ; Essential hypertension I10 and Right wrist pain M25.531 [facility] [id number] [place] [address] 73528- 8559 Jun, Other chronic pain G89.29 [facility] [address] [facility] [id number] [address]- 2711 May, Other chronic pain G89.29 [facility] [address] [facility] [id number] [place] [address] 98416- 3256 Apr, Other chronic pain G89.29 [facility] [id number] [address]- 9946 Mar, Other chronic pain G89.29 [facility] [address] [facility] [id number] [place] [address] 82433- 5342 Feb, Other chronic pain G89.29 [facility] [address] [facility] [id number] [place] [address] 56281- 4179 Feb, Other chronic pain G89.29 [facility] [address] [address]- 2687 Jan, Chronic obstructive pulmonary disease, unspecified COPD type J44.9 ; Essential hypertension I10 ; Other chronic pain G89.29 and Low back pain M54.5 [facility] [address] [facility] [id number] [place] [address] 48545- 7178 Jan, Other chronic pain G89.29 [facility] [id number] [place] [address] 15700- 9518 Dec, Other chronic pain G89.29 [facility] [id number] [place] [address] 44619- 0253 Nov, Other chronic pain G89.29 [facility] [address] [facility] [id number], [place] [address]- 4525 Oct, [facility] [address] [facility] [id number] [place] [address] 24520- 4694 Oct, Other chronic pain G89.29 [facility] [id number] [address]- 7202 Sep, Other chronic pain G89.29 [facility] [id number] [address]- 0193 Sep, [facility] [id number] [place] [address] 67214- 8915 August, Chronic obstructive pulmonary disease, unspecified COPD type J44.9 and Edema, unspecified type R60.9 [facility] [id number] [place] [address] 52996- 0170 August, [facility] [id number] [place] [address] 47520- 5833 August, Other chronic pain G89.29 [facility] [id number] [place] [address] 75179- 6677 Jul, Other chronic pain G89.29 [facility] [id number] [place] [address] 45175- 3084 Jul, [facility] [id number] [place] [address] 79694- 3213 Jul, Chronic obstructive pulmonary disease, unspecified COPD type J44.9 ; Other chronic pain G89.29 and Tobacco abuse Z72.0 [facility] [id number] [place] [address] 05743- 8042 Jun, Other chronic pain G89.29 [facility] [address] [place] [address] 47940- 3809 May, Other chronic pain G89.29 [facility] [address] [place] [address] 63912- 1186 Apr, Low back pain M54.5 [facility] [id number] [place] [address] 42073- 0321 Mar, Low back pain M54.5 [facility] [id number] [place] [address] 82051- 8451 Mar, Low back pain M54.5 and Chronic obstructive pulmonary disease, unspecified COPD type J44.9 [facility] [id number] [address]- 0761 Mar, Low back pain M54.5 [facility] [id number] [place] [address] 13499- 2004 Feb, [facility] [id number] [place] [address] 59848- 2375 Jan, Low back pain M54.5 [facility] [id number] [place] [address] 51103- 5832 Dec, Low back pain M54.5 [facility] [id number] [place] [address] 38852- 3662 Dec, Other chronic pain G89.29 [facility] [id number] [place] [address] 13921- 8079 Nov, [facility] [id number] [place] [address] 62128- 0702 Nov, [facility] [id number] [place] [address] 15703- 6955 Nov, Chronic obstructive pulmonary disease, unspecified COPD type J44.9 [facility] [id number] [place] [address] 68422- 2263 Nov, Essential hypertension I10 [facility] [address] [place] [address] 16059- 8891 Nov, Low back pain M54.5 ; Chronic obstructive pulmonary disease , unspecified COPD type J44.9 and Essential hypertension I10 [facility] [id number] [place] [address] 63580- 6466 Oct, Encounter to establish care Z76.89 ; Low back pain M54.5 ; Other chronic pain G89.29 ; Chronic obstructive pulmonary disease, unspecified COPD type J44.9 ; Tobacco abuse Z72.0 and Essential hypertension I10 IMMUNIZATIONS No Known Immunizations SOCIAL HISTORY Never Assessed REASON FOR VISIT Controlled Med Refill 12/28/2016 PLAN OF CARE VITAL SIGNS MEDICATIONS Medication Instructions Dosage Frequency Start Date End Date Duration Status MS Contin 100 MG Orally every 12 hrs 1 tablet h Dec, 28 days Active Oxycodone-Acetaminophen 5-325 MG Orally 2 times a day 2 tablets as needed Dec, 28 days Active RESULTS No Results PROCEDURES [...] tied off Hospitalization History surgeries Hospitalization History pneumonia-[facility] 08/30/16 Hospitalization History Acute Resp failure, COPD exacerbation-[facility] 09/03/16
--- OUTSIDE RECORDS SUMMARY | 2018-01-06 08:28 | XMS REPORT | Continuity of Care Document ---
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 corpuscular hemoglobin concentration measurement ( mass/volume) 33 g/dL 32-36 Automated erythrocyte distribution width ratio 13.8 % 10.0-14.5 Automated blood platelet count (count/volume) 463 10*3/uL 130-400 Automated blood platelet mean volume measurement 8.9 [foz_us] 7.4-10.4 Whole blood basic metabolic panel - 09/05/16 07:55 Serum or plasma sodium measurement (moles/volume) 138 mmol/L 135-145 Serum or plasma potassium measurement (moles/volume) 4.2 mmol/L 3.6-5.0 Serum or plasma chloride measurement (moles/volume) 104 mmol/L 98-107 Carbon dioxide 22 mmol/L 21-32 Serum or plasma anion gap determination (moles/volume) 12 mmol/L 5-14 Serum or plasma urea nitrogen measurement (mass/volume) 25 mg/dL 7-18 Serum or plasma creatinine measurement (mass/volume) 0.76 mg/dL 0.60-1.30 Serum or plasma urea nitrogen/creatinine mass ratio 33 NRG Serum or plasma creatinine measurement with calculation of estimated glomerular filtration rate > NRG Serum or plasma glucose measurement (mass/volume) 114 mg/dL 70-105 Serum or plasma calcium measurement (mass/volume) 8.6 mg/dL 8.5-10.1 Serum or plasma phosphate measurement (mass/volume) - 09/05/16 07:55 Serum or plasma phosphate measurement (mass/volume) 2.8 mg/dL 2.3-4.7 Magnesium - 09/05/16 07:55 Magnesium 1.8 mg/dL 1.8-2.4 Blood lactic acid measurement (moles/volume) - 09/05/16 07:55 Blood lactic acid measurement (moles/volume) 3.54 mmol/L 0.50-2.00 Vancomycin trough - 09/05/16 07:55 Vancomycin trough 7.8 ug/mL 10.0-20.0 Serum or plasma lactate measurement (moles/volume) - 09/05/16 10:00 Serum or plasma lactate measurement (moles/volume) 3.29 mmol/L 0.50-2.00 Automated blood complete blood count (hemogram) panel - 09/06/16 04:50 Blood leukocytes automated count (number/volume) 16.4 10*3/uL 4.3-11.0 Blood erythrocytes automated count (number/volume) 3.47 10*6/uL 4.35-5.85 Venous blood hemoglobin measurement (mass/volume) 10.9 g/dL 13.3-17.7 Blood hematocrit (volume fraction) 33 % 40-54 Automated erythrocyte mean corpuscular volume 96 [foz_us] 80-99 Automated erythrocyte mean corpuscular hemoglobin (mass per erythrocyte) 31 pg 25-34 Automated erythrocyte mean corpuscular hemoglobin concentration measurement ( mass/volume) 33 g/dL 32-36 Automated erythrocyte distribution width ratio 13.8 % 10.0-14.5 Automated blood platelet count (count/volume) 416 10*3/uL 130-400 Automated blood platelet mean volume measurement 8.6 [foz_us] 7.4-10.4 Serum or plasma phosphate measurement (mass/volume) - 09/06/16 04:50 Serum or plasma phosphate measurement (mass/volume) 3.1 mg/dL 2.3-4.7 Comprehensive metabolic panel - 09/06/16 04:50 Serum or plasma sodium measurement (moles/volume) 137 mmol/L 135-145 Serum or plasma potassium measurement (moles/volume) 4.0 mmol/L 3.6-5.0 Serum or plasma chloride measurement (moles/volume) 105 mmol/L 98-107 Carbon dioxide 22 mmol/L 21-32 Serum or plasma anion gap determination (moles/volume) 10 mmol/L 5-14 Serum or plasma urea nitrogen measurement (mass/volume) 22 mg/dL 7-18 Serum or plasma creatinine measurement (mass/volume) 0.65 mg/dL 0.60-1.30 Serum or plasma urea nitrogen/creatinine mass ratio 34 NRG Serum or plasma creatinine measurement with calculation of estimated glomerular filtration rate > NRG Serum or plasma glucose measurement (mass/volume) 106 mg/dL 70-105 Serum or plasma calcium measurement (mass/volume) 7.9 mg/dL 8.5-10.1 Serum or plasma total bilirubin measurement (mass/volume) 0.3 mg/dL 0.1-1.0 Serum or plasma alkaline phosphatase measurement (enzymatic activity/volume) 82 U/L 40-136 Serum or plasma aspartate aminotransferase measurement (enzymatic activity/ volume) 14 U/L 5-34 Serum or plasma alanine aminotransferase measurement (enzymatic activity/volume ) 45 U/L 0-55 Serum or plasma protein measurement (mass/volume) 5.0 g/dL 6.4-8.2 Serum or plasma albumin measurement (mass/volume) 2.9 g/dL 3.2-4.5 Magnesium - 09/06/16 04:50 Magnesium 1.8 mg/dL 1.8-2.4 Serum or plasma troponin i.cardiac measurement (mass/volume) - 09/06/16 04:50 Serum or plasma troponin i.cardiac measurement (mass/volume) < ng/ mL <0.30 Vancomycin trough - 09/06/16 08:22 Vancomycin trough 13.7 ug/mL 10.0-20.0 Blood lactic acid measurement (moles/volume) - 09/06/16 09:35 Blood lactic acid measurement (moles/volume) 3.67 mmol/L 0.50-2.00 Serum or plasma lactate measurement (moles/volume) - 09/06/16 16:44 Serum or plasma lactate measurement (moles/volume) 3.87 mmol/L 0.50-2.00 Automated blood complete blood count (hemogram) panel - 09/07/16 04:23 Blood leukocytes automated count (number/volume) 15.1 10*3/uL 4.3-11.0 Blood erythrocytes automated count (number/volume) 3.59 10*6/uL 4.35-5.85 Venous blood hemoglobin measurement (mass/volume) 11.1 g/dL 13.3-17.7 Blood hematocrit (volume fraction) 34 % 40-54 Automated erythrocyte mean corpuscular volume 96 [foz_us] 80-99 Automated erythrocyte mean corpuscular hemoglobin (mass per erythrocyte) 31 pg 25-34 Automated erythrocyte mean corpuscular hemoglobin concentration measurement ( mass/volume) 32 g/dL 32-36 Automated erythrocyte distribution width ratio 14.1 % 10.0-14.5 Automated blood platelet count (count/volume) 395 10*3/uL 130-400 Automated blood platelet mean volume measurement 8.9 [foz_us] 7.4-10.4 Serum or plasma phosphate measurement (mass/volume) - 09/07/16 04:23 Serum or plasma phosphate measurement (mass/volume) 3.5 mg/dL 2.3-4.7 Whole blood basic metabolic panel - 09/07/16 04:23 Serum or plasma sodium measurement (moles/volume) 135 mmol/L 135-145 Serum or plasma potassium measurement (moles/volume) 4.0 mmol/L 3.6-5.0 Serum or plasma chloride measurement (moles/volume) 102 mmol/L 98-107 Carbon dioxide 24 mmol/L 21-32 Serum or plasma anion gap determination (moles/volume) 9 mmol/L 5-14 Serum or plasma urea nitrogen measurement (mass/volume) 26 mg/dL 7-18 Serum or plasma creatinine measurement (mass/volume) 0.64 mg/dL 0.60-1.30 Serum or plasma urea nitrogen/creatinine mass ratio 41 NRG Serum or plasma creatinine measurement with calculation of estimated glomerular filtration rate > NRG Serum or plasma glucose measurement (mass/volume) 104 mg/dL 70-105 Serum or plasma calcium measurement (mass/volume) 8.2 mg/dL 8.5-10.1 Magnesium - 09/07/16 04:23 Magnesium 1.6 mg/dL 1.8-2.4 Blood lactic acid measurement (moles/volume) - 09/07/16 08:07 Blood lactic acid measurement (moles/volume) 2.46 mmol/L 0.50-2.00 Serum or plasma lactate measurement (moles/volume) - 09/07/16 10:25 Serum or plasma lactate measurement (moles/volume) 3.86 mmol/L 0.50-2.00 Comprehensive metabolic panel - 09/07/16 15:14 Serum or plasma sodium measurement (moles/volume) 132 mmol/L 135-145 Serum or plasma potassium measurement (moles/volume) 4.2 mmol/L 3.6-5.0 Serum or plasma chloride measurement (moles/volume) 97 mmol/L 98-107 Carbon dioxide 27 mmol/L 21-32 Serum or plasma anion gap determination (moles/volume) 8 mmol/L 5-14 Serum or plasma urea nitrogen measurement (mass/volume) 23 mg/dL 7-18 Serum or plasma creatinine measurement (mass/volume) 0.65 mg/dL 0.60-1.30 Serum or plasma urea nitrogen/creatinine mass ratio 35 NRG Serum or plasma creatinine measurement with calculation of estimated glomerular filtration rate > NRG Serum or plasma glucose measurement (mass/volume) 95 mg/dL 70-105 Serum or plasma calcium measurement (mass/volume) 8.7 mg/dL 8.5-10.1 Serum or plasma total bilirubin measurement (mass/volume) 0.4 mg/dL 0.1-1.0 Serum or plasma alkaline phosphatase measurement (enzymatic activity/volume) 93 U/L 40-136 Serum or plasma aspartate aminotransferase measurement (enzymatic activity/ volume) 20 U/L 5-34 Serum or plasma alanine aminotransferase measurement (enzymatic activity/volume ) 49 U/L 0-55 Serum or plasma protein measurement (mass/volume) 6.2 g/dL 6.4-8.2 Serum or plasma albumin measurement (mass/volume) 3.7 g/dL 3.2-4.5 Blood lactic acid measurement (moles/volume) - 09/07/16 15:14 Blood lactic acid measurement (moles/volume) 2.42 mmol/L 0.50-2.00 Serum or plasma lactate measurement (moles/volume) - 09/07/16 17:29 Serum or plasma lactate measurement (moles/volume) 2.25 mmol/L 0.50-2.00 Automated blood complete blood count (hemogram) panel - 09/08/16 05:35 Blood leukocytes automated count (number/volume) 15.8 10*3/uL 4.3-11.0 Blood erythrocytes automated count (number/volume) 3.75 10*6/uL 4.35-5.85 Venous blood hemoglobin measurement (mass/volume) 11.6 g/dL 13.3-17.7 Blood hematocrit (volume fraction) 36 % 40-54 Automated erythrocyte mean corpuscular volume 95 [foz_us] 80-99 Automated erythrocyte mean corpuscular hemoglobin (mass per erythrocyte) 31 pg 25-34 Automated erythrocyte mean corpuscular hemoglobin concentration measurement ( mass/volume) 33 g/dL 32-36 Automated erythrocyte distribution width ratio 14.4 % 10.0-14.5 Automated blood platelet count (count/volume) 419 10*3/uL 130-400 Automated blood platelet mean volume measurement 9.1 [foz_us] 7.4-10.4 Whole blood basic metabolic panel - 09/08/16 05:50 Serum or plasma sodium measurement (moles/volume) 135 mmol/L 135-145 Serum or plasma potassium measurement (moles/volume) 4.2 mmol/L 3.6-5.0 Serum or plasma chloride measurement (moles/volume) 100 mmol/L 98-107 Carbon dioxide 24 mmol/L 21-32 Serum or plasma anion gap determination (moles/volume) 11 mmol/L 5-14 Serum or plasma urea nitrogen measurement (mass/volume) 25 mg/dL 7-18 Serum or plasma creatinine measurement (mass/volume) 0.66 mg/dL 0.60-1.30 Serum or plasma urea nitrogen/creatinine mass ratio 38 NRG Serum or plasma creatinine measurement with calculation of estimated glomerular filtration rate > NRG Serum or plasma glucose measurement (mass/volume) 101 mg/dL 70-105 Serum or plasma calcium measurement (mass/volume) 8.3 mg/dL 8.5-10.1 Magnesium - 09/08/16 05:50 Magnesium 1.9 mg/dL 1.8-2.4 Serum or plasma phosphate measurement (mass/volume) - 09/08/16 05:50 Serum or plasma phosphate measurement (mass/volume) 2.8 mg/dL 2.3-4.7 Blood lactic acid measurement (moles/volume) - 09/08/16 07:02 Blood lactic acid measurement (moles/volume) 2.65 mmol/L 0.50-2.00 Blood lactic acid measurement (moles/volume) - 09/08/16 13:49 Blood lactic acid measurement (moles/volume) 4.22 mmol/L 0.50-2.00 Blood lactic acid measurement (moles/volume) - 09/08/16 20:47 Blood lactic acid measurement (moles/volume) 6.23 mmol/L 0.50-2.00 Complete blood count (CBC) with automated white blood cell (WBC) differential - 09/08/16 22:40 Blood leukocytes automated count (number/volume) 18.3 10*3/uL 4.3-11.0 Blood erythrocytes automated count (number/volume) 3.78 10*6/uL 4.35-5.85 Venous blood hemoglobin measurement (mass/volume) 11.6 g/dL 13.3-17.7 Blood hematocrit (volume fraction) 36 % 40-54 Automated erythrocyte mean corpuscular volume 95 [foz_us] 80-99 Automated erythrocyte mean corpuscular hemoglobin (mass per erythrocyte) 31 pg 25-34 Automated erythrocyte mean corpuscular hemoglobin concentration measurement ( mass/volume) 32 g/dL 32-36 Automated erythrocyte distribution width ratio 14.3 % 10.0-14.5 Automated blood platelet count (count/volume) 371 10*3/uL 130-400 Automated blood platelet mean volume measurement 8.6 [foz_us] 7.4-10.4 Automated blood neutrophils/100 leukocytes 92 % 42-75 Automated blood lymphocytes/100 leukocytes 4 % 12-44 Blood monocytes/100 leukocytes 4 % 0-12 Automated blood eosinophils/100 leukocytes 0 % 0-10 Automated blood basophils/100 leukocytes 0 % 0-10 Blood neutrophils automated count (number/volume) 16.9 10*3 1.8-7.8 Blood lymphocytes automated count (number/volume) 0.7 10*3 1.0-4.0 Blood monocytes automated count (number/volume) 0.7 10*3 0.0-1.0 Automated eosinophil count 0.0 10*3/uL 0.0-0.3 Automated blood basophil count (count/volume) 0.1 10*3/uL 0.0-0.1 Blood manual differential performed detection - 09/08/16 22:40 Blood monocytes/100 leukocytes 0 % NRG Manual blood segmented neutrophils/100 leukocytes 92 % NRG Blood band neutrophils/100 leukocytes 2 % NRG Manual blood lymphocytes/100 leukocytes 5 % NRG Manual eosinophils/100 leukocytes in nose 0 % NRG Manual blood basophils/100 leukocytes 0 % NR Blood erythrocyte morphology finding identification NORMAL NR Manual blood metamyelocytes/100 leukocytes 1 % NR Comprehensive metabolic panel - 09/08/16 22:40 Serum or plasma sodium measurement (moles/volume) 136 mmol/L 135-145 Serum or plasma potassium measurement (moles/volume) 4.9 mmol/L 3.6-5.0 Serum or plasma chloride measurement (moles/volume) 100 mmol/L 98-107 Carbon dioxide 22 mmol/L 21-32 Serum or plasma anion gap determination (moles/volume) 14 mmol/L 5-14 Serum or plasma urea nitrogen measurement (mass/volume) 22 mg/dL 7-18 Serum or plasma creatinine measurement (mass/volume) 0.65 mg/dL 0.60-1.30 Serum or plasma urea nitrogen/creatinine mass ratio 34 NRG Serum or plasma creatinine measurement with calculation of estimated glomerular filtration rate > NRG Serum or plasma glucose measurement (mass/volume) 112 mg/dL 70-105 Serum or plasma calcium measurement (mass/volume) 8.2 mg/dL 8.5-10.1 Serum or plasma total bilirubin measurement (mass/volume) 0.3 mg/dL 0.1-1.0 Serum or plasma alkaline phosphatase measurement (enzymatic activity/volume) 91 U/L 40-136 Serum or plasma aspartate aminotransferase measurement (enzymatic activity/ volume) 29 U/L 5-34 Serum or plasma alanine aminotransferase measurement (enzymatic activity/volume ) 52 U/L 0-55 Serum or plasma protein measurement (mass/volume) 5.5 g/dL 6.4-8.2 Serum or plasma albumin measurement (mass/volume) 3.1 g/dL 3.2-4.5 Magnesium - 09/08/16 22:40 Magnesium 2.3 mg/dL 1.8-2.4 Serum or plasma lactate measurement (moles/volume) - 09/08/16 22:40 Serum or plasma lactate measurement (moles/volume) 6.60 mmol/L 0.50-2.00 Blood lactic acid measurement (moles/volume) - 09/09/16 01:10 Blood lactic acid measurement (moles/volume) 4.53 mmol/L 0.50-2.00 Serum or plasma lactate measurement (moles/volume) - 09/09/16 03:25 Serum or plasma lactate measurement (moles/volume) 5.71 mmol/L 0.50-2.00 Blood lactic acid measurement (moles/volume) - 09/09/16 06:00 Blood lactic acid measurement (moles/volume) 3.57 mmol/L 0.50-2.00 Whole blood basic metabolic panel - 09/09/16 06:00 Serum or plasma sodium measurement (moles/volume) 135 mmol/L 135-145 Serum or plasma potassium measurement (moles/volume) 5.0 mmol/L 3.6-5.0 Serum or plasma chloride measurement (moles/volume) 100 mmol/L 98-107 Carbon dioxide 23 mmol/L 21-32 Serum or plasma anion gap determination (moles/volume) 12 mmol/L 5-14 Serum or plasma urea nitrogen measurement (mass/volume) 20 mg/dL 7-18 Serum or plasma creatinine measurement (mass/volume) 0.60 mg/dL 0.60-1.30 Serum or plasma urea nitrogen/creatinine mass ratio 33 NRG Serum or plasma creatinine measurement with calculation of estimated glomerular filtration rate > NRG Serum or plasma glucose measurement (mass/volume) 102 mg/dL 70-105 Serum or plasma calcium measurement (mass/volume) 8.3 mg/dL 8.5-10.1 Magnesium - 09/09/16 06:00 Magnesium 2.0 mg/dL 1.8-2.4 Serum or plasma phosphate measurement (mass/volume) - 09/09/16 06:00 Serum or plasma phosphate measurement (mass/volume) 3.4 mg/dL 2.3-4.7 Automated blood complete blood count (hemogram) panel - 09/09/16 06:55 Blood leukocytes automated count (number/volume) 19.4 10*3/uL 4.3-11.0 Blood erythrocytes automated count (number/volume) 3.71 10*6/uL 4.35-5.85 Venous blood hemoglobin measurement (mass/volume) 11.6 g/dL 13.3-17.7 Blood hematocrit (volume fraction) 35 % 40-54 Automated erythrocyte mean corpuscular volume 94 [foz_us] 80-99 Automated erythrocyte mean corpuscular hemoglobin (mass per erythrocyte) 31 pg 25-34 Automated erythrocyte mean corpuscular hemoglobin concentration measurement ( mass/volume) 33 g/dL 32-36 Automated erythrocyte distribution width ratio 14.0 % 10.0-14.5 Automated blood platelet count (count/volume) 379 10*3/uL 130-400 Automated blood platelet mean volume measurement 8.4 [foz_us] 7.4-10.4 Serum or plasma lactate measurement (moles/volume) - 09/09/16 08:35 Serum or plasma lactate measurement (moles/volume) 4.61 mmol/L 0.50-2.00 Blood lactic acid measurement (moles/volume) - 09/09/16 11:25 Blood lactic acid measurement (moles/volume) 5.35 mmol/L 0.50-2.00 Blood lactic acid measurement (moles/volume) - 09/09/16 14:50 Blood lactic acid measurement (moles/volume) 6.95 mmol/L 0.50-2.00 Blood lactic acid measurement (moles/volume) - 09/09/16 19:20 Blood lactic acid measurement (moles/volume) 3.66 mmol/L 0.50-2.00 Blood lactic acid measurement (moles/volume) - 09/10/16 00:15 Blood lactic acid measurement (moles/volume) 3.04 mmol/L 0.50-2.00 Automated blood complete blood count (hemogram) panel - 09/10/16 06:10 Blood leukocytes automated count (number/volume) 18.2 10*3/uL 4.3-11.0 Blood erythrocytes automated count (number/volume) 3.77 10*6/uL 4.35-5.85 Venous blood hemoglobin measurement (mass/volume) 11.7 g/dL 13.3-17.7 Blood hematocrit (volume fraction) 36 % 40-54 Automated erythrocyte mean corpuscular volume 95 [foz_us] 80-99 Automated erythrocyte mean corpuscular hemoglobin (mass per erythrocyte) 31 pg 25-34 Automated erythrocyte mean corpuscular hemoglobin concentration measurement ( mass/volume) 33 g/dL 32-36 Automated erythrocyte distribution width ratio 14.4 % 10.0-14.5 Automated blood platelet count (count/volume) 332 10*3/uL 130-400 Automated blood platelet mean volume measurement 8.4 [foz_us] 7.4-10.4 Blood lactic acid measurement (moles/volume) - 09/10/16 06:10 Blood lactic acid measurement (moles/volume) 2.28 mmol/L 0.50-2.00 Serum or plasma phosphate measurement (mass/volume) - 09/10/16 06:10 Serum or plasma phosphate measurement (mass/volume) 3.2 mg/dL 2.3-4.7 Whole blood basic metabolic panel - 09/10/16 06:10 Serum or plasma sodium measurement (moles/volume) 136 mmol/L 135-145 Serum or plasma potassium measurement (moles/volume) 4.6 mmol/L 3.6-5.0 Serum or plasma chloride measurement (moles/volume) 100 mmol/L 98-107 Carbon dioxide 25 mmol/L 21-32 Serum or plasma anion gap determination (moles/volume) 11 mmol/L 5-14 Serum or plasma urea nitrogen measurement (mass/volume) 22 mg/dL 7-18 Serum or plasma creatinine measurement (mass/volume) 0.62 mg/dL 0.60-1.30 Serum or plasma urea nitrogen/creatinine mass ratio 35 NRG Serum or plasma creatinine measurement with calculation of estimated glomerular filtration rate > NRG Serum or plasma glucose measurement (mass/volume) 83 mg/dL 70-105 Serum or plasma calcium measurement (mass/volume) 8.4 mg/dL 8.5-10.1 Magnesium - 09/10/16 06:10 Magnesium 1.8 mg/dL 1.8-2.4 Blood lactic acid measurement (moles/volume) - 09/10/16 12:00 Blood lactic acid measurement (moles/volume) 4.29 mmol/L 0.50-2.00 Blood lactic acid measurement (moles/volume) - 09/10/16 18:40 Blood lactic acid measurement (moles/volume) 2.29 mmol/L 0.50-2.00 Blood lactic acid measurement (moles/volume) - 09/11/16 00:47 Blood lactic acid measurement (moles/volume) 2.04 mmol/L 0.50-2.00 Automated blood complete blood count (hemogram) panel - 09/11/16 06:07 Blood leukocytes automated count (number/volume) 19.2 10*3/uL 4.3-11.0 Blood erythrocytes automated count (number/volume) 3.77 10*6/uL 4.35-5.85 Venous blood hemoglobin measurement (mass/volume) 11.9 g/dL 13.3-17.7 Blood hematocrit (volume fraction) 36 % 40-54 Automated erythrocyte mean corpuscular volume 96 [foz_us] 80-99 Automated erythrocyte mean corpuscular hemoglobin (mass per erythrocyte) 32 pg 25-34 Automated erythrocyte mean corpuscular hemoglobin concentration measurement ( mass/volume) 33 g/dL 32-36 Automated erythrocyte distribution width ratio 14.7 % 10.0-14.5 Automated blood platelet count (count/volume) 287 10*3/uL 130-400 Automated blood platelet mean volume measurement 8.3 [foz_us] 7.4-10.4 Blood lactic acid measurement (moles/volume) - 09/11/16 06:07 Blood lactic acid measurement (moles/volume) 1.49 mmol/L 0.50-2.00 Whole blood basic metabolic panel - 09/11/16 06:07 Serum or plasma sodium measurement (moles/volume) 137 mmol/L 135-145 Serum or plasma potassium measurement (moles/volume) 4.6 mmol/L 3.6-5.0 Serum or plasma chloride measurement (moles/volume) 99 mmol/L 98-107 Carbon dioxide 30 mmol/L 21-32 Serum or plasma anion gap determination (moles/volume) 8 mmol/L 5-14 Serum or plasma urea nitrogen measurement (mass/volume) 28 mg/dL 7-18 Serum or plasma creatinine measurement (mass/volume) 0.67 mg/dL 0.60-1.30 Serum or plasma urea nitrogen/creatinine mass ratio 42 NRG Serum or plasma creatinine measurement with calculation of estimated glomerular filtration rate > NRG Serum or plasma glucose measurement (mass/volume) 88 mg/dL 70-105 Serum or plasma calcium measurement (mass/volume) 8.7 mg/dL 8.5-10.1 Serum or plasma phosphate measurement (mass/volume) - 09/11/16 06:07 Serum or plasma phosphate measurement (mass/volume) 3.9 mg/dL 2.3-4.7 Magnesium - 09/11/16 06:07 Magnesium 2.1 mg/dL 1.8-2.4 Comp. Metabolic Panel (14) - 09/19/16 11:47 Glucose, Serum 101 mg/dL 65-99 BUN 14 mg/dL 8-27 Creatinine, Serum 0.51 mg/dL 0.76-1.27 eGFR If NonAfricn Am 115 mL/min/1.73 >59 eGFR If Africn Am 133 mL/min/1.73 >59 BUN/Creatinine Ratio 27 10-24 Sodium, Serum 142 mmol/L 134-144 Potassium, Serum 4.8 mmol/L 3.5-5.2 Chloride, Serum 98 mmol/L 96-106 Carbon Dioxide, Total 29 mmol/L 18-29 Calcium, Serum 8.9 mg/dL 8.6-10.2 Protein, Total, Serum 7.1 g/dL 6.0-8.5 Albumin, Serum 3.8 g/dL 3.6-4.8 Globulin, Total 3.3 g/dL 1.5-4.5 A/G Ratio 1.2 1.2-2.2 Bilirubin, Total <0.2 mg/dL 0.0-1.2 Alkaline Phosphatase, S 104 IU/L 39-117 AST (SGOT) 24 IU/L 0-40 ALT (SGPT) 49 IU/L 0-44 LIPID PANEL - 06/27/17 14:30 CHOLESTEROL, TOTAL 184 mg/dL <200 HDL CHOLESTEROL 67 mg/dL >40 TRIGLYCERIDES 110 mg/dL <150 LDL-CHOLESTEROL 96 mg/dL (calc) NRG CHOL/HDLC RATIO 2.7 (calc) <5.0 NON HDL CHOLESTEROL 117 mg/dL (calc) <130 CMP - 06/27/17 14:30 GLUCOSE 93 mg/dL 65-99 UREA NITROGEN (BUN) 13 mg/dL 7-25 CREATININE 0.56 mg/dL 0.70-1.25 eGFR NON-AFR. [place] 110 mL/min/1.73m2 > OR=60 eGFR 128 mL/min/1.73m2 > OR=60 BUN/CREATININE RATIO 23 (calc) 6-22 SODIUM 141 mmol/L 135-146 POTASSIUM 4.1 mmol/L 3.5-5.3 CHLORIDE 106 mmol/L 98-110 CARBON DIOXIDE 30 mmol/L 20-31 CALCIUM 9.2 mg/dL 8.6-10.3 PROTEIN, TOTAL 6.6 g/dL 6.1-8.1 ALBUMIN 4.3 g/dL 3.6-5.1 GLOBULIN 2.3 g/dL (calc) 1.9-3.7 ALBUMIN/GLOBULIN RATIO 1.9 (calc) 1.0-2.5 BILIRUBIN, TOTAL 0.3 mg/dL 0.2-1.2 ALKALINE PHOSPHATASE 70 U/L 40-115 AST 13 U/L 10-35 ALT 14 U/L 9-46 CBC - 06/27/17 14:30 WHITE BLOOD CELL COUNT 7.5 Thousand/uL 3.8-10.8 RED BLOOD CELL COUNT 4.05 Million/uL 4.20-5.80 HEMOGLOBIN 12.6 g/dL 13.2-17.1 HEMATOCRIT 37.6 % 38.5-50.0 MCV 92.8 fL 80.0-100.0 MCH 31.1 pg 27.0-33.0 MCHC 33.5 g/dL 32.0-36.0 RDW 12.9 % 11.0-15.0 PLATELET COUNT 262 Thousand/uL 140-400 MPV 8.9 fL 7.5-12.5 ABSOLUTE NEUTROPHILS 4988 cells/uL 5771-6133 ABSOLUTE LYMPHOCYTES 1935 cells/uL 850-3900 ABSOLUTE MONOCYTES 435 cells/uL 200-950 ABSOLUTE EOSINOPHILS 113 cells/uL 15-500 ABSOLUTE BASOPHILS 30 cells/uL 0-200 NEUTROPHILS 66.5 % NRG LYMPHOCYTES 25.8 % NRG MONOCYTES 5.8 % NRG EOSINOPHILS 1.5 % NRG BASOPHILS 0.4 % NRG Encounters ACCT No. Visit Date/Time Discharge Status Pt. Type Provider Facility Loc./Unit Complaint [id number] 10/16/2017 14:27:00 10/16/2017 23:59:59 CLS Preadmit YORDAN CURIEL [facility] RAD COPD [id number] 07/11/2017 15:45:00 07/11/2017 23:59:59 CLS Outpatient FRANCO SHAW APRN [facility] RT COPD [id number] 07/04/2017 11:30:00 07/04/2017 23:59:59 CLS Preadmit FRANCO SHAW APRN [facility] RAD COPD [id number] 09/29/2016 15:30:00 09/29/2016 23:59:59 CLS Preadmit ALYSIA KHALIL DO [facility] RT J44.9 COPD [id number] 09/25/2016 13:45:00 09/25/2016 23:59:59 CLS Preadmit FRANCO SHAW APRN [facility] RAD R93.[address] [id number] 09/04/2016 10:13:00 09/11/2016 12:00:00 DIS Inpatient ADRIANA BARR DO [facility] 4TH SWB [id number] 09/03/2016 22:00:00 09/04/2016 10:05:00 DIS Inpatient GEGE OCHOA, NOEL Diaz [facility] 4TH PNEUMONIA WITH HYPOXIA, UNCONTROLLED HTN [id number] 08/30/2016 21:31:00 09/03/2016 12:02:00 DIS Inpatient GEGE OCHOA, NOEL Diaz [facility] 4TH PNEUMONIA, COPD EXACERBATION, SEPSIS [id number] 10/30/2015 05:05:00 10/30/2015 05:47:00 DIS Emergency TEO MENESES MD [facility] ER BACK PAIN [id number] 10/29/2015 20:49:00 10/29/2015 23:33:00 DIS Emergency YANETH RING [facility] ER BACK PAIN [id number] 05/11/2014 12:05:00 05/11/2014 15:55:00 DIS Outpatient MARTI BRINK MD [facility] SDC LEFT LEG LAC [id number] 01/06/2018 08:18:00 ACT Emergency JAZMIN MUIR MD [facility] ER BACK PAIN [id number] 12/28/2009 15:53:00 Document Registration [id number] 01/21/2009 12:51:00 Document Registration [id number] 09/20/2016 08:36:00 Document Registration [id number] 10/10/2017 13:40:00 10/10/2017 23:59:59 CLS Outpatient YORDAN CURIEL APRN [facility] [id number] 06/27/2017 13:00:00 Document Registration
[2018-01-06] MEDS ORDERED: morphine INJ 10 MG/ML 1ML (SYR OR VIAL) ONE (09:38)
[2018-01-06] MEDS ORDERED: morphine INJ 10 MG/ML 1ML (SYR OR VIAL) IJ ONE (09:45)
[2018-01-06] MEDS ORDERED: morphine ER 100 MG (MS CONTIN) TAB PO ONE (09:45)
--- NOTE | 2018-01-06 09:49 | ED Back Pain ---
General Chief Complaint: Back Problems Stated Complaint: BACK PAIN Nursing Triage Note: PT CO OF CHRONIC BACK PAIN, PT STATES RAN OUT OF PAIN MEDS, IS SCHEDULED TO GET FILLED IN AM AT [facility] Nursing Sepsis Screen: No Definite Risk Source of Information: Patient History of Present Illness Date Seen by Provider: Jan 06, 2018 Time Seen by Provider: 09:44 Initial Comments The patient is a 62-year-old white male patient at [facility]. He has severe COPD and is on continuous chronic O2 by nasal cannula. He also has chronic back pain and has been on a pain contract at [facility]. He was given a prescription for morphine Contin by [facility] to last 28 days. They gave him an appointment for Sunday to be seen and refill. The 28 days and did yesterday and he has now in considerable pain and with early withdrawal symptoms. Timing/Duration: 24 Hours Severity: Moderate Pain/Injury Location: Back Allergies and Home Medications Allergies Coded Allergies: No Known Drug Allergies (Unverified , 10/30/15) Home Medications Albuterol Sulfate 18 Gm Hfa.aer.ad, 2 PUFF INH Q4H PRN for SHORTNESS OF BREATH Prescribed by: SAEED TERRY on 09/11/16 0920 Morphine Sulfate 100 Mg Tablet.er, 75 MG PO Q12H, (Reported) Oxycodone HCl/Acetaminophen 1 Each Tablet, 2 TAB PO BID PRN for PAIN-MODERATE, ( Reported) Patient Home Medication List Home Medication List Reviewed: Yes Review of Systems Constitutional: see HPI EENTM: no symptoms reported Respiratory: dyspnea on exertion, short of breath Cardiovascular: no symptoms reported Gastrointestinal: no symptoms reported Genitourinary: no symptoms reported Musculoskeletal: back pain Skin: no symptoms reported Psychiatric/Neurological: No Symptoms Reported Past Pvgwqmu-Psecjz-Bblgpn Hx Patient Social History Alcohol Use: Denies Use Number of Drinks Today: GG Alcohol Beverage of Choice: Whiskey Recreational Drug Use: No Smoking Status: Current Everyday Smoker Type Used: Cigarettes Former Smoker, Quit: Jul 31, 2016 Recent Foreign Travel: No Contact w/Someone Who Travel: No Recent Infectious Disease Expo: No Recent Hopitalizations: No Physical Abuse: No Sexual Abuse: No Immunizations Up To Date Tetanus Booster (TDap): Less than 5yrs Seasonal Allergies Seasonal Allergies: No Past Medical History Surgeries: Yes (Back fusion, Colon resection) Abdominal, Bowel Surgery, Orthopedic Respiratory: Yes Asthma, Pneumonia, Chronic Bronchitis, COPD Currently Using CPAP: No Currently Using BIPAP: No Cardiac: Yes Hypertension Neurological: No Reproductive Disorders: No Genitourinary: No Renal Failure Gastrointestinal: No Liver Disease/Jaundice, Polyps Musculoskeletal: Yes Arthritis, Chronic Back Pain Endocrine: No HEENT: No Cancer: Yes Colon What Type of Treatment Did You: Surgical Intervention Psychosocial: No Integumentary: No Blood Disorders: No Adverse Reaction/Blood Tranf: No Family Medical History Alzheimer's disease 19 FATHER Arthritis 19 FATHER Dementia 19 FATHER Respiratory disorder 19 MOTHER No Pertinent Family Hx Physical Exam Vital Signs Vital Signs - First Documented 01/06/18 08:30 Temp 97.5 Pulse 79 Resp 18 B/P (MAP) 179/133 (148) Pulse Ox 98 O2 Delivery OxyMask Capillary Refill : Less Than 3 Seconds Height, Weight, BMI Height: 5'11.00" Weight: 145lbs. 0.0oz. 65.803246iu; 22.3 BMI Method:Stated General Appearance: Mild Distress, Moderate Distress HEENT: Normal ENT Inspection Neck: Full Range of Motion, Normal Inspection, Non Tender, Supple Cardiovascular: Regular Rate, Rhythm, No Edema, No Gallop, No JVD, No Murmur Respiratory: Decreased Breath Sounds (distant) Gastrointestinal: Normal Bowel Sounds Extremity: Normal Capillary Refill, Normal Inspection, Normal Range of Motion Neurologic/Psychiatric: Alert, Oriented x3, No Motor/Sensory Deficits, Normal Mood/Affect, asphalt smoother II-XII Norm as Tested, Abnormal Cerebellar Tests Skin: Normal Color Progress/Results/Core Measures Results/Orders My Orders Orders - JAZMIN MUIR MD Morphine Injection (Morphine Injection (01/06/18 09:45) Morphine Injection (Morphine Injection (01/06/18 09:38) Morphine Er Tablet (Ms Contin Tablet) (01/06/18 09:45) Vital Signs/I&O 01/06/18 08:30 Temp 97.5 Pulse 79 Resp 18 B/P (MAP) 179/133 (148) Pulse Ox 98 O2 Delivery OxyMask Blood Pressure Mean: 148 Departure Impression Primary Impression: chronic back pain Additional Impression: COPD with chronic O2 requirement Disposition: 01 HOME, SELF-CARE Condition: Stable/Unchanged Departure-Patient Inst. Decision time for Depature: 09:49 Referrals: [facility] (PCP) Primary Care Physician YORDAN CURIEL (Family) Primary Care Physician Patient Instructions: MANAGING YOUR CHRONIC PAIN Add. Discharge Instructions: All discharge instructions reviewed with patient and/or family. Voiced understanding. Toni Rogers for later today. [facility] [place] [facility] JAZMIN MUIR MD Jan 06, 2018 09:49
[2018-01-06 09:58] VITALS: BP 168/110
== END 2018-01-06 09:59 | disposition home or self-care (01) ==
LOC: EDUNIT# 08:17 → ER 08:18
DX: M54.5 Low back pain (principal); G89.29 Other chronic pain; J44.9 Chronic obstructive pulmonary disease, unspecified; I10 Essential (primary) hypertension; Z86.010 Personal history of colon polyps; Z87.19 Personal history of other diseases of the digestive system; Z85.038 Personal history of other malignant neoplasm of large intestine; Z87.891 Personal history of nicotine dependence; Z98.1 Arthrodesis status; Z98.890 Other specified postprocedural states; Z87.01 Personal history of pneumonia (recurrent); Z99.81 Dependence on supplemental oxygen; Z79.51 Long term (current) use of inhaled steroids
CPT/HCPCS: 96372; 99284

== ENCOUNTER 2018-06-28 03:31 | Emergency (ER) | payer MEDICARE, MEDICAID ==
[~2018-06-28] VITALS: Ht 180.3 cm; Wt 68.9 kg
[~2018-06-28 03:31] MED LIST changes: -AMLO10TA6 PO; +AMLO10TA7 PO; -AMLO5TAB7 PO; +AMLO5TAB9 PO
--- OUTSIDE RECORDS SUMMARY | 2018-06-28 03:36 | XMS REPORT ---
Author Author YORDAN CURIEL Organization [facility] Address [address] [place] [address] Care Team Providers Care Slab Conditioner Supervisor Name Role Phone YORDAN CURIEL Unavailable PROBLEMS Type Condition ICD9-CM Code [id number] Code Onset Dates Condition Status SNOMED Code Problem Chronic obstructive pulmonary disease, unspecified COPD type J44.9 Active 74432106 Problem Moderate episode of recurrent major depressive disorder F33.1 Active 528292764 Problem Encounter to establish care Z76.89 Active 348312016 Problem Tobacco abuse Z72.0 Active 585963108 Problem Essential hypertension I10 Active 86531388 Problem Other chronic pain G89.29 Active 89560465 Problem Low back pain M54.5 Active [id number] ALLERGIES No Information ENCOUNTERS Encounter Location Date Diagnosis [facility] [id number] [place] [address]- [address]252 Mar, [facility] [id number] [place] [address] 36648- 5033 Mar, [facility] [id number] [place] [address] 40687- 5655 Mar, [facility] [id number] [place] [address] 98266- 8014 Feb, Low back pain M54.5 ; Therapeutic drug monitoring Z51.81 ; Chronic obstructive pulmonary disease, unspecified COPD type J44.9 ; Essential hypertension I10 and Moderate episode of recurrent major depressive disorder F33.1 [facility] [id number] [place] [address] 89885- 1857 09 Feb, 2018 [facility] [id number] [place] [address] 27987- 0301 Jan, [facility] [address] [address] Jan, [facility] [address] [address] Dec, Low back pain M54.5 and Other chronic pain G89.29 [facility] [address] [place] [address] Dec, [facility] [id number] [place] [address] 34193- 2466 Nov, Other chronic pain G89.29 [facility] [address] [place] [address] Oct, [facility] [id number] [place] [address] 32372- 2917 Oct, Other chronic pain G89.29 [facility] [id number] [place] [address] 14589- 0529 Sep, [facility] [address] [place] [address] Sep, Other chronic pain G89.29 [facility] [address] [place] [address] Sep, Other chronic pain G89.29 [facility] [address] [place] [address] Sep, Medicare annual wellness visit, initial Z00.00 ; Chronic obstructive pulmonary disease, unspecified COPD type J44.9 ; Essential hypertension I10 ; Dysthymia F34.1 ; Low back pain M54.5 ; Other chronic pain G89.29 and Tobacco abuse Z72.0 [facility] [address] [address] August, Other chronic pain G89.29 [facility] [address] [place] [address] Jul, Other chronic pain G89.29 [facility] [address] [place] [address] Jul, Other chronic pain G89.29 ; Chronic obstructive pulmonary disease, unspecified COPD type J44.9 and Tobacco abuse Z72.0 [facility] [address] [place] [address] Jul, [facility] [id number] [place] [address] 06317- 7475 Jun, Other chronic pain G89.29 [facility] [id number] [place] [address] 02199- 6363 Jun, Low back pain M54.5 ; Other chronic pain G89.29 ; Chronic obstructive pulmonary disease, unspecified COPD type J44.9 ; Tobacco abuse Z72.0 ; Essential hypertension I10 and Right wrist pain M25.531 [facility] [id number] [place] [address] 74378- 0181 Jun, Other chronic pain G89.29 [facility] [id number] [place] [address] 94604- 9737 May, Other chronic pain G89.29 [facility] [id number] [place] [address] 36967- 2326 Apr, Other chronic pain G89.29 [facility] [address] [place] [address] Mar, Other chronic pain G89.29 [facility] [id number] [place] [address] 94165- 0951 Feb, Other chronic pain G89.29 [facility] [id number] [place] [address] 09538- 3709 Feb, Other chronic pain G89.29 [facility] [address] [place] [address] Jan, Chronic obstructive pulmonary disease, unspecified COPD type J44.9 ; Essential hypertension I10 ; Other chronic pain G89.29 and Low back pain M54.5 [facility] [address] [facility] [id number], [place] [address] Jan, Other chronic pain G89.29 [facility] [address] [facility] [id number], [place] [address] Dec, Other chronic pain G89.29 [facility] [address] [facility] [id number], [place] [address] 3105 Nov, Other chronic pain G89.29 [facility] [address] [facility] [id number], [place] [address] Oct, [facility] [address] [facility] [id number], [place] [address]01 Oct, Other chronic pain G89.29 [facility] [address] [facility] [id number], [place] [address] 67[address] Sep, Other chronic pain G89.29 [facility] [address] [facility] [id number], [place] [address] 395[address] Sep, [facility] [address] [facility] [id number], [place] [address] August, Chronic obstructive pulmonary disease, unspecified COPD type J44.9 and Edema, unspecified type R60.9 [facility] [address] [facility] [id number], [place] [address] August, [facility] [address] [facility] [id number], [place] [address] 6339 August, Other chronic pain G89.29 [facility] [address] [facility] [id number], [place] [address] 7283 Jul, Other chronic pain G89.29 [facility] [address] [facility] [id number], [place] [address] 7784 Jul, [facility] [address] [facility] [id number], [place] [address] Jul, Chronic obstructive pulmonary disease, unspecified COPD type J44.9 ; Other chronic pain G89.29 and Tobacco abuse Z72.0 [facility] [address] [facility] [id number] [place] [address] 59039- 7285 Jun, Other chronic pain G89.29 [facility] [address] [facility] [id number] [place] [address] 69596- 8810 May, Other chronic pain G89.29 [facility] [address] [facility] [id number] [place] [address] 62626- 3461 Apr, Low back pain M54.5 [facility] [address] [facility] [id number] [place] [address] 32310- 9061 Mar, Low back pain M54.5 [facility] [id number] [place] [address] 39274- 2550 Mar, Low back pain M54.5 and Chronic obstructive pulmonary disease, unspecified COPD type J44.9 [facility] [address] [facility] [id number] [place] [address] 22374- 5669 Mar, Low back pain M54.5 [facility] [address] [facility] [id number] [place] [address] 94097- 8363 Feb, [facility] [id number] [place] [address] 05689- 4355 Jan, Low back pain M54.5 [facility] [id number], [place] [address]- 1641 Dec, Low back pain M54.5 [facility] [address] [facility] [id number] [place] [address] 11782- 8696 Dec, Other chronic pain G89.29 [facility] [address] [facility] [id number] [place] [address] 25161- 2537 Nov, [facility] [id number] [place] [address] 18740- 1041 Nov, [facility] [id number] [place] [address] [id number]- 5942 Nov, Chronic obstructive pulmonary disease, unspecified COPD type J44.9 [facility] [id number], [place] [address]- 8286 Nov, Essential hypertension I10 [facility] [id number] [address] 0170 Nov, Low back pain M54.5 ; Chronic obstructive pulmonary disease , unspecified COPD type J44.9 and Essential hypertension I10 [facility] [id number] [address]- [address]37 Oct, Encounter to establish care Z76.89 ; Low back pain M54.5 ; Other chronic pain G89.29 ; Chronic obstructive pulmonary disease, unspecified COPD type J44.9 ; Tobacco abuse Z72.0 and Essential hypertension I10 IMMUNIZATIONS No Known Immunizations SOCIAL HISTORY Never Assessed REASON FOR VISIT PLAN OF CARE VITAL SIGNS MEDICATIONS Unknown [...] tied off Hospitalization History surgeries Hospitalization History pneumonia-[facility] 08/30/16 Hospitalization History Acute Resp failure, COPD exacerbation-[facility] 09/03/16
--- OUTSIDE RECORDS SUMMARY | 2018-06-28 03:36 | XMS REPORT ---
Author Author YORDAN CURIEL Organization [facility] Address [address] [place] [address] Care Team Providers Care Manager Sound Name Role Phone YORDAN CURIEL Unavailable PROBLEMS Type Condition ICD9-CM Code LGH49-ZG Code Onset Dates Condition Status SNOMED Code Problem Chronic obstructive pulmonary disease, unspecified COPD type J44.9 Active 26870277 Problem Moderate episode of recurrent major depressive disorder F33.1 Active 916040242 Problem Encounter to establish care Z76.89 Active 769159703 Problem Tobacco abuse Z72.0 Active 676282721 Problem Essential hypertension I10 Active 24762908 Problem Other chronic pain G89.29 Active 11932229 Problem Low back pain M54.5 Active 284647382 ALLERGIES No Known Allergies ENCOUNTERS Encounter Location Date Diagnosis [facility] [id number] [place] [address] 33748- 8602 Mar, [facility] [id number] [place] [address] 15784- 5794 Mar, [facility] [address] [place] [address] 79638- 7003 Mar, [facility] [id number] [place] [address] 42680- 5362 Feb, Low back pain M54.5 ; Therapeutic drug monitoring Z51.81 ; Chronic obstructive pulmonary disease, unspecified COPD type J44.9 ; Essential hypertension I10 and Moderate episode of recurrent major depressive disorder F33.1 [facility] [id number] [place] [address] 67464- 5159 09 Feb, 2018 [facility] [id number] [place] [address] 99746- 5720 15 Jan, 2018 [facility] [id number] [address] 0741 Jan, [facility] [address] [address]- 5647 Dec, Low back pain M54.5 and Other chronic pain G89.29 [facility] [address] [address]- 3150 Dec, [facility] [id number] [place] [address] 41735- 7549 Nov, Other chronic pain G89.29 [facility] [address] [place] [address] 74275- 7194 Oct, [facility] [id number] [place] [address] 00635- 4639 Oct, Other chronic pain G89.29 [facility] [id number] [place] [address] 78708- 1640 Sep, [facility] [address] [place] [address] 07283- 6745 Sep, Other chronic pain G89.29 [facility] [address] [place] [address] 42690- 0873 Sep, Other chronic pain G89.29 [facility] [address] [address]- 7121 Sep, Medicare annual wellness visit, initial Z00.00 ; Chronic obstructive pulmonary disease, unspecified COPD type J44.9 ; Essential hypertension I10 ; Dysthymia F34.1 ; Low back pain M54.5 ; Other chronic pain G89.29 and Tobacco abuse Z72.0 [facility] [address] [address] 4454 August, Other chronic pain G89.29 [facility] [address] [address]- 4804 Jul, Other chronic pain G89.29 [facility] [address] [address]- 4251 Jul, Other chronic pain G89.29 ; Chronic obstructive pulmonary disease, unspecified COPD type J44.9 and Tobacco abuse Z72.0 [facility] [address] [address]- 7153 Jul, [facility] [address] [place] [address] 99359- 4203 Jun, Other chronic pain G89.29 [facility] [id number] [place] [address] 35633- 6088 Jun, Low back pain M54.5 ; Other chronic pain G89.29 ; Chronic obstructive pulmonary disease, unspecified COPD type J44.9 ; Tobacco abuse Z72.0 ; Essential hypertension I10 and Right wrist pain M25.531 [facility] [id number] [place] [address] 71565- 5723 Jun, Other chronic pain G89.29 [facility] [id number] [place] [address] 99989- 6054 May, Other chronic pain G89.29 [facility] [id number] [place] [address] 51740- 9810 Apr, Other chronic pain G89.29 [facility] [address] [address]- 2269 Mar, Other chronic pain G89.29 [facility] [id number] [place] [address] 50293- 2671 Feb, Other chronic pain G89.29 [facility] [id number] [place] [address] 89383- 2170 Feb, Other chronic pain G89.29 [facility] [address] [address]- 3295 Jan, Chronic obstructive pulmonary disease, unspecified COPD type J44.9 ; Essential hypertension I10 ; Other chronic pain G89.29 and Low back pain M54.5 [facility] [address] [facility] [id number] [address]- 9968 Jan, Other chronic pain G89.29 [facility] [address] [facility] [id number] [address] 2546 Dec, Other chronic pain G89.29 [facility] [address] [facility] [id number] [address] 2546 Nov, Other chronic pain G89.29 [facility] [address] [facility] [id number] [address] 2546 Oct, [facility] [address] [facility] [id number] [place] [address]- 7909 Oct, Other chronic pain G89.29 [facility] [id number] [address]- 4339 Sep, Other chronic pain G89.29 [facility] [address] [facility] [id number] [address]- 0873 Sep, [facility] [address] [facility] [id number] [place] [address]- 2131 August, Chronic obstructive pulmonary disease, unspecified COPD type J44.9 and Edema, unspecified type R60.9 [facility] [address] [facility] [id number] [place] [address]- 4066 August, [facility] [address] [facility] [id number] [address] 2546 August, Other chronic pain G89.29 [facility] [address] [facility] [id number] [address]- 0221 Jul, Other chronic pain G89.29 [facility] [address] [facility] [id number] [place] [address]- 9621 Jul, [facility] [address] [facility] [id number] [address]- 4642 Jul, Chronic obstructive pulmonary disease, unspecified COPD type J44.9 ; Other chronic pain G89.29 and Tobacco abuse Z72.0 [facility] [address] [facility] [id number] [place] [address] 57909- 3086 Jun, Other chronic pain G89.29 [facility] [address] [facility] [id number] [place] [address] 33470- 5774 May, Other chronic pain G89.29 [facility] [address] [facility] [id number] [place] [address] 85553- 0987 Apr, Low back pain M54.5 [facility] [address] [facility] [id number] [place] [address] 24528- 7378 Mar, Low back pain M54.5 [facility] [id number] [place] [address] 12506- 6222 Mar, Low back pain M54.5 and Chronic obstructive pulmonary disease, unspecified COPD type J44.9 [facility] [id number] [place] [address] 87014- 0426 Mar, Low back pain M54.5 [facility] [id number] [place] [address] 39467- 7597 Feb, [facility] [id number] [place] [address] 77034- 6812 Jan, Low back pain M54.5 [facility] [id number] [place] [address] 97508- 2984 Dec, Low back pain M54.5 [facility] [address] [facility] [id number] [place] [address] 68754- 2979 Dec, Other chronic pain G89.29 [facility] [id number] [place] [address] 46703- 1785 Nov, [facility] [id number] [place] [address] 30958- 2048 Nov, [facility] [id number] [place] [address] 29164- 3126 Nov, Chronic obstructive pulmonary disease, unspecified COPD type J44.9 [facility] [address] [facility] [id number] [place] [address]- 1692 Nov, Essential hypertension I10 [address] [facility] [id number] [address]- 1453 Nov, Low back pain M54.5 ; Chronic obstructive pulmonary disease , unspecified COPD type J44.9 and Essential hypertension I10 [address] [facility] [id number] [address]- 3803 Oct, Encounter to establish care Z76.89 ; Low back pain M54.5 ; Other chronic pain G89.29 ; Chronic obstructive pulmonary disease, unspecified COPD type J44.9 ; Tobacco abuse Z72.0 and Essential hypertension I10 IMMUNIZATIONS No Known Immunizations SOCIAL HISTORY Never Assessed REASON FOR VISIT Pain management (chronic) Pt in for follow up ROSAURA Rodarte PLAN OF CARE Activity Details Follow Up 3 Months Reason:chronic pain and depression VITAL SIGNS Height 70 in 2018-03-18 Weight 146.2 lbs 2018-03-18 Temperature 98.2 degrees Fahrenheit 2018-03-18 Heart Rate 90 bpm 2018-03-18 Respiratory Rate 20 2018-03-18 Oximetry w/ oxygen @ 5Lpulsatin % 2018-03-18 BMI 20.98 kg/m2 2018-03-18 Blood pressure systolic 128 mmHg 2018-03-18 Blood pressure diastolic 82 mmHg 2018-03-18 MEDICATIONS Medication Instructions Dosage Frequency Start Date End Date Duration Status Oxygen ... by inhalation route at night while sleeping 2 LPM Nov, Active MS Contin 60 MG Orally 2 times a day 1 tablet 12h Feb, 28 days Active Ventolin HFA 108 (90 Base) MCG/ACT Inhalation every 4 hrs 2 puffs as needed 4h 90 days Active Advair Diskus 500-50 MCG/DOSE Inhalation Once a day 2 puffs 24h 90 days Active MS Contin 30 MG Orally every 12 hrs. Take with 60mg tablet 1 tablet Feb, 28 days Active Oxycodone-Acetaminophen 5-325 MG Orally 2 times a day 2 tablets as needed 12h Feb, 28 days Active Escitalopram Oxalate 20 MG Orally Once a day 1 tablet 24h Sep, 30 day(s) Active Lisinopril-Hydrochlorothiazide 20-25 MG Orally Once a day 1 tablet 24h 90 days Active RESULTS No Results PROCEDURES Procedure Date Ordered Result Body Site [facility], 2018 [facility] VISIT ESTABLISHED PATIENT Mar 18, 2018 INSTRUCTIONS MEDICATIONS ADMINISTERED No Known Medications MEDICAL [...]
--- OUTSIDE RECORDS SUMMARY | 2018-06-28 03:36 | XMS REPORT ---
Author Author YORDAN CURIEL Organization [facility] Address [address] [place] [address] Care Team Providers Care Warehouse Technician Name Role Phone YORDAN CURIEL Unavailable PROBLEMS Type Condition ICD9-CM Code JBK11-NZ Code Onset Dates Condition Status SNOMED Code Problem Chronic obstructive pulmonary disease, unspecified COPD type J44.9 Active 78210599 Problem Moderate episode of recurrent major depressive disorder F33.1 Active 640213406 Problem Encounter to establish care Z76.89 Active 781801494 Problem Tobacco abuse Z72.0 Active 114550488 Problem Essential hypertension I10 Active 34488273 Problem Other chronic pain G89.29 Active 71960702 Problem Low back pain M54.5 Active 173986286 ALLERGIES No Information ENCOUNTERS Encounter Location Date Diagnosis [facility] [id number] [place] [address] 03953- 7707 Mar, [facility] [id number] [place] [address] 91952- 1973 Mar, [facility] [id number] [place] [address] 75053- 1834 Mar, [facility] [id number] [place] [address] 20779- 6412 Feb, Low back pain M54.5 ; Therapeutic drug monitoring Z51.81 ; Chronic obstructive pulmonary disease, unspecified COPD type J44.9 ; Essential hypertension I10 and Moderate episode of recurrent major depressive disorder F33.1 [facility] [id number] [place] [address] 52964- 2840 09 Feb, 2018 [facility] [id number] [place] [address] 14733- 4240 Jan, [facility] [id number] [address]- 4002 Jan, [facility] [address], [place] [address]- 8342 Dec, Low back pain M54.5 and Other chronic pain G89.29 [facility] [address], [place] [address]- 0913 Dec, [facility] [id number] [place] [address] 69843- 1235 Nov, Other chronic pain G89.29 [facility] [address], [place] [address]- 9592 Oct, [facility] [id number] [place] [address] 08931- 4179 Oct, Other chronic pain G89.29 [facility] [id number] [place] [address] 57529- 6860 Sep, [facility] [address], [place] [address]- 2562 Sep, Other chronic pain G89.29 [facility] [address], [place] [address]- 3762 Sep, Other chronic pain G89.29 [facility] [address], [place] [address]- 4680 Sep, Medicare annual wellness visit, initial Z00.00 ; Chronic obstructive pulmonary disease, unspecified COPD type J44.9 ; Essential hypertension I10 ; Dysthymia F34.1 ; Low back pain M54.5 ; Other chronic pain G89.29 and Tobacco abuse Z72.0 [facility] [address], [place] [address]- 8554 August, Other chronic pain G89.29 [facility] [address], [place] [address]- 7959 Jul, Other chronic pain G89.29 [facility] [address], [place] [address]- 9174 Jul, Other chronic pain G89.29 ; Chronic obstructive pulmonary disease, unspecified COPD type J44.9 and Tobacco abuse Z72.0 [facility] [address], [place] [address]- 7976 Jul, [facility] [id number] [place] [address] 79491- 9069 Jun, Other chronic pain G89.29 [facility] [id number] [place] [address] 82848- 0326 Jun, Low back pain M54.5 ; Other chronic pain G89.29 ; Chronic obstructive pulmonary disease, unspecified COPD type J44.9 ; Tobacco abuse Z72.0 ; Essential hypertension I10 and Right wrist pain M25.531 [facility] [id number] [place] [address] 08371- 3353 Jun, Other chronic pain G89.29 [facility] [address] [place] [address] 48183- 3220 May, Other chronic pain G89.29 [facility] [id number] [place] [address] 59891- 7706 Apr, Other chronic pain G89.29 [facility] [address], [place] [address]- 9096 Mar, Other chronic pain G89.29 [facility] [address] [place] [address] 60994- 2678 Feb, Other chronic pain G89.29 [facility] [id number] [place] [address] 11137- 6864 Feb, Other chronic pain G89.29 [facility] [address], [place] [address]- 7968 Jan, Chronic obstructive pulmonary disease, unspecified COPD type J44.9 ; Essential hypertension I10 ; Other chronic pain G89.29 and Low back pain M54.5 [facility] [address] [facility] [id number], [place] [address]- 9573 Jan, Other chronic pain G89.29 [facility] [address] [facility] [id number], [place] [address]- 1586 Dec, Other chronic pain G89.29 [facility] [address] [facility] [id number], [place] [address]- 0676 Nov, Other chronic pain G89.29 [facility] [address] [facility] [id number], [place] [address]- 0287 Oct, [facility] [address] [facility] [id number], [place] [address]- 7574 Oct, Other chronic pain G89.29 [facility] [address] [facility] [id number], [place] [address]- 8075 Sep, Other chronic pain G89.29 [facility] [address] [facility] [id number], [place] [address]- 8599 Sep, [facility] [address] [facility] [id number], [place] [address]- 1568 August, Chronic obstructive pulmonary disease, unspecified COPD type J44.9 and Edema, unspecified type R60.9 [facility] [address] [facility] [id number], [place] [address]- 7552 August, [facility] [address] [facility] [id number], [place] [address]- 3280 August, Other chronic pain G89.29 [facility] [address] [facility] [id number], [place] [address]- 9123 Jul, Other chronic pain G89.29 [facility] [address] [facility] [id number], [place] [address]- 6199 Jul, [facility] [address] [facility] [id number], [place] [address]- 9102 Jul, Chronic obstructive pulmonary disease, unspecified COPD type J44.9 ; Other chronic pain G89.29 and Tobacco abuse Z72.0 [facility] [address] [facility] [id number] [place] [address] 69734- 4472 Jun, Other chronic pain G89.29 [facility] [address] [facility] [id number] [place] [address] 95373- 2521 May, Other chronic pain G89.29 [facility] [address] [facility] [id number] [place] [address] 86987- 9964 Apr, Low back pain M54.5 [facility] [address] [facility] [id number] [place] [address] 74396- 0706 Mar, Low back pain M54.5 [facility] [id number] [place] [address] 77499- 7670 Mar, Low back pain M54.5 and Chronic obstructive pulmonary disease, unspecified COPD type J44.9 [facility] [address] [facility] [id number] [place] [address] 47487- 4705 Mar, Low back pain M54.5 [facility] [address] [facility] [id number] [place] [address] 65789- 2709 Feb, [facility] [id number] [place] [address] 83126- 1578 Jan, Low back pain M54.5 [facility] [id number], [place] [address]- 9062 Dec, Low back pain M54.5 [facility] [address] [facility] [id number] [place] [address] 53892- 0684 Dec, Other chronic pain G89.29 [facility] [address] [facility] [id number] [place] [address] 48504- 9433 Nov, [facility] [id number] [place] [address] 91524- 4938 Nov, [facility] [id number] [place] [address] 009449- 2532 Nov, Chronic obstructive pulmonary disease, unspecified COPD type J44.9 [facility] [id number], [place] [address]- 4592 Nov, Essential hypertension I10 [facility] [id number], [place] [address]- 8770 Nov, Low back pain M54.5 ; Chronic obstructive pulmonary disease , unspecified COPD type J44.9 and Essential hypertension I10 [facility] [id number], [place] [address]- 0195 Oct, Encounter to establish care Z76.89 ; Low back pain M54.5 ; Other chronic pain G89.29 ; Chronic obstructive pulmonary disease, unspecified COPD type J44.9 ; Tobacco abuse Z72.0 and Essential hypertension I10 IMMUNIZATIONS No Known Immunizations SOCIAL HISTORY Never Assessed REASON FOR VISIT Positive PDM PLAN OF CARE VITAL SIGNS MEDICATIONS Unknown [...]
--- OUTSIDE RECORDS SUMMARY | 2018-06-28 03:36 | XMS REPORT ---
Author Author YORDAN CURIEL Organization [facility] Address [address] [place] [address] Care Team Providers Care Tank Car Repairer Name Role Phone YORDAN CURIEL Unavailable PROBLEMS Type Condition ICD9-CM Code FHF43-GZ Code Onset Dates Condition Status SNOMED Code Problem Chronic obstructive pulmonary disease, unspecified COPD type J44.9 Active 89944037 Problem Moderate episode of recurrent major depressive disorder F33.1 Active 120083215 Problem Encounter to establish care Z76.89 Active 183979490 Problem Tobacco abuse Z72.0 Active 866698905 Problem Essential hypertension I10 Active 72640644 Problem Other chronic pain G89.29 Active 92520337 Problem Low back pain M54.5 Active 409562639 ALLERGIES No Information ENCOUNTERS Encounter Location Date Diagnosis [facility] [id number] [place] [address] 51689- 6080 Mar, [facility] [id number] [place] [address] 52951- 9074 Mar, [facility] [address] [address] Mar, [facility] [id number] [place] [address] 21784- 2052 Mar, [facility] [id number] [place] [address] 39330- 8729 Feb, Low back pain M54.5 ; Therapeutic drug monitoring Z51.81 ; Chronic obstructive pulmonary disease, unspecified COPD type J44.9 ; Essential hypertension I10 and Moderate episode of recurrent major depressive disorder F33.1 [facility] [id number] [place] [address] 70608- 5764 Feb, [facility] [id number] [address] 1648 15 Jan, 2018 [facility] [address] [address] Jan, [facility] [address] [address] 2498 17 Dec, 2017 Low back pain M54.5 and Other chronic pain G89.29 [facility] [id number] [place] [address] 21756- 8013 Dec, [facility] [id number] [place] [address] 64053- 1322 Nov, Other chronic pain G89.29 [facility] [id number] [place] [address] 32131- 1345 Oct, [facility] [id number] [place] [address] 46251- 9125 Oct, Other chronic pain G89.29 [facility] [address], [place] [address] 18[address] Sep, [facility] [address] [place] [address] 36049- 3071 Sep, Other chronic pain G89.29 [facility] [address] [address] 5646 Sep, Other chronic pain G89.29 [facility] [address] [address] 7534 Sep, Medicare annual wellness visit, initial Z00.00 ; Chronic obstructive pulmonary disease, unspecified COPD type J44.9 ; Essential hypertension I10 ; Dysthymia F34.1 ; Low back pain M54.5 ; Other chronic pain G89.29 and Tobacco abuse Z72.0 [facility] [address] [address] 3550 August, Other chronic pain G89.29 [facility] [id number] [place] [address] 53228- 7427 Jul, Other chronic pain G89.29 [facility] [id number] [place] [address] 52570- 1380 Jul, Other chronic pain G89.29 ; Chronic obstructive pulmonary disease, unspecified COPD type J44.9 and Tobacco abuse Z72.0 [facility] [id number] [place] [address] 02649- 5863 Jul, [facility] [id number] [place] [address] 21962- 1304 Jun, Other chronic pain G89.29 [facility] [id number] [place] [address] 28283- 3162 Jun, Low back pain M54.5 ; Other chronic pain G89.29 ; Chronic obstructive pulmonary disease, unspecified COPD type J44.9 ; Tobacco abuse Z72.0 ; Essential hypertension I10 and Right wrist pain M25.531 [facility] [id number] [place] [address] 60663- 4759 Jun, Other chronic pain G89.29 [facility] [id number] [place] [address] 47377- 6881 May, Other chronic pain G89.29 [facility] [id number] [place] [address] 89472- 8039 Apr, Other chronic pain G89.29 [facility] [id number] [place] [address] 39135- 3964 Mar, Other chronic pain G89.29 [facility] [id number] [place] [address] 75556- 5161 Feb, Other chronic pain G89.29 [facility] [id number] [place] [address] 97820- 2968 Feb, Other chronic pain G89.29 [facility] [id number] [place] [address] 23175- 5456 Jan, Chronic obstructive pulmonary disease, unspecified COPD type J44.9 ; Essential hypertension I10 ; Other chronic pain G89.29 and Low back pain M54.5 [facility] [address] [address]- 5308 Jan, Other chronic pain G89.29 [facility] [address], [place] [address]- 0605 Dec, Other chronic pain G89.29 [facility] [id number] [address] 4652 Nov, Other chronic pain G89.29 [facility] [id number] [place] [address] 90409- 0952 Oct, [facility] [id number] [place] [address] 10631- 8438 Oct, Other chronic pain G89.29 [facility] [id number] [place] [address] 28018- 6401 Sep, Other chronic pain G89.29 [facility] [id number] [address]- 0256 Sep, [facility] [id number] [place] [address] 14901- 2415 August, Chronic obstructive pulmonary disease, unspecified COPD type J44.9 and Edema, unspecified type R60.9 [facility] [address] [address] 0205 August, [facility] [address] [address]- 4856 August, Other chronic pain G89.29 [facility] [address] [place] [address] 55491- 1407 Jul, Other chronic pain G89.29 [facility] [address] [address]- 7762 Jul, [facility] [id number] [address]- 4678 Jul, Chronic obstructive pulmonary disease, unspecified COPD type J44.9 ; Other chronic pain G89.29 [address] Tobacco abuse Z72.0 [facility] [address] [facility] [id number] [address] 9921 Jun, Other chronic pain G89.29 [facility] [id number] [place] [address] 85176- 7306 May, Other chronic pain G89.29 [facility] [address] [facility] [id number] [place] [address] 80738- 6588 Apr, Low back pain M54.5 [facility] [id number] [place] [address] 84345- 7714 Mar, Low back pain M54.5 [facility] [id number] [place] [address] 49872- 5405 Mar, Low back pain M54.5 and Chronic obstructive pulmonary disease, unspecified COPD type J44.9 [facility] [id number] [place] [address] 09677- 5417 Mar, Low back pain M54.5 [facility] [id number] [place] [address] 95326- 1859 Feb, [facility] [id number] [place] [address] 60599- 1963 Jan, Low back pain M54.5 [facility] [id number] [place] [address] 33205- 3216 Dec, Low back pain M54.5 [facility] [id number] [place] [address] 77457- 2284 Dec, Other chronic pain G89.29 [facility] [id number] [place] [address] 57853- 9211 Nov, [facility] [id number] [place] [address] 71987- 9574 Nov, [facility] [address] [facility] [id number] [address]- 9988 Nov, Chronic obstructive pulmonary disease, unspecified COPD type J44.9 [facility] [id number] [address]- 0261 Nov, Essential hypertension I10 [id number] [address]- 9105 Nov, Low back pain M54.5 ; Chronic obstructive pulmonary disease , unspecified COPD type J44.9 and Essential hypertension I10 [address] [facility] [id number] [address]- 8508 Oct, Encounter to establish care Z76.89 ; Low back pain M54.5 ; Other chronic pain G89.29 ; Chronic obstructive pulmonary disease, unspecified COPD type J44.9 ; Tobacco abuse Z72.0 and Essential hypertension I10 IMMUNIZATIONS No Known Immunizations SOCIAL HISTORY Never Assessed REASON FOR VISIT Controlled Med Refill 04/09-04/15 PLAN OF CARE VITAL SIGNS MEDICATIONS Medication Instructions Dosage Frequency Start Date End Date Duration Status Percocet 10-325 MG Orally twice daily 1 tablet as needed Mar, 7 days Active MS Contin 15 mg Orally every 12 hrs, take with 60mg tab 1 tablet Mar, 7 days Active MS Contin 60 mg Orally every 12 hrs, take with 15mg tab 1 tablet Mar, 7 days Active RESULTS No Results PROCEDURES No [...] tied off Hospitalization History surgeries Hospitalization History pneumonia-[facility] 08/30/16 Hospitalization History Acute Resp failure, COPD exacerbation-[facility] 09/03/16
--- OUTSIDE RECORDS SUMMARY | 2018-06-28 03:36 | XMS REPORT ---
Author Author NATASHA OLIVER Organization [facility] Address [address] [place] [address] Care Team Providers Care Hat Blocking Operator Name Role Phone NATASHA OLIVER Unavailable PROBLEMS Type Condition ICD9-CM Code SAC59-XH Code Onset Dates Condition Status SNOMED Code Problem Chronic obstructive pulmonary disease, unspecified COPD type J44.9 Active 56110636 Problem Moderate episode of recurrent major depressive disorder F33.1 Active 062772144 Problem Encounter to establish care Z76.89 Active 054842671 Problem Tobacco abuse Z72.0 Active 955576215 Problem Essential hypertension I10 Active 90355989 Problem Other chronic pain G89.29 Active 85631443 Problem Low back pain M54.5 Active 840146141 ALLERGIES No Information ENCOUNTERS Encounter Location Date Diagnosis [address] [id number] [place] [address] 59490- 4744 Mar, [facility] [address] 85719- 7626 Mar, [facility] [id number] [place] [address] 04198- 7356 Mar, [facility] [id number] [place] [address] 62143- 0655 Mar, [facility] [id number] [place] [address] 36791- 4726 Mar, [facility] [address] 86578- 7314 Feb, Low back pain M54.5 ; Therapeutic drug monitoring Z51.81 ; Chronic obstructive pulmonary disease, unspecified COPD type J44.9 ; Essential hypertension I10 and Moderate episode of recurrent major depressive disorder F33.1 [facility] [address] [place] [address]- 1255 Feb, [facility] [address] [address]- 2263 15 Jan, 2018 [facility] [address] [address]- 8842 Jan, [facility] [id number] [place] [address] 42510- 0697 Dec, Low back pain M54.5 and Other chronic pain G89.29 [facility] [id number] [place] [address] 70286- 4502 Dec, [facility] [id number] [place] [address] 54505- 8355 Nov, Other chronic pain G89.29 [facility] [id number] [place] [address] 76594- 8977 Oct, [facility] [id number] [place] [address] 24030- 4493 Oct, Other chronic pain G89.29 [facility] [id number] [place] [address] 35068- 5297 Sep, [facility] [address], [place] [address]- 0787 Sep, Other chronic pain G89.29 [facility] [address], [place] [address]- 3567 Sep, Other chronic pain G89.29 [facility] [address] [address]- 3766 Sep, Medicare annual wellness visit, initial Z00.00 ; Chronic obstructive pulmonary disease, unspecified COPD type J44.9 ; Essential hypertension I10 ; Dysthymia F34.1 ; Low back pain M54.5 ; Other chronic pain G89.29 and Tobacco abuse Z72.0 [facility] [address] [address]- 7895 August, Other chronic pain G89.29 [facility] [address], [place] [address]- 9466 Jul, Other chronic pain G89.29 [facility] [id number] [place] [address] 52390- 2086 Jul, Other chronic pain G89.29 ; Chronic obstructive pulmonary disease, unspecified COPD type J44.9 and Tobacco abuse Z72.0 [facility] [id number] [place] [address] 83360- 4781 Jul, [facility] [id number] [place] [address] 78174- 1863 Jun, Other chronic pain G89.29 [facility] [id number] [place] [address] 86845- 7080 Jun, Low back pain M54.5 ; Other chronic pain G89.29 ; Chronic obstructive pulmonary disease, unspecified COPD type J44.9 ; Tobacco abuse Z72.0 ; Essential hypertension I10 and Right wrist pain M25.531 [facility] [id number] [place] [address] 19998- 4479 Jun, Other chronic pain G89.29 [facility] [id number] [place] [address] 58968- 5584 May, Other chronic pain G89.29 [facility] [id number] [place] [address] 98612- 7988 Apr, Other chronic pain G89.29 [facility] [address] [address]- 3246 Mar, Other chronic pain G89.29 [facility] [id number] [place] [address] 81448- 5127 Feb, Other chronic pain G89.29 [facility] [id number] [place] [address] 23672- 5267 Feb, Other chronic pain G89.29 [facility] [address] [facility] [id number] [address]- 0617 Jan, Chronic obstructive pulmonary disease, unspecified COPD type J44.9 ; Essential hypertension I10 ; Other chronic pain G89.29 and Low back pain M54.5 [facility] [address], [place] [address]- 4579 Jan, Other chronic pain G89.29 [facility] [id number] [place] [address] 98724- 4045 Dec, Other chronic pain G89.29 [facility] [id number] [place] [address] 73991- 5516 Nov, Other chronic pain G89.29 [facility] [id number] [address]- 5106 Oct, [facility] [id number] [place] [address] 71568- 7924 Oct, Other chronic pain G89.29 [facility] [address], [place] [address]- 8866 Sep, Other chronic pain G89.29 [facility] [address] [address]- 3252 Sep, [facility] [id number] [address]- 6588 August, Chronic obstructive pulmonary disease, unspecified COPD type J44.9 and Edema, unspecified type R60.9 [facility] [id number] [address]- 3049 August, [facility] [id number] [address]- 0106 August, Other chronic pain G89.29 [facility] [id number] [address]- 4809 Jul, Other chronic pain G89.29 [facility] [id number] [address]- 3956 Jul, [facility] [id number] [place] [address] 10253- 5765 Jul, Chronic obstructive pulmonary disease, unspecified COPD type J44.9 ; Other chronic pain G89.29 and Tobacco abuse Z72.0 [facility] [id number] [place] [address] 38676- 1142 Jun, Other chronic pain G89.29 [facility] [id number] [place] [address] 06209- 2589 May, Other chronic pain G89.29 [facility] [id number] [place] [address] 62735- 9067 Apr, Low back pain M54.5 [facility] [id number] [place] [address] 62333- 6806 Mar, Low back pain M54.5 [facility] [id number] [place] [address] 19794- 7333 Mar, Low back pain M54.5 and Chronic obstructive pulmonary disease, unspecified COPD type J44.9 [facility] [id number] [place] [address] 84830- 0671 Mar, Low back pain M54.5 [facility] [id number] [place] [address] 11228- 2597 Feb, [facility] [id number] [place] [address] 17390- 9345 Jan, Low back pain M54.5 [facility] [id number] [place] [address] 85745- 9788 08 Dec, 2015 Low back pain M54.5 [facility] [address] [place] [address] 49905- 3982 07 Dec, 2015 Other chronic pain G89.29 [facility] [id number] [place] [address] 25346- 8183 Nov, [facility] [address] [facility] [id number] [place] [address]- 8695 Nov, [facility] [address] [id number] [address]- 1425 Nov, Chronic obstructive pulmonary disease, unspecified COPD type J44.9 [facility] [id number] [address]- 0938 Nov, Essential hypertension I10 [place] [id number] [address]- 8814 Nov, Low back pain M54.5 ; Chronic obstructive pulmonary disease , unspecified COPD type J44.9 and Essential hypertension I10 [facility] [address] [facility] [id number] [address]- 2108 Oct, Encounter to establish care Z76.89 ; Low back pain M54.5 ; Other chronic pain G89.29 ; Chronic obstructive pulmonary disease, unspecified COPD type J44.9 ; Tobacco abuse Z72.0 and Essential hypertension I10 IMMUNIZATIONS No Known Immunizations SOCIAL HISTORY Never Assessed REASON FOR VISIT Controlled Med Refill 04/15 PLAN OF CARE VITAL SIGNS MEDICATIONS Medication Instructions Dosage Frequency Start Date End Date Duration Status MS Contin 15 MG Orally Once a day 1 tablet in AM with 60mg Tablet 24h Mar, 7 days Active Percocet 10-325 MG Orally twice daily 1 tablet as needed Mar, 7 days Active MS Contin 60 MG Orally 2 times a day 1 tablet 12h Mar, 7 days Active RESULTS No Results [...] tied off Hospitalization History surgeries Hospitalization History pneumonia-[facility] 08/30/16 Hospitalization History Acute Resp failure, COPD exacerbation-[facility] 09/03/16
--- OUTSIDE RECORDS SUMMARY | 2018-06-28 03:37 | XMS REPORT ---
Author Author YORDAN CURIEL Organization [facility] Address [address] [place] [address] Care Team Providers Care Blocking Machine Tender Name Role Phone YORDAN CURIEL Unavailable PROBLEMS Type Condition ICD9-CM Code UBH49-AG Code Onset Dates Condition Status SNOMED Code Problem Tobacco abuse Z72.0 Active 851800648 Problem Dysthymia F34.1 Active 40129563 Problem Essential hypertension I10 Active 98824510 Problem Other chronic pain G89.29 Active 77164925 Problem Low back pain M54.5 Active 170801329 Problem Chronic obstructive pulmonary disease, unspecified COPD type J44.9 Active 61417433 Problem Encounter to establish care Z76.89 Active 806895901 ALLERGIES No Information ENCOUNTERS Encounter Location Date Diagnosis [facility] [id number] [place] [address] 48707- 9044 Jan, [facility] [address] [address]66- 7754 Dec, Low back pain M54.5 and Other chronic pain G89.29 [facility] [id number] [place] [address] 21512- 2364 Dec, [facility] [id number] [place] [address] 08114- 0132 Nov, Other chronic pain G89.29 [facility] [id number] [place] [address] 08683- 3856 Oct, [facility] [id number] [place] [address] 50839- 7158 Oct, Other chronic pain G89.29 [facility] [id number] [place] [address] 79986- 6610 Sep, [facility] [address], [place] [address] 8295 Sep, Other chronic pain G89.29 [facility] [id number] [place] [address] 73548- 0309 Sep, Other chronic pain G89.29 [facility] [address], [place] [address] 5862 Sep, Medicare annual wellness visit, initial Z00.00 ; Chronic obstructive pulmonary disease, unspecified COPD type J44.9 ; Essential hypertension I10 ; Dysthymia F34.1 ; Low back pain M54.5 ; Other chronic pain G89.29 and Tobacco abuse Z72.0 [facility] [id number] [place] [address] 03604- 5242 August, Other chronic pain G89.29 [facility] [id number] [place] [address] 50756- 2653 Jul, Other chronic pain G89.29 [facility] [id number] [place] [address] 80748- 1975 Jul, Other chronic pain G89.29 ; Chronic obstructive pulmonary disease, unspecified COPD type J44.9 and Tobacco abuse Z72.0 [facility] [address], [place] [address] 1558 Jul, [facility] [id number] [place] [address] 92545- 2651 Jun, Other chronic pain G89.29 [facility] [address], [place] [address] 4560 Jun, Low back pain M54.5 ; Other chronic pain G89.29 ; Chronic obstructive pulmonary disease, unspecified COPD type J44.9 ; Tobacco abuse Z72.0 ; Essential hypertension I10 and Right wrist pain M25.531 [facility] [address], [place] [address] 0674 Jun, Other chronic pain G89.29 [facility] [address] [facility] [id number] [address] 3127 May, Other chronic pain G89.29 [facility] [address] [facility] [id number] [place] [address] 11107- 8006 Apr, Other chronic pain G89.29 [facility] [address] [facility] [id number] [place] [address] 80538- 9886 Mar, Other chronic pain G89.29 [facility] [address] [facility] [id number] [place] [address] 11794- 4076 Feb, Other chronic pain G89.29 [facility] [id number] [place] [address] 56303- 5396 Feb, Other chronic pain G89.29 [facility] [id number] [place] [address] 87395- 4820 Jan, Chronic obstructive pulmonary disease, unspecified COPD type J44.9 ; Essential hypertension I10 ; Other chronic pain G89.29 and Low back pain M54.5 [facility] [id number] [place] [address] 57225- 2025 Jan, Other chronic pain G89.29 [facility] [id number] [place] [address] 59490- 3727 Dec, Other chronic pain G89.29 [facility] [id number] [place] [address] 40455- 5254 Nov, Other chronic pain G89.29 [facility] [address] [facility] [id number], [place] [address] 7553 Oct, [facility] [id number] [place] [address] 23214- 9486 Oct, Other chronic pain G89.29 [facility] [id number], [place] [address] 8429 Sep, Other chronic pain G89.29 [facility] [address] [place] [address]- 6318 Sep, [facility] [id number] [place] [address] 85005- 5262 August, Chronic obstructive pulmonary disease, unspecified COPD type J44.9 and Edema, unspecified type R60.9 [facility] [id number] [place] [address] 06274- 8495 August, [facility] [id number] [place] [address] 71863- 6559 August, Other chronic pain G89.29 [facility] [id number] [place] [address] 28526- 8260 Jul, Other chronic pain G89.29 [facility] [id number] [place] [address] 92948- 6997 Jul, [facility] [id number] [place] [address] 87176- 7967 Jul, Chronic obstructive pulmonary disease, unspecified COPD type J44.9 ; Other chronic pain G89.29 and Tobacco abuse Z72.0 [facility] [id number] [place] [address] 05850- 0353 Jun, Other chronic pain G89.29 [facility] [address], [place] [address]- 5021 May, Other chronic pain G89.29 [facility] [id number] [place] [address] 35891- 1837 Apr, Low back pain M54.5 [facility] [id number] [place] [address] 60697- 1783 Mar, Low back pain M54.5 [facility] [id number] [place] [address] 78672- 9787 Mar, Low back pain M54.5 and Chronic obstructive pulmonary disease, unspecified COPD type J44.9 [facility] [id number], [place] [address] 8627 Mar, Low back pain M54.5 [facility] [id number] [place] [address] 57984- 3270 Feb, [facility] [id number] [place] [address] 28258- 9940 Jan, Low back pain M54.5 [facility] [id number] [place] [address] 33741- 6110 Dec, Low back pain M54.5 [facility] [id number] [place] [address] 73840- 1941 Dec, Other chronic pain G89.29 [facility] [id number] [place] [address] 51354- 7083 Nov, [facility] [id number] [place] [address] 12160- 2952 Nov, [facility] [id number] [place] [address] 70974- 4537 Nov, Chronic obstructive pulmonary disease, unspecified COPD type J44.9 [facility] [id number] [place] [address] 84487- 0510 Nov, Essential hypertension I10 [facility] [id number] [place] [address] 16808- 3140 Nov, Low back pain M54.5 ; Chronic obstructive pulmonary disease , unspecified COPD type J44.9 and Essential hypertension I10 [facility] [id number] [place] [address] 01436- 7911 Oct, Encounter to establish care Z76.89 ; Low back pain M54.5 ; Other chronic pain G89.29 ; Chronic obstructive pulmonary disease, unspecified COPD type J44.9 ; Tobacco abuse Z72.0 and Essential hypertension I10 IMMUNIZATIONS No Known Immunizations SOCIAL HISTORY Never Assessed REASON FOR VISIT Controlled Med Refill 12/10/17 PLAN OF CARE VITAL SIGNS MEDICATIONS Medication Instructions Dosage Frequency Start Date End Date Duration Status MS Contin 60 mg Orally every 12 hrs. Take with 15 MG tablet 1 tablet Nov, 28 days Active Oxycodone-Acetaminophen 5-325 MG Orally 2 times a day 2 tablets as needed 12h Nov, 28 days Active MS Contin 15 mg Orally every 12 hrs 1 tablet 12h Nov, Dec, 28 days Active RESULTS No Results [...] tied off Hospitalization History surgeries Hospitalization History pneumonia-[facility] 08/30/16 Hospitalization History Acute Resp failure, COPD exacerbation-[facility] 09/03/16
--- OUTSIDE RECORDS SUMMARY | 2018-06-28 03:37 | XMS REPORT ---
Author Author YORDAN CURIEL Organization [facility] Address [address] [place] [address] Care Team Providers [employer] Name Role Phone YORDAN CURIEL Unavailable PROBLEMS Type Condition ICD9-CM Code AZW15-XX Code Onset Dates Condition Status SNOMED Code Problem Tobacco abuse Z72.0 Active 747496039 Problem Dysthymia F34.1 Active 72031603 Problem Essential hypertension I10 Active 62217356 Problem Other chronic pain G89.29 Active 77868598 Problem Low back pain M54.5 Active 116665792 Problem Chronic obstructive pulmonary disease, unspecified COPD type J44.9 Active 50792543 Problem Encounter to establish care Z76.89 Active 015140171 ALLERGIES No Information ENCOUNTERS Encounter Location Date Diagnosis [facility] [id number] [place] [address] 07068- 9361 Feb, [facility] [id number] [place] [address] 40816- 7103 Feb, [facility] [id number] [place] [address] 52955- 2268 15 Jan, 2018 [facility] [id number] [place] [address] 55543- 8477 Jan, [facility] [id number] [place] [address] 50322- 1929 Dec, Low back pain M54.5 and Other chronic pain G89.29 [facility] [id number] [place] [address] 59827- 3634 14 Dec, 2017 [facility] [id number] [place] [address] 66958- 8773 Nov, Other chronic pain G89.29 [facility] [address], [place] [address]- 2272 Oct, [facility] [address], [place] [address]- 6327 Oct, Other chronic pain G89.29 [facility] [address], [place] [address]- 8871 Sep, [facility] [id number] [place] [address] 89151- 9773 Sep, Other chronic pain G89.29 [facility] [address], [place] [address]- 7856 Sep, Other chronic pain G89.29 [facility] [address], [place] [address]- 7708 Sep, Medicare annual wellness visit, initial Z00.00 ; Chronic obstructive pulmonary disease, unspecified COPD type J44.9 ; Essential hypertension I10 ; Dysthymia F34.1 ; Low back pain M54.5 ; Other chronic pain G89.29 and Tobacco abuse Z72.0 [facility] [address], [place] [address]- 7013 August, Other chronic pain G89.29 [facility] [address], [place] [address]- 7041 Jul, Other chronic pain G89.29 [facility] [address], [place] [address]- 4289 Jul, Other chronic pain G89.29 ; Chronic obstructive pulmonary disease, unspecified COPD type J44.9 and Tobacco abuse Z72.0 [facility] [address], [place] [address]- 1289 Jul, [facility] [address], [place] [address]- 5403 Jun, Other chronic pain G89.29 [facility] [address], [place] [address]- 6733 Jun, Low back pain M54.5 ; Other chronic pain G89.29 ; Chronic obstructive pulmonary disease, unspecified COPD type J44.9 ; Tobacco abuse Z72.0 ; Essential hypertension I10 and Right wrist pain M25.531 [facility] [id number] [place] [address] 29321- 6265 Jun, Other chronic pain G89.29 [facility] [id number] [place] [address] 61839- 3320 May, Other chronic pain G89.29 [facility] [id number] [place] [address] 33759- 8910 Apr, Other chronic pain G89.29 [facility] [id number] [place] [address] 77780- 1260 Mar, Other chronic pain G89.29 [facility] [id number] [place] [address] 03771- 3809 Feb, Other chronic pain G89.29 [facility] [id number] [place] [address] 02683- 8139 Feb, Other chronic pain G89.29 [facility] [id number] [place] [address] 44141- 0620 Jan, Chronic obstructive pulmonary disease, unspecified COPD type J44.9 ; Essential hypertension I10 ; Other chronic pain G89.29 and Low back pain M54.5 [facility] [id number] [place] [address] 75442- 6633 Jan, Other chronic pain G89.29 [facility] [id number] [place] [address] 76721- 5756 Dec, Other chronic pain G89.29 [facility] [id number] [place] [address] 828913- 7054 Nov, Other chronic pain G89.29 [facility] [id number] [place] [address] 34763- 6295 Oct, [facility] [address], [place] [address]- 8055 Oct, Other chronic pain G89.29 [facility] [id number] [place] [address] 83380- 9290 Sep, Other chronic pain G89.29 [facility] [id number] [place] [address] 76505- 3717 Sep, [facility] [id number] [place] [address] 69491- 3022 August, Chronic obstructive pulmonary disease, unspecified COPD type J44.9 and Edema, unspecified type R60.9 [facility] [id number] [place] [address] 50599- 0634 August, [facility] [id number] [place] [address] 76099- 7833 August, Other chronic pain G89.29 [facility] [id number] [place] [address] 90503- 9434 Jul, Other chronic pain G89.29 [facility] [address], [place] [address]- 6801 Jul, [facility] [address], [place] [address]- 1250 Jul, Chronic obstructive pulmonary disease, unspecified COPD type J44.9 ; Other chronic pain G89.29 and Tobacco abuse Z72.0 [facility] [address], [place] [address]- 7587 Jun, Other chronic pain G89.29 [facility] [address] [place] [address]- 4021 May, Other chronic pain G89.29 [facility] [address], [place] [address]- 8915 Apr, Low back pain M54.5 [facility] [id number] [place] [address] 98745- 5157 Mar, Low back pain M54.5 [facility] [id number] [place] [address] 36194- 4195 Mar, Low back pain M54.5 and Chronic obstructive pulmonary disease, unspecified COPD type J44.9 [facility] [id number] [place] [address] 33720- 9662 Mar, Low back pain M54.5 [facility] [id number] [place] [address] 88716- 2295 Feb, [facility] [id number] [place] [address] 49478- 5290 Jan, Low back pain M54.5 [facility] [id number] [place] [address] 01718- 7298 Dec, Low back pain M54.5 [facility] [id number] [place] [address] 60795- 6227 Dec, Other chronic pain G89.29 [facility] [id number] [place] [address] 10433- 0098 Nov, [facility] [id number] [place] [address] 54074- 1295 Nov, [facility] [address] [place] [address] 08450- 4658 Nov, Chronic obstructive pulmonary disease, unspecified COPD type J44.9 [facility] [address] [place] [address] 88245- 9575 Nov, Essential hypertension I10 [facility] [id number] [place] [address] 47749- 6627 Nov, Low back pain M54.5 ; Chronic obstructive pulmonary disease , unspecified COPD type J44.9 and Essential hypertension I10 [facility] [id number] [place] [address] 50375- 4492 12 Oct, 2015 Encounter to establish care Z76.89 ; Low back pain M54.5 ; Other chronic pain G89.29 ; Chronic obstructive pulmonary disease, unspecified COPD type J44.9 ; Tobacco abuse Z72.0 and Essential hypertension I10 IMMUNIZATIONS No Known Immunizations SOCIAL HISTORY Never Assessed REASON FOR VISIT Controlled Med Refill 03/04/18 PLAN OF CARE VITAL SIGNS MEDICATIONS Medication Instructions Dosage Frequency Start Date End Date Duration Status Oxycodone-Acetaminophen 5-325 MG Orally 2 times a day 2 tablets as needed 12Feb, 28 days Active MS Contin 60 MG Orally 2 times a day 1 tablet 12h Feb, 28 days Active MS Contin 30 MG Orally every 12 hrs. Take with 60mg tablet 1 tablet Feb, 28 days Active RESULTS No Results [...] off Hospitalization History surgeries Hospitalization History pneumonia-[facility] 08/30/16 Hospitalization History Acute Resp failure, COPD exacerbation-[facility] 09/03/16
--- OUTSIDE RECORDS SUMMARY | 2018-06-28 03:37 | XMS REPORT ---
Author Author YORDAN CURIEL Organization [facility] Address [address] [place] [address] Care Team Providers Care Photograph Enlarger Name Role Phone YORDAN CURIEL Unavailable PROBLEMS Type Condition ICD9-CM Code MEX48-ZV Code Onset Dates Condition Status SNOMED Code Problem Tobacco abuse Z72.0 Active 906142184 Problem Dysthymia F34.1 Active 78324951 Problem Essential hypertension I10 Active 64314928 Problem Other chronic pain G89.29 Active 63079525 Problem Low back pain M54.5 Active 825331490 Problem Chronic obstructive pulmonary disease, unspecified COPD type J44.9 Active 43773013 Problem Encounter to establish care Z76.89 Active 961459924 ALLERGIES No Information ENCOUNTERS Encounter Location Date Diagnosis [facility] [id number] [place] [address] 20824- 4687 Jan, [facility] [id number] [place] [address] 85465- 9923 Jan, [facility] [id number] [place] [address] 48025- 0758 Jan, [facility] [id number] [place] [address] 13980- 7847 Dec, Low back pain M54.5 and Other chronic pain G89.29 [facility] [id number] [place] [address] 06711- 2304 Dec, [facility] [id number] [place] [address] 49870- 0353 Nov, Other chronic pain G89.29 [facility] [id number] [place] [address] 62831- 7655 Oct, [facility] [address] [address] 0639 Oct, Other chronic pain G89.29 [facility] [id number] [place] [address] 53628- 3947 Sep, [facility] [address] [address] 7013 Sep, Other chronic pain G89.29 [facility] [id number] [place] [address] 95396- 4425 Sep, Other chronic pain G89.29 [facility] [id number] [place] [address] 55550- 8271 Sep, Medicare annual wellness visit, initial Z00.00 ; Chronic obstructive pulmonary disease, unspecified COPD type J44.9 ; Essential hypertension I10 ; Dysthymia F34.1 ; Low back pain M54.5 ; Other chronic pain G89.29 and Tobacco abuse Z72.0 [facility] [id number] [place] [address] 34776- 8189 August, Other chronic pain G89.29 [facility] [id number] [place] [address] 88322- 3744 Jul, Other chronic pain G89.29 [facility] [address] [address] 9523 Jul, Other chronic pain G89.29 ; Chronic obstructive pulmonary disease, unspecified COPD type J44.9 and Tobacco abuse Z72.0 [facility] [address] [address] 0312 Jul, [facility] [address] [address]- 4161 Jun, Other chronic pain G89.29 [facility] [address] [address]- 6537 Jun, Low back pain M54.5 ; Other chronic pain G89.29 ; Chronic obstructive pulmonary disease, unspecified COPD type J44.9 ; Tobacco abuse Z72.0 ; Essential hypertension I10 and Right wrist pain M25.531 [facility] [id number] [place] [address] 43716- 0030 Jun, Other chronic pain G89.29 [facility] [id number] [place] [address] 58555- 3036 May, Other chronic pain G89.29 [facility] [id number] [place] [address] 15019- 9125 Apr, Other chronic pain G89.29 [facility] [id number] [place] [address] 01126- 9390 Mar, Other chronic pain G89.29 [facility] [id number] [place] [address] 77249- 9525 Feb, Other chronic pain G89.29 [facility] [id number] [place] [address] 02326- 0045 Feb, Other chronic pain G89.29 [facility] [id number] [place] [address] 72350- 2884 Jan, Chronic obstructive pulmonary disease, unspecified COPD type J44.9 ; Essential hypertension I10 ; Other chronic pain G89.29 and Low back pain M54.5 [facility] [id number] [place] [address] 49712- 1668 Jan, Other chronic pain G89.29 [facility] [id number] [place] [address] 31570- 8964 Dec, Other chronic pain G89.29 [facility] [id number] [place] [address] 32505- 1371 Nov, Other chronic pain G89.29 [facility] [id number] [place] [address] 75170- 1711 Oct, [facility] [id number] [place] [address] 60159- 6087 Oct, Other chronic pain G89.29 [facility] [address] [address]- 3014 Sep, Other chronic pain G89.29 [facility] [id number] [address]- 9356 Sep, [facility] [id number] [place] [address] 19488- 2485 August, Chronic obstructive pulmonary disease, unspecified COPD type J44.9 and Edema, unspecified type R60.9 [facility] [address] [address]- 8635 August, [facility] [id number] [place] [address] 15455- 8407 August, Other chronic pain G89.29 [facility] [id number] [place] [address] 81992- 4524 Jul, Other chronic pain G89.29 [facility] [address] [address]- 9183 Jul, [facility] [id number] [place] [address] 01539- 5708 Jul, Chronic obstructive pulmonary disease, unspecified COPD type J44.9 ; Other chronic pain G89.29 and Tobacco abuse Z72.0 [facility] [address] [address]- 8185 Jun, Other chronic pain G89.29 [facility] [address] [address]- 2306 May, Other chronic pain G89.29 [facility] [id number] [place] [address] 13093- 2466 Apr, Low back pain M54.5 [facility] [id number] [address]- 9331 Mar, Low back pain M54.5 [facility] [address] [facility] [id number] [address]- 2963 Mar, Low back pain M54.5 and Chronic obstructive pulmonary disease, unspecified COPD type J44.9 [facility] [address] [facility] [id number] [address]- 6110 Mar, Low back pain M54.5 [facility] [address] [facility] [id number] [address]- 7232 Feb, [facility] [address] [facility] [id number] [place] [address]- 7168 Jan, Low back pain M54.5 [facility] [address] [facility] [id number] [place] [address] 91252- 9472 Dec, Low back pain M54.5 [facility] [id number] [address]- 8034 Dec, Other chronic pain G89.29 [facility] [address] [facility] [id number] [place] [address]- 0961 Nov, [facility] [id number] [place] [address] 15867- 5274 Nov, [facility] [id number] [address]- 2819 Nov, Chronic obstructive pulmonary disease, unspecified COPD type J44.9 [facility] [address] [address]- 7912 Nov, Essential hypertension I10 [facility] [address] [facility] [id number] [place] [address]- 1453 Nov, Low back pain M54.5 ; Chronic obstructive pulmonary disease , unspecified COPD type J44.9 and Essential hypertension I10 [facility] [address] [facility] [id number] [place] [address]- 5782 Oct, Encounter to establish care Z76.89 ; Low back pain M54.5 ; Other chronic pain G89.29 ; Chronic obstructive pulmonary disease, unspecified COPD type J44.9 ; Tobacco abuse Z72.0 and Essential hypertension I10 IMMUNIZATIONS No Known Immunizations SOCIAL HISTORY Never Assessed REASON FOR VISIT Controlled Med Refill 02/04/18 PLAN OF CARE VITAL SIGNS MEDICATIONS Medication Instructions Dosage Frequency Start Date End Date Duration Status MS Contin 60 MG Orally 2 times a day 1 tablet 12h 15 Jan, 2018 28 days Active Oxycodone-Acetaminophen 5-325 MG Orally [...] Hospitalization History surgeries Hospitalization History pneumonia-[facility] 08/30/16 Hospitalization History Acute Resp failure, COPD exacerbation-[facility] 09/03/16
--- OUTSIDE RECORDS SUMMARY | 2018-06-28 03:37 | XMS REPORT ---
Author Author YORDAN CURIEL Organization [facility] Address [address] [place] [address] Care Team Providers Care Manufacturer Agent Name Role Phone YORDAN CURIEL Unavailable PROBLEMS Type Condition ICD9-CM Code BZQ90-SS Code Onset Dates Condition Status SNOMED Code Problem Tobacco abuse Z72.0 Active 778165874 Problem Dysthymia F34.1 Active 35537256 Problem Essential hypertension I10 Active 96493600 Problem Other chronic pain G89.29 Active 79865046 Problem Low back pain M54.5 Active 903639504 Problem Chronic obstructive pulmonary disease, unspecified COPD type J44.9 Active 42223389 Problem Encounter to establish care Z76.89 Active 914917489 ALLERGIES No Information ENCOUNTERS Encounter Location Date Diagnosis [id number] [place] [address] 85612- 1740 Jan, [facility] [address] [address]- 6876 Dec, Low back pain M54.5 and Other chronic pain G89.29 [facility] [id number] [place] [address] 25695- 3434 Dec, [facility] [id number] [place] [address] 08981- 2493 Nov, Other chronic pain G89.29 [facility] [id number] [place] [address] 84823- 4451 Oct, [facility] [id number] [place] [address] 96371- 3432 Oct, Other chronic pain G89.29 [facility] [id number] [place] [address] 45918- 3112 Sep, [facility] [address] [address]- 4966 Sep, Other chronic pain G89.29 [facility] [id number] [place] [address] 67595- 3085 Sep, Other chronic pain G89.29 [facility] [address] [address]- 2667 Sep, Medicare annual wellness visit, initial Z00.00 ; Chronic obstructive pulmonary disease, unspecified COPD type J44.9 ; Essential hypertension I10 ; Dysthymia F34.1 ; Low back pain M54.5 ; Other chronic pain G89.29 and Tobacco abuse Z72.0 [id number] [place] [address] 37577- 4990 August, Other chronic pain G89.29 [place] [id number] [place] [address] 06899- 7201 Jul, Other chronic pain G89.29 [id number] [place] [address] 52392- 2936 Jul, Other chronic pain G89.29 ; Chronic obstructive pulmonary disease, unspecified COPD type J44.9 and Tobacco abuse Z72.0 [address] [address]- 7506 Jul, [address] [place] [address] 93831- 0924 Jun, Other chronic pain G89.29 [facility] [address] [address]- 6490 Jun, Low back pain M54.5 ; Other chronic pain G89.29 ; Chronic obstructive pulmonary disease, unspecified COPD type J44.9 ; Tobacco abuse Z72.0 ; Essential hypertension I10 and Right wrist pain M25.531 [facility] [address] [address]- 1168 Jun, Other chronic pain G89.29 [facility] [address] [facility] [id number] [address]- 6911 May, Other chronic pain G89.29 [facility] [address] [facility] [id number] [place] [address] 02813- 4046 Apr, Other chronic pain G89.29 [facility] [address] [facility] [id number] [place] [address] 81436- 6536 Mar, Other chronic pain G89.29 [facility] [address] [facility] [id number] [place] [address] 02294- 0978 Feb, Other chronic pain G89.29 [facility] [id number] [place] [address] 73948- 8776 Feb, Other chronic pain G89.29 [facility] [address] [place] [address] 92215- 8098 Jan, Chronic obstructive pulmonary disease, unspecified COPD type J44.9 ; Essential hypertension I10 ; Other chronic pain G89.29 and Low back pain M54.5 [facility] [id number] [place] [address] 47096- 7060 Jan, Other chronic pain G89.29 [facility] [id number] [place] [address] 07539- 8062 Dec, Other chronic pain G89.29 [facility] [address] [place] [address] 79663- 4594 Nov, Other chronic pain G89.29 [facility] [address] [facility] [id number] [address]- 1089 Oct, [facility] [id number] [place] [address] 17523- 0756 Oct, Other chronic pain G89.29 [facility] [id number] [address]- 4314 Sep, Other chronic pain G89.29 [facility] [address] [place] [address]- 3674 Sep, [facility] [id number] [place] [address] 35809- 8646 August, Chronic obstructive pulmonary disease, unspecified COPD type J44.9 and Edema, unspecified type R60.9 [facility] [address] [place] [address] 70629- 2380 August, [facility] [id number] [place] [address] 27414- 5015 August, Other chronic pain G89.29 [facility] [id number] [place] [address] 26530- 1623 Jul, Other chronic pain G89.29 [facility] [id number] [place] [address] 53744- 6006 Jul, [facility] [id number] [place] [address] 95951- 1518 Jul, Chronic obstructive pulmonary disease, unspecified COPD type J44.9 ; Other chronic pain G89.29 and Tobacco abuse Z72.0 [facility] [id number] [place] [address] 34351- 9010 Jun, Other chronic pain G89.29 [facility] [address] [address]- 4506 May, Other chronic pain G89.29 [facility] [address] [place] [address] 84911- 6957 Apr, Low back pain M54.5 [facility] [address] [place] [address] 87186- 3496 Mar, Low back pain M54.5 [facility] [address] [place] [address] 92111- 1003 Mar, Low back pain M54.5 and Chronic obstructive pulmonary disease, unspecified COPD type J44.9 [facility] [id number] [address]- 3843 Mar, Low back pain M54.5 [facility] [id number] [place] [address] 64608- 0595 Feb, [facility] [id number] [place] [address] 25241- 2317 Jan, Low back pain M54.5 [facility] [id number] [place] [address] 69990- 6458 Dec, Low back pain M54.5 [facility] [id number] [place] [address] 18269- 7996 Dec, Other chronic pain G89.29 [facility] [id number] [place] [address] 14136- 8019 Nov, [facility] [id number] [place] [address] 07994- 6139 Nov, [facility] [id number] [place] [address] 69429- 2686 Nov, Chronic obstructive pulmonary disease, unspecified COPD type J44.9 [facility] [id number] [place] [address] 92461- 2883 Nov, Essential hypertension I10 [facility] [id number] [place] [address] 63895- 2485 Nov, Low back pain M54.5 ; Chronic obstructive pulmonary disease , unspecified COPD type J44.9 and Essential hypertension I10 [facility] [address] [place] [address] 73966- 6855 Oct, Encounter to establish care Z76.89 ; Low back pain M54.5 ; Other chronic pain G89.29 ; Chronic obstructive pulmonary disease, unspecified COPD type J44.9 ; Tobacco abuse Z72.0 and Essential hypertension I10 IMMUNIZATIONS No Known Immunizations SOCIAL HISTORY Never Assessed REASON FOR VISIT Controlled Med Refill 01/07/18 PLAN OF CARE VITAL SIGNS MEDICATIONS Medication Instructions Dosage Frequency Start Date End Date Duration Status MS Contin 60 mg Orally every 12 hrs 1 tablet 12h Dec, Jan, 28 days Active MS Contin 30 MG Orally every 12 hrs. Take with 60mg tablet 1 tablet Dec, Jan, 28 days Active Oxycodone-Acetaminophen 5-325 MG Orally 2 times a day 2 tablets as needed 12h Dec, Jan, 28 days Active RESULTS No Results [...] tied off Hospitalization History surgeries Hospitalization History pneumonia-[facility] 08/30/16 Hospitalization History Acute Resp failure, COPD exacerbation-[facility] 09/03/16
--- OUTSIDE RECORDS SUMMARY | 2018-06-28 03:37 | XMS REPORT ---
Author Author YORDAN CURIEL Organization [facility] Address [address] [place] [address] Care Team Providers Care Sales Representative Business Courses Name Role Phone YORDAN CURIEL Unavailable PROBLEMS Type Condition ICD9-CM Code [id number] Code Onset Dates Condition Status SNOMED Code Problem Tobacco abuse Z72.0 Active 765398680 Problem Dysthymia F34.1 Active 50869402 Problem Essential hypertension I10 Active 80571093 Problem Other chronic pain G89.29 Active 96431888 Problem Low back pain M54.5 Active 965045196 Problem Chronic obstructive pulmonary disease, unspecified COPD type J44.9 Active 44881458 Problem Encounter to establish care Z76.89 Active 303355282 ALLERGIES No Information ENCOUNTERS Encounter Location Date Diagnosis [facility] [id number] [place] [address] 41778- 4814 Jan, [facility] [id number] [place] [address] 95613- 1361 Jan, [facility] [id number] [place] [address] 98240- 7679 Jan, [facility] [id number] [place] [address] 76003- 6717 Dec, Low back pain M54.5 and Other chronic pain G89.29 [facility] [id number] [place] [address] 37466- 1431 Dec, [facility] [id number] [place] [address] 89473- 4022 Nov, Other chronic pain G89.29 [facility] [id number] [place] [address] 31625- 8080 Oct, [facility] [address] [address] 9102 Oct, Other chronic pain G89.29 [facility] [id number] [place] [address] 24225- 3935 Sep, [facility] [address] [address]- 8092 Sep, Other chronic pain G89.29 [facility] [id number] [place] [address] 22482- 4737 Sep, Other chronic pain G89.29 [facility] [id number] [place] [address] 91610- 3625 Sep, Medicare annual wellness visit, initial Z00.00 ; Chronic obstructive pulmonary disease, unspecified COPD type J44.9 ; Essential hypertension I10 ; Dysthymia F34.1 ; Low back pain M54.5 ; Other chronic pain G89.29 and Tobacco abuse Z72.0 [facility] [id number] [place] [address] 21842- 7811 August, Other chronic pain G89.29 [facility] [id number] [place] [address] 82043- 1212 Jul, Other chronic pain G89.29 [facility] [address] [address] 2766 Jul, Other chronic pain G89.29 ; Chronic obstructive pulmonary disease, unspecified COPD type J44.9 and Tobacco abuse Z72.0 [facility] [address] [address] 6412 Jul, [facility] [address] [address]- 4004 Jun, Other chronic pain G89.29 [facility] [address] [address]- 6208 Jun, Low back pain M54.5 ; Other chronic pain G89.29 ; Chronic obstructive pulmonary disease, unspecified COPD type J44.9 ; Tobacco abuse Z72.0 ; Essential hypertension I10 and Right wrist pain M25.531 [facility] [id number] [place] [address] 03738- 4079 Jun, Other chronic pain G89.29 [facility] [id number] [place] [address] 48458- 3712 May, Other chronic pain G89.29 [facility] [id number] [place] [address] 06038- 2880 Apr, Other chronic pain G89.29 [facility] [id number] [place] [address] 04164- 0078 Mar, Other chronic pain G89.29 [facility] [id number] [place] [address] 08594- 2465 Feb, Other chronic pain G89.29 [facility] [id number] [place] [address] 62279- 7670 Feb, Other chronic pain G89.29 [facility] [id number] [place] [address] 31362- 2330 Jan, Chronic obstructive pulmonary disease, unspecified COPD type J44.9 ; Essential hypertension I10 ; Other chronic pain G89.29 and Low back pain M54.5 [facility] [id number] [place] [address] 48447- 4098 Jan, Other chronic pain G89.29 [facility] [id number] [place] [address] 28982- 9107 Dec, Other chronic pain G89.29 [facility] [id number] [place] [address] 29227- 2588 Nov, Other chronic pain G89.29 [facility] [id number] [place] [address] 59236- 3893 Oct, [facility] [id number] [place] [address] 96065- 6850 Oct, Other chronic pain G89.29 [facility] [address] [address]- 6313 Sep, Other chronic pain G89.29 [facility] [id number] [address]- 5746 Sep, [facility] [id number] [place] [address] 97938- 1100 August, Chronic obstructive pulmonary disease, unspecified COPD type J44.9 and Edema, unspecified type R60.9 [facility] [address] [address]- 5118 August, [facility] [id number] [place] [address] 55778- 5720 August, Other chronic pain G89.29 [facility] [address] [place] [address] 12779- 4104 Jul, Other chronic pain G89.29 [facility] [address] [address]- 6567 Jul, [facility] [address] [place] [address] 34061- 3898 Jul, Chronic obstructive pulmonary disease, unspecified COPD type J44.9 ; Other chronic pain G89.29 and Tobacco abuse Z72.0 [facility] [address] [address]- 5781 Jun, Other chronic pain G89.29 [facility] [address], [place] [address]- 7109 May, Other chronic pain G89.29 [facility] [address] [place] [address] 86255- 5076 Apr, Low back pain M54.5 [facility] [id number] [address]- 4044 Mar, Low back pain M54.5 [facility] [address] [facility] [id number] [address]- 4708 Mar, Low back pain M54.5 and Chronic obstructive pulmonary disease, unspecified COPD type J44.9 [facility] [address] [facility] [id number] [address]- 5731 Mar, Low back pain M54.5 [facility] [address] [facility] [id number] [address]- 0197 Feb, [facility] [address] [facility] [id number] [address]- 3014 Jan, Low back pain M54.5 [facility] [address] [facility] [id number] [place] [address] 96154- 9854 Dec, Low back pain M54.5 [facility] [id number] [address]- 7199 Dec, Other chronic pain G89.29 [facility] [address] [facility] [id number] [address]- 3020 Nov, [facility] [id number] [place] [address] 08239- 6895 Nov, [facility] [id number] [address]- 7039 Nov, Chronic obstructive pulmonary disease, unspecified COPD type J44.9 [facility] [address] [address]- 8696 Nov, Essential hypertension I10 [facility] [address] [facility] [id number] [address]- 4185 Nov, Low back pain M54.5 ; Chronic obstructive pulmonary disease , unspecified COPD type J44.9 and Essential hypertension I10 [facility] [address] [facility] [id number] [address]- 4092 Oct, Encounter to establish care Z76.89 ; [...] Date End Date Duration Status MS Contin 30 MG Orally every 12 hrs. Take with 60mg tablet 1 tablet Jan, 28 days Active RESULTS No Results [...] tied off Hospitalization History surgeries Hospitalization History pneumonia-[facility] 08/30/16 Hospitalization History Acute Resp failure, COPD exacerbation-[facility] 09/03/16
--- OUTSIDE RECORDS SUMMARY | 2018-06-28 03:37 | XMS REPORT ---
Author Author YORDAN CURIEL Organization [facility] Address [address] [place] [address] Care Team Providers Care Lasting Machine Operator Bed Name Role Phone YORDAN CURIEL Unavailable PROBLEMS Type Condition ICD9-CM Code BFG15-SE Code Onset Dates Condition Status SNOMED Code Problem Chronic obstructive pulmonary disease, unspecified COPD type J44.9 Active 94322118 Problem Moderate episode of recurrent major depressive disorder F33.1 Active 880024480 Problem Encounter to establish care Z76.89 Active 245968313 Problem Tobacco abuse Z72.0 Active 540805601 Problem Essential hypertension I10 Active 83576459 Problem Other chronic pain G89.29 Active 21794122 Problem Low back pain M54.5 Active 653217930 ALLERGIES No Information ENCOUNTERS Encounter Location Date Diagnosis [facility] [id number] [place] [address] 20433- 1379 Mar, [facility] [id number] [place] [address] 03447- 4769 Mar, [facility] [id number] [place] [address] 46138- 4676 Mar, [facility] [id number] [place] [address] 02877- 4986 Feb, Low back pain M54.5 ; Therapeutic drug monitoring Z51.81 ; Chronic obstructive pulmonary disease, unspecified COPD type J44.9 ; Essential hypertension I10 and Moderate episode of recurrent major depressive disorder F33.1 [facility] [id number] [place] [address] 99340- 4639 09 Feb, 2018 [facility] [id number] [place] [address] 71854- 3141 Jan, [facility] [address] [address]- 1447 Jan, [facility] [address], [place] [address]- 2003 Dec, Low back pain M54.5 and Other chronic pain G89.29 [facility] [address], [place] [address]- 1644 Dec, [facility] [id number] [place] [address] 70653- 1759 Nov, Other chronic pain G89.29 [facility] [address], [place] [address]- 7616 Oct, [facility] [id number] [place] [address] 55785- 8852 Oct, Other chronic pain G89.29 [facility] [id number] [place] [address] 37759- 2276 Sep, [facility] [address], [place] [address]- 7240 Sep, Other chronic pain G89.29 [facility] [address], [place] [address]- 3809 Sep, Other chronic pain G89.29 [facility] [address], [place] [address]- 1869 Sep, Medicare annual wellness visit, initial Z00.00 ; Chronic obstructive pulmonary disease, unspecified COPD type J44.9 ; Essential hypertension I10 ; Dysthymia F34.1 ; Low back pain M54.5 ; Other chronic pain G89.29 and Tobacco abuse Z72.0 [facility] [address], [place] [address]- 5188 August, Other chronic pain G89.29 [facility] [address], [place] [address]- 7773 Jul, Other chronic pain G89.29 [facility] [address], [place] [address]- 9623 Jul, Other chronic pain G89.29 ; Chronic obstructive pulmonary disease, unspecified COPD type J44.9 and Tobacco abuse Z72.0 [facility] [address], [place] [address]- 9582 Jul, [facility] [address] [place] [address] 20604- 7676 Jun, Other chronic pain G89.29 [facility] [id number] [place] [address] 12958- 6055 Jun, Low back pain M54.5 ; Other chronic pain G89.29 ; Chronic obstructive pulmonary disease, unspecified COPD type J44.9 ; Tobacco abuse Z72.0 ; Essential hypertension I10 and Right wrist pain M25.531 [facility] [id number] [place] [address] 02867- 6446 Jun, Other chronic pain G89.29 [facility] [address] [place] [address] 85942- 1383 May, Other chronic pain G89.29 [facility] [id number] [place] [address] 16198- 0851 Apr, Other chronic pain G89.29 [facility] [address], [place] [address]- 6213 Mar, Other chronic pain G89.29 [facility] [address] [place] [address] 70924- 0389 Feb, Other chronic pain G89.29 [facility] [id number] [place] [address] 94364- 9217 Feb, Other chronic pain G89.29 [facility] [address], [place] [address]- 2084 Jan, Chronic obstructive pulmonary disease, unspecified COPD type J44.9 ; Essential hypertension I10 ; Other chronic pain G89.29 and Low back pain M54.5 [facility] [address] [facility] [id number], [place] [address]- 7490 Jan, Other chronic pain G89.29 [facility] [address] [facility] [id number], [place] [address]- 5586 Dec, Other chronic pain G89.29 [facility] [address] [facility] [id number], [place] [address]- 5658 Nov, Other chronic pain G89.29 [facility] [address] [facility] [id number] [address]- 4981 Oct, [facility] [address] [facility] [id number], [place] [address]- 0194 Oct, Other chronic pain G89.29 [facility] [address] [facility] [id number], [place] [address]- 8906 Sep, Other chronic pain G89.29 [facility] [address] [facility] [id number], [place] [address]- 4529 Sep, [facility] [address] [facility] [id number], [place] [address]- 6328 August, Chronic obstructive pulmonary disease, unspecified COPD type J44.9 and Edema, unspecified type R60.9 [facility] [address] [facility] [id number], [place] [address]- 1351 August, [facility] [address] [facility] [id number], [place] [address]- 1060 August, Other chronic pain G89.29 [facility] [address] [facility] [id number], [place] [address]- 6413 Jul, Other chronic pain G89.29 [facility] [address] [facility] [id number], [place] [address]- 9166 Jul, [facility] [address] [facility] [id number], [place] [address]- 4936 Jul, Chronic obstructive pulmonary disease, unspecified COPD type J44.9 ; Other chronic pain G89.29 and Tobacco abuse Z72.0 [facility] [address] [facility] [id number] [place] [address] 73268- 4204 Jun, Other chronic pain G89.29 [facility] [address] [facility] [id number] [place] [address] 55759- 3063 May, Other chronic pain G89.29 [facility] [address] [facility] [id number] [place] [address] 30295- 7312 Apr, Low back pain M54.5 [facility] [address] [facility] [id number] [place] [address] 47172- 6645 Mar, Low back pain M54.5 [facility] [id number] [place] [address] 93387- 4054 Mar, Low back pain M54.5 and Chronic obstructive pulmonary disease, unspecified COPD type J44.9 [facility] [address] [facility] [id number] [place] [address] 01389- 1587 Mar, Low back pain M54.5 [facility] [address] [facility] [id number] [place] [address] 72149- 2785 Feb, [facility] [id number] [place] [address] 30056- 4413 Jan, Low back pain M54.5 [facility] [id number] [address]- 7486 Dec, Low back pain M54.5 [facility] [address] [facility] [id number] [place] [address] 93536- 3155 Dec, Other chronic pain G89.29 [facility] [address] [facility] [id number] [place] [address] 02636- 4339 Nov, [facility] [id number] [place] [address] 59182- 6806 Nov, [facility] [id number] [place] [address] 91014- 1170 Nov, Chronic obstructive pulmonary disease, unspecified COPD type J44.9 [facility] [id number], [place] [address]- 8809 Nov, Essential hypertension I10 [facility] [address] [facility] [id number], [place] [address]- 8523 Nov, Low back pain M54.5 ; Chronic obstructive pulmonary disease , unspecified COPD type J44.9 and Essential hypertension I10 [facility] [address] [facility] [id number], [place] [address]- 5357 Oct, Encounter to establish care Z76.89 ; Low back pain M54.5 ; Other chronic pain G89.29 ; Chronic obstructive pulmonary disease, unspecified COPD type J44.9 ; Tobacco abuse Z72.0 and Essential hypertension I10 IMMUNIZATIONS No Known Immunizations SOCIAL HISTORY Never Assessed REASON FOR VISIT Controlled Med Refill PLAN OF CARE VITAL SIGNS MEDICATIONS Medication Instructions Dosage Frequency Start Date End Date Duration Status MS Contin 15 mg Orally in AM w/ 60mg tablet, take 1 tablet in PM w/ 60mg tablet 2 tablets Mar, 7 days Active Percocet 10-325 MG Orally twice daily 1 tablet as needed Mar, 7 days Active MS Contin 60 mg Orally in AM w/ two 15mg tabs, 1 tab in PM w/ one 15mg tab 1 tablet Mar, 7 days [...] tied off Hospitalization History surgeries Hospitalization History pneumonia-[facility] 08/30/16 Hospitalization History Acute Resp failure, COPD exacerbation-[facility] 09/03/16
--- OUTSIDE RECORDS SUMMARY | 2018-06-28 03:38 | XMS REPORT ---
Author Author YORDAN CURIEL Organization [facility] Address [address] [place] [address] Care Team Providers Care Lead Cook Name Role Phone YORDAN CURIEL Unavailable PROBLEMS Type Condition ICD9-CM Code XYN08-GE Code Onset Dates Condition Status SNOMED Code Problem Tobacco abuse Z72.0 Active 354891850 Problem Dysthymia F34.1 Active 64581929 Problem Essential hypertension I10 Active 43398174 Problem Other chronic pain G89.29 Active 65139972 Problem Low back pain M54.5 Active 610307021 Problem Chronic obstructive pulmonary disease, unspecified COPD type J44.9 Active 54297127 Problem Encounter to establish care Z76.89 Active 309815317 ALLERGIES No Information ENCOUNTERS Encounter Location Date Diagnosis [facility] [id number] [place] [address] [phone]- 4444 Jan, [facility] [id number] [place] [address] 38875- 4673 Dec, [facility] [id number] [place] [address] 36722- 3135 Nov, Other chronic pain G89.29 [facility] [id number] [place] [address] 54831- 5799 Oct, [facility] [id number] [place] [address] 88461- 8328 Oct, Other chronic pain G89.29 [facility] [id number] [place] [address] 73891- 5600 Sep, [facility] [id number] [place] [address] 08201- 3398 Sep, Other chronic pain G89.29 [facility] [address], [place] [address] Sep, Other chronic pain G89.29 [facility] [id number] [place] [address] 95512- 1243 Sep, Medicare annual wellness visit, initial Z00.00 ; Chronic obstructive pulmonary disease, unspecified COPD type J44.9 ; Essential hypertension I10 ; Dysthymia F34.1 ; Low back pain M54.5 ; Other chronic pain G89.29 and Tobacco abuse Z72.0 [facility] [id number] [address] August, Other chronic pain G89.29 [facility] [id number] [place] [address] 69689- 5889 Jul, Other chronic pain G89.29 [facility] [id number] [place] [address] 72650- 3470 Jul, Other chronic pain G89.29 ; Chronic obstructive pulmonary disease, unspecified COPD type J44.9 and Tobacco abuse Z72.0 [facility] [address], [place] [address] Jul, [facility] [id number] [place] [address] 77467- 3883 Jun, Other chronic pain G89.29 [facility] [address], [place] [address] Jun, Low back pain M54.5 ; Other chronic pain G89.29 ; Chronic obstructive pulmonary disease, unspecified COPD type J44.9 ; Tobacco abuse Z72.0 ; Essential hypertension I10 and Right wrist pain M25.531 [facility] [id number] [place] [address] 18614- 8489 Jun, Other chronic pain G89.29 [facility] [address] [place] [address] 80060- 5393 May, Other chronic pain G89.29 [facility] [address] [place] [address] 45386- 4829 Apr, Other chronic pain G89.29 [facility] [id number] [place] [address] 44290- 2102 Mar, Other chronic pain G89.29 [facility] [id number] [place] [address] 15830- 4652 Feb, Other chronic pain G89.29 [facility] [id number] [place] [address] 16201- 7527 Feb, Other chronic pain G89.29 [facility] [id number] [place] [address] 16470- 0248 Jan, Chronic obstructive pulmonary disease, unspecified COPD type J44.9 ; Essential hypertension I10 ; Other chronic pain G89.29 and Low back pain M54.5 [facility] [id number] [place] [address] 56423- 2809 Jan, Other chronic pain G89.29 [facility] [id number] [place] [address] 22881- 4052 Dec, Other chronic pain G89.29 [facility] [id number] [place] [address] 18043- 9898 Nov, Other chronic pain G89.29 [facility] [address] [place] [address] 46616- 1576 Oct, [facility] [id number] [place] [address] 95811- 0009 Oct, Other chronic pain G89.29 [facility] [id number] [place] [address] 95030- 3531 Sep, Other chronic pain G89.29 [facility] [address] [place] [address] 253207- 7877 Sep, [facility] [id number] [place] [address] 35925- 8969 August, Chronic obstructive pulmonary disease, unspecified COPD type J44.9 and Edema, unspecified type R60.9 [facility] [id number] [place] [address] 17142- 8107 August, [facility] [id number] [place] [address] 98820- 7230 August, Other chronic pain G89.29 [facility] [id number] [place] [address] 93792- 8571 Jul, Other chronic pain G89.29 [facility] [id number] [place] [address] 99413- 6277 Jul, [facility] [id number] [place] [address] 76723- 8708 Jul, Chronic obstructive pulmonary disease, unspecified COPD type J44.9 ; Other chronic pain G89.29 and Tobacco abuse Z72.0 [facility] [id number] [place] [address] 26484- 5303 Jun, Other chronic pain G89.29 [facility] [id number] [place] [address] 63621- 1188 May, Other chronic pain G89.29 [facility] [id number] [place] [address] 49407- 9942 Apr, Low back pain M54.5 [facility] [id number] [place] [address] 72612- 1389 Mar, Low back pain M54.5 [facility] [id number] [place] [address] 25056- 6920 Mar, Low back pain M54.5 and Chronic obstructive pulmonary disease, unspecified COPD type J44.9 [facility] [id number] [place] [address] 66474- 0100 Mar, Low back pain M54.5 [facility] [id number] [place] [address] 86674- 4016 Feb, [facility] [address], [place] [address] 94[address] Jan, Low back pain M54.5 [facility] [address] [place] [address] 4597 Dec, Low back pain M54.5 [facility] [id number] [place] [address] 66279- 9291 Dec, Other chronic pain G89.29 [facility] [id number] [place] [address] 08581- 6640 Nov, [facility] [id number] [place] [address] 49229- 0406 Nov, [facility] [id number] [place] [address] 42931- 3756 Nov, Chronic obstructive pulmonary disease, unspecified COPD type J44.9 [facility] [id number] [place] [address] 63141- 7662 Nov, Essential hypertension I10 [facility] [id number] [place] [address] 73021- 7307 Nov, Low back pain M54.5 ; Chronic obstructive pulmonary disease , unspecified COPD type J44.9 and Essential hypertension I10 [facility] [address] [place] [address] 72246- 8046 Oct, Encounter to establish care Z76.89 ; Low back pain M54.5 ; Other chronic pain G89.29 ; Chronic obstructive pulmonary disease, unspecified COPD type J44.9 ; Tobacco abuse Z72.0 and Essential hypertension I10 IMMUNIZATIONS No Known Immunizations SOCIAL HISTORY Never Assessed REASON FOR VISIT Tapering Concerns PLAN OF CARE VITAL SIGNS MEDICATIONS Unknown [...] tied off Hospitalization History surgeries Hospitalization History pneumonia-[facility] 08/30/16 Hospitalization History Acute Resp failure, COPD exacerbation-[facility] 09/03/16
[2018-06-28] MEDS ORDERED: RX-CYCLOBENZAPRINE 10 MG (FLEXERIL) TAB PPK#3 PO STA (04:11)
--- NOTE | 2018-06-28 04:13 | ED Back Pain ---
General Chief Complaint: Back Problems Stated Complaint: BACK PAIN Nursing Triage Note: LOWER BACK PAIN, NO INJURY. Nursing Sepsis Screen: No Definite Risk Allergies and Home Medications Allergies Coded Allergies: No Known Drug Allergies (Unverified , 10/30/15) Home Medications Albuterol Sulfate 18 Gm Hfa.aer.ad, 2 PUFF INH Q4H PRN for SHORTNESS OF BREATH Prescribed by: SAEED TERRY on 09/11/16 0920 Morphine Sulfate 100 Mg Tablet.er, 75 MG PO Q12H, (Reported) Oxycodone HCl/Acetaminophen 1 Each Tablet, 2 TAB PO BID PRN for PAIN-MODERATE, ( Reported) Past Ouwkrkd-Kkqxcj-Rwsakg Hx Patient Social History Alcohol Use: Denies Use Number of Drinks Today: GG Alcohol Beverage of Choice: Whiskey Recreational Drug Use: No Smoking Status: Current Everyday Smoker Type Used: Cigarettes Former Smoker, Quit: Jul 31, 2016 2nd Hand Smoke Exposure: Yes Recent Foreign Travel: No Contact w/Someone Who Travel: No Recent Infectious Disease Expo: No Recent Hopitalizations: No Immunizations Up To Date Tetanus Booster (TDap): Less than 5yrs Seasonal Allergies Seasonal Allergies: No Past Medical History Surgeries: Yes (Back fusion, Colon resection) Abdominal, Bowel Surgery, Orthopedic Respiratory: Yes Asthma, Pneumonia, Chronic Bronchitis, COPD Currently Using CPAP: No Currently Using BIPAP: No Cardiac: Yes Hypertension Neurological: No Reproductive Disorders: No Genitourinary: No Renal Failure Gastrointestinal: No Liver Disease/Jaundice, Polyps Musculoskeletal: Yes Arthritis, Chronic Back Pain Endocrine: No HEENT: No Cancer: Yes Colon What Type of Treatment Did You: Surgical Intervention Psychosocial: No Integumentary: No Blood Disorders: No Adverse Reaction/Blood Tranf: No Family Medical History Alzheimer's disease 19 FATHER Arthritis 19 FATHER Dementia 19 FATHER Respiratory disorder 19 MOTHER No Pertinent Family Hx Physical Exam Vital Signs Vital Signs - First Documented 06/28/18 03:56 Temp 96.2 Pulse 88 Resp 18 B/P (MAP) 198/102 (134) Pulse Ox 98 O2 Delivery Nasal Cannula O2 Flow Rate 4.00 Capillary Refill : Less Than 3 Seconds Height, Weight, BMI Height: 5'11.00" Weight: 152lbs. 0.0oz. 68.553402py; 22.3 BMI Method:Stated Progress/Results/Core Measures Results/Orders Vital Signs/I&O 06/28/18 03:56 Temp 96.2 Pulse 88 Resp 18 B/P (MAP) 198/102 (134) Pulse Ox 98 O2 Delivery Nasal Cannula O2 Flow Rate 4.00 Blood Pressure Mean: 134 Departure Impression Primary Impression: Acute exacerbation of chronic low back pain Disposition: HOME, SELF-CARE Condition: Stable Departure-Patient Inst. Referrals: [facility] (PCP) Primary Care Physician YORDAN CURIEL (Family) Primary Care Physician Patient Instructions: MANAGING YOUR CHRONIC PAIN, Low Back Pain (DC) Add. Discharge Instructions: FOLLOW UP WITH [facility] TODAY FOR FURTHER CARE All discharge instructions reviewed with patient and/or family. Voiced understanding. JOCE LAL DO Jun 28, 2018 04:13
[2018-06-28] MEDS ORDERED: RX-HYDROCODONE/APAP 5/325 MG #4 TAB PK PO PRN (04:15)
[2018-06-28] MEDS ORDERED: KETOROLAC 60 MG/2 ML VIAL IM ONE (04:15)
[2018-06-28 04:28] VITALS: BP 198/102
[2018-06-29] MEDS ORDERED: CYCL10TA9 PO (22:44)
== END 2018-06-28 04:26 | disposition home or self-care (01) ==
LOC: EDUNIT# 03:31 → ER 03:32
DX: M54.5 Low back pain (principal); G89.29 Other chronic pain; J45.909 Unspecified asthma, uncomplicated; I10 Essential (primary) hypertension; Z87.19 Personal history of other diseases of the digestive system; Z86.010 Personal history of colon polyps; Z85.038 Personal history of other malignant neoplasm of large intestine; Z87.01 Personal history of pneumonia (recurrent); Z87.891 Personal history of nicotine dependence; Z98.1 Arthrodesis status; Z98.890 Other specified postprocedural states; Z90.49 Acquired absence of other specified parts of digestive tract
CPT/HCPCS: 99284

== ENCOUNTER 2018-06-29 22:11 | Emergency (ER) | payer MEDICARE, MEDICAID ==
[~2018-06-29] VITALS: Ht 177.8 cm; Wt 69.4 kg
[2018-06-29] MEDS ORDERED: ORPHENADRINE 60 MG/2 ML (NORFLEX) AMP IM STA (22:38)
[2018-06-29] MEDS ORDERED: oxyCODONE/APAP 5/325MG (PERCOCET 5) TABLET PO STA (22:38)
[2018-06-29] MEDS ORDERED: CYCL10TA9 PO (22:44)
--- NOTE | 2018-06-29 22:45 | ED Back Pain ---
General Chief Complaint: Back Problems Stated Complaint: BACK PAIN Source of Information: Patient Exam Limitations: No Limitations History of Present Illness Date Seen by Provider: Jun 29, 2018 Time Seen by Provider: 22:30 Initial Comments Here with complaint of back pain that is chronic. Has history of chronic low back pain and is currently on narcotic taper from 100 mg morphine twice a day ultimately down to Percocet 10/325 twice a day which she is currently on. His been on that for the last several days. He states that is not working. His low back pain is worse and is having a hard time. He had prescription for 7 days which he is out of currently. Denies any new injury or problems. He states the morphine 15 mg ER worked okay but since he got moved to the Percocet 10/325 he is having significant difficulty as they only lasted about 4 hours and he is only prescribe them twice daily. Timing/Duration: 1 Week Severity: Moderate Pain/Injury Location: Back Radiation: Buttocks Associated Symptoms: muscle spasms, lower back pain; No loss of bladder control , No loss of bowel control Allergies and Home Medications Allergies Coded Allergies: No Known Drug Allergies (Unverified , 10/30/15) Home Medications Albuterol Sulfate 18 Gm Hfa.aer.ad, 2 PUFF INH Q4H PRN for SHORTNESS OF BREATH Prescribed by: SAEED TERRY on 09/11/16 0920 Cyclobenzaprine HCl 10 Mg Tablet, 10 MG PO Q8H PRN for SPASMS Prescribed by: CECILY WHITE on 06/29/18 2244 Morphine Sulfate 100 Mg Tablet.er, 75 MG PO Q12H, (Reported) Oxycodone HCl/Acetaminophen 1 Each Tablet, 2 TAB PO BID PRN for PAIN-MODERATE, ( Reported) Patient Home Medication List Home Medication List Reviewed: Yes Review of Systems Constitutional: see HPI; No chills, No fever Respiratory: no symptoms reported Cardiovascular: no symptoms reported Musculoskeletal: back pain, muscle pain Psychiatric/Neurological: No Symptoms Reported Past Bylzwwe-Ybprga-Oabyiq Hx Past Med/Social Hx: Reviewed Nursing Past Med/Soc Hx Patient Social History Alcohol Use: Denies Use Alcohol Beverage of Choice: Whiskey Recreational Drug Use: No Smoking Status: Former Smoker Type Used: Cigarettes Former Smoker, Quit: Jul 31, 2016 2nd Hand Smoke Exposure: Yes Recent Foreign Travel: No Contact w/Someone Who Travel: No Recent Hopitalizations: No Immunizations Up To Date Tetanus Booster (TDap): Less than 5yrs Seasonal Allergies Seasonal Allergies: No Past Medical History Surgeries: Yes (Back fusion, Colon resection) Abdominal, Bowel Surgery, Orthopedic Respiratory: Yes Asthma, Pneumonia, Chronic Bronchitis, COPD Currently Using CPAP: No Currently Using BIPAP: No Cardiac: Yes Hypertension Neurological: No Reproductive Disorders: No Genitourinary: No Renal Failure Gastrointestinal: No Liver Disease/Jaundice, Polyps Musculoskeletal: Yes Arthritis, Chronic Back Pain Endocrine: No HEENT: No Cancer: Yes Colon What Type of Treatment Did You: Surgical Intervention Psychosocial: No Integumentary: No Blood Disorders: No Adverse Reaction/Blood Tranf: No Family Medical History Reviewed Nursing Family Hx Alzheimer's disease 19 FATHER Arthritis 19 FATHER Dementia 19 FATHER Respiratory disorder 19 MOTHER No Pertinent Family Hx Physical Exam Vital Signs Vital Signs - First Documented 06/29/18 22:25 Temp 97.2 Pulse 99 Resp 22 B/P (MAP) 185/127 (146) Pulse Ox 100 O2 Delivery Nasal Cannula O2 Flow Rate 3.00 Capillary Refill : Height, Weight, BMI Height: 5'11.00" Weight: 152lbs. 0.0oz. 68.175742py; 22.3 BMI Method:Stated General Appearance: No Apparent Distress, WD/WN Cardiovascular: Regular Rate, Rhythm, No Murmur Respiratory: Lungs Clear, Normal Breath Sounds Back: Decreased Range of Motion, Muscle Spasm, Other (low back pain) Neurologic/Psychiatric: Alert, Oriented x3 Skin: Normal Color, Warm/Dry Progress/Results/Core Measures Results/Orders My Orders Orders - CECILY WHITE MD Orphenadrine Injection (Norflex Injectio (06/29/18 22:38) Oxycodone/Apap 5/325mg Tablet (Percocet (06/29/18 22:38) Vital Signs/I&O 06/29/18 22:25 Temp 97.2 Pulse 99 Resp 22 B/P (MAP) 185/127 (146) Pulse Ox 100 O2 Delivery Nasal Cannula O2 Flow Rate 3.00 Progress Progress Note : Progress Note Seen and evaluated. Did discuss at length with the patient regarding his medication taper and that I would be unable to write prescriptions for narcotics but would give him a dose here as well as a muscle relaxer as he says that helps. Norflex 60 mg IM ordered. Percocet 5/325 mg 2 tabs by mouth given. He is instructed to follow-up with addiction treatment services who is managing his pain medicines on Sunday. Discharged home with return precautions. Patient verbalize understanding instructions and agreement with plan. Departure Impression Primary Impression: Acute exacerbation of chronic low back pain Disposition: HOME, SELF-CARE Condition: Stable Departure-Patient Inst. Decision time for Depature: 22:44 Referrals: [facility] (PCP) Primary Care Physician YORDAN CURIEL (Family) Primary Care Physician Patient Instructions: Low Back Pain (DC) Add. Discharge Instructions: All discharge instructions reviewed with patient and/or family. Voiced understanding. Call for pain management doctor on Sunday for appointment for recheck and further evaluation and to discuss your medication prescriptions and pain management. Return for worse pain, vomiting, weakness, breathing problems, difficulties with walking or going to the bathroom or other concerns as needed. Scripts Cyclobenzaprine HCl (Cyclobenzaprine HCl) 10 Mg Tablet 10 MG PO Q8H PRN for SPASMS, #10 TAB 0 Refills Prov: CECILY WHITE MD 06/29/18 Copy Copies To 1: FREDIS ORNELAS MD, TIMOTHY D MD Jun 29, 2018 22:45
[2018-06-29 23:19] VITALS: BP 188/151
== END 2018-06-29 23:19 | disposition home or self-care (01) ==
LOC: EDUNIT# 22:11 → ER 22:13
DX: M54.5 Low back pain (principal); G89.29 Other chronic pain; J44.9 Chronic obstructive pulmonary disease, unspecified; I10 Essential (primary) hypertension; Z85.038 Personal history of other malignant neoplasm of large intestine; Z86.010 Personal history of colon polyps; Z87.19 Personal history of other diseases of the digestive system; Z79.51 Long term (current) use of inhaled steroids; Z87.891 Personal history of nicotine dependence; Z90.49 Acquired absence of other specified parts of digestive tract; Z98.1 Arthrodesis status; Z87.01 Personal history of pneumonia (recurrent)
CPT/HCPCS: 99284

== ENCOUNTER 2018-07-02 00:10 | Emergency (ER) | payer MEDICARE, MEDICAID ==
[~2018-07-02] VITALS: Ht 177.8 cm; Wt 69.4 kg
[~2018-07-02 00:10] MED LIST changes: +CYCL10TA9 PO
--- NOTE | 2018-07-02 01:48 | ED Back Pain ---
General Chief Complaint: Back Problems Stated Complaint: BACK PAIN Nursing Triage Note: AMBULATORY TO ED WITH C/O MID TO LOWER BACK PAIN. HX OF CHRONIC BACK PAIN. STATES "PAIN PATCHES AIN'T WORKING" THAT HE WAS PREVIOUSLY PRESCRIBED AND FLEXERIL PRESCRIBED AFTER RECENT ED VISIT FOR SAME COMPLAINT IS NOT WORKING EITHER. STATES HE CALLED [facility] FOR APPT, BUT "THEY NEVER CALLED ME BACK." Nursing Sepsis Screen: No Definite Risk Source of Information: Patient, Old Records History of Present Illness Date Seen by Provider: Jul 02, 2018 Time Seen by Provider: 01:35 Initial Comments PT ARRIVES VIA POV FROM HOME--STATES A FRIEND DROVE HIM HERE C/O LOWER BACK PAIN THIS IS A CHRONIC PROBLEM FOR YEARS, AND IS NO DIFFERENT TONIGHT PT WAS RECENTLY STARTED ON BUTRANS PATCH 5 MCG/HR--STATES "IT'S NOT WORKING". HAD BEEN ON PERCOCET AND STATES THAT WAS NOT HELPING EITHER. PT HAD BEEN ON HIGH DOSE MORPHINE FOR YEARS PRIOR TO THAT PT HAS BEEN GOING TO PAIN MANAGEMENT AT [facility] PT STATES HE HAS NOT TAKEN ANYTHING ELSE FOR PAIN PT WAS SEEN HERE 06/28 AND 06/29 FOR SAME PT HAS APPOINTMENT WITH [facility] TOMORROW/SUNDAY PT HAS BEEN GIVEN RX'S FOR MUSCLE RELAXANTS -STATES HE HAS NOT TAKEN THEM. Allergies and Home Medications Allergies Coded Allergies: No Known Drug Allergies (Unverified , 10/30/15) Home Medications Albuterol Sulfate 18 Gm Hfa.aer.ad, 2 PUFF INH Q4H PRN for SHORTNESS OF BREATH Prescribed by: SAEED TERRY on 09/11/16 0920 Cyclobenzaprine HCl 10 Mg Tablet, 10 MG PO Q8H PRN for SPASMS Prescribed by: CECILY WHITE on 06/29/18 2244 Morphine Sulfate 100 Mg Tablet.er, 75 MG PO Q12H, (Reported) Oxycodone HCl/Acetaminophen 1 Each Tablet, 2 TAB PO BID PRN for PAIN-MODERATE, ( Reported) Patient Home Medication List Home Medication List Reviewed: Yes Review of Systems Constitutional: no symptoms reported Gastrointestinal: no symptoms reported Genitourinary: no symptoms reported Musculoskeletal: no symptoms reported, back pain Skin: no symptoms reported Psychiatric/Neurological: No Symptoms Reported Past Tbeyzti-Xcwsnq-Besfst Hx Patient Social History Alcohol Use: Rarely Uses Number of Drinks Today: GG Alcohol Beverage of Choice: Whiskey Recreational Drug Use: Yes (UDS + FOR METH/AMPHETAMINES ) Smoking Status: Former Smoker (2 PPD, QUIT 07/2016) Type Used: Cigarettes Former Smoker, Quit: Jul 31, 2016 2nd Hand Smoke Exposure: Yes Recent Foreign Travel: No Contact w/Someone Who Travel: No Recent Infectious Disease Expo: No Recent Hopitalizations: No Immunizations Up To Date Tetanus Booster (TDap): Less than 5yrs Seasonal Allergies Seasonal Allergies: No Past Medical History Surgeries: Yes (BACK SURGERY/FUSION; COLON RESECTION; EGD'S/COLONOSCOPIES) Abdominal, Bowel Surgery, Orthopedic Respiratory: Yes (INTUBATED IN 2009--UNRESPONSIVE ON ARRIVAL TO ER) Asthma, Pneumonia, Chronic Bronchitis, COPD Currently Using CPAP: No Currently Using BIPAP: No Cardiac: Yes Hypertension Neurological: Yes (2009-UNRESPONSIVE ON ARRIVAL-MULTIFACTORIAL) Reproductive Disorders: No Genitourinary: Yes (2009--RENAL FAILURE/UNRESPONSIVE ON ARRIVAL) Renal Failure Gastrointestinal: Yes (COLON RESECTION FOR POLYPS; ELEVATED LIVER ENZYMES) Liver Disease/Jaundice, Polyps Musculoskeletal: Yes (BACK SURGERY; CHRONIC NARCOTIC USE FOR CHRONIC BACK PAIN COMPLAINTS) Arthritis, Chronic Back Pain Endocrine: No HEENT: No Cancer: No (COLON POLYPS WITH COLON RESECTION-NO REPORT OF CANCER) Did You Recieve Any Treatments: Yes Psychosocial: No Integumentary: No Blood Disorders: No Adverse Reaction/Blood Tranf: No Family Medical History Alzheimer's disease 19 FATHER Arthritis 19 FATHER Dementia 19 FATHER Respiratory disorder 19 MOTHER No Pertinent Family Hx 2009--PT ARRIVES IN ER IN UNRESPONSIVE STATE--WAS IN RENAL FAILURE, ELEVATED LIVER ENZYMES-POSSIBLE HEPATIC ENCEPHALOPATHY; ELEVATED TROPONIN, WITH UDS + FOR OPIATES, AMPHETAMINES/METHAMPHETAMINES Physical Exam Vital Signs Vital Signs - First Documented 07/02/18 00:45 Temp 97.5 Pulse 98 Resp 20 B/P (MAP) 172/127 (142) Pulse Ox 98 O2 Delivery Nasal Cannula O2 Flow Rate 4.00 Capillary Refill : Less Than 3 Seconds Height, Weight, BMI Height: 5'10.00" Weight: 153lbs. 0.0oz. 69.748859nw; 22.3 BMI Method:Stated General Appearance: No Apparent Distress, Thin, Other (WEARING HOME O2; BUTRANS PATCH 5 MCG/HR ON LEFT CHEST) Neck: Normal Inspection Cardiovascular: Regular Rate, Rhythm, No Edema, No Murmur Respiratory: Normal Breath Sounds, No Accessory Muscle Use, No Respiratory Distress Gastrointestinal: Soft Back: Decreased Range of Motion, Other (LUMBAR TENDERNESS) Extremity: Normal Inspection, Normal Range of Motion, No Pedal Edema Neurologic/Psychiatric: Alert, Oriented x3, No Motor/Sensory Deficits, Normal Mood/Affect, wheel grinder II-XII Norm as Tested Skin: Normal Color, Warm/Dry Progress/Results/Core Measures Results/Orders My Orders Orders - JOCE LAL DO Ketorolac Injection (Toradol Injection) (07/02/18 02:00) Orphenadrine Injection (Norflex Injectio (07/02/18 02:00) Diphenhydramine Injection (Benadryl Inje (07/02/18 02:00) Clonidine Tablet (Catapres Tablet) (07/02/18 02:00) Clonidine Tablet (Catapres Tablet) (07/02/18 01:54) Medications Given in ED Current Medications Medications Dose Ordered Sig/Vanda Route Start Time Stop Time Status Last Admin Dose Admin Clonidine HCl 0.2 mg ONCE ONCE PO 07/02/18 02:00 07/02/18 02:22 DC 07/02/18 01:57 0.2 MG Diphenhydramine HCl 50 mg ONCE ONCE IM 07/02/18 02:00 07/02/18 02:01 DC 07/02/18 01:57 50 MG Ketorolac Tromethamine 60 mg ONCE ONCE IM 07/02/18 02:00 07/02/18 02:01 DC 07/02/18 01:58 60 MG Orphenadrine Citrate 60 mg ONCE ONCE IM 07/02/18 02:00 07/02/18 02:01 DC 07/02/18 01:58 60 MG Vital Signs/I&O 07/02/18 07/02/18 00:45 02:20 Temp 97.5 97.5 Pulse 98 89 Resp 20 20 B/P (MAP) 172/127 (142) 164/105 (124) Pulse Ox 98 98 O2 Delivery Nasal Cannula O2 Flow Rate 4.00 4.00 Blood Pressure Mean: 142 Progress Progress Note : Progress Note BP DOWN AND PAIN BEGINNING TO EASE AT DISMISSAL Departure Impression Primary Impression: Chronic back pain Additional Impression: HTN (hypertension) Disposition: 01 HOME, SELF-CARE Condition: Improved Departure-Patient Inst. [facility] ([facility]Family) Primary Care Physician Patient Instructions: High Blood Pressure (DC), Low Back Pain (DC), MANAGING YOUR CHRONIC PAIN Add. Discharge Instructions: FOLLOW UP WITH [facility] SCHEDULED THIS WEEK All discharge instructions reviewed with patient and/or family. Voiced understanding. JOCE LAL DO Jul 02, 2018 01:48
[2018-07-02] MEDS ORDERED: cloNIDine 0.1 MG (CATAPRES) TAB ONE (01:54)
[2018-07-02] MEDS ORDERED: cloNIDine 0.1 MG (CATAPRES) TAB PO ONE (02:00)
[2018-07-02] MEDS ORDERED: KETOROLAC 60 MG/2 ML VIAL IM ONE (02:00)
[2018-07-02] MEDS ORDERED: diphenhydrAMINE 50 MG/ML INJ (BENADRYL) IM ONE (02:00)
[2018-07-02] MEDS ORDERED: ORPHENADRINE 60 MG/2 ML (NORFLEX) AMP IM ONE (02:00)
[2018-07-02 02:20] VITALS: BP 164/105
== END 2018-07-02 02:22 | disposition home or self-care (01) ==
LOC: EDUNIT# 00:10 → ER 00:12
DX: M54.5 Low back pain (principal); G89.29 Other chronic pain; I10 Essential (primary) hypertension; J44.9 Chronic obstructive pulmonary disease, unspecified; Z86.010 Personal history of colon polyps; Z87.19 Personal history of other diseases of the digestive system; Z79.51 Long term (current) use of inhaled steroids; Z87.891 Personal history of nicotine dependence; Z98.890 Other specified postprocedural states; Z90.49 Acquired absence of other specified parts of digestive tract; Z87.01 Personal history of pneumonia (recurrent)
CPT/HCPCS: 99284

== ENCOUNTER 2018-07-23 21:31 | Emergency (ER) | payer MEDICARE, MEDICAID ==
[~2018-07-23] VITALS: Ht 177.8 cm; Wt 69.4 kg
[2018-07-23] MEDS ORDERED: ONDANSETRON 4 MG/2 ML (SDV) Z0FRAN IVP ONE (22:45)
[2018-07-23] MEDS ORDERED: NS IV 1000 ML 1,000 ML IV ONE (22:45)
[2018-07-23 23:33] LABS: BILIRUBIN,URINE NEGATIVE (NEGATIVE); CLARITY,URINE CLEAR; COLOR,URINE YELLOW; GLUCOSE, URINE (UA) NEGATIVE (NEGATIVE); KETONES,URINE NEGATIVE (NEGATIVE); LEUKOCYTE ESTERASE ,URINE NEGATIVE (NEGATIVE); NITRITE,URINE NEGATIVE (NEGATIVE); PH,URINE 5 (5-9); PROTEIN,URINE 2+ (NEGATIVE); UROBILINOGEN,URINE NORMAL (NORMAL)
[2018-07-23 23:43] LABS: BASOPHILS % (AUTO) 0 % (0-10); EOSINOPHILS # (AUTO) 0.2 10^3/uL (0.0-0.3); EOSINOPHILS % (AUTO) 2 % (0-10); HEMATOCRIT 44 % (40-54); HEMOGLOBIN 14.6 G/DL (13.3-17.7); LYMPHOCYTES # (AUTO) 2.5 X 10^3 (1.0-4.0); LYMPHOCYTES % (AUTO) 22 % (12-44); MEAN CORPUSCULAR HEMOGLOBIN 32 PG (25-34); MEAN CORPUSCULAR HGB CONC 33 G/DL (32-36); MEAN CORPUSCULAR VOLUME 95 FL (80-99); MEAN PLATELET VOLUME 8.1 FL (7.4-10.4); MONOCYTES # (AUTO) 0.6 X 10^3 (0.0-1.0); MONOCYTES % (AUTO) 5 % (0-12); NEUTROPHILS # (AUTO) 8.3 X 10^3 (1.8-7.8); NEUTROPHILS % (AUTO) 71 % (42-75); PLATELET COUNT 411 10^3/uL (130-400); RED CELL DISTRIBUTION WIDTH 13.5 % (10.0-14.5); WHITE BLOOD COUNT 11.7 10^3/uL (4.3-11.0)
[2018-07-23 23:55] LABS: BACTERIA,URINE MODERATE /HPF; HYALINE CASTS, URINE 0-2 /LPF; RBC,URINE 0-2 /HPF; SQUAMOUS EPITHELIAL CELL,UR RARE /HPF; WBC,URINE 0-2 /HPF
[2018-07-24 00:04] LABS: ALANINE AMINOTRANSFERASE 23 U/L (0-55); ALBUMIN 4.4 GM/DL (3.2-4.5); ALKALINE PHOSPHATASE 89 U/L (40-136); BILIRUBIN,TOTAL 0.3 MG/DL (0.1-1.0); BUN/CREATININE RATIO 18; CALCIUM 9.7 MG/DL (8.5-10.1); CARBON DIOXIDE 24 MMOL/L (21-32); CHLORIDE 109 MMOL/L (98-107); CREATININE SERUM 0.98 MG/DL (0.60-1.30); GFR ESTIMATED > 60; GLUCOSE 102 MG/DL (70-105); LIPASE 32 U/L (8-78); MAGNESIUM 2.4 MG/DL (1.8-2.4); POTASSIUM 4.2 MMOL/L (3.6-5.0); SODIUM 145 MMOL/L (135-145); TOTAL PROTEIN 7.6 GM/DL (6.4-8.2)
[2018-07-24] MEDS ORDERED: HYOSCYAMINE 0.125 MG (LEVSIN) TAB SL ONE (00:45)
[2018-07-24] MEDS ORDERED: RT-ALBUTEROL/IPRATROPIUM 3 ML (DUONEB) VIAL INH ONE (01:00)
[2018-07-24] MEDS ORDERED: RX-ONDANSETRON 4 MG ODT (ZOFRAN) PPK #4 SL STA (01:52)
[2018-07-24] MEDS ORDERED: RX-HYOSCYAMINE 0.125 MG SL (LEVSIN) PPK#6 SL STA (01:52)
[2018-07-24] MEDS ORDERED: ONDA4TAB11 PO (01:57)
[2018-07-24] MEDS ORDERED: METR500T PO (01:57)
[2018-07-24] MEDS ORDERED: HYOS0.1283 SL (01:57)
[2018-07-24] MEDS ORDERED: L.AC1CAP6 PO (01:57)
--- NOTE | 2018-07-24 01:58 | ED GI ---
General Chief Complaint: Abdominal/GI Problems Stated Complaint: N/V/D Nursing Triage Note: AMBULATORY TO ED WITH C/O DIARRHEA X2 WEEKS, SOME VOMITING. STARTED AMOXICILLIN A COUPLE OF DAYS AGO PRE TX FOR TEETH EXTRACTION. HAS NOT TAKEN IMMODIUM OR ANY OTHER OTC FOR N/V/D. Sepsis Screen: No Definite Risk Source of Information: Patient Exam Limitations: No Limitations History of Present Illness Date Seen by Provider: Jul 23, 2018 Time Seen by Provider: 22:45 Initial Comments This 63-year-old gentleman presents to the emergency room with complaints of watery diarrhea for 2 weeks and a few episodes of vomiting over the last day or 2. He started amoxicillin a few days ago for a dental issue. He had been on doxycycline for another reason prior to the diarrhea starting. He has abdominal discomfort and cramping associated with the diarrhea. He is afebrile at present. Allergies and Home Medications Allergies Coded Allergies: No Known Drug Allergies (Unverified , 10/30/15) Home Medications Albuterol Sulfate 18 Gm Hfa.aer.ad, 2 PUFF INH Q4H PRN for SHORTNESS OF BREATH Prescribed by: SAEED TERRY on 09/11/16 0920 Cyclobenzaprine HCl 10 Mg Tablet, 10 MG PO Q8H PRN for SPASMS Prescribed by: CECILY WHITE on 06/29/18 2244 Hyoscyamine Sulfate 0.125 Mg Tab.subl, 0.125 MG SL Q4H PRN for CRAMPS Prescribed by: NITA CHAMPION on 07/24/18156 L.acidoph & Paracasei,B.lactis 1 Each Capsule, 1 EACH PO TID Prescribed by: NITA CHAMPION on 07/24/18156 Metronidazole 500 Mg Tablet, 500 MG PO TID Prescribed by: NITA CHAMPION on 07/24/18156 Morphine Sulfate 100 Mg Tablet.er, 75 MG PO Q12H, (Reported) Ondansetron 4 Mg Tab.rapdis, 4 MG PO Q4H PRN for NAUSEA/VOMITING Prescribed by: NITA CHAMPION on 07/24/18156 Oxycodone HCl/Acetaminophen 1 Each Tablet, 2 TAB PO BID PRN for PAIN-MODERATE, ( Reported) Patient Home Medication List Home Medication List Reviewed: Yes Review of Systems Review of Systems Constitutional: no symptoms reported EENTM: No Symptoms Reported Respiratory: No Symptoms Reported Cardiovascular: No Symptoms Reported Gastrointestinal: See HPI Genitourinary: No Symptoms Reported Musculoskeletal: no symptoms reported Skin: no symptoms reported Psychiatric/Neurological: No Symptoms Reported Endocrine: No Symptoms Reported Hematologic/Lymphatic: No Symptoms Reported Past Umbocls-Tyyfzh-Evhsbj Hx Past Med/Social Hx: Reviewed Nursing Past Med/Soc Hx Patient Social History Alcohol Use: Denies Use Number of Drinks Today: GG Alcohol Beverage of Choice: Whiskey Recreational Drug Use: No Smoking Status: Current Everyday Smoker Type Used: Cigarettes Former Smoker, Quit: Jul 31, 2016 2nd Hand Smoke Exposure: Yes Recent Foreign Travel: No Contact w/Someone Who Travel: No Recent Infectious Disease Expo: No Recent Hopitalizations: No Immunizations Up To Date Tetanus Booster (TDap): Less than 5yrs Seasonal Allergies Seasonal Allergies: No Past Medical History Surgeries: Yes (BACK SURGERY/FUSION; COLON RESECTION; EGD'S/COLONOSCOPIES) Abdominal, Bowel Surgery, Orthopedic Respiratory: Yes (INTUBATED IN 2009--UNRESPONSIVE ON ARRIVAL TO ER) Asthma, Pneumonia, Chronic Bronchitis, COPD Currently Using CPAP: No Currently Using BIPAP: No Cardiac: Yes Hypertension Neurological: Yes (2009-UNRESPONSIVE ON ARRIVAL-MULTIFACTORIAL) Reproductive Disorders: No Genitourinary: Yes (2009--RENAL FAILURE/UNRESPONSIVE ON ARRIVAL) Renal Failure Gastrointestinal: Yes (COLON RESECTION FOR POLYPS; ELEVATED LIVER ENZYMES) Liver Disease/Jaundice, Polyps Musculoskeletal: Yes (BACK SURGERY; CHRONIC NARCOTIC USE FOR CHRONIC BACK PAIN COMPLAINTS) Arthritis, Chronic Back Pain Endocrine: No HEENT: No Cancer: No (COLON POLYPS WITH COLON RESECTION-NO REPORT OF CANCER) Colon Did You Recieve Any Treatments: Yes What Type of Treatment Did You: Surgical Intervention Psychosocial: No Integumentary: No Blood Disorders: No Adverse Reaction/Blood Tranf: No Family Medical History Alzheimer's disease 19 FATHER Arthritis 19 FATHER Dementia 19 FATHER Respiratory disorder 19 MOTHER No Pertinent Family Hx 2009--PT ARRIVES IN ER IN UNRESPONSIVE STATE--WAS IN RENAL FAILURE, ELEVATED LIVER ENZYMES-POSSIBLE HEPATIC ENCEPHALOPATHY; ELEVATED TROPONIN, WITH UDS + FOR OPIATES, AMPHETAMINES/METHAMPHETAMINES Physical Exam Vital Signs Vital Signs - First Documented 07/23/18 07/24/18 23:25 00:57 Temp 96.8 Pulse 90 Resp 20 B/P (MAP) 171/103 (125) Pulse Ox 98 O2 Delivery Nasal Cannula O2 Flow Rate 4.00 Capillary Refill : Less Than 3 Seconds Height/Weight/BMI Height: 5'10.00" Weight: 153lbs. 0.0oz. 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 as tested, no motor/sensory deficits, alert, normal mood/affect, oriented x 3 Skin: normal color, warm/dry Progress/Results/Core Measures Results/Orders Lab Results Laboratory Tests Test 07/23/18 23:25 07/23/18 23:37 Range/Units Urine Color YELLOW Urine Clarity CLEAR Urine pH 5 5-9 Urine Specific Erwin 1.025 H 1.016-1.022 Urine Protein 2+ H NEGATIVE Urine Glucose (UA) NEGATIVE NEGATIVE Urine Ketones NEGATIVE NEGATIVE Urine Nitrite NEGATIVE NEGATIVE Urine Bilirubin NEGATIVE NEGATIVE Urine Urobilinogen NORMAL NORMAL MG/DL Urine Leukocyte Esterase NEGATIVE NEGATIVE Urine RBC (Auto) 1+ H NEGATIVE Urine RBC 0-2 /HPF Urine WBC 0-2 /HPF Urine Squamous Epithelial Cells RARE /HPF Urine Crystals NONE /LPF Urine Bacteria MODERATE H /HPF Urine Casts PRESENT /LPF Urine Hyaline Casts 0-2 H /LPF Urine Mucus LARGE H /LPF Urine Culture Indicated NO White Blood Count 11.7 H 4.3-11.0 10^3/uL Red Blood Count 4.61 4.35-5.85 10^6/uL Hemoglobin 14.6 13.3-17.7 G/DL Hematocrit 44 40-54 % Mean Corpuscular Volume 95 80-99 FL Mean Corpuscular Hemoglobin 32 25-34 PG Mean Corpuscular Hemoglobin Concent 33 32-36 G/DL Red Cell Distribution Width 13.5 10.0-14.5 % Platelet Count 411 H 130-400 10^3/uL Mean Platelet Volume 8.1 7.4-10.4 FL Neutrophils (%) (Auto) 71 42-75 % Lymphocytes (%) (Auto) 22 12-44 % Monocytes (%) (Auto) 5 0-12 % Eosinophils (%) (Auto) 2 0-10 % Basophils (%) (Auto) 0 0-10 % Neutrophils # (Auto) 8.3 H 1.8-7.8 X 10^3 Lymphocytes # (Auto) 2.5 1.0-4.0 X 10^3 Monocytes # (Auto) 0.6 0.0-1.0 X 10^3 Eosinophils # (Auto) 0.2 0.0-0.3 10^3/uL Basophils # (Auto) 0.0 0.0-0.1 10^3/uL Sodium Level 145 135-145 MMOL/L Potassium Level 4.2 3.6-5.0 MMOL/L Chloride Level 109 H 98-107 MMOL/L Carbon Dioxide Level 24 21-32 MMOL/L Anion Gap 12 5-14 MMOL/L Blood Urea Nitrogen 18 7-18 MG/DL Creatinine 0.98 0.60-1.30 MG/DL Estimat Glomerular Filtration Rate > 60 BUN/Creatinine Ratio 18 Glucose Level 102 70-105 MG/DL Calcium Level 9.7 8.5-10.1 MG/DL Corrected Calcium 9.4 8.5-10.1 MG/DL Magnesium Level 2.4 1.8-2.4 MG/DL Total Bilirubin 0.3 0.1-1.0 MG/DL Aspartate Amino Transf (AST/SGOT) 19 5-34 U/L Alanine Aminotransferase (ALT/SGPT) 23 0-55 U/L Alkaline Phosphatase 89 40-136 U/L Total Protein 7.6 6.4-8.2 GM/DL Albumin 4.4 3.2-4.5 GM/DL Lipase 32 8-78 U/L Micro Results Microbiology 07/24/18 Fecal Leukocyte Stain - Final, Resulted 07/24/18 C. difficile GDH Antigen & Toxins - Final, Resulted 07/24/18 Stool Culture - Preliminary, Resulted Culture In Progress Presumptive Usual Lisa My Orders Orders - NITA DAILEY MD Cbc With Automated Diff (07/23/18 22:45) Comprehensive Metabolic Panel (07/23/18 22:45) Lipase (07/23/18 22:45) Magnesium (07/23/18 22:45) Ua Culture If Indicated (07/23/18 22:45) Saline Lock/Iv-Start (07/23/18 22:45) Ns Iv 1000 Ml (Sodium Chloride 0.9%) (07/23/18 22:45) Ondansetron Injection (Zofran Injectio (07/23/18 22:45) Hyoscyamine Sl Tablet (Levsin Sl Tablet) (07/24/18 00:45) Stool Culture (07/24/18 00:38) Fecal Wbc (07/24/18 00:38) C Difficile Ag + Toxin A/B. (07/24/18 00:38) Albuterol/Ipra Inhalation Soln (Duoneb I (07/24/18 01:00) Svn Small Volume Nebulizer (07/24/18 00:47) Cyclobenzaprine Tablet (Flexeril Tablet) (07/24/18 02:00) Metronidazole Tablet (Flagyl Tablet) (07/24/18 02:00) Rx-Ondansetron Po (Rx-Zofran Po) (07/24/18 01:52) Rx-Hyoscyamine Tab (Rx-Levsin Sl) (07/24/18 01:52) Iv Push Tube Builder Ed (07/23/18 ) Medications Given in ED Vital Signs/I&O 07/23/18 07/24/18 07/24/18 23:25 00:57 02:12 Temp 96.8 96.8 Pulse 90 89 Resp 20 20 B/P (MAP) 171/103 (125) 170/100 (123) Pulse Ox 98 97 O2 Delivery Nasal Cannula Nasal Cannula Nasal Cannula O2 Flow Rate 4.00 3.00 3.00 Blood Pressure Mean: 125 Progress Progress Note : Progress Note Workup was relatively unremarkable. Patient was hydrated with 1 L of IV normal saline and treated with Zofran. He was later treated it with Levsin for the abdominal cramping and diarrhea. He was noted to be wheezing on exam. A DuoNeb treatment was provided. Due to recent antibiotic use, stool studies were obtained including C. difficile. Results were not available during the time of his ER stay. He was empirically treated with Flagyl at his request after discussion of potential causes of his diarrhea. Take-home packet of Levsin and Zofran were provided. See discharge instructions and prescriptions. Departure Impression Primary Impression: Nausea vomiting and diarrhea Additional Impression: Generalized abdominal cramping Disposition: 01 HOME, SELF-CARE Condition: Improved Departure-Patient Inst. Decision time for Depature: 01:54 Referrals: [facility] [place] (PCP/Family) Primary Care Physician Patient Instructions: Diarrhea in Adolescents and Adults Add. Discharge Instructions: Drink plenty of clear liquids. Gradually advance your diet with small quantities of bland food as tolerated. Avoid milk products until diarrhea has been resolved for at least 24 hours. To combat diarrhea, you may use probiotics and Flagyl (metronidazole) as prescribed. You may also use Imodium [id number]. Follow package instructions. For cramping take Levsin (hyoscyamine) as prescribed. For nausea and vomiting take Zofran (ondansetron) as prescribed. Follow-up with your primary care provider to review stool culture results. Return to the emergency room or contact your doctor if symptoms are worsening or not improving as expected. All discharge instructions reviewed with patient and/or family. Voiced understanding. Scripts Metronidazole (Flagyl) 500 Mg Tablet 500 MG PO TID, #30 TAB Prov: NITA DAILEY MD 07/24/18 Ondansetron (Ondansetron Odt) 4 Mg Tab.rapdis 4 MG PO Q4H PRN for NAUSEA/VOMITING, #10 TAB Prov: NITA DAILEY MD 07/24/18 Hyoscyamine Sulfate (Levsin-Sl) 0.125 Mg Tab.subl 0.125 MG SL Q4H PRN for CRAMPS, #10 TAB Prov: NITA DAILEY MD 07/24/18 L.acidoph & Paracasei,B.lactis (Probiotic) 1 Each Capsule 1 EACH PO TID, #30 CAP Prov: NITA DAILEY MD 07/24/18 Copy Copies To 1: MIGUELINA PROCTOR JOSHUA T MD Jul 24, 2018 01:58
[2018-07-24] MEDS ORDERED: metroNIDAZOLE 500 MG (FLAGYL) TAB PO ONE (02:00)
[2018-07-24] MEDS ORDERED: CYCLOBENZAPRINE 10 MG (FLEXERIL) TAB PO ONE (02:00)
[2018-07-24 02:12] VITALS: BP 170/100
== END 2018-07-24 02:13 | disposition home or self-care (01) ==
LOC: EDUNIT# 21:31 → ER 21:32
DX: R11.2 Nausea with vomiting, unspecified (principal); R19.7 Diarrhea, unspecified; R10.84 Generalized abdominal pain; J44.9 Chronic obstructive pulmonary disease, unspecified; I10 Essential (primary) hypertension; Z85.038 Personal history of other malignant neoplasm of large intestine; Z86.010 Personal history of colon polyps; Z98.890 Other specified postprocedural states; Z87.891 Personal history of nicotine dependence; Z98.1 Arthrodesis status; Z90.49 Acquired absence of other specified parts of digestive tract; Z87.01 Personal history of pneumonia (recurrent)
CPT/HCPCS: 36415; 80053; 81000; 83690; 83735; 85025; 87015; 87045; 87046; 87324; 87449; 87899; 89055; 94640; 96361; 96374

== ENCOUNTER 2018-09-09 09:37 | Outpatient (RCR) | payer MEDICARE, MEDICAID ==
[~2018-09-09] VITALS: Ht 180.3 cm; Wt 73.6 kg
[~2018-09-09 09:37] MED LIST changes: +HYOS0.1283 SL; +L.AC1CAP6 PO; +METR500T PO; -OMEP20CA12 PO; +OMEP20CA13 PO; +ONDA4TAB11 PO
[2018-09-09 09:45] VITALS: BP 142/60
[2018-09-17 14:30] VITALS: BP 170/60
[2018-09-17 15:30] VITALS: BP 132/84
== END 2018-12-08 | disposition home or self-care (01) ==
LOC: PULM 09:37
PROVIDERS: ATTEND Nurse Practitioner Family
DX: J44.1 Chronic obstructive pulmonary disease with (acute) exacerbation (principal); R06.02 Shortness of breath; R09.02 Hypoxemia; F17.220 Nicotine dependence, chewing tobacco, uncomplicated

== ENCOUNTER → 2018-09-13 | Outpatient (CLI) | payer MEDICARE, MEDICAID ==
[~2018-09-13] MED LIST changes: +OMEP20CA12 PO; -OMEP20CA13 PO
--- NOTE | 2018-09-13 15:46 | Diagnostic Imaging Report ---
EXAM: CT CHEST SCREENING WO INDICATION: 78-lauz-[id number] smoking history. Quit smoking 2 months ago. COMPARISON: Low-dose lung screening chest CT 07/11/2017. FINDINGS: Advanced centrilobular emphysema. Diffuse bronchial wall thickening. No focal endobronchial lesions. No new suspicious pulmonary nodule or mass. Calcified granuloma in the right lower lobe. No pleural effusion or pneumothorax. Moderate atherosclerotic calcifications including coronary and aortic. Normal heart size. No pericardial effusion. No mediastinal, hilar or axillary lymphadenopathy. No acute osseous findings. The visualized upper abdominal contents are unremarkable. IMPRESSION: 1. No new suspicious pulmonary nodule or mass. Recommend continued annual screening with low-dose chest CT in 12 months. 2. Advanced centrilobular emphysema. LungRads category: 1. MODIFIER: None. Please note that the low-dose technique of this chest CT is of non-diagnostic quality. This study is only intended for lung cancer screening of high risk patients. Dictated by: Dictated on workstation # [id number]
== END ==
LOC: RAD 14:46
PROVIDERS: ATTEND Nurse Practitioner Family
DX: Z12.2 Encounter for screening for malignant neoplasm of respiratory organs (principal); J43.2 Centrilobular emphysema; Z87.891 Personal history of nicotine dependence; Z78.9 Other specified health status

== ENCOUNTER → 2019-09-16 | Outpatient (CLI) | payer MEDICARE, MEDICAID ==
[~2019-09-16] MED LIST changes: -LISI1TAB10 PO; +LISI1TAB26 PO; -MORP100T37 PO; +MORP100T47 PO; -OMEP20CA12 PO; +OMEP20CA18 PO
--- NOTE | 2019-09-16 19:57 | Diagnostic Imaging Report ---
INDICATION: Screening for lung cancer, 100 pack year history of smoking, quit smoking 6 months prior. TECHNIQUE: Multiple contiguous axial images were obtained through the chest without the use of intravenous contrast. All CT scans use one or more of the following dose optimizing techniques: automated exposure control, MA and/or KvP adjustment based on a patient size and exam type, or iterative reconstruction. Sagittal and coronal images reviewed. COMPARISONS: 09/13/2018 and 07/11/2017 FINDINGS: No significant adenopathy within the chest. Scattered vascular calcifications without aneurysmal dilatation of the thoracic aorta. The heart is within normal limits in size. No pericardial effusion. No pleural effusion. No pneumothorax. Moderate background centrilobular emphysematous changes are again noted. A 4 mm partially calcified nodule within the azygoesophageal recess within the right lower lobe is unchanged since 2018, and benign. Calcified granuloma within the right lower lobe. The lungs are otherwise clear. The trachea is patent. The visualized upper abdomen is unremarkable. No acute osseous abnormality with scattered osseous degenerative changes. IMPRESSION: Moderate background emphysematous changes without suspicious pulmonary nodule. Lung RADS category 2S: Benign appearance or behavior Modifier: S: Moderate background emphysematous changes. Follow-up: Continued annual low-dose screening CT in one year. Dictated on workstation # [id number]
== END ==
LOC: RAD 13:57
PROVIDERS: ATTEND Nurse Practitioner Community Health
DX: J43.9 Emphysema, unspecified (principal); Z87.891 Personal history of nicotine dependence

== ENCOUNTER → 2020-07-13 | Outpatient (CLI) | payer MEDICARE, MEDICAID ==
[~2020-07-13] MED LIST changes: +AMLO-250 PO; +AMLO-251 PO; -AMLO10TA7 PO; -AMLO5TAB9 PO; +CLN.2T PO; -CLON0.2T PO; -LISI-552 PO; +LISI20TA26 PO; -OXYC-471 PO; +OXYC1TAB11 PO; +RT-ALBUTEROL SULF 2.5 MG/3 ML PRE-MIX VIAL INH ONE
== END ==
LOC: RT 13:00
PROVIDERS: ATTEND Nurse Practitioner Family
DX: J44.0 Chronic obstructive pulmonary disease with (acute) lower respiratory infection (principal); Z76.89 Persons encountering health services in other specified circumstances; Z87.891 Personal history of nicotine dependence
CPT/HCPCS: 94060; 94726; 94729

== ENCOUNTER → 2020-07-26 | Outpatient (CLI) | payer MEDICARE, MEDICAID ==
[~2020-07-26] MED LIST changes: +HOLD METFORMIN - RECEIVED CONTRAST 20 ML VIAL IV SCH; +IOHEXOL 350 MG/ML 100 ML (OMNIPAQUE 350) VIAL IV ONE; +NS 100 ML (IVPB) BAG IV ONE; -RT-ALBUTEROL SULF 2.5 MG/3 ML PRE-MIX VIAL INH ONE
[2020-07-26 12:06] LABS: BUN/CREATININE RATIO 20; CREATININE SERUM 0.86 MG/DL (0.60-1.30); GFR ESTIMATED > 60
--- NOTE | 2020-07-26 12:44 | Diagnostic Imaging Report ---
EXAMINATION: CT Chest with intravenous contrast. TECHNIQUE: Multiple contiguous axial images were obtained through the chest after the uneventful administration of intravenous contrast. All CT scans use one or more of the following dose optimizing techniques: automated exposure control, MA and/or KvP adjustment based on a patient size and exam type, or iterative reconstruction. HISTORY: COPD COMPARISON: 07/11/2018 FINDINGS: There is no edema or pneumonia. No pleural effusion. No pneumothorax. No suspicious nodules. Lungs are emphysematous with scarring in the bases. There is no axillary or supraclavicular lymphadenopathy. There is no mediastinal lymphadenopathy. Heart size is normal. There are mild coronary artery calcifications. No pericardial effusion. Aorta is normal in caliber. Limited views of the upper abdomen are unremarkable. There are no suspicious osseous lesions. IMPRESSION: 1. Emphysematous lungs without acute abnormality. Dictated by: Dictated on workstation # [id number]
== END ==
LOC: RAD 11:16
PROVIDERS: ATTEND Nurse Practitioner Family
DX: J43.9 Emphysema, unspecified (principal)
CPT/HCPCS: 36415; 71260; 82565; 84520

== ENCOUNTER 2020-09-19 11:47 | Emergency (ER) | payer MEDICARE, MEDICAID ==
[~2020-09-19] VITALS: Ht 177.8 cm; Wt 90.7 kg
[~2020-09-19 11:47] MED LIST changes: -HOLD METFORMIN - RECEIVED CONTRAST 20 ML VIAL IV SCH; -IOHEXOL 350 MG/ML 100 ML (OMNIPAQUE 350) VIAL IV ONE; -NS 100 ML (IVPB) BAG IV ONE
[2020-09-19] MEDS ORDERED: ROCURONIUM 10 MG/ML 5 ML SYRINGE IV ONE (11:49)
[2020-09-19] MEDS ORDERED: ETOMIDATE IV SOLN 20 MG/10 ML VIAL IV ONE (11:49)
[2020-09-19] MEDS ORDERED: ATROPINE INJECTION 1 MG/10 ML SYR (ABBOTT) INJ ONE (11:49)
[2020-09-19] MEDS ORDERED: fentaNYL INJ 100 MCG/2 ML AMP IV ONE (11:49)
[2020-09-19] MEDS ORDERED: CALCIUM GLUC. 10% 4.65 MEQ/10 ML VIAL ONE (11:53)
[2020-09-19] MEDS ORDERED: PROPOFOL DRIP (ICU) 100 ML IV ONE (12:09)
[2020-09-19] MEDS ORDERED: NOREPINEPHRINE 8 MG/250 ML 250 ML IV ONE (12:09)
[2020-09-19 12:11] LABS: BASOPHILS % (AUTO) 0 % (0-10); EOSINOPHILS % (AUTO) 0 % (0-10); HEMATOCRIT 39 % (40-54); HEMOGLOBIN 12.5 g/dL (13.3-17.7); LYMPHOCYTES # (AUTO) 0.7 X 10^3 (1.0-4.0); LYMPHOCYTES % (AUTO) 5 % (12-44); MEAN CORPUSCULAR HEMOGLOBIN 31 pg (25-34); MEAN CORPUSCULAR HGB CONC 32 g/dL (32-36); MEAN CORPUSCULAR VOLUME 97 fL (80-99); MEAN PLATELET VOLUME 9.5 fL (9.0-12.2); MONOCYTES # (AUTO) 1.6 X 10^3 (0.0-1.0); MONOCYTES % (AUTO) 10 % (0-12); NEUTROPHILS # (AUTO) 13.4 X 10^3 (1.8-7.8); NEUTROPHILS % (AUTO) 85 % (42-75); PLATELET COUNT 250 10^3/uL (130-400); WHITE BLOOD COUNT 15.8 10^3/uL (4.3-11.0)
[2020-09-19 12:35] LABS: CLARITY,URINE CLEAR; COLOR,URINE DARK YELLOW; GLUCOSE, URINE (UA) NEGATIVE (NEGATIVE); PH,URINE 5.5 (5-9); PROTEIN,URINE 3+ (NEGATIVE)
[2020-09-19 12:36] LABS: BILIRUBIN,URINE 1+ (NEGATIVE); KETONES,URINE NEGATIVE (NEGATIVE); LEUKOCYTE ESTERASE ,URINE TRACE (NEGATIVE); NITRITE,URINE NEGATIVE (NEGATIVE)
[2020-09-19 12:37] LABS: AMORPHOUS SEDIMENT,UR LARGE AMOR URATES /LPF; BACTERIA,URINE TRACE /HPF
--- NOTE | 2020-09-19 13:04 | ED General ---
General Chief Complaint: Altered Mental Status Stated Complaint: AMS Nursing Triage Note: Pt to ED via EMS. EMS reports neighbors called EMS because pt was found lethargic. EMS report last known well time of . EMS reports pt takes percocet and morphine and "sometimes get like this." EMS reports pt was agitated. 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 Nursing Sepsis Screen: No Definite Risk Source of Information: Patient Exam Limitations: No Limitations (EDGARDO COFFEY APRN) History of Present Illness Date Seen by Provider: September 19, 2020 Time Seen by Provider: 12:58 Initial Comments To ER by EMS from home where he lives in a camper which was allegedly in a depl orable state. EMS was summoned by neighbors who had not seen him since (today is Sunday). He has a history of taking Percocet and morphine and the neighbors reported to EMS that he "sometimes gets like this". EMS reports he was somnolent and mumbling nonsensically with respiratory depression. They gave Narcan without improvement in respiratory rate but he did become more agitated. Timing/Duration: 2-3 Days Severity: Moderate Associated Systoms: Denies Symptoms (EDGARDO COFFEY APRN) Allergies and Home Medications Allergies Coded Allergies: No Known Drug Allergies (Unverified , 10/30/15) Home Medications Albuterol Sulfate 18 Gm Hfa.aer.ad, 2 PUFF INH Q4H PRN for SHORTNESS OF BREATH Prescribed by: SAEED TERRY on 09/11/16 0920 Cyclobenzaprine HCl 10 Mg Tablet, 10 MG PO Q8H PRN for SPASMS Prescribed by: CECILY WHITE on 06/29/18 2244 Hyoscyamine Sulfate 0.125 Mg Tab.subl, 0.125 MG SL Q4H PRN for CRAMPS Prescribed by: NITA CHAMPION on 07/24/18156 LEsmeacidmarisela & Chey[place] Whiteheadlactis 1 Each Capsule, 1 EACH PO TID Prescribed by: NITA CHAMPION on 07/24/18156 Metronidazole 500 Mg Tablet, 500 MG PO TID Prescribed by: NITA CHAMPION on 07/24/18156 Morphine Sulfate 100 Mg Tablet.er, 75 MG PO Q12H, (Reported) Ondansetron 4 Mg Tab.rapdis, 4 MG PO Q4H PRN for NAUSEA/VOMITING Prescribed by: NITA CHAMPION on 07/24/18 0157 Oxycodone HCl/Acetaminophen 1 Each Tablet, 2 TAB PO BID PRN for PAIN-MODERATE, (Reported) Patient Home Medication List Home Medication List Reviewed: Yes (EDGARDO COFFEY APRN) Review of Systems Review of Systems Constitutional: see HPI (Unable to obtain) (EDGARDO COFFEY APRN) Past Euhpwdm-Scbbfs-Dsaium Hx Patient Social History Alcohol Use: Denies Use Number of Drinks Today: GG Alcohol Beverage of Choice: Whiskey Type Used: Cigarettes Former Smoker, Quit: Jul 31, 2016 2nd Hand Smoke Exposure: Yes Recent Infectious Disease Expo: No Recent Hopitalizations: No (EDGARDO COFFEY APRN) Immunizations Up To Date Tetanus Booster (TDap): Less than 5yrs (EDGARDO COFFEY APRN) Seasonal Allergies Seasonal Allergies: No (EDGARDO COFFEY APRN) Past Medical History Surgeries: Yes (BACK SURGERY X 2--LUMBAR FUSION WITH HARDWARE; COLON RESECTION) Abdominal, Bowel Surgery, Orthopedic Respiratory: Yes (O2 DEPENDENT) Asthma, Pneumonia, Chronic Bronchitis, COPD Currently Using CPAP: No Currently Using BIPAP: No Cardiac: Yes Hypertension Neurological: Yes (2009-UNRESPONSIVE ON ARRIVAL-MULTIFACTORIAL) Reproductive Disorders: No Genitourinary: Yes Renal Failure Gastrointestinal: Yes (COLON CANCER) Liver Disease/Jaundice, Polyps Musculoskeletal: Yes (BACK SURGERY; CHRONIC NARCOTIC USE FOR CHRONIC BACK PAIN COMPLAINTS) Degenerate Disk Disease, Arthritis, Chronic Back Pain Endocrine: No HEENT: No Cancer: No (COLON POLYPS WITH COLON RESECTION-NO REPORT OF CANCER) Colon Did You Recieve Any Treatments: Yes What Type of Treatment Did You: Surgical Intervention Psychosocial: No Integumentary: No Blood Disorders: No Adverse Reaction/Blood Tranf: No (EDGARDO COFFEY APRN) Family Medical History Alzheimer's disease 19 FATHER Arthritis 19 FATHER Dementia 19 FATHER Respiratory disorder 19 MOTHER No Pertinent Family Hx 2009--PT ARRIVES IN ER IN UNRESPONSIVE STATE--WAS IN RENAL FAILURE, ELEVATED LIVER ENZYMES-POSSIBLE HEPATIC ENCEPHALOPATHY; ELEVATED TROPONIN, WITH UDS + FOR OPIATES, AMPHETAMINES/METHAMPHETAMINES (EDGARDO COFFEY APRN) Physical Exam Vital Signs Vital Signs - First Documented 09/19/20 09/19/2021 11:50 14:28 15:45 Temp 33.6 Pulse 27 Resp 18 B/P (MAP) 193/111 (138) Pulse Ox 95 O2 Delivery Room Air FiO2 100 (NITA DAILEY MD) Vital Signs Capillary Refill : Greater Than 3 Seconds (EDGARDO COFFEY APRN) Height, Weight, BMI Height: 5'11.00" Weight: 157lbs. 0.0oz. 71.573009ny; 28.00 BMI Method:Stated General Appearance: Chronically ill (Initial blood pressure 190/100. Heart rate irregular ranging from 27-34. Decided to proceed with intubation. We premedicated with 50 mcg of fentanyl 20 mg of etomidate, 50 mg of rocuronium and 0.5 mg of atropine. This did speed up his heart rate into the 60s which is a wide-complex irregular sinus arrhythmia with a left bundle branch block. His blood pressure after intubation dropped to 75 systolic. Because of the initial bradycardia with left bundle and concern for hyperkalemia we went ahead and gave 1 g of calcium gluconate IV. Because of the hypotension we then proceeded with a left femoral central venous catheter ultrasound-guided which was accomplished x1 attempt without difficulty. Levophed was initiated at 0.03 mcg/kg/min. A rectal thermometer was inserted showing a core temperature of 34.4 C. He was covered in fecal matter which was cleaned off prior to all of these interventions.), Severe Distress HEENT: PERRL/EOMI, TMs Normal Neck: Full Range of Motion, Normal Inspection Respiratory: Other (bradycardia, gurgling resps. ) Cardiovascular: Normal Peripheral Pulses, Bradycardia Gastrointestinal: Non Tender, Soft Extremity: No Pedal Edema, Other (Cool mottled) Neurologic/Psychiatric: Other (Lethargic unresponsive unable to maintain airway) Skin: Cool, Mottled (EDGARDO COFFEY APRN) Focused Exam Lactate Level 09/19/20 12:55: Lactic Acid Level 3.59*H (NITA DAILEY MD) Lactic Acid Level Laboratory Tests Test 09/19/20 12:55 Lactic Acid Level 3.59 MMOL/L (0.50-2.00) *H (NITA DAILEY MD) Progress/Results/Core Measures Suspected Sepsis Recent Fever Within 48 Hours: No Infection Criteria Present: Suspected New Infection New/Unexplained Altered Menta: Yes Sepsis Screen: No Definite Risk SIRS Temperature: Pulse: 60 Respiratory Rate: 18 Laboratory Tests 09/19/20 11:56: White Blood Count 15.8H Blood Pressure 70 /45 Mean: 53 09/19/20 12:55: Lactic Acid Level 3.59*H Laboratory Tests 09/19/20 11:56: Platelet Count 250 09/19/20 13:29: Creatinine 11.51H, Total Bilirubin 1.0 (EDGARDO COFFEY APRN) Results/Orders Lab Results Laboratory Tests Test 09/19/20 11:56 09/19/20 12:05 09/19/20 12:55 09/19/20 13:20 Range/Units White Blood Count 15.8 H 4.3-11.0 10^3/uL Red Blood Count 4.05 L 4.30-5.52 10^6/uL Hemoglobin 12.5 L 13.3-17.7 g/dL Hematocrit 39 L 40-54 % Mean Corpuscular Volume 97 80-99 fL Mean Corpuscular Hemoglobin 31 25-34 pg Mean Corpuscular Hemoglobin Concent 32 32-36 g/dL Red Cell Distribution Width 14.8 H 10.0-14.5 % Platelet Count 250 130-400 10^3/uL Mean Platelet Volume 9.5 9.0-12.2 fL Immature Granulocyte % (Auto) 1 % Neutrophils (%) (Auto) 85 H 42-75 % Lymphocytes (%) (Auto) 5 L 12-44 % Monocytes (%) (Auto) 10 0-12 % Eosinophils (%) (Auto) 0 0-10 % Basophils (%) (Auto) 0 0-10 % Neutrophils # (Auto) 13.4 H 1.8-7.8 X 10^3 Lymphocytes # (Auto) 0.7 L 1.0-4.0 X 10^3 Monocytes # (Auto) 1.6 H 0.0-1.0 X 10^3 Eosinophils # (Auto) 0.0 0.0-0.3 10^3/uL Basophils # (Auto) 0.0 0.0-0.1 10^3/uL Immature Granulocyte # (Auto) 0.1 0.0-0.1 10^3/uL Neutrophils % (Manual) 83 % Lymphocytes % (Manual) 6 % Monocytes % (Manual) 9 % Band Neutrophils 2 % Blood Morphology Comment NORMAL B-Type Natriuretic Peptide 2306.5 H <100.0 PG/ML Urine Color DARK YELLOW Urine Clarity CLEAR Urine pH 5.5 5-9 Urine Specific [place] >=1.030 1.016-1.022 Urine Protein 3+ H NEGATIVE Urine Glucose (UA) NEGATIVE NEGATIVE Urine Ketones NEGATIVE NEGATIVE Urine Nitrite NEGATIVE NEGATIVE Urine Bilirubin 1+ H NEGATIVE Urine Urobilinogen 0.2 < = 1.0 MG/DL Urine Leukocyte Esterase TRACE H NEGATIVE Urine RBC (Auto) 3+ H NEGATIVE Urine RBC 10-25 H /HPF Urine WBC 10-25 H /HPF Urine Crystals PRESENT H /LPF Urine Amorphous Sediment LARGE AMITA URATES H /LPF Urine Bacteria TRACE /HPF Urine Casts PRESENT /LPF Urine Hyaline Casts 5-10 H /LPF Urine Mucus NEGATIVE /LPF Urine Culture Indicated CULTURE PENDING Lactic Acid Level 3.59 *H 0.50-2.00 MMOL/L Influenza Type A (RT-PCR) Not Detected Not Detecte Influenza Type B (RT-PCR) Not Detected Not Detecte SARS-CoV-2 RNA (RT-PCR) Not Detected Not Detecte Test 09/19/20 13:29 09/19/20 14:44 Range/Units Blood Gas Puncture Site LT RAD LT BRACH Blood Gas Patient Temperature 34.5 34.6 Arterial Blood pH 6.95 *L 7.02 *L 7.37-7.43 Arterial Blood Partial Pressure CO2 52 H 42 35-45 MMHG Arterial Blood Partial Pressure O2 53 L 551 H 79-93 MMHG Arterial Blood HCO3 12 *L 11 *L 23-27 MMOL/L Arterial Blood Total CO2 13.3 L 12.2 L 21.0-31.0 MMOL/L Arterial Blood Oxygen Saturation 74 L 100 94-100 % Arterial Blood Base Excess -18.6 L -18.5 L -2.5-2.5 MMOL/L [place] Test YES-POS YES-POS Blood Gas Ventilator Setting YES YES Blood Gas Inspired Oxygen 100% 100% Sodium Level 137 135-145 MMOL/L Potassium Level 7.1 #*H 3.6-5.0 MMOL/L Chloride Level 100 98-107 MMOL/L Carbon Dioxide Level 8 *L 21-32 MMOL/L Anion Gap 29 H 5-14 MMOL/L Blood Urea Nitrogen 116 *H 7-18 MG/DL Creatinine 11.51 H 0.60-1.30 MG/DL Estimat Glomerular Filtration Rate 4 BUN/Creatinine Ratio 11 Glucose Level 103 70-105 MG/DL Calcium Level 6.5 L 8.5-10.1 MG/DL Corrected Calcium 7.1 L 8.5-10.1 MG/DL Magnesium Level 2.6 H 1.6-2.4 MG/DL Total Bilirubin 1.0 0.1-1.0 MG/DL Aspartate Amino Transf (AST/SGOT) 182 H 5-34 U/L Alanine Aminotransferase (ALT/SGPT) 81 H 0-55 U/L Alkaline Phosphatase 97 40-136 U/L Total Creatine Kinase 22508 H 30-200 U/L Myoglobin 36508.9 H 10.0-92.0 NG/ML Troponin I 0.223 H <0.028 NG/ML C-Reactive Protein High Sensitivity 21.36 H 0.00-0.50 MG/DL Total Protein 5.5 L 6.4-8.2 GM/DL Albumin 3.2 3.2-4.5 GM/DL Procalcitonin 6.21 H <0.10 NG/ML (NITA DAILEY MD) Micro Results Microbiology 09/19/20 Blood Culture - Preliminary, Resulted No growth 09/19/20 Blood Culture - Preliminary, Resulted Staph, Coag Neg (SAMPLE TESTER) See Comments 09/19/20 Urine Culture - Preliminary, Resulted Morganella morganii Culture In Progress (NITA DAILEY MD) My Orders Orders - NITA DAILEY MD Cbc With Automated Diff (09/19/20 12:01) Blood Culture (09/19/20 12:01) Urinalysis (09/19/20 12:01) Urine Culture (09/19/20 12:01) Chest 1 View, Ap/Pa Only (09/19/20 12:01) Ed Iv/Invasive Line Start (09/19/20 12:01) Ed Iv/Invasive Line Start (09/19/20 12:01) Vital Signs Adult Sepsis Patie Q15M (09/19/20 12:01) O2 (09/19/20 12:01) Remove Rings In Anticipation O (09/19/20 12:01) Lactic Acid Analyzer (09/19/20 12:01) Magnesium (09/19/20 12:01) Ekg Tracing (09/19/20 12:01) Myoglobin Serum (09/19/20 12:01) Monitor-Rhythm Ecg Trace Only (09/19/20 12:01) Calcium Gluconate 10% Inj (Calcium Glu (09/19/20 11:53) Influenza A And B By Pcr (09/19/20 12:03) Covid 19 Inhouse Test (09/19/20 12:03) Manual Differential (09/19/20 11:56) Norepinephrine 8 Mg/250 Ml (Norepinephri (09/19/20 12:09) Propofol Drip (Icu) (Diprivan Drip (Icu) (09/19/20 12:09) (NITA DAILEY MD) Vital Signs/I&O 09/19/20 09/19/20 09/19/20 09/19/20 11:50 12:24 13:40 14:28 Temp 33.6 Pulse 27 60 57 66 Resp 18 18 B/P (MAP) 193/111 (138) 70/45 103/49 Pulse Ox 95 FiO2 100 09/19/20 09/19/20 15:22 15:45 Temp 35.4 Pulse 56 59 Resp 18 18 B/P (MAP) 111/78 (67) Pulse Ox 100 100 O2 Delivery Room Air FiO2 100 (NITA DAILEY MD) Vital Signs/I&O Capillary Refill : Greater Than 3 Seconds (EDGARDO COFFEY APRN) Blood Pressure Mean: 53 Progress Note : Progress Note I was physically present in the emergency department as attending physician during the care of this patient. I assisted with the initial evaluation of the patient and was present during the intubation. Care was primarily managed by Edgardo Coffey NP. I agree with assessment and transfer to higher level of care. (NITA DAILEY MD) Diagnostic Imaging Diagonstic Imaging: Xray Plain Films/CT/US/NM/MRI: chest Comments NAME: COREY CLAROS [facility] REC#: [id number] PT STATUS: REG ER : 1955 PHYSICIAN: NITA DAILEY MD ADMIT DATE: 09/19/20/ER Draft Date of Exam:09/19/20 CHEST 1 VIEW, AP/PA ONLY Portable erect AP chest at 12:58. Indication: Sepsis The heart size is within normal limits and stable when compared to the CT chest exam performed on 07/26/2020. The CT chest exam revealed emphysematous changes involving both lungs but failed to show any sign of an acute abnormality. In the interval since the prior study vague alveolar/interstitial infiltrates have developed in the left mid lung and left upper lung and perhaps in the right midlung. There is also suggestion of a small amount of fluid in the left lung base. I suspect these abnormal parenchymal densities are related to pneumonia/atelectasis. The central pulmonary vascularity does not appear engorged and there is no evidence for overt failure at this time. The mediastinum is not widened. The osseous structures are intact. The patient has been intubated and the ET tube tip appears to be in good position overlying the midportion of the tracheal air shadow. There is also an NG line in place with the tip of the tube overlying the gastric body. Impression: 1. In the interval since the prior study patchy alveolar/interstitial infiltrates have developed in both lungs, particularly left lung. These finding are suspicious for pneumonia/atelectasis. A followup exam would be recommended for continued evaluation. 2. The supportive tubes and lines seen in good position. Dictated on workstation # [id number] Dict: 09/19/20 1301 Trans: 09/19/20 1318 CVB [id number] Interpreted by: KARI HEDRICK MD Electronically signed by: (EDGARDO COFFEY APRN) Departure Communication (Admissions) Family Conversation 1303-Bazzi catheter was inserted. He is only had about 10 mils of urine out so far. The catheter has been in place for about an hour. He is receiving his second liter of IV fluids currently 1334-levophed at 0.1mcg/kg/min BP 116/53. HR 56, T 34.4 with bear hugger on. Propofol just now started as he's started moving his arms just now. Still awaiting all chemistries to come back 1441-discussed the case with Dr. Nick from intensive care at [facility]. He agrees to accept the patient. In the interim I will repeat an ABG, give a bicarb bolus in addition to the drip, Kayexalate through his nasogastric tube, inline DuoNeb treatment, IV Solu-Medrol, and then 1 amp of D50 and 10 units of regular insulin IV. 1434 I spoke with the patient's brother Len at phone #[phone] and discussed with him that the patient would be transferred to [facility] in [place]. I advised him I did not think that Corey was going to survive this and if the Len wants to see him he needs to make a trip to [place] today. He is understanding of this. He states that if we cannot get a hold of him we should call his niece at [phone]. (EDGARDO COFFEY APRN) Impression Primary Impression: Pneumonia Additional Impressions: Hyperkalemia Metabolic acidosis Renal failure Rhabdomyolysis Disposition: XFER SHT-[facility] Condition: Critical Transfer Transfer Reason: Exceeds level of care Time Spoke to Accepting Phy: 14:23 (EDGARDO COFFEY APRN) Departure-Patient Inst. Referrals: [facility] (PCP/Family) Primary Care Physician EDGARDO COFFEY APRN September 19, 2020 13:03 NITA DAILEY MD Sep 21, 2020 19:23
--- NOTE | 2020-09-19 13:19 | Diagnostic Imaging Report ---
Portable erect AP chest at 12:58. Indication: Sepsis The heart size is within normal limits and stable when compared to the CT chest exam performed on 07/26/2020. The CT chest exam revealed emphysematous changes involving both lungs but failed to show any sign of an acute abnormality. In the interval since the prior study vague alveolar/interstitial infiltrates have developed in the left mid lung and left upper lung and perhaps in the right midlung. There is also suggestion of a small amount of fluid in the left lung base. I suspect these abnormal parenchymal densities are related to pneumonia/atelectasis. The central pulmonary vascularity does not appear engorged and there is no evidence for overt failure at this time. The mediastinum is not widened. The osseous structures are intact. The patient has been intubated and the ET tube tip appears to be in good position overlying the midportion of the tracheal air shadow. There is also an NG line in place with the tip of the tube overlying the gastric body. Impression: 1. In the interval since the prior study patchy alveolar/interstitial infiltrates have developed in both lungs, particularly left lung. These finding are suspicious for pneumonia/atelectasis. A followup exam would be recommended for continued evaluation. 2. The supportive tubes and lines seen in good position. Dictated by: Dictated on workstation # [id number]
[2020-09-19 13:20] LABS: BAND NEUTROPHILS 2 %; LYMPHOCYTES % (MANUAL) 6 %; MONOCYTES % (MANUAL) 9 %; NEUTROPHILS % (MANUAL) 83 %; RBC MORPH NORMAL
[2020-09-19 13:36] LABS: ABG BASE EXCESS -18.6 MMOL/L (-2.5-2.5); ABG OXYGEN SATURATION 74 % (94-100); ABG PCO2 52 MMHG (35-45); ABG PO2 53 MMHG (79-93); ABG TCO2 13.3 MMOL/L (21.0-31.0)
[2020-09-19 13:38] LABS: ABG PH 6.95 (7.37-7.43)
[2020-09-19 13:39] LABS: ALLENS TEST YES-POS; INSPIRED O2 100%; PATIENT TEMP 34.5; VENTILATOR YES
[2020-09-19 13:48] LABS: ALBUMIN 3.2 GM/DL (3.2-4.5)
[2020-09-19 13:49] LABS: CALCIUM 6.5 MG/DL (8.5-10.1)
[2020-09-19 13:50] LABS: TOTAL PROTEIN 5.5 GM/DL (6.4-8.2)
[2020-09-19 13:54] LABS: CREATININE SERUM 11.51 MG/DL (0.60-1.30); MAGNESIUM 2.6 MG/DL (1.6-2.4)
[2020-09-19] MEDS ORDERED: SODIUM BICARBONATE 8.4% VIAL 150 MEQ in D5W 1000 ML IV SOLUTION 1,000 ML IV SCH (14:00)
[2020-09-19 14:02] LABS: POTASSIUM 7.1 MMOL/L (3.6-5.0)
[2020-09-19] MEDS ORDERED: CEFEPIME INJECTION 1,000 MG in WATER (STERILE) FOR INJECTION 10 ML IV ONE (14:15)
[2020-09-19] MEDS ORDERED: SODIUM BICARB 8.4% 50 MEQ/50 ML (ABBOTT) SYR ONE (14:26)
[2020-09-19] MEDS ORDERED: inSUlin (REGULAR) HUMAN 1 UNIT/0.01 ML (CHARGE PER UNIT) IV ONE (14:30)
[2020-09-19] MEDS ORDERED: SODIUM BICARB 8.4% 50 MEQ/50 ML VIAL IV ONE (14:30)
[2020-09-19] MEDS ORDERED: methylPREDNISolone 125 MG (Solu-MEDROL) VIAL IVP ONE (14:30)
[2020-09-19] MEDS ORDERED: SOD POLYSTYRENE 30 GM/120 ML (KAYEXALATE) BULK BOTTLE PO ONE (14:30)
[2020-09-19] MEDS ORDERED: RT-ALBUTEROL/IPRATROPIUM 3 ML (DUONEB) VIAL INH ONE (14:30)
[2020-09-19] MEDS ORDERED: DEXTROSE 50% 50 ML (IMS) SYR IV ONE (14:30)
--- NOTE | 2020-09-19 14:43 | Diagnostic Imaging Report ---
PROCEDURE: CT head without contrast. TECHNIQUE: Multiple contiguous axial images were obtained through the brain without the use of intravenous contrast. Auto Exposure Controls were utilized during the CT exam to meet ALARA standards for radiation dose reduction. INDICATION: Unresponsive There is no mass, shift of the midline or hemorrhage to suggest an acute intracranial abnormality. The ventricles are not abnormally dilated and stable in size when compared to the prior CT head exam of 12/28/2009. The bone windows show no evidence for skull fracture or for destructive lesion. The orbits are symmetrical and within normal limits. The sinuses are generally clear. The rock singer film indicates that there is an NG line in place. The patient has also been intubated. IMPRESSION: 1. There is no evidence for an acute intracranial abnormality. 2. If clinical concern regarding an underlying acute abnormality persists, then MRI would be recommended for further study. Dictated by: Dictated on workstation # [id number]
[2020-09-19 14:51] LABS: ABG BASE EXCESS -18.5 MMOL/L (-2.5-2.5); ABG OXYGEN SATURATION 100 % (94-100); ABG PCO2 42 MMHG (35-45); ABG PO2 551 MMHG (79-93); ABG TCO2 12.2 MMOL/L (21.0-31.0)
[2020-09-19 14:54] LABS: ABG PH 7.02 (7.37-7.43); ALLENS TEST YES-POS; INSPIRED O2 100%; PATIENT TEMP 34.6; VENTILATOR YES
[2020-09-19] MEDS ORDERED: SOD POLYSTERENE 15 GM/60 ML (KAYEXALATE) UNIT DOSE ONE ×2 (14:55→15:03)
[2020-09-19 15:45] VITALS: BP 111/78
[2020-09-19] MEDS ORDERED: NS IV 1000 ML 1,000 ML IV SCH (16:00)
== END 2020-09-19 15:45 | disposition short-term general hospital (02) ==
LOC: ER 11:48
DX: N19 Unspecified kidney failure (principal); J18.9 Pneumonia, unspecified organism; M62.82 Rhabdomyolysis; E87.2 Acidosis; E87.5 Hyperkalemia; R00.1 Bradycardia, unspecified; I10 Essential (primary) hypertension; J44.9 Chronic obstructive pulmonary disease, unspecified; G89.29 Other chronic pain; M54.9 Dorsalgia, unspecified; Z99.81 Dependence on supplemental oxygen; Z98.1 Arthrodesis status; Z87.891 Personal history of nicotine dependence; Z77.22 Contact with and (suspected) exposure to environmental tobacco smoke (acute) (chronic); Z79.891 Long term (current) use of opiate analgesic; Z79.899 Other long term (current) drug therapy
CPT/HCPCS: 36415; 36556; 36600; 51702; 70450; 71045; 80053; 81000; 82550; 82805; 83605; 83735; 83874; 83880; 84145; 84484; 85007; 85027; 86141; 87040; 87077; 87088; 87186; 87635; 87636; 93005; 93041; 94002; 94640; 94799; 99291